=== PATIENT | male | born 1960 | race Hispanic/Latino ===

== ENCOUNTER 2017-01-16 10:37 | Outpatient (CLI) | payer MEDICAID ==
[~2017-01-16 10:37] MED LIST: NACL 0.9% 1000 ML 1,000 ML ONE
[2017-01-16 12:07] LABS: Blood Urea Nitrogen 10 mg/dL (9-20)
[2017-01-16] MEDS ORDERED: NACL ONE (13:33)
--- NOTE | 2017-01-16 16:14 | Cat Scan Report ---
CT chest abdomen and pelvis with contrast: Anus malignancy. Transverse images are obtained from the thoracic inlet to the ischium with coronal and sagittal 2-D reformatted images. The pulmonary arterial structures as well as cardiac chambers are only mildly opacified. There is no obvious intraluminal filling abnormalities. No axillary, hilar, nor mediastinal adenopathy noted. The lungs are clear of any nodules or infiltrates. The liver surface is mildly lobulated and the overall volume may be slightly decreased. No focal lesion. The spleen is markedly enlarged and the portal vein appears to be increased in diameter. There are epigastric varices. The gallbladder is mildly patulous. There is no obvious periaortic, mesenteric, nor pelvic adenopathy. The partially opacified small bowel and colon shows no obvious dilatation or lesion. There are several small sclerotic foci in the left iliac bone and one seen on the right however these do not appear to represent blastic lesions. Bone islands are considered more likely. Impressions: No metastases identified. Findings consistent with hepatic cirrhosis.
== END 2017-01-16 10:38 | disposition home or self-care (01) ==
LOC: CT 10:37
PROVIDERS: ATTEND Internal Medicine Hematology & Oncology
DX: C21.0 Malignant neoplasm of anus, unspecified (principal); R16.1 Splenomegaly, not elsewhere classified
CPT/HCPCS: 36415; 71260; 74177; 82565; 84520; Q9967; J7030

== ENCOUNTER 2017-05-13 11:20 | Day surgery (SDC) | payer MEDICAID ==
[2017-05-13] MEDS ORDERED: NACL 0.9% 1000 ML 1,000 ML IV SCH (12:00)
--- NOTE | 2017-05-13 12:09 | Anesthesia Consultation ---
<MIGDALIA BASS - Last Filed: 05/13/17 12:04> Anesthesia Consult and Med Hx Date of service: 05/13/17 - Airway Anesthetic Teeth Evaluation: Poor (mult. missing and broken) ROM Head & Neck: Adequate Mental/Hyoid Distance: Adequate Mallampati Class: Class II Intubation Access Assessment: Probably Good - Pulmonary Exam CTA: Yes - Cardiac Exam Cardiac Exam: RRR - Pre-Operative Health Status ASA Pre-Surgery Classification: ASA3 Proposed Anesthetic Plan: MAC - Pulmonary Hx Smoking: Yes (CIGARETTES 1 PPD X 40 YRS) Hx Sleep Apnea: No - Cardiovascular System Hx Hypertension: Yes Hx Pacemaker: No Hx Internal Defibrillator: No - Central Nervous System Hx Psychiatric Problems: No - Endocrine Hx Cirrhosis: Yes Hx Liver Disease: Yes (Hep C) - Other Systems Hx Cancer: No - Additional Comments Anesthesia Medical History Comments: cough with phlegm <ESTELITA JAVIER N - Last Filed: 05/13/17 12:36> Anesthesia Consult and Med Hx - Other Systems Hx Substance Use: Yes (h/o substance abuse)
--- NOTE | 2017-05-13 12:11 | Anesthesia Day of Surgery ---
Anesthesia Day of Surgery - Day of Surgery Patient Examined: Yes Patient H&P Reviewed: Yes Patient is NPO: Yes
[2017-05-13] MEDS ORDERED: DIPRIVAN 10 MG/ML IV ONE (12:12)
--- NOTE | 2017-05-13 12:36 | Short Stay Summary ---
Short Stay Documentation Date of service: 05/13/17 - History H&P: obtained from office - Allergies and Medications Current Medications: Allergies codeine Allergy (Verified 07/17/16 11:55) Rash Home Medications Medication Instructions Recorded Confirmed Last Taken Type clonazePAM 1 mg PO DAILY 08/22/16 05/13/17 05/12/17 History Oxycodone HCl/Acetaminophen 1 each PO Q6HR PRN #12 tablet 08/31/16 05/13/17 Rx [Percocet 10/325 mg] Acetaminophen [Acetaminophen ER 650 mg PO Q8HR PRN #20 tablet.er 09/16/1605/06/17 Rx TAB] Active Medications Sodium Chloride (Nacl 0.9% 1000 Ml) 1,000 mls @ 50 mls/hr IV DIRECT XENIA Last Admin: 05/13/17 12:16 Dose: 50 mls/hr - Brief post op/procedure progress note Date of procedure: 05/13/17 Findings: see dictation Estimated blood loss: none Pathology: none Condition: stable - Disposition Condition at discharge: Good Disposition: DC-01 TO HOME OR SELFCARE - Discharge Diagnoses (1) Cirrhosis of liver Status: Acute Qualifiers: Hepatic cirrhosis type: H Ascites presence: A (2) Portal hypertension Status: Acute Short Stay Discharge Plan Activity: other (no driving for 24 hours) Weight Bearing Status: Non-Weight Bearing Diet: regular Follow up with: PRIMARY CARE, [Primary Care Provider] - 7 Days
--- NOTE | 2017-05-13 12:37 | Post Anesthesia Evaluation ---
- Post Anesthesia Evaluation Patient Participated: Yes Airway Patent: Yes Stable Respiratory Function: Yes Nausea/Vomiting: No Temp > 96.8F: Yes Pain Manageable: Yes Adequeate Hydration: Yes Anesthesia Complications: No
--- NOTE | 2017-05-13 12:38 | Operative Report ---
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 Suspected portal hypertension and varices on CT scan of the abdomen. Post procedure diagnosis: Probable portal hypertension gastropathy, normal duodenum and esophagus. No discrete varices. Endoscopist: Dr. Walton Anesthesia: Monitored anesthesia care per anesthesia department Medications: Propofol per anesthesia Estimated blood loss: 0 After careful discussion of the nature and purpose of the procedure as well as details the technique risks benefits and alternatives consent was obtained. The patient was placed in the left lateral decubitus position and medicated per anesthesia. The tip of the [employer] EQ 570 video scope was passed per orum under direct vision into the esophagus and advanced into the stomach and descending duodenum. The descending duodenum the duodenal bulb and pylorus were symmetrical and normal. The scope was withdrawn into the stomach and the stomach then gently insufflated with air. The antrum was normal. The stomach was further insufflated and the scope was then retroflexed and partially withdrawn. The cardia, fundus, and body of the stomach reveals some vascular congestion in the proximal stomach but no discrete varices at the cardia or in the fundus. The scope was then withdrawn in the forward position. The esophagogastric junction was at 40 cm. The esophageal body was normal throughout. The procedure was was well tolerated and the patient was observed in recovery. Impressions: Probable mild portal hypertension gastropathy. No discrete varices in the stomach or esophagus. Normal duodenum. Plan: Continue office follow-up for cirrhosis and hepatitis C. Electronically signed: Demario Walton MD
[2017-05-13 12:55] VITALS: BP 123/71
== END 2017-05-13 11:21 | disposition home or self-care (01) ==
LOC: GIO 11:20
PROVIDERS: ATTEND Internal Medicine Gastroenterology
DX: K70.30 Alcoholic cirrhosis of liver without ascites (principal); B19.20 Unspecified viral hepatitis C without hepatic coma; K31.89 Other diseases of stomach and duodenum; I10 Essential (primary) hypertension; F17.210 Nicotine dependence, cigarettes, uncomplicated; Z88.5 Allergy status to narcotic agent; Z87.898 Personal history of other specified conditions; Z98.890 Other specified postprocedural states
CPT/HCPCS: 43235; J2704; J7030

== ENCOUNTER 2017-06-27 12:07 | Inpatient (IN) | payer MEDICAID ==
[2017-06-27] MEDS ORDERED: XYLOCAINE 2% INFILTRATI ONE (12:33)
[2017-06-27] MEDS ORDERED: XYLOCAINE TOPICAL 4% TP ONE (12:33)
[2017-06-27] MEDS ORDERED: NACL 0.9% IR ONE (12:34)
--- NOTE | 2017-06-27 12:36 | Emergency Department Report ---
ED General Adult HPI - General Chief complaint: Altered Mental Status Stated complaint: FALL,LEFT ARM LACERATION Time Seen by Provider: 06/27/17 12:30 Source: patient, RN notes reviewed, old records reviewed Mode of arrival: Ambulatory Limitations: Altered Mental Status - History of Present Illness Initial comments: This is a 57-year-old male, has a past medical history of hepatitis C. Patient initially presented to the ER complaining of left elbow pain and left middle finger pain after fall yesterday. He can't recall how he fell. The patient is very somnolent. He cannot describe exactly how he fell, but he thinks that he tripped. He did not hit his head or his neck that he is aware of, he denies chest pain, shortness of breath, abdominal pain, Tinley, numbness, weakness, irritative/obstructive urinary symptoms. The patient endorses that he has had a tetanus shot within the past 5 years. Patient is found to have A laceration on the volar aspect of the middle finger. -: unknown Location: left, upper extremity Consistency: constant Improves with: none Worsens with: none Associated Symptoms: confusion, weakness - Related Data Home Medications Medication Instructions Recorded Confirmed Last Taken clonazePAM 1 mg PO DAILY 08/22/16 05/13/17 05/12/17 Previous Rx's Medication Instructions Recorded Last Taken Type Oxycodone HCl/Acetaminophen 1 each PO Q6HR PRN #12 tablet 08/31/16 05/12/17 Rx [Percocet 10/325 mg] Acetaminophen [Acetaminophen ER 650 mg PO Q8HR PRN #20 tablet.er 09/16/16 Rx TAB] Allergies Allergy/AdvReac Type Severity Reaction Status Date / Time codeine Allergy Rash Verified 06/27/17 12:17 ED Review of Systems ROS: Stated complaint: FALL,LEFT ARM LACERATION Other details as noted in HPI Comment: Unobtainable due to pts medical conditions Constitutional: malaise, weakness Cardiovascular: denies: chest pain Gastrointestinal: denies: vomiting Genitourinary: denies: dysuria Musculoskeletal: back pain, arthralgia, myalgia Skin: denies: lesions Neurological: weakness, confusion Psychiatric: denies: homicidal thoughts, suicidal thoughts ED Past Medical Hx - Past Medical History Hx Hypertension: Yes Hx Liver Disease: Yes (Hep C) Additional medical history: Hepatitis C, anal CA with current Chemo treatments - Surgical History Hx Pacemaker: No Hx Internal Defibrillator: No Additional Surgical History: Hemorrhoidectomy, Anal biopsy - Social History Smoking Status: Never Smoker Substance Use Type: None - Medications Home Medications: Home Medications Medication Instructions Recorded Confirmed Last Taken Type clonazePAM 1 mg PO DAILY 08/22/16 05/13/17 05/12/17 History Oxycodone HCl/Acetaminophen 1 each PO Q6HR PRN #12 tablet 08/31/16 05/13/17 Rx [Percocet 10/325 mg] Acetaminophen [Acetaminophen ER 650 mg PO Q8HR PRN #20 tablet.er 09/16/1605/06/17 Rx TAB] ED Physical Exam - General Limitations: Altered Mental Status General appearance: alert, lethargic - Head Head exam: Present: atraumatic, normocephalic - Eye Eye exam: Present: normal appearance, EOMI. Absent: nystagmus - ENT ENT exam: Present: normal exam, normal orophraynx, mucous membranes moist, TM's normal bilaterally, normal external ear exam - Neck Neck exam: Present: normal inspection, full ROM. Absent: tenderness, meningismus - Respiratory Respiratory exam: Present: normal lung sounds bilaterally. Absent: respiratory distress, wheezes, rales, rhonchi, stridor, chest wall tenderness, accessory muscle use, decreased breath sounds, prolonged expiratory - Cardiovascular Cardiovascular Exam: Present: regular rate, normal rhythm, normal heart sounds. Absent: bradycardia, tachycardia, irregular rhythm, systolic murmur, diastolic murmur, rubs, gallop - GI/Abdominal GI/Abdominal exam: Present: soft, normal bowel sounds. Absent: distended, tenderness, guarding, rebound, rigid, pulsatile mass - Rectal Rectal exam: Present: deferred - Extremities Exam Extremities exam: Present: full ROM, tenderness, normal capillary refill, pedal edema, other (there is bilateral lower extremity erythema, edema, punctate lesions. There is no streaking, there is no crepitus, tenderness is noted). Absent: normal inspection (the compartments are soft, 2+ pulses are noted in the bilateral upper and lower extremities, there is a left lateral elbow skin abrasion/avulsion. The pelvis is stable. There is a laceration at the MCP joint on the middle finger on the left upper extremity. Secondary to patient's mental status, and encephalopathy, patient is unable to participate and perform a detailed flexor tendon examination.), calf tenderness - Back Exam Back exam: Present: normal inspection - Neurological Exam Neurological exam: Present: alert, oriented X3 - Psychiatric Psychiatric exam: Present: flat affect. Absent: homicidal ideation, suicidal ideation - Skin Skin exam: Present: warm, rash ED Course Vital Signs 06/27/17 06/27/17 12:13 13:49 Temperature 98.4 F 97.8 F Pulse Rate 89 71 Respiratory 16 19 Rate Blood Pressure 133/88 Blood Pressure 122/70 [Right] O2 Sat by Pulse 95 95 Oximetry - Laceration /Wound Repair Left Upper Finger Wound Location: upper extremity Wound Length (cm): 5 Wound's Depth, Shape: into muscle, linear Wound Explored: contaminated Irrigated w/ Saline (ccs): 500 Betadine Prep?: Yes Volume Anesthetic (ccs): 5 (2% lidocaine) Wound Debrided: minimal Suture Size/Type: 4:0 Number of Sutures: 6 Layer Closure?: No Sterile Dressing Applied?: Yes Progress: The wound is anesthetized with 2% lidocaine, cleansed with sterile saline and Betadine at adequate pressure, and then explored on a bloodless field. 6 interrupted sutures were loosely placed, with good approximation, and the patient tolerated the procedure well. ED Medical Decision Making - Lab Data Result diagrams: 06/27/17 12:47 06/27/17 12:47 Vital Signs 06/27/17 12:13 Temperature 98.4 F Pulse Rate 89 Respiratory 16 Rate Blood Pressure 133/88 O2 Sat by Pulse 95 Oximetry Lab Results 06/27/17 06/27/17 06/27/17 Range/Units 12:17 12:47 12:47 WBC 1.7 L* (4.5-11.0) K/mm3 RBC 3.60 L (3.65-5.03) M/mm3 Hgb 11.2 L (11.8-15.2) gm/dl Hct 32.8 L (35.5-45.6) % MCV 91 (84-94) fl MCH 31 (28-32) pg MCHC 34 (32-34) % RDW 15.3 H (13.2-15.2) % Plt Count 37 L (140-440) K/mm3 PT 17.6 H (12.2-14.9) Sec. INR 1.37 H (0.87-1.13) APTT 37.4 H (24.2-36.6) Sec. Sodium (137-145) mmol/L Potassium (3.6-5.0) mmol/L Chloride (98-107) mmol/L Carbon Dioxide (22-30) mmol/L Anion Gap mmol/L BUN (9-20) mg/dL Creatinine (0.8-1.5) mg/dL Estimated GFR ml/min BUN/Creatinine Ratio % Glucose (75-100) mg/dL POC Glucose 127 H (70-105) Lactic Acid (0.7-2.0) mmol/L Calcium (8.4-10.2) mg/dL Total Bilirubin (0.1-1.2) mg/dL AST (5-40) units/L ALT (7-56) units/L Alkaline Phosphatase (35-129) units/L Ammonia (25-60) umol/L Total Creatine Kinase (55-170) units/L Troponin T (0.00-0.029) ng/mL NT-Pro-B Natriuret Pep (0-900) pg/mL Total Protein (6.3-8.2) g/dL Albumin (3.9-5) g/dL Albumin/Globulin Ratio % TSH (0.270-4.200) mlU/mL Salicylates (2.8-20.0) mg/dL Acetaminophen (10.0-30.0) ug/mL Plasma/Serum Alcohol (0-0.07) gm% 06/27/17 06/27/17 06/27/17 Range/Units 12:47 12:47 12:47 WBC (4.5-11.0) K/mm3 RBC (3.65-5.03) M/mm3 Hgb (11.8-15.2) gm/dl Hct (35.5-45.6) % MCV (84-94) fl MCH (28-32) pg MCHC (32-34) % RDW (13.2-15.2) % Plt Count (140-440) K/mm3 PT (12.2-14.9) Sec. INR (0.87-1.13) APTT (24.2-36.6) Sec. Sodium 142 (137-145) mmol/L Potassium 3.6 (3.6-5.0) mmol/L Chloride 106.3 (98-107) mmol/L Carbon Dioxide 25 (22-30) mmol/L Anion Gap 14 mmol/L BUN 11 (9-20) mg/dL Creatinine 0.6 L (0.8-1.5) mg/dL Estimated GFR > 60 ml/min BUN/Creatinine Ratio 18 % Glucose 134 H (75-100) mg/dL POC Glucose (70-105) Lactic Acid 1.30 (0.7-2.0) mmol/L Calcium 7.5 L (8.4-10.2) mg/dL Total Bilirubin 2.30 H (0.1-1.2) mg/dL AST 26 (5-40) units/L ALT 15 (7-56) units/L Alkaline Phosphatase 74 (35-129) units/L Ammonia 111.0 H (25-60) umol/L Total Creatine Kinase 72 (55-170) units/L Troponin T < 0.010 (0.00-0.029) ng/mL NT-Pro-B Natriuret Pep (0-900) pg/mL Total Protein 6.3 (6.3-8.2) g/dL Albumin 2.9 L (3.9-5) g/dL Albumin/Globulin Ratio 0.9 % TSH (0.270-4.200) mlU/mL Salicylates (2.8-20.0) mg/dL Acetaminophen (10.0-30.0) ug/mL Plasma/Serum Alcohol (0-0.07) gm% 06/27/17 06/27/17 06/27/17 Range/Units 12:47 12:47 12:47 WBC (4.5-11.0) K/mm3 RBC (3.65-5.03) M/mm3 Hgb (11.8-15.2) gm/dl Hct (35.5-45.6) % MCV (84-94) fl MCH (28-32) pg MCHC (32-34) % RDW (13.2-15.2) % Plt Count (140-440) K/mm3 PT (12.2-14.9) Sec. INR (0.87-1.13) APTT (24.2-36.6) Sec. Sodium (137-145) mmol/L Potassium (3.6-5.0) mmol/L Chloride (98-107) mmol/L Carbon Dioxide (22-30) mmol/L Anion Gap mmol/L BUN (9-20) mg/dL Creatinine (0.8-1.5) mg/dL Estimated GFR ml/min BUN/Creatinine Ratio % Glucose (75-100) mg/dL POC Glucose (70-105) Lactic Acid (0.7-2.0) mmol/L Calcium (8.4-10.2) mg/dL Total Bilirubin (0.1-1.2) mg/dL AST (5-40) units/L ALT (7-56) units/L Alkaline Phosphatase (35-129) units/L Ammonia (25-60) umol/L Total Creatine Kinase (55-170) units/L Troponin T (0.00-0.029) ng/mL NT-Pro-B Natriuret Pep (0-900) pg/mL Total Protein (6.3-8.2) g/dL Albumin (3.9-5) g/dL Albumin/Globulin Ratio % TSH 1.430 (0.270-4.200) mlU/mL Salicylates < 0.3 L (2.8-20.0) mg/dL Acetaminophen < 15.0 (10.0-30.0) ug/mL Plasma/Serum Alcohol (0-0.07) gm% 06/27/17 06/27/17 Range/Units 12:47 12:47 WBC (4.5-11.0) K/mm3 RBC (3.65-5.03) M/mm3 Hgb (11.8-15.2) gm/dl Hct (35.5-45.6) % MCV (84-94) fl MCH (28-32) pg MCHC (32-34) % RDW (13.2-15.2) % Plt Count (140-440) K/mm3 PT (12.2-14.9) Sec. INR (0.87-1.13) APTT (24.2-36.6) Sec. Sodium (137-145) mmol/L Potassium (3.6-5.0) mmol/L Chloride (98-107) mmol/L Carbon Dioxide (22-30) mmol/L Anion Gap mmol/L BUN (9-20) mg/dL Creatinine (0.8-1.5) mg/dL Estimated GFR ml/min BUN/Creatinine Ratio % Glucose (75-100) mg/dL POC Glucose (70-105) Lactic Acid (0.7-2.0) mmol/L Calcium (8.4-10.2) mg/dL Total Bilirubin (0.1-1.2) mg/dL AST (5-40) units/L ALT (7-56) units/L Alkaline Phosphatase (35-129) units/L Ammonia (25-60) umol/L Total Creatine Kinase (55-170) units/L Troponin T (0.00-0.029) ng/mL NT-Pro-B Natriuret Pep 17.10 (0-900) pg/mL Total Protein (6.3-8.2) g/dL Albumin (3.9-5) g/dL Albumin/Globulin Ratio % TSH (0.270-4.200) mlU/mL Salicylates (2.8-20.0) mg/dL Acetaminophen (10.0-30.0) ug/mL Plasma/Serum Alcohol < 0.01 (0-0.07) gm% - Radiology Data Radiology results: report reviewed, image reviewed Noncontrast CT scan of the brain is negative. Noncontrast CT scan of the cervical spine is negative. X-ray of the chest is negative. X-ray of the pelvis is negative. X-ray of the left hand is negative - Medical Decision Making Differential diagnosis: Intracranial injury, cervical spine injury, hepatic encephalopathy, pneumonia, urinary tract infection Assessment and plan: 57-year-old male who is somnolent but arousable, awake and protecting his airway, with probable hepatic encephalopathy, with hyperammonemia with a level of 111. Also found to be pancytopenic, afebrile rectally, pancytopenia most likely secondary to alcohol use, however malignancy is not excluded. CT scan of the brain and cervical spine negative, the left upper extremity laceration will be irrigated thoroughly, and closed loosely, and placed in a finger tip finger splint. Case is presented to the Hospital physician, Dr. Orozco, who accepts the patient to his service. Lower extremity redness is appreciated, most likely stasis dermatitis, but we'll cover empirically with antibiotics. Critical care attestation.: If time is entered above; I have spent that time in minutes in the direct care of this critically ill patient, excluding procedure time. ED Disposition Clinical Impression: Hepatic encephalopathy, Thrombocytopenia, Leukopenia, Altered mental status Disposition: DC-09 OP ADMIT IP TO THIS HOSP Is pt being admited?: Yes Condition: Fair
[2017-06-27 13:18] LABS: Hematocrit 32.8 % (35.5-45.6); Hemoglobin 11.2 gm/dl (11.8-15.2); Mean Corpuscular HGB Conc 34 % (32-34); Mean Corpuscular Hemoglobin 31 pg (28-32); Mean Corpuscular Volume 91 fl (84-94); Red Cell Distribution Width 15.3 % (13.2-15.2)
[2017-06-27 13:24] LABS: Platelet Count 37 K/mm3 (140-440)
[2017-06-27 13:26] LABS: White Blood Count 1.7 K/mm3 (4.5-11.0)
[2017-06-27 13:28] LABS: INR 1.37 (0.87-1.13)
[2017-06-27 13:29] LABS: Partial Thromboplastin Time 37.4 Sec. (24.2-36.6)
--- NOTE | 2017-06-27 13:31 | Cat Scan Report ---
CT HEAD WITHOUT CONTRAST: HISTORY: Altered mental status. Serial contiguous axial images were obtained through the cranium. Intravenous contrast material was not administered. The ventricles are normal in size and appearance. There is no mass effect or midline shift. No areas of abnormally increased or decreased attenuation are seen. No mass lesion is seen. The mastoid air cells and visualized portions of the sinuses are normal. IMPRESSION: Cranial CT scan within normal limits.
--- NOTE | 2017-06-27 13:31 | Cat Scan Report ---
CT SCAN OF THE CERVICAL SPINE: HISTORY: Altered mental status, injury. TECHNIQUE: Contiguous 1.25 mm axial images of the cervical spine were obtained. Sagittal and coronal reformatted images. FINDINGS: There is normal alignment of the cervical spine. The body, pedicles and posterior ligaments intact. Mild degenerative changes are noted.. No evidence of fracture or subluxation is seen. The spinal canal appears normal. The prevertebral soft tissues appear normal. IMPRESSION: Mild cervical spondylosis. No acute process is noted.
--- NOTE | 2017-06-27 13:32 | XRay Report ---
LEFT HAND, 3 views: History: Laceration The bony architecture is intact. Bony alignment is normal. No soft tissue abnormalities are seen. The joint spaces appear preserved. IMPRESSION: No acute process identified
--- NOTE | 2017-06-27 13:32 | XRay Report ---
AP CHEST: HISTORY: Altered mental status AP view of the chest demonstrates a normal mediastinal and cardiac contour with clear lungs and normal bony and soft tissue structures. IMPRESSION: Unremarkable AP chest.
--- NOTE | 2017-06-27 13:32 | XRay Report ---
LEFT ELBOW, 3 views: History: Abrasion The bony architecture is intact without evidence of fracture or dislocation. No significant soft tissue abnormality is seen. IMPRESSION: Normal left elbow.
[2017-06-27 13:33] LABS: Alanine Aminotransferase 15 units/L (7-56); Albumin 2.9 g/dL (3.9-5); Albumin/Globulin Ratio 0.9 %; Alkaline Phosphatase 74 units/L (35-129); Anion Gap 14 mmol/L; BUN/Creatinine Ratio 18; Blood Urea Nitrogen 11 mg/dL (9-20); Calcium 7.5 mg/dL (8.4-10.2); Carbon Dioxide 25 mmol/L (22-30); Chloride 106.3 mmol/L (98-107); Creatine Kinase 72 units/L (55-170); Glucose 134 mg/dL (75-100); Potassium 3.6 mmol/L (3.6-5.0); Sodium 142 mmol/L (137-145); Total Protein 6.3 g/dL (6.3-8.2)
[2017-06-27] MEDS ORDERED: CEPHULAC PO ONE (13:52)
[2017-06-27 14:12] LABS: Basophils % (Manual) 0 % (0.0-1.8); Blastocytes % (Manual) 0 %; Eosinophils % (Manual) 0 % (0.0-4.3)
[2017-06-27 14:14] LABS: Anisocytosis 1+; Diff Status Complete
[2017-06-27] MEDS ORDERED: CLEOCIN 300 MG/50 mL 300 MG/50 ML BAG IV ONE (14:45)
[2017-06-27] MEDS: ANTIBIOTIC OINT TP SCH ×2 (16:11→21:36)
[2017-06-27 23:25] VITALS: BP 134/64
[2017-06-28] MEDS ORDERED: ZOFRAN IV PRN (00:50)
[2017-06-28] MEDS ORDERED: TYLENOL PO PRN (00:50)
[2017-06-28] MEDS ORDERED: MILK OF MAGNESIA PO PRN (00:50)
[2017-06-28] MEDS ORDERED: DULCOLAX PR PRN (00:50)
[2017-06-28] MEDS ORDERED: DILAUDID IV PRN (00:50)
--- NOTE | 2017-06-28 00:50 | Event Note ---
Date: 06/27/17 See H/p in reports Hepatic Encephalopathy Pancytopenia L nm iddle finger Laceration
[2017-06-28] MEDS ORDERED: D5NS 1,000 ML IV SCH (01:00)
[2017-06-28] MEDS ORDERED: CEPHULAC PR SCH (02:00)
[2017-06-28] MEDS ORDERED: CEPHULAC PO SCH (08:00)
--- NOTE | 2017-06-28 09:55 | History and Physical Report ---
CHIEF COMPLAINT: 1. Altered sensorium. 2. Fall with laceration on the left finger. HISTORY OF PRESENT ILLNESS: A 57-year-old male with history of hepatic failure, comes in for laceration of the metacarpophalangeal joint of the middle finger of the left upper extremity. The patient also was confused secondary to his encephalopathy. The patient's laceration was repaired in the Emergency Room by . The patient had six interrupted sutures with good approximation of the left middle finger. PAST MEDICAL HISTORY: Significant for hepatitis C, chronic hepatic encephalopathy, and unknown cancer. SURGICAL HISTORY: Hemorrhoidectomy and anal biopsy. SOCIAL HISTORY: He does not smoke. Alcohol in the past. FAMILY HISTORY: Hypertension. CURRENT MEDICATIONS: Percocet 10/325 and clonazepam 1 mg at bedtime. REVIEW OF SYSTEMS: Significant for being confused and altered sensorium. Able to walk, otherwise review of systems negative. A 14-point review of system was done. PHYSICAL EXAMINATION: GENERAL: Elderly male, cooperative during the examination. VITAL SIGNS: Blood pressure is 103/58, temperature is 120, temperature is 99, pulse is 120, respiratory rate is 14, sats are 100%. HEENT: Unremarkable. Pupils equal and reactive. NECK: Supple, no lymphadenopathy, no thyromegaly. LUNGS: Clear to auscultation and percussion. Good air entry. CARDIOVASCULAR: S1, S2 heard. No gallop, no murmur, no rub. Apical impulse in the left fifth intercostal space and midclavicular line. ABDOMEN: Soft and benign. No hepatosplenomegaly. No guarding, no rigidity. Hernial orifices are normal. EXTREMITIES: Good pedal pulses. No pedal edema. Laceration on the left middle finger, which is sutured. CENTRAL NERVOUS SYSTEM: Alert, but confused. Not oriented to time and place. LABORATORY DATA: Significant for white count of 1700, platelet count of 37,000. LFTs: AST is 26, ALT is 15. Ammonia level is high at 111 as per the ER physician. Pro-time is 17.6 and INR is 1.37. The patient is not on any anticoagulants. ASSESSMENT AND PLAN: 1. Hepatic encephalopathy with lactulose initiated. It looks like the patient has chronic encephalopathy and is very functional with levels of 100 of ammonia. If back to baseline, we will discharge him with high ammonia level. 2. Pancytopenia secondary to bone marrow suppression secondary to hep C and possible alcohol intake. Hematology consult is requested. 3. Laceration on middle finger repaired. 4. Deep venous thrombosis prophylaxis, sequential compression devices only. Patient's INR is high secondary to hepatic failure. PROGNOSIS: Fair. JOB# [id number] VSM/NTS
[2017-06-28] MEDS ORDERED: PEPCID IV SCH (10:00)
--- NOTE | 2017-06-29 09:00 | Progress Note ---
Assessment and Plan - Patient Problems (1) Hepatic encephalopathy Status: Acute Plan to address problem: Acute on chronic-Cont Lactulose (2) Laceration Status: Acute Plan to address problem: Laceration middle finger --Sutured in Er (3) Hep C w/o coma, chronic Status: Chronic Plan to address problem: To f/u with GI for Harvoni treatment if he did not get it. (4) Leukopenia Status: Acute Qualifiers: Leukopenia type: unspecified Neutropenia type: N Qualified Code(s): D72.819 - Decreased white blood cell count, unspecified Plan to address problem: Had Chemo ETOH induced Hematology consulted (5) DVT prophylaxis Status: Acute Plan to address problem: SCD's Subjective Date of service: 06/28/17 (Late entry) Principal diagnosis: Hepatic encephalopathy Laceration L Hand Interval history: More alert and oriented Objective - Constitutional General appearance: Present: no acute distress, well-nourished - EENT Eyes: PERRL, EOM intact ENT: hearing intact, clear oral mucosa Ears: bilateral: normal - Neck Neck: supple, normal ROM - Respiratory Respiratory effort: normal Respiratory: bilateral: CTA - Breasts Breasts: normal - Cardiovascular Rhythm: regular Heart Sounds: Present: S1 & S2. Absent: gallop, rub Extremities: pulses intact, No edema, normal color, Full ROM - Gastrointestinal General gastrointestinal: Present: soft, non-tender, non-distended, normal bowel sounds - Genitourinary Male genitourinary: normal - Integumentary Integumentary: clear, warm, dry - Musculoskeletal Musculoskeletal: 1, strength equal bilaterally - Neurologic Neurologic: moves all extremities - Psychiatric Psychiatric: memory intact, appropriate mood/affect, intact judgment & insight - Labs CBC & Chem 7: 06/27/17 12:47 06/27/17 12:47
== END 2017-06-28 06:39 | disposition left against medical advice (07) | DRG 442 ==
LOC: ED 12:07 → 3A 14:06
PROVIDERS: ADMIT Internal Medicine; ATTEND Internal Medicine
PROC: 0HQGXZZ Repair Left Hand Skin, External Approach (ICD-10-PCS; principal; 2017-06-27)
DX: K72.90 Hepatic failure, unspecified without coma (principal); D61.818 Other pancytopenia; S61.213A Laceration without foreign body of left middle finger without damage to nail, initial encounter; X58.XXXA Exposure to other specified factors, initial encounter; I10 Essential (primary) hypertension; B18.2 Chronic viral hepatitis C; Z79.899 Other long term (current) drug therapy; Z88.6 Allergy status to analgesic agent; Z85.048 Personal history of other malignant neoplasm of rectum, rectosigmoid junction, and anus; Z82.49 Family history of ischemic heart disease and other diseases of the circulatory system; Y93.89 Activity, other specified; Y92.89 Other specified places as the place of occurrence of the external cause; Y99.8 Other external cause status
CPT/HCPCS: 36415; 70450; 71010; 72125; 80053; 80320; 82140; 82550; 82962; 83880; 84443; 84484; 85007; 85025; 85610; 85730; 93005; 93010; 99406; G0480

== ENCOUNTER 2017-07-04 10:59 | Emergency (ER) | payer MEDICAID ==
[2017-07-04] MEDS ORDERED: NACL 0.9% 500 ML 500 ML IV ONE (11:49)
[2017-07-04] MEDS ORDERED: VANCOMYCIN PHARMACY TO DOSE IV SCH (12:00)
[2017-07-04] MEDS ORDERED: VANCOMYCIN 2,000 MG in NACL 0.9% 500 ML 500 ML IV ONE (12:15)
--- NOTE | 2017-07-04 12:38 | XRay Report ---
AP CHEST :07/04/17 12:01 CLINICAL: Sepsis. COMPARISON:None. FINDINGS: Normal heart and pulmonary vasculature. The lungs are normally expanded and clear. The bones and soft tissues are normal. IMPRESSION: Normal chest.
--- NOTE | 2017-07-04 12:40 | XRay Report ---
X-RAY LEFT HAND 2 VIEWS: 07/04/17 11:53:00 CLINICAL: Trauma, swelling and infection FINDINGS: No fracture or dislocation. Soft tissue swelling of the digits. No soft tissue air or foreign body. Mild osteoarthritis in multiple joints including the basal joint of the thumb. IMPRESSION: Soft tissue swelling and arthritis. No signs of osteomyelitis.
[2017-07-04 13:05] LABS: Hematocrit 33.4 % (35.5-45.6); Hemoglobin 11.3 gm/dl (11.8-15.2); Mean Corpuscular HGB Conc 34 % (32-34); Mean Corpuscular Hemoglobin 31 pg (28-32); Mean Corpuscular Volume 92 fl (84-94); Red Blood Count 3.62 M/mm3 (3.65-5.03); Red Cell Distribution Width 15.5 % (13.2-15.2)
[2017-07-04 13:15] LABS: INR 1.42 (0.87-1.13)
[2017-07-04 13:18] LABS: Creatine Kinase MB 2.1 ng/mL (0.0-4.0)
[2017-07-04 13:19] LABS: Alanine Aminotransferase 17 units/L (7-56); Albumin 2.9 g/dL (3.9-5); Albumin/Globulin Ratio 0.9 %; Alkaline Phosphatase 77 units/L (35-129); Bilirubin,Direct 0.5 mg/dL (0-0.2); Bilirubin,Indirect 0.8 mg/dL; Creatine Kinase 67 units/L (55-170); Total Protein 6.3 g/dL (6.3-8.2)
[2017-07-04 13:43] LABS: Platelet Count 36 K/mm3 (140-440); White Blood Count 1.3 K/mm3 (4.5-11.0)
[2017-07-04] MEDS: ZOSYN/NS 4.5GM/100ML 4.5 GM/100 ML VIAL IV ONE ×2 (13:46→17:32)
[2017-07-04 14:54] LABS: Basophils % (Manual) 0 % (0.0-1.8); Blastocytes % (Manual) 0 %
[2017-07-04 14:55] LABS: Anisocytosis 1+; Diff Status Complete; Platelet Estimate Consistent w Auto
--- NOTE | 2017-07-04 15:25 | Emergency Department Report ---
ED General Adult HPI - General Chief complaint: Wound/Laceration Stated complaint: LEFT HAND SWELLING/NURSE CALLED FOR RETURN Time Seen by Provider: 07/04/17 11:39 Source: patient Mode of arrival: Ambulatory Limitations: No Limitations - History of Present Illness Initial comments: The patient returns to the hospital in a generally poor condition. It is somewhat unclear as to his rationale for returning. He states that he was called back by her nurse. However he is somewhat confused and has a history of hepatic encephalopathy. The charge nurse conference with me that this patient was not called back. He next tells me that he left the hospital AGAINST MEDICAL ADVICE Thursday morning which was yesterday. To the contrary. It looks like patient was admitted last week. I am not sure which days he left against medical advise. He has a history of pancytopenia and apparently end-stage cirrhosis. Following history was found in the emergency physician's report: This is a 57-year-old male, has a past medical history of hepatitis C. Patient initially presented to the ER complaining of left elbow pain and left middle finger pain after fall yesterday. He can't recall how he fell. The patient is very somnolent. He cannot describe exactly how he fell, but he thinks that he tripped. He did not hit his head or his neck that he is aware of, he denies chest pain, shortness of breath, abdominal pain, Tinley, numbness, weakness, irritative/obstructive urinary symptoms. The patient endorses that he has had a tetanus shot within the past 5 years. Patient is found to have A laceration on the volar aspect of the middle finger. While in the emergency room that day he had a suture repair of the base of the fourth finger is left hand. The patient presents with this wound apparently dehisced with residual suture material. The hand has become quite swollen. Patient states that his right leg more swollen than his left leg. He does not have a known history of DVT. Patient has a long history of portal hypertension and endstage liver disease. He was scoped by Dr. Walton in April and found to have gastritis related to portal hypertension. Severity scale (0 -10): 4 Quality: other Improves with: none (left hand aching) Worsens with: none Associated Symptoms: denies other symptoms (Limited secondary to mental status) - Related Data Home Medications Medication Instructions Recorded Confirmed Last Taken clonazePAM 1 mg PO DAILY 08/22/16 05/13/17 05/12/17 Previous Rx's Medication Instructions Recorded Last Taken Type Oxycodone HCl/Acetaminophen 1 each PO Q6HR PRN #12 tablet 08/31/16 05/12/17 Rx [Percocet 10/325 mg] Acetaminophen [Acetaminophen ER 650 mg PO Q8HR PRN #20 tablet.er 09/16/16 Rx TAB] Allergies Allergy/AdvReac Type Severity Reaction Status Date / Time codeine Allergy Rash Verified 06/27/17 12:17 ED Review of Systems ROS: Stated complaint: LEFT HAND SWELLING/NURSE CALLED FOR RETURN Other details as noted in HPI Comment: Unobtainable due to pts medical conditions ED Past Medical Hx - Past Medical History Previous Medical History?: Yes Hx Hypertension: Yes Hx Liver Disease: Yes (Hep C) Hx of Cancer: Yes Additional medical history: Hepatitis C, anal CA with current Chemo treatments - Surgical History Hx Pacemaker: No Hx Internal Defibrillator: No Additional Surgical History: Hemorrhoidectomy, Anal biopsy - Social History Smoking Status: Current Every Day Smoker Substance Use Type: Alcohol - Medications Home Medications: Home Medications Medication Instructions Recorded Confirmed Last Taken Type clonazePAM 1 mg PO DAILY 08/22/16 05/13/17 05/12/17 History Oxycodone HCl/Acetaminophen 1 each PO Q6HR PRN #12 tablet 08/31/16 05/13/17 Rx [Percocet 10/325 mg] Acetaminophen [Acetaminophen ER 650 mg PO Q8HR PRN #20 tablet.er 09/16/1605/06/17 Rx TAB] ED Physical Exam - General Limitations: No Limitations General appearance: other (very deconditioned) - Head Head exam: Present: atraumatic, normocephalic - Eye Eye exam: Present: normal appearance, PERRL, EOMI. Absent: scleral icterus - ENT ENT exam: Present: mucous membranes moist - Neck Neck exam: Present: normal inspection - Respiratory Respiratory exam: Present: normal lung sounds bilaterally. Absent: respiratory distress - Cardiovascular Cardiovascular Exam: Present: regular rate, normal rhythm. Absent: systolic murmur, diastolic murmur, rubs, gallop - GI/Abdominal GI/Abdominal exam: Present: soft, distended, normal bowel sounds, organomegaly ( hepatomegaly and probable ascites). Absent: tenderness, guarding, rebound, rigid - Rectal Rectal exam: Present: deferred - Extremities Exam Extremities exam: Present: pedal edema, other (patient does have 1-2+ hand edema. There is some warmth of the dorsum of his hand. There is erythema at the base of the finger with the dehisced laceration. The wound is open and there are sutures in the wound. The patient does not spontaneously with pain on finger extension.). Absent: calf tenderness (there is differential leg girth with the right leg being several centimeters larger than the left and edematous.) - Back Exam Back exam: Present: normal inspection - Neurological Exam Neurological exam: Present: altered - Psychiatric Psychiatric exam: Present: normal affect, normal mood - Skin Skin exam: Present: warm, dry, intact, normal color. Absent: rash ED Course Vital Signs 07/04/17 07/04/17 07/04/17 11:15 11:53 14:50 Temperature 98 F 97.9 F Pulse Rate 66 63 57 L Respiratory 18 11 L 12 Rate Blood Pressure 140/86 115/73 Blood Pressure 138/80 [Right] O2 Sat by Pulse 98 100 98 Oximetry 07/04/17 15:22 Temperature Pulse Rate 57 L Respiratory 18 Rate Blood Pressure Blood Pressure 148/87 [Right] O2 Sat by Pulse 97 Oximetry - Reevaluation(s) Reevaluation #1: Patient does appear to have a wound infection with dehiscence of his left hand with cellulitis. I don't think he has an abscess or tenosynovitis. Orthopedics will be consulted. 07/04/17 15:50 07/04/17 15:[address] a [address] of the head. However on 06/27/17 CT of the head was ordered and cleared. I do not think it needs to be repeated at this time. The patient was given Zosyn and vancomycin for his hand infection. ED Medical Decision Making - Lab Data Result diagrams: 07/04/17 12:45 Laboratory Results - last 24 hr 07/04/17 07/04/17 07/04/17 11:14 12:45 12:45 WBC 1.3 L* RBC 3.62 L Hgb 11.3 L Hct 33.4 L MCV 92 MCH 31 MCHC 34 RDW 15.5 H Plt Count 36 L Add Manual Diff Complete Total Counted 100 Seg Neuts % (Manual) 75.0 H Band Neutrophils % 0 Lymphocytes % (Manual) 12.0 L Reactive Lymphs % (Man) 0 Monocytes % (Manual) 6.0 Eosinophils % (Manual) 7.0 H Basophils % (Manual) 0 Metamyelocytes % 0 Myelocytes % 0 Promyelocytes % 0 Blast Cells % 0 Nucleated RBC % Not Reportable Seg Neutrophils # Man 1.0 L Band Neutrophils # 0.0 Lymphocytes # (Manual) 0.2 L Abs React Lymphs (Man) 0.0 Monocytes # (Manual) 0.1 Eosinophils # (Manual) 0.1 Basophils # (Manual) 0.0 Metamyelocytes # 0.0 Myelocytes # 0.0 Promyelocytes # 0.0 Blast Cells # 0.0 WBC Morphology Not Reportable Hypersegmented Neuts Not Reportable Hyposegmented Neuts Not Reportable Hypogranular Neuts Not Reportable Smudge Cells Not Reportable Toxic Granulation Not Reportable Toxic Vacuolation Not Reportable Dohle Bodies Not Reportable Pelger-Huet Anomaly Not Reportable Chris Rods Not Reportable Platelet Estimate Consistent w auto Clumped Platelets Not Reportable Plt Clumps, EDTA Not Reportable Large Platelets Not Reportable Giant Platelets Not Reportable Platelet Satelliting Not Reportable Plt Morphology Comment Not Reportable RBC Morphology Not Reportable Dimorphic RBCs Not Reportable Polychromasia Not Reportable Hypochromasia Not Reportable Poikilocytosis Not Reportable Anisocytosis 1+ Microcytosis Not Reportable Macrocytosis Not Reportable Spherocytes Not Reportable Pappenheimer Bodies Not Reportable Sickle Cells Not Reportable Target Cells Not Reportable Tear Drop Cells Not Reportable Ovalocytes Not Reportable Helmet Cells Not Reportable [place] Bodies Not Reportable Hayes Rings Not Reportable Caitlin Cells Not Reportable Bite Cells Not Reportable Crenated Cell Not Reportable Elliptocytes Not Reportable Acanthocytes (Spur) Not Reportable Rouleaux Not Reportable Hemoglobin C Crystals Not Reportable Schistocytes Not Reportable Malaria parasites Not Reportable Servando Bodies Not Reportable Hem Pathologist Commnt No PT 18.1 H INR 1.42 H APTT 34.0 VBG pH POC Glucose 168 H Lactic Acid Magnesium Total Bilirubin Direct Bilirubin Indirect Bilirubin AST ALT Alkaline Phosphatase Ammonia Total Creatine Kinase CK-MB (CK-2) CK-MB (CK-2) Rel Index Troponin T NT-Pro-B Natriuret Pep Total Protein Albumin Albumin/Globulin Ratio 07/04/17 07/04/17 07/04/17 12:45 12:45 12:45 WBC RBC Hgb Hct MCV MCH MCHC RDW Plt Count Add Manual Diff Total Counted Seg Neuts % (Manual) Band Neutrophils % Lymphocytes % (Manual) Reactive Lymphs % (Man) Monocytes % (Manual) Eosinophils % (Manual) Basophils % (Manual) Metamyelocytes % Myelocytes % Promyelocytes % Blast Cells % Nucleated RBC % Seg Neutrophils # Man Band Neutrophils # Lymphocytes # (Manual) Abs React Lymphs (Man) Monocytes # (Manual) Eosinophils # (Manual) Basophils # (Manual) Metamyelocytes # Myelocytes # Promyelocytes # Blast Cells # WBC Morphology Hypersegmented Neuts Hyposegmented Neuts Hypogranular Neuts Smudge Cells Toxic Granulation Toxic Vacuolation Dohle Bodies Pelger-Huet Anomaly Chris Rods Platelet Estimate Clumped Platelets Plt Clumps, EDTA Large Platelets Giant Platelets Platelet Satelliting Plt Morphology Comment RBC Morphology Dimorphic RBCs Polychromasia Hypochromasia Poikilocytosis Anisocytosis Microcytosis Macrocytosis Spherocytes Pappenheimer Bodies Sickle Cells Target Cells Tear Drop Cells Ovalocytes Helmet Cells [place] Bodies Hayes Rings Onset Cells Bite Cells Crenated Cell Elliptocytes Acanthocytes (Spur) Rouleaux Hemoglobin C Crystals Schistocytes Malaria parasites Servando Bodies Hem Pathologist Commnt PT INR APTT VBG pH 7.310 L POC Glucose Lactic Acid 1.60 Magnesium 2.00 Total Bilirubin 1.30 H Direct Bilirubin 0.5 H Indirect Bilirubin 0.8 AST 33 ALT 17 Alkaline Phosphatase 77 Ammonia Total Creatine Kinase 67 CK-MB (CK-2) 2.1 CK-MB (CK-2) Rel Index 3.1 Troponin T < 0.010 NT-Pro-B Natriuret Pep 77.24 Total Protein 6.3 Albumin 2.9 L Albumin/Globulin Ratio 0.9 07/04/17 12:45 WBC RBC Hgb Hct MCV MCH MCHC RDW Plt Count Add Manual Diff Total Counted Seg Neuts % (Manual) Band Neutrophils % Lymphocytes % (Manual) Reactive Lymphs % (Man) Monocytes % (Manual) Eosinophils % (Manual) Basophils % (Manual) Metamyelocytes % Myelocytes % Promyelocytes % Blast Cells % Nucleated RBC % Seg Neutrophils # Man Band Neutrophils # Lymphocytes # (Manual) Abs React Lymphs (Man) Monocytes # (Manual) Eosinophils # (Manual) Basophils # (Manual) Metamyelocytes # Myelocytes # Promyelocytes # Blast Cells # WBC Morphology Hypersegmented Neuts Hyposegmented Neuts Hypogranular Neuts Smudge Cells Toxic Granulation Toxic Vacuolation Dohle Bodies Pelger-Huet Anomaly Chris Rods Platelet Estimate Clumped Platelets Plt Clumps, EDTA Large Platelets Giant Platelets Platelet Satelliting Plt Morphology Comment RBC Morphology Dimorphic RBCs Polychromasia Hypochromasia Poikilocytosis Anisocytosis Microcytosis Macrocytosis Spherocytes Pappenheimer Bodies Sickle Cells Target Cells Tear Drop Cells Ovalocytes Helmet Cells [place] Bodies Hayes Rings Onset Cells Bite Cells Crenated Cell Elliptocytes Acanthocytes (Spur) Rouleaux Hemoglobin C Crystals Schistocytes Malaria parasites Servando Bodies Hem Pathologist Commnt PT INR APTT VBG pH POC Glucose Lactic Acid Magnesium Total Bilirubin Direct Bilirubin Indirect Bilirubin AST ALT Alkaline Phosphatase Ammonia 88.0 H Total Creatine Kinase CK-MB (CK-2) CK-MB (CK-2) Rel Index Troponin T NT-Pro-B Natriuret Pep Total Protein Albumin Albumin/Globulin Ratio Laboratory Results - last 24 hr 07/04/17 07/04/17 07/04/17 11:14 12:45 12:45 WBC 1.3 L* RBC 3.62 L Hgb 11.3 L Hct 33.4 L MCV 92 MCH 31 MCHC 34 RDW 15.5 H Plt Count 36 L Add Manual Diff Complete Total Counted 100 Seg Neuts % (Manual) 75.0 H Band Neutrophils % 0 Lymphocytes % (Manual) 12.0 L Reactive Lymphs % (Man) 0 Monocytes % (Manual) 6.0 Eosinophils % (Manual) 7.0 H Basophils % (Manual) 0 Metamyelocytes % 0 Myelocytes % 0 Promyelocytes % 0 Blast Cells % 0 Nucleated RBC % Not Reportable Seg Neutrophils # Man 1.0 L Band Neutrophils # 0.0 Lymphocytes # (Manual) 0.2 L Abs React Lymphs (Man) 0.0 Monocytes # (Manual) 0.1 Eosinophils # (Manual) 0.1 Basophils # (Manual) 0.0 Metamyelocytes # 0.0 Myelocytes # 0.0 Promyelocytes # 0.0 Blast Cells # 0.0 WBC Morphology Not Reportable Hypersegmented Neuts Not Reportable Hyposegmented Neuts Not Reportable Hypogranular Neuts Not Reportable Smudge Cells Not Reportable Toxic Granulation Not Reportable Toxic Vacuolation Not Reportable Dohle Bodies Not Reportable Pelger-Huet Anomaly Not Reportable Chris Rods Not Reportable Platelet Estimate Consistent w auto Clumped Platelets Not Reportable Plt Clumps, EDTA Not Reportable Large Platelets Not Reportable Giant Platelets Not Reportable Platelet Satelliting Not Reportable Plt Morphology Comment Not Reportable RBC Morphology Not Reportable Dimorphic RBCs Not Reportable Polychromasia Not Reportable Hypochromasia Not Reportable Poikilocytosis Not Reportable Anisocytosis 1+ Microcytosis Not Reportable Macrocytosis Not Reportable Spherocytes Not Reportable Pappenheimer Bodies Not Reportable Sickle Cells Not Reportable Target Cells Not Reportable Tear Drop Cells Not Reportable Ovalocytes Not Reportable Helmet Cells Not Reportable [place] Bodies Not Reportable Hayes Rings Not Reportable Onset Cells Not Reportable Bite Cells Not Reportable Crenated Cell Not Reportable Elliptocytes Not Reportable Acanthocytes (Spur) Not Reportable Rouleaux Not Reportable Hemoglobin C Crystals Not Reportable Schistocytes Not Reportable Malaria parasites Not Reportable Servando Bodies Not Reportable Hem Pathologist Commnt No PT 18.1 H INR 1.42 H APTT 34.0 VBG pH POC Glucose 168 H Lactic Acid Magnesium Total Bilirubin Direct Bilirubin Indirect Bilirubin AST ALT Alkaline Phosphatase Ammonia Total Creatine Kinase CK-MB (CK-2) CK-MB (CK-2) Rel Index Troponin T NT-Pro-B Natriuret Pep Total Protein Albumin Albumin/Globulin Ratio 07/04/17 07/04/17 07/04/17 12:45 12:45 12:45 WBC RBC Hgb Hct MCV MCH MCHC RDW Plt Count Add Manual Diff Total Counted Seg Neuts % (Manual) Band Neutrophils % Lymphocytes % (Manual) Reactive Lymphs % (Man) Monocytes % (Manual) Eosinophils % (Manual) Basophils % (Manual) Metamyelocytes % Myelocytes % Promyelocytes % Blast Cells % Nucleated RBC % Seg Neutrophils # Man Band Neutrophils # Lymphocytes # (Manual) Abs React Lymphs (Man) Monocytes # (Manual) Eosinophils # (Manual) Basophils # (Manual) Metamyelocytes # Myelocytes # Promyelocytes # Blast Cells # WBC Morphology Hypersegmented Neuts Hyposegmented Neuts Hypogranular Neuts Smudge Cells Toxic Granulation Toxic Vacuolation Dohle Bodies Pelger-Huet Anomaly Chris Rods Platelet Estimate Clumped Platelets Plt Clumps, EDTA Large Platelets Giant Platelets Platelet Satelliting Plt Morphology Comment RBC Morphology Dimorphic RBCs Polychromasia Hypochromasia Poikilocytosis Anisocytosis Microcytosis Macrocytosis Spherocytes Pappenheimer Bodies Sickle Cells Target Cells Tear Drop Cells Ovalocytes Helmet Cells [place] Bodies Hayes Rings Caitlin Cells Bite Cells Crenated Cell Elliptocytes Acanthocytes (Spur) Rouleaux Hemoglobin C Crystals Schistocytes Malaria parasites Servando Bodies Hem Pathologist Commnt PT INR APTT VBG pH 7.310 L POC Glucose Lactic Acid 1.60 Magnesium 2.00 Total Bilirubin 1.30 H Direct Bilirubin 0.5 H Indirect Bilirubin 0.8 AST 33 ALT 17 Alkaline Phosphatase 77 Ammonia Total Creatine Kinase 67 CK-MB (CK-2) 2.1 CK-MB (CK-2) Rel Index 3.1 Troponin T < 0.010 NT-Pro-B Natriuret Pep 77.24 Total Protein 6.3 Albumin 2.9 L Albumin/Globulin Ratio 0.9 07/04/17 12:45 WBC RBC Hgb Hct MCV MCH MCHC RDW Plt Count Add Manual Diff Total Counted Seg Neuts % (Manual) Band Neutrophils % Lymphocytes % (Manual) Reactive Lymphs % (Man) Monocytes % (Manual) Eosinophils % (Manual) Basophils % (Manual) Metamyelocytes % Myelocytes % Promyelocytes % Blast Cells % Nucleated RBC % Seg Neutrophils # Man Band Neutrophils # Lymphocytes # (Manual) Abs React Lymphs (Man) Monocytes # (Manual) Eosinophils # (Manual) Basophils # (Manual) Metamyelocytes # Myelocytes # Promyelocytes # Blast Cells # WBC Morphology Hypersegmented Neuts Hyposegmented Neuts Hypogranular Neuts Smudge Cells Toxic Granulation Toxic Vacuolation Dohle Bodies Pelger-Huet Anomaly Chris Rods Platelet Estimate Clumped Platelets Plt Clumps, EDTA Large Platelets Giant Platelets Platelet Satelliting Plt Morphology Comment RBC Morphology Dimorphic RBCs Polychromasia Hypochromasia Poikilocytosis Anisocytosis Microcytosis Macrocytosis Spherocytes Pappenheimer Bodies Sickle Cells Target Cells Tear Drop Cells Ovalocytes Helmet Cells [place] Bodies Hayes Rings Caitlin Cells Bite Cells Crenated Cell Elliptocytes Acanthocytes (Spur) Rouleaux Hemoglobin C Crystals Schistocytes Malaria parasites Servando Bodies Hem Pathologist Commnt PT INR APTT VBG pH POC Glucose Lactic Acid Magnesium Total Bilirubin Direct Bilirubin Indirect Bilirubin AST ALT Alkaline Phosphatase Ammonia 88.0 H Total Creatine Kinase CK-MB (CK-2) CK-MB (CK-2) Rel Index Troponin T NT-Pro-B Natriuret Pep Total Protein Albumin Albumin/Globulin Ratio Critical care attestation.: If time is entered above; I have spent that time in minutes in the direct care of this critically ill patient, excluding procedure time. ED Disposition Clinical Impression: Cellulitis of hand, Pancytopenia, End stage liver disease, Hyperammonemia Open wound of finger, infected Qualifiers: Encounter type: initial encounter Qualified Code(s): S61.209A - Unspecified open wound of unspecified finger without damage to nail, initial encounter Disposition: DC09 OP ADMIT IP TO THIS HOSP Is pt being admited?: Yes Does the pt Need Aspirin: No Condition: Stable Referrals: PRIMARY CARE, [Primary Care Provider] - 3-5 Days Time of Disposition: 16:01
[2017-07-04] MEDS ORDERED: NORCO 5/325 PO ONE (15:59)
[2017-07-04 16:08] LABS: BUN/Creatinine Ratio 12; Blood Urea Nitrogen 7 mg/dL (9-20); Calcium 7.9 mg/dL (8.4-10.2); Carbon Dioxide 27 mmol/L (22-30); Glucose 125 mg/dL (75-100)
[2017-07-04 16:09] LABS: Anion Gap 13 mmol/L; Potassium 4.1 mmol/L (3.6-5.0); Sodium 141 mmol/L (137-145)
[2017-07-04 16:23] LABS: Bilirubin,Urine NEG (Negative); Blood,Urine NEG (Negative); Ketones,Urine NEG (Negative); Leukocyte Esterase,Urine NEG (Negative); Mucus,Urine FEW /HPF; Nitrite,Urine NEG (Negative); Protein,Urine <15 mg/dL mg/dL (Negative)
[2017-07-04 16:24] LABS: WBC,Urine < 1.0 /HPF (0.0-6.0)
--- NOTE | 2017-07-04 16:33 | History and Physical Report ---
History of Present Illness Chief complaint: I just feel sick, and tired History of present illness: 57 YO Male with ESLD, Cirrhosis with Ascites, Anal Cancer, HCV, Nicotine Dependence, HTN presents to ED for evaluation. Pt states that he has experienced rectal pain for the past several weeks. Pt states that he left the hospital AMA recently and was merely coming back to get checked out again. Pt seen and evaluated in ED. Pt informed of his poor prognosis. Discussed care plan options with patient. Pt acknowledges understanding his prognosis and options. Pt elects to be discharged home with home hospice care. Pt given information. Pt discharged to hospice care. Past History Past Medical History: hepatitis, other (ESLD, Cirrhosis, Ascites, ) Past Surgical History: Other (anal biopsy,) Social history: single, smoking. denies: alcohol abuse, prescription drug abuse Family history: no significant family history Medications and Allergies Allergies Allergy/AdvReac Type Severity Reaction Status Date / Time codeine Allergy Rash Verified 06/27/17 12:17 Home Medications Medication Instructions Recorded Confirmed Last Taken Type clonazePAM 1 mg PO DAILY 08/22/16 05/13/17 05/12/17 History Oxycodone HCl/Acetaminophen 1 each PO Q6HR PRN #12 tablet 08/31/16 05/13/17 Rx [Percocet 10/325 mg] Acetaminophen [Acetaminophen ER 650 mg PO Q8HR PRN #20 tablet.er 09/16/1605/06/17 Rx TAB] HYDROmorphone [Dilaudid] 2 mg PO Q4HR #26 tablet 07/04/17 Unknown Rx Sennosides/Docusate Sodium 1 each PO DAILY #15 tablet 07/04/17 Unknown Rx [Sennosides-Docusate Sodium Tab] Active Meds: Active Medications Vancomycin HCl (Vancomycin Pharmacy To Dose) 1 each IV PKCONSULT XENIA PRN Reason: Protocol Review of Systems Constitutional: weight loss, chronic pain, no weight gain, no fever, no chills Ears, nose, mouth and throat: no ear pain, no ear discharge, no tinnitis, no decreased hearing, no nose pain, no nasal congestion, no nasal discharge Respiratory: no cough, no cough with sputum, no excessive sputum, no hemoptysis , no shortness of breath Gastrointestinal: no nausea, no vomiting, no diarrhea, no constipation, no change in bowel habits, no hematemesis Genitourinary Male: no hematuria, no flank pain, no discharge, no urinary frequency, no urinary hesitancy, no nocturia, no incontinence Rectal: no pain, no incontinence, no bleeding Musculoskeletal: no neck stiffness, no neck pain, no shooting arm pain, no arm numbness/tingling, no low back pain, no shooting leg pain, no leg numbness/ tingling Integumentary: no rash, no pruritis, no redness, no sores, no wounds, no jaundice, no boils Neurological: no head injury, no transient paralysis, no paralysis, no weakness , no parathesias Psychiatric: no memory loss, no change in sleep habits, no sleep disturbances, no insomnia, no hypersomnia, no change in appetite, no change in libido Endocrine: no cold intolerance, no heat intolerance, no polyphagia, no excessive thirst, no polydipsia, no polyuria, no nocturia Hematologic/Lymphatic: no easy bruising, no easy bleeding Allergic/Immunologic: no urticaria, no allergic rhinitis, no wheezing Exam - Constitutional Vitals: Temp Pulse Resp BP Pulse Ox 97.9 F 57 L 18 148/87 97 07/04/17 11:53 07/04/17 15:22 07/04/17 15:22 07/04/17 15:22 07/04/17 15:22 General appearance: Present: mild distress - EENT Eyes: Present: scleral icterus ENT: hearing intact - Neck Neck: Present: supple, normal ROM - Respiratory Respiratory effort: normal - Extremities Extremities: pulses symmetrical, No edema Peripheral Pulses: within normal limits - Abdominal General gastrointestinal: Present: soft, distended, normal bowel sounds Male genitourinary: Present: normal - Rectal Rectal Exam: tenderness - Integumentary Integumentary: Present: clear, dry - Musculoskeletal Musculoskeletal: gait normal, strength equal bilaterally - Psychiatric Psychiatric: appropriate mood/affect, intact judgment & insight - Neurologic Neurologic: CNII-XII intact, moves all extremities Results - Labs CBC & Chem 7: 07/04/17 12:45 07/04/17 12:45 Labs: Abnormal lab results 07/04/17 07/04/17 07/04/17 Range/Units 11:14 12:45 12:45 WBC 1.3 L* (4.5-11.0) K/mm3 RBC 3.62 L (3.65-5.03) M/mm3 Hgb 11.3 L (11.8-15.2) gm/dl Hct 33.4 L (35.5-45.6) % RDW 15.5 H (13.2-15.2) % Plt Count 36 L (140-440) K/mm3 Seg Neuts % (Manual) 75.0 H (40.0-70.0) % Lymphocytes % (Manual) 12.0 L (13.4-35.0) % Eosinophils % (Manual) 7.0 H (0.0-4.3) % Seg Neutrophils # Man 1.0 L (1.8-7.7) K/mm3 Lymphocytes # (Manual) 0.2 L (1.2-5.4) K/mm3 PT 18.1 H (12.2-14.9) Sec. INR 1.42 H (0.87-1.13) VBG pH (7.320-7.420) BUN (9-20) mg/dL Creatinine (0.8-1.5) mg/dL Glucose (75-100) mg/dL POC Glucose 168 H (70-105) Calcium (8.4-10.2) mg/dL Total Bilirubin (0.1-1.2) mg/dL Direct Bilirubin (0-0.2) mg/dL Ammonia (25-60) umol/L Albumin (3.9-5) g/dL 07/04/17 07/04/17 07/04/17 Range/Units 12:45 12:45 12:45 WBC (4.5-11.0) K/mm3 RBC (3.65-5.03) M/mm3 Hgb (11.8-15.2) gm/dl Hct (35.5-45.6) % RDW (13.2-15.2) % Plt Count (140-440) K/mm3 Seg Neuts % (Manual) (40.0-70.0) % Lymphocytes % (Manual) (13.4-35.0) % Eosinophils % (Manual) (0.0-4.3) % Seg Neutrophils # Man (1.8-7.7) K/mm3 Lymphocytes # (Manual) (1.2-5.4) K/mm3 PT (12.2-14.9) Sec. INR (0.87-1.13) VBG pH 7.310 L (7.320-7.420) BUN (9-20) mg/dL Creatinine (0.8-1.5) mg/dL Glucose (75-100) mg/dL POC Glucose (70-105) Calcium (8.4-10.2) mg/dL Total Bilirubin 1.30 H (0.1-1.2) mg/dL Direct Bilirubin 0.5 H (0-0.2) mg/dL Ammonia 88.0 H (25-60) umol/L Albumin 2.9 L (3.9-5) g/dL 07/04/17 Range/Units 12:45 WBC (4.5-11.0) K/mm3 RBC (3.65-5.03) M/mm3 Hgb (11.8-15.2) gm/dl Hct (35.5-45.6) % RDW (13.2-15.2) % Plt Count (140-440) K/mm3 Seg Neuts % (Manual) (40.0-70.0) % Lymphocytes % (Manual) (13.4-35.0) % Eosinophils % (Manual) (0.0-4.3) % Seg Neutrophils # Man (1.8-7.7) K/mm3 Lymphocytes # (Manual) (1.2-5.4) K/mm3 PT (12.2-14.9) Sec. INR (0.87-1.13) VBG pH (7.320-7.420) BUN 7 L (9-20) mg/dL Creatinine 0.6 L (0.8-1.5) mg/dL Glucose 125 H (75-100) mg/dL POC Glucose (70-105) Calcium 7.9 L (8.4-10.2) mg/dL Total Bilirubin (0.1-1.2) mg/dL Direct Bilirubin (0-0.2) mg/dL Ammonia (25-60) umol/L Albumin (3.9-5) g/dL Assessment and Plan - Patient Problems (1) Anal cancer Status: Acute Plan to address problem: Pt informed of care options. Pt elects to go home with hospice care, and pain control. PT to f/u with hospice at discharge. (2) End stage liver disease Status: Acute Plan to address problem: Pain control, supportive care, Discharged home with home hospice. (3) Cirrhosis of liver Status: Acute Qualifiers: Hepatic cirrhosis type: H Ascites presence: A Plan to address problem: Supportive care, discharged home with home hospice. care.
--- NOTE | 2017-07-04 17:28 | Cat Scan Report ---
FINAL REPORT EXAM: CT HEAD/BRAIN WO CON HISTORY: AMS thrombocytopenia TECHNIQUE: Contiguous axial images of the head were obtained without the use of intravenous contrast. PRIORS: 03/21/2017 FINDINGS: The cerebral hemispheres are without focal lesions. There is no evidence of acute infarct or intracranial hemorrhage. There is no mass lesion or mass effect. There are no abnormal extra-axial fluid collections. The ventricles and sulci are prominent consistent with generalized loss of brain substance, appropriate for age. The visualized skull and orbits are unremarkable. The visualized paranasal sinuses are clear. IMPRESSION: No evidence of acute infarct or intracranial hemorrhage.
[2017-07-04 17:44] VITALS: BP 144/77
--- NOTE | 2017-07-06 07:30 | Vascular Lab Report ---
Right Lower Extremity Venous Duplex Study: Reason for Exam: Swelling of the right lower extremity. Comments on the Right: All veins visualized are freely compressible without evidence of internal echogenicity. Flow is spontaneous and phasic throughout. No evidence of acute or chronic thrombus is seen in any of the vessels visualized. Soft tissue changes consistent with edema. Comments on the Left: A limited duplex study was done of the proximal veins of the left lower extremity. All veins visualized are freely compressible without evidence of internal echogenicity. Flow is spontaneous and phasic throughout. No evidence of acute or chronic thrombus is seen in any of the vessels visualized. Impression: No evidence of acute or chronic deep venous thrombosis in the right lower extremity.
== END 2017-07-04 17:43 | disposition admitted as inpatient to this hospital (09) ==
LOC: ED 10:59
DX: S61.205A Unspecified open wound of left ring finger without damage to nail, initial encounter (principal); L03.114 Cellulitis of left upper limb; D61.818 Other pancytopenia; K72.90 Hepatic failure, unspecified without coma; E72.20 Disorder of urea cycle metabolism, unspecified; I10 Essential (primary) hypertension; F17.200 Nicotine dependence, unspecified, uncomplicated; Z98.890 Other specified postprocedural states; Z88.6 Allergy status to analgesic agent; X58.XXXA Exposure to other specified factors, initial encounter; Y93.9 Activity, unspecified; Y92.89 Other specified places as the place of occurrence of the external cause; Y99.9 Unspecified external cause status
CPT/HCPCS: 36415; 70450; 71010; 73120; 80048; 80074; 81001; 82140; 82550; 82553; 82805; 82962; 83735; 83880; 84484; 85007; 85025; 85610; 85730; 86850; 86900; 86901; 87040; 87086; 93005; 93010; 93971; 96365; 96366; 99285; J3370; J7040

== ENCOUNTER 2017-12-26 11:09 | Emergency (ER) | payer MEDICAID ==
[2017-12-26] MEDS ORDERED: ASPIRIN PO ONE (11:40)
[2017-12-26 12:15] VITALS: BP 115/61
[2017-12-26 12:19] LABS: Basophils % (Auto) 0.2 % (0.0-1.8); Eosinophils # (Auto) 0.1 K/mm3 (0.0-0.4); Eosinophils % (Auto) 1.7 % (0.0-4.3); Hematocrit 37.7 % (35.5-45.6); Hemoglobin 12.5 gm/dl (11.8-15.2); Lymphocytes # (Auto) 0.4 K/mm3 (1.2-5.4); Lymphocytes % (Auto) 9.4 % (13.4-35.0); Mean Corpuscular HGB Conc 33 % (32-34); Mean Corpuscular Hemoglobin 32 pg (28-32); Mean Corpuscular Volume 96 fl (84-94); Monocytes # (Auto) 0.4 K/mm3 (0.0-0.8); Red Blood Count 3.94 M/mm3 (3.65-5.03); Red Cell Distribution Width 16.4 % (13.2-15.2)
[2017-12-26 12:20] LABS: Platelet Count 41 K/mm3 (140-440)
[2017-12-26 12:25] LABS: BUN/Creatinine Ratio 13; Blood Urea Nitrogen 9 mg/dL (9-20); Calcium 7.8 mg/dL (8.4-10.2); Hemolysis Index 3
--- NOTE | 2017-12-26 12:27 | Emergency Department Report ---
ED Chest Pain HPI - General Chief Complaint: Chest Pain Stated Complaint: SHORTNESS OF BREATH Time Seen by Provider: 12/26/17 11:38 Source: patient Mode of arrival: Ambulatory Limitations: No Limitations - History of Present Illness Initial Comments: Chest pain with cough x 8 days. -: Gradual Pain Location: left chest, right chest Pain Radiation: none Severity: moderate Severity scale (0 -10): 3 Quality: aching Consistency: intermittent Improves With: nothing Worsens With: nothing Other Symptoms: cough Treatments Prior to Arrival: none - Related Data Home Medications Medication Instructions Recorded Confirmed Last Taken clonazePAM 1 mg PO DAILY 08/22/16 05/13/17 05/12/17 Previous Rx's Medication Instructions Recorded Last Taken Type Oxycodone HCl/Acetaminophen 1 each PO Q6HR PRN #12 tablet 08/31/16 05/12/17 Rx [Percocet 10/325 mg] Acetaminophen [Acetaminophen ER 650 mg PO Q8HR PRN #20 tablet.er 09/16/16 Rx TAB] HYDROmorphone [Dilaudid] 2 mg PO Q4HR #26 tablet 07/04/17 Unknown Rx Sennosides/Docusate Sodium 1 each PO DAILY #15 tablet 07/04/17 Unknown Rx [Sennosides-Docusate Sodium Tab] ALBUTEROL Inhaler [ProAir HFA 2 puff IH QID PRN 7 Days #1 12/26/17 Unknown Rx Inhaler] inhalation Benzonatate [Tessalon Perles] 100 mg PO Q8HR #14 capsule 12/26/17 Unknown Rx Sulfamethoxazole/Trimethoprim 1 each PO BID #20 tablet 12/26/17 Unknown Rx [Bactrim DS TAB] Allergies Allergy/AdvReac Type Severity Reaction Status Date / Time codeine Allergy Rash Verified 06/27/17 12:17 Heart Score - HEART Score History: Slightly suspicious EKG: Normal Age: > 65 Risk factors: 1-2 risk factors ED Review of Systems ROS: Stated complaint: SHORTNESS OF BREATH Other details as noted in HPI Comment: All other systems reviewed and negative Constitutional: denies: chills, fever Eyes: denies: eye pain, eye discharge, vision change ENT: denies: ear pain, throat pain Respiratory: denies: cough, shortness of breath, wheezing Cardiovascular: denies: chest pain, palpitations Endocrine: no symptoms reported Gastrointestinal: denies: abdominal pain, nausea, diarrhea Genitourinary: denies: urgency, dysuria Musculoskeletal: denies: back pain, joint swelling, arthralgia Skin: denies: rash, lesions Neurological: denies: headache, weakness, paresthesias Psychiatric: denies: anxiety, depression Hematological/Lymphatic: denies: easy bleeding, easy bruising ED Past Medical Hx - Past Medical History Hx Hypertension: Yes Hx Liver Disease: Yes (Hep C) Hx of Cancer: Yes Additional medical history: Hepatitis C, anal CA with current Chemo treatments - Surgical History Hx Pacemaker: No Hx Internal Defibrillator: No Additional Surgical History: Hemorrhoidectomy, Anal biopsy - Social History Smoking Status: Current Every Day Smoker Substance Use Type: None - Medications Home Medications: Home Medications Medication Instructions Recorded Confirmed Last Taken Type clonazePAM 1 mg PO DAILY 08/22/16 05/13/17 05/12/17 History Oxycodone HCl/Acetaminophen 1 each PO Q6HR PRN #12 tablet 08/31/16 05/13/17 Rx [Percocet 10/325 mg] Acetaminophen [Acetaminophen ER 650 mg PO Q8HR PRN #20 tablet.er 09/16/1605/06/17 Rx TAB] HYDROmorphone [Dilaudid] 2 mg PO Q4HR #26 tablet 07/04/17 Unknown Rx Sennosides/Docusate Sodium 1 each PO DAILY #15 tablet 07/04/17 Unknown Rx [Sennosides-Docusate Sodium Tab] ALBUTEROL Inhaler [ProAir HFA 2 puff IH QID PRN 7 Days #1 12/26/17 Unknown Rx Inhaler] inhalation Benzonatate [Tessalon Perles] 100 mg PO Q8HR #14 capsule 12/26/17 Unknown Rx Sulfamethoxazole/Trimethoprim 1 each PO BID #20 tablet 12/26/17 Unknown Rx [Bactrim DS TAB] ED Physical Exam - General Limitations: No Limitations General appearance: alert, in no apparent distress - Head Head exam: Present: atraumatic, normocephalic - Eye Eye exam: Present: normal appearance - ENT ENT exam: Present: mucous membranes moist - Neck Neck exam: Present: normal inspection - Respiratory Respiratory exam: Present: normal lung sounds bilaterally. Absent: respiratory distress, wheezes, rales, rhonchi, chest wall tenderness - Cardiovascular Cardiovascular Exam: Present: regular rate, normal rhythm. Absent: systolic murmur, diastolic murmur, rubs, gallop - GI/Abdominal GI/Abdominal exam: Present: soft, normal bowel sounds - Rectal Rectal exam: Present: deferred - Extremities Exam Extremities exam: Present: normal inspection - Back Exam Back exam: Present: normal inspection - Neurological Exam Neurological exam: Present: alert, oriented X3 - Psychiatric Psychiatric exam: Present: normal affect, normal mood - Skin Skin exam: Present: warm, dry, intact, normal color. Absent: rash ED Course Vital Signs 12/26/17 12/26/17 11:14 12:06 Temperature 98.8 F Pulse Rate 81 74 Respiratory 17 18 Rate Blood Pressure 142/82 Blood Pressure 115/61 [Left] O2 Sat by Pulse 87 94 Oximetry - Reevaluation(s) Reevaluation #1: 12/26/17 12:38 Patient resting comfortably in bed. Has a productive cough. ED Medical Decision Making - Lab Data Result diagrams: 12/26/17 11:54 12/26/17 11:54 - EKG Data -: EKG Interpreted by Wi EKG shows normal: sinus rhythm Rate: normal - EKG Data When compared to previous EKG there are: previous EKG unavailable Interpretation: normal EKG - Radiology Data Radiology results: report reviewed - Medical Decision Making Discussed labs and xray with patient. Critical care attestation.: If time is entered above; I have spent that time in minutes in the direct care of this critically ill patient, excluding procedure time. ED Disposition Clinical Impression: Bronchitis, Thrombocytopenia Disposition: - TO HOME OR SELFCARE Is pt being admited?: No Does the pt Need Aspirin: No Condition: Stable Instructions: Chronic Bronchitis (ED) Prescriptions: ALBUTEROL Inhaler [ProAir HFA Inhaler] 2 puff IH QID PRN 7 Days #1 inhalation PRN Reason: Shortness Of Breath Benzonatate [Tessalon Perles] 100 mg PO Q8HR #14 capsule Sulfamethoxazole/Trimethoprim [Bactrim DS TAB] 1 each PO BID #20 tablet Time of Disposition: 12:46
--- NOTE | 2017-12-26 12:28 | XRay Report ---
ROUTINE CHEST, TWO VIEWS: HISTORY: Shortness of breath. The trachea, heart, mediastinal contour, lung celestin and bony thorax are unremarkable. IMPRESSION: Unremarkable chest x-ray. No significant change since 07/04/17.
== END 2017-12-26 13:28 | disposition home or self-care (01) ==
LOC: ED 11:09
DX: J40 Bronchitis, not specified as acute or chronic (principal); D69.6 Thrombocytopenia, unspecified; I10 Essential (primary) hypertension; F17.200 Nicotine dependence, unspecified, uncomplicated; Z88.6 Allergy status to analgesic agent
CPT/HCPCS: 36415; 71046; 80048; 84484; 85025; 93005; 93010; 99284

== ENCOUNTER 2018-04-04 10:09 | Emergency (ER) | payer MEDICAID ==
[2018-04-04] MEDS ORDERED: TYLENOL PO ONE (12:08)
[2018-04-04] MEDS ORDERED: BENADRYL PO ONE (12:08)
--- NOTE | 2018-04-04 12:09 | Emergency Department Report ---
ED Extremity Problem HPI - General Chief complaint: Extremity Injury, Lower Stated complaint: ANKLE PAIN Time Seen by Provider: 04/04/18 12:02 Source: patient Mode of arrival: Ambulatory Limitations: No Limitations - History of Present Illness Initial comments: 58-year-old male past medical history colorectal cancer, asthma, CHF, hepatitis , hypertension, smoker presents with complaint of one week of bilateral lower extremity swelling itchiness and pain. States that both of his ankles slightly worse on right than left are swollen red and uncomfortable. Patient is awake alert and oriented 3. Denies chest pain or shortness of breath. Fully lucid. States he has had this before. States he has been on diuretics in the past. MD Complaint: extremity pain, extremity swelling Onset/Timin -: week(s) Location: left, right, bilateral lower extremity Severity scale (0 -10): 5 Quality: aching - Related Data Home Medications Medication Instructions Recorded Confirmed Last Taken clonazePAM 1 mg PO DAILY 08/22/16 05/13/17 05/12/17 Previous Rx's Medication Instructions Recorded Last Taken Type Oxycodone HCl/Acetaminophen 1 each PO Q6HR PRN #12 tablet 08/31/16 05/12/17 Rx [Percocet 10/325 mg] Acetaminophen [Acetaminophen ER 650 mg PO Q8HR PRN #20 tablet.er 09/16/16 Rx TAB] HYDROmorphone [Dilaudid] 2 mg PO Q4HR #26 tablet 07/04/17 Unknown Rx Sennosides/Docusate Sodium 1 each PO DAILY #15 tablet 07/04/17 Unknown Rx [Sennosides-Docusate Sodium Tab] Benzonatate [Tessalon Perles] 100 mg PO Q8HR #14 capsule 12/26/17 Unknown Rx ALBUTEROL Inhaler [ProAir HFA 2 puff IH QID PRN #2 can 01/04/18 Unknown Rx Inhaler] Albuterol Sulfate [Albuterol 0.63% 0.63 mg IH TID PRN #120 ml 01/04/18 Unknown Rx NEBS] Clindamycin [Clindamycin CAP] 300 mg PO Q8H #21 cap 01/04/18 Unknown Rx Nebulizer and Compressor [[place] 1 each MC TID #1 each 01/04/18 Unknown Rx Choice Nebulizer] Albuterol Sulfate [Ventolin Hfa] 1 puff IH Q4H PRN #1 hfa.aer.ad 04/04/18 Unknown Rx Azithromycin [Zithromax Z-JERI] 250 mg PO QDAY #1 pack 04/04/18 Unknown Rx Furosemide [Lasix TAB] 20 mg PO QDAY #7 tablet 04/04/18 Unknown Rx HYDROcodone/APAP 5-325 [[place] 1 each PO Q6HR PRN #6 tablet 04/04/18 Unknown Rx 5/325] Allergies Allergy/AdvReac Type Severity Reaction Status Date / Time codeine Allergy Rash Verified 01/02/18 10:46 ED Review of Systems ROS: Stated complaint: ANKLE PAIN Other details as noted in HPI Constitutional: denies: chills, fever Eyes: denies: eye pain, eye discharge, vision change ENT: denies: ear pain, throat pain Respiratory: denies: cough, shortness of breath, wheezing Cardiovascular: denies: chest pain, palpitations Endocrine: no symptoms reported Gastrointestinal: denies: abdominal pain, nausea, diarrhea Genitourinary: denies: urgency, dysuria Musculoskeletal: as per HPI. denies: back pain, joint swelling, arthralgia Skin: as per HPI. denies: rash, lesions Neurological: denies: headache, weakness, paresthesias Psychiatric: denies: anxiety, depression Hematological/Lymphatic: denies: easy bleeding, easy bruising ED Past Medical Hx - Past Medical History Hx Hypertension: Yes Hx Liver Disease: Yes (Hep C) Additional medical history: Hepatitis C, anal CA with current Chemo treatments - Surgical History Hx Pacemaker: No Hx Internal Defibrillator: No Additional Surgical History: Hemorrhoidectomy, Anal biopsy - Social History Smoking Status: Current Every Day Smoker - Medications Home Medications: Home Medications Medication Instructions Recorded Confirmed Last Taken Type clonazePAM 1 mg PO DAILY 08/22/16 05/13/17 05/12/17 History Oxycodone HCl/Acetaminophen 1 each PO Q6HR PRN #12 tablet 08/31/16 05/13/17 Rx [Percocet 10/325 mg] Acetaminophen [Acetaminophen ER 650 mg PO Q8HR PRN #20 tablet.er 09/16/1605/06/17 Rx TAB] HYDROmorphone [Dilaudid] 2 mg PO Q4HR #26 tablet 07/04/17 Unknown Rx Sennosides/Docusate Sodium 1 each PO DAILY #15 tablet 07/04/17 Unknown Rx [Sennosides-Docusate Sodium Tab] Benzonatate [Tessalon Perles] 100 mg PO Q8HR #14 capsule 12/26/17 Unknown Rx ALBUTEROL Inhaler [ProAir HFA 2 puff IH QID PRN #2 can 01/04/18 Unknown Rx Inhaler] Albuterol Sulfate [Albuterol 0.63% 0.63 mg IH TID PRN #120 ml 01/04/18 Unknown Rx NEBS] Clindamycin [Clindamycin CAP] 300 mg PO Q8H #21 cap 01/04/18 Unknown Rx Nebulizer and Compressor [[place] 1 each MC TID #1 each 01/04/18 Unknown Rx Choice Nebulizer] Albuterol Sulfate [Ventolin Hfa] 1 puff IH Q4H PRN #1 hfa.aer.ad 04/04/18 Unknown Rx Azithromycin [Zithromax Z-JERI] 250 mg PO QDAY #1 pack 04/04/18 Unknown Rx Furosemide [Lasix TAB] 20 mg PO QDAY #7 tablet 04/04/18 Unknown Rx HYDROcodone/APAP 5-325 [[place] 1 each PO Q6HR PRN #6 tablet 04/04/18 Unknown Rx 5/325] ED Physical Exam - General Limitations: No Limitations General appearance: alert, in no apparent distress - Head Head exam: Present: atraumatic, normocephalic - Eye Eye exam: Present: normal appearance - ENT ENT exam: Present: mucous membranes moist - Neck Neck exam: Present: normal inspection - Respiratory Respiratory exam: Present: normal lung sounds bilaterally. Absent: respiratory distress - Cardiovascular Cardiovascular Exam: Present: regular rate, normal rhythm. Absent: systolic murmur, diastolic murmur, rubs, gallop - GI/Abdominal GI/Abdominal exam: Present: soft, normal bowel sounds - Rectal Rectal exam: Present: deferred - Extremities Exam Extremities exam: Present: normal inspection, tenderness (bilateral lower extremity swelling redness and tenderness from ankles to pretibial regions bilaterally), pedal edema - Back Exam Back exam: Present: normal inspection - Neurological Exam Neurological exam: Present: alert, oriented X3, CN II-XII intact, normal gait - Psychiatric Psychiatric exam: Present: normal affect, normal mood - Skin Skin exam: Present: warm, dry, intact, normal color. Absent: rash ED Course Vital Signs 04/04/18 10:28 Temperature 97.9 F Pulse Rate 87 Respiratory 17 Rate Blood Pressure 121/75 O2 Sat by Pulse 93 Oximetry ED Medical Decision Making - Lab Data Result diagrams: 04/04/18 13:41 04/04/18 13:41 - Medical Decision Making A/P: Venous stasis dermatitis, left sided pneumonia, COPD, chronic lower extremity swelling 1-chest x-ray consistent with possible left-sided pneumonia. Patient does state he has slight nonproductive cough will treat empirically with azithromycin. Albuterol when necessary 2-lower extremity duplex negative for DVT bilaterally. Given patient's history of recurrent lower extremity swelling given short course of Lasix and advised him to follow up with outpatient vascular surgery. Patient is afebrile without leukocytosis. Based on clinical history it is unlikely that this cellulitis. 3-compression stockings 4- Critical care attestation.: If time is entered above; I have spent that time in minutes in the direct care of this critically ill patient, excluding procedure time. ED Disposition Clinical Impression: Lower extremity edema Community acquired pneumonia Qualifiers: Laterality: left Lung location: lower lobe of lung Qualified Code(s): J18.1 - Lobar pneumonia, unspecified organism Disposition: - TO HOME OR SELFCARE Is pt being admited?: No Does the pt Need Aspirin: No Condition: Stable Instructions: Bacterial Pneumonia (ED), Community-acquired Pneumonia (ED), Leg Edema (ED), Stasis Dermatitis (ED) Prescriptions: Albuterol Sulfate [Ventolin Hfa] 1 puff IH Q4H PRN #1 hfa.aer.ad PRN Reason: Wheezing Azithromycin [Zithromax Z-JERI] 250 mg PO QDAY #1 pack Furosemide [Lasix TAB] 20 mg PO QDAY #7 tablet HYDROcodone/APAP 5-325 [[place] 5/325] 1 each PO Q6HR PRN #6 tablet PRN Reason: Pain Referrals: [facility] [Provider Group] - 3-5 Days CORBY DOMINGO MD [Staff Physician] - 3-5 Days HERNANDEZ DOMINGO MD [Referring] - 3-5 Days DAY,MURRAY Monson MD [Staff Physician] - 3-5 Days Time of Disposition: 16:16
--- NOTE | 2018-04-04 12:27 | Emergency Department Report ---
Blank Doc - Documentation Documentation: Data [id number] with this patient. Patient is complaining of leg swelling with erythema. Patient has a history of CHF but is not taking Lasix at this time. Patient is not complaining of any chest pain or shortness of breath. Patient will undergo ultrasound to rule out DVT. Hopefully the patient does have some lower extremity edema causing the erythema. Brief physical exam patient does have some erythema to bilateral lower extremities just below the knee and down with 2+ edema.
--- NOTE | 2018-04-04 13:36 | XRay Report ---
FINAL REPORT EXAM: XR CHEST ROUTINE 2V HISTORY: fluid overload TECHNIQUE: Frontal and lateral chest radiographs. PRIORS: None. FINDINGS: No pulmonary edema. The cardiomediastinal silhouette is normal. A focal consolidation is seen in the superior segment of the left lower lobe. No pleural effusion. No pneumothorax. No acute osseous abnormality. IMPRESSION: Left lower lobe consolidation concerning for pneumonia. Recommend following radiographically to resolution. No evidence of pulmonary edema.
[2018-04-04 14:18] LABS: Basophils % (Auto) 0.3 % (0.0-1.8); Eosinophils # (Auto) 0.2 K/mm3 (0.0-0.4); Eosinophils % (Auto) 6.9 % (0.0-4.3); Hematocrit 37.2 % (35.5-45.6); Hemoglobin 12.8 gm/dl (11.8-15.2); Lymphocytes # (Auto) 0.5 K/mm3 (1.2-5.4); Lymphocytes % (Auto) 18.9 % (13.4-35.0); Mean Corpuscular HGB Conc 34 % (32-34); Mean Corpuscular Hemoglobin 33 pg (28-32); Mean Corpuscular Volume 95 fl (84-94); Monocytes # (Auto) 0.3 K/mm3 (0.0-0.8); Monocytes % (Auto) 10.9 % (0.0-7.3); Red Blood Count 3.91 M/mm3 (3.65-5.03); Red Cell Distribution Width 15.3 % (13.2-15.2)
[2018-04-04 14:19] LABS: Platelet Count 51 K/mm3 (140-440)
[2018-04-04 14:37] LABS: BUN/Creatinine Ratio 13; Blood Urea Nitrogen 8 mg/dL (9-20); Calcium 8.3 mg/dL (8.4-10.2); Hemolysis Index 63
[2018-04-04 14:40] LABS: Bilirubin,Direct 0.6 mg/dL (0-0.2)
[2018-04-04] MEDS ORDERED: NORCO 5/325 PO ONE (14:50)
[2018-04-04] MEDS ORDERED: ZITHROMAX PO ONE (14:50)
[2018-04-04] MEDS ORDERED: LASIX PO ONE (16:21)
[2018-04-04] MEDS ORDERED: DUONEB *Not for PRN Use IH ONE (16:21)
[2018-04-04 16:30] VITALS: BP 144/98
== END 2018-04-04 16:32 | disposition home or self-care (01) ==
LOC: ED 10:09
DX: J18.1 Lobar pneumonia, unspecified organism (principal); R60.0 Localized edema; I10 Essential (primary) hypertension; J45.909 Unspecified asthma, uncomplicated; F17.200 Nicotine dependence, unspecified, uncomplicated; Z86.19 Personal history of other infectious and parasitic diseases; Z88.5 Allergy status to narcotic agent
CPT/HCPCS: 36415; 71046; 80048; 80074; 83880; 85025; 93970; 99284

== ENCOUNTER 2019-01-24 13:52 | Inpatient (IN) | payer MEDICAID ==
--- NOTE | 2019-01-24 14:04 | Emergency Department Report ---
Blank Doc - Documentation Documentation: This is a 59-year-old male that presents with right leg pain and swelling x6 m onths. Denies any injuries. This initial assessment/diagnostic orders/clinical plan/treatment(s) is/are subject to change based on patient's health status, clinical progression and re- assessment by fellow clinical providers in the ED. Further treatment and workup at subsequent clinical providers discretion. Patient/guardians urged not to elope from the ED as their condition may be serious if not clinically assessed and managed. Initial orders include: 1- Patient sent to [facility] for further evaluation and treatment 2- labs 3- doppler US
[2019-01-24 15:22] LABS: Hematocrit 32.4 % (35.5-45.6); Hemoglobin 11.1 gm/dl (11.8-15.2); Mean Corpuscular HGB Conc 34 % (32-34); Mean Corpuscular Volume 92 fl (84-94); Red Blood Count 3.52 M/mm3 (3.65-5.03); Red Cell Distribution Width 15.7 % (13.2-15.2)
[2019-01-24 15:30] LABS: BUN/Creatinine Ratio 8; Blood Urea Nitrogen 7 mg/dL (9-20); Calcium 8.2 mg/dL (8.4-10.2); Hemolysis Index 6
[2019-01-24 15:38] LABS: Platelet Count 49 K/mm3 (140-440)
--- NOTE | 2019-01-24 15:43 | Vascular Lab Report ---
PROCEDURE: VL VENOUS DUPLEX LE RT TECHNIQUE: Duplex Doppler sonography of the right leg. Moss scale imaging with and without compressi on, spectral waveform analysis with and without augmentation, and color flow Doppler were employed. HISTORY: right leg pain and swelling COMPARISONS: Ultrasound bilateral legs 04/04/2018 FINDINGS: Deep Venous Thrombus: None. Patency of the calf veins was confirmed with color Doppler. Superficial Venous Thrombus: None Venous valvular incompetence: None Soft tissue abnormality: Subcutaneous edema of the right calf to the ankle is noted. IMPRESSION: No evidence of deep venous thrombosis. Subcutaneous edema in the right calf to the ankle is seen. This document is electronically signed by Carley Christine MD., Jan 24 2019 03:41:22 PM ET
[2019-01-24 16:08] LABS: Basophils % (Manual) 0 % (0.0-1.8); RBC Morphology Normal; Total Cells Counted 100
--- NOTE | 2019-01-24 16:53 | Emergency Department Report ---
ED Extremity Problem HPI - General Chief complaint: Extremity Problem,Nontraumatic Stated complaint: RT LEG SWELLING/PAIN Time Seen by Provider: 01/24/19 14:01 Source: patient, EMS, old records reviewed Mode of arrival: Ambulatory Limitations: No Limitations - History of Present Illness Initial comments: 59-year-old male with a past medical history of anal cancer (currently in remission after chemotherapy radiation treatments), hypertension, hepatitis C (currently in remission after treatment), and COPD presents to the hospital with complaints of leg swelling. Patient has had swelling and itching to bilateral legs for 6 months. Complains of worsening swelling to his right leg for either a week or several weeks. Overall patient is a poor historian. He is slightly lethargic. He also complains of intermittent shortness of breath with exertion requiring him to use his inhaler. No reports of fever. His PMD is His cancer doctor is associated with [facility]. Patient states that he is scheduled for a CT to evaluate state of his cancer December 29. - Related Data Home Medications Medication Instructions Recorded Confirmed Last Taken clonazePAM 1 mg PO DAILY 08/22/16 05/13/17 05/12/17 Previous Rx's Medication Instructions Recorded Last Taken Type Oxycodone HCl/Acetaminophen 1 each PO Q6HR PRN #12 tablet 08/31/16 05/12/17 Rx [Percocet 10/325 mg] Acetaminophen [Acetaminophen ER 650 mg PO Q8HR PRN #20 tablet.er 09/16/16 05/06/17 Rx TAB] HYDROmorphone [Dilaudid] 2 mg PO Q4HR #26 tablet 07/04/17 Unknown Rx Sennosides/Docusate Sodium 1 each PO DAILY #15 tablet 07/04/17 Unknown Rx [Sennosides-Docusate Sodium Tab] Benzonatate [Tessalon Perles] 100 mg PO Q8HR #14 capsule 12/26/17 Unknown Rx ALBUTEROL Inhaler (OR & NICU) 2 puff IH QID PRN #2 can 01/04/18 Unknown Rx [ProAir HFA Inhaler] Albuterol Sulfate [Albuterol 0.63% 0.63 mg IH TID PRN #120 ml 01/04/18 Unknown Rx NEBS] Clindamycin [Clindamycin CAP] 300 mg PO Q8H #21 cap 01/04/18 Unknown Rx Nebulizer and Compressor [[place] 1 each MC TID #1 each 01/04/18 Unknown Rx Choice Nebulizer] Albuterol Sulfate [Ventolin Hfa] 1 puff IH Q4H PRN #1 hfa.aer.ad 04/04/18 Unknown Rx Azithromycin [Zithromax Z-JERI] 250 mg PO QDAY #1 pack 04/04/18 Unknown Rx Furosemide [Lasix TAB] 20 mg PO QDAY #7 tablet 04/04/18 Unknown Rx HYDROcodone/APAP 5-325 [[place] 1 each PO Q6HR PRN #6 tablet 04/04/18 Unknown Rx 5/325] Allergies Allergy/AdvReac Type Severity Reaction Status Date / Time codeine Allergy Rash Verified 01/02/18 10:46 ED Review of Systems ROS: Stated complaint: RT LEG SWELLING/PAIN Other details as noted in HPI Comment: All other systems reviewed and negative ED Past Medical Hx - Past Medical History Hx Hypertension: Yes Hx Liver Disease: Yes (Hep C) Hx of Cancer: Yes (anal) Hx COPD: Yes Additional medical history: Hepatitis C, anal CA with current Chemo treatments - Surgical History Hx Pacemaker: No Hx Internal Defibrillator: No Additional Surgical History: Hemorrhoidectomy, Anal biopsy - Social History Smoking Status: Unknown if ever smoked Substance Use Type: None - Medications Home Medications: Home Medications Medication Instructions Recorded Confirmed Last Taken Type clonazePAM 1 mg PO DAILY 08/22/16 05/13/17 05/12/17 History Oxycodone HCl/Acetaminophen 1 each PO Q6HR PRN #12 tablet 08/31/16 05/13/17 05/12/17 Rx [Percocet 10/325 mg] Acetaminophen [Acetaminophen ER 650 mg PO Q8HR PRN #20 tablet.er 09/16/16 05/13/17 05/06/17 Rx TAB] HYDROmorphone [Dilaudid] 2 mg PO Q4HR #26 tablet 07/04/17 Unknown Rx Sennosides/Docusate Sodium 1 each PO DAILY #15 tablet 07/04/17 Unknown Rx [Sennosides-Docusate Sodium Tab] Benzonatate [Tessalon Perles] 100 mg PO Q8HR #14 capsule 12/26/17 Unknown Rx ALBUTEROL Inhaler (OR & NICU) 2 puff IH QID PRN #2 can 01/04/18 Unknown Rx [ProAir HFA Inhaler] Albuterol Sulfate [Albuterol 0.63% 0.63 mg IH TID PRN #120 ml 01/04/18 Unknown Rx NEBS] Clindamycin [Clindamycin CAP] 300 mg PO Q8H #21 cap 01/04/18 Unknown Rx Nebulizer and Compressor [[place] 1 each MC TID #1 each 01/04/18 Unknown Rx Choice Nebulizer] Albuterol Sulfate [Ventolin Hfa] 1 puff IH Q4H PRN #1 hfa.aer.ad 04/04/18 Unknown Rx Azithromycin [Zithromax Z-JERI] 250 mg PO QDAY #1 pack 04/04/18 Unknown Rx Furosemide [Lasix TAB] 20 mg PO QDAY #7 tablet 04/04/18 Unknown Rx HYDROcodone/APAP 5-325 [[place] 1 each PO Q6HR PRN #6 tablet 04/04/18 Unknown Rx 5/325] ED Physical Exam - General Limitations: No Limitations - Other Other exam information: General: No limitations, patient is alert in no acute distress Head exam: Atraumatic, normocephalic Eyes exam: Normal appearance ENT: Moist mucous membrane, normal oropharynx Neck exam: Normal inspection, full range of motion, no meningismus nontender Respiratory exam: Clear to auscultation bilateral, no wheezes, rales, crackles Cardiovascular: Normal rate and rhythm, normal heart sounds Abdomen: Soft, nondistended, and nontender, with normal bowel sounds, no rebound, or guarding Extremity: Full range of motion, right leg slightly greater than the left. Lower leg erythema, warmth, superficial ulcerations. No purulent drainage. Swelling extends to the foot. 2+ DP pulses bilaterally. Back: Normal Inspection, full range of motion, no tenderness Neurologic: Mildly slurred speech and slow to respond to questions, oriented x3, cranial nerves intact, no motor or sensory deficit Psychiatric: normal affect, normal mood Skin: Warm, dry, intact ED Course Vital Signs 01/24/19 01/24/19 14:03 19:44 Temperature 98.2 F 97.4 F L Pulse Rate 90 66 Respiratory 18 13 Rate Blood Pressure 145/80 Blood Pressure 131/58 [Left] O2 Sat by Pulse 98 96 Oximetry ED Medical Decision Making - Lab Data Result diagrams: 01/24/19 14:51 01/24/19 14:51 Lab Results 01/24/19 01/24/19 01/24/19 Range/Units 14:51 14:51 16:59 WBC 1.7 L* (4.5-11.0) K/mm3 RBC 3.52 L (3.65-5.03) M/mm3 Hgb 11.1 L (11.8-15.2) gm/dl Hct 32.4 L (35.5-45.6) % MCV 92 (84-94) fl MCH 32 (28-32) pg MCHC 34 (32-34) % RDW 15.7 H (13.2-15.2) % Plt Count 49 L (140-440) K/mm3 Add Manual Diff Complete Total Counted 100 Seg Neuts % (Manual) 72.0 H (40.0-70.0) % Band Neutrophils % 0 % Lymphocytes % (Manual) 14.0 (13.4-35.0) % Reactive Lymphs % (Man) 0 % Monocytes % (Manual) 11.0 H (0.0-7.3) % Eosinophils % (Manual) 3.0 (0.0-4.3) % Basophils % (Manual) 0 (0.0-1.8) % Metamyelocytes % 0 % Myelocytes % 0 % Promyelocytes % 0 % Blast Cells % 0 % Nucleated RBC % Not Reportable Seg Neutrophils # Man 1.2 L (1.8-7.7) K/mm3 Band Neutrophils # 0.0 K/mm3 Lymphocytes # (Manual) 0.2 L (1.2-5.4) K/mm3 Abs React Lymphs (Man) 0.0 K/mm3 Monocytes # (Manual) 0.2 (0.0-0.8) K/mm3 Eosinophils # (Manual) 0.1 (0.0-0.4) K/mm3 Basophils # (Manual) 0.0 (0.0-0.1) K/mm3 Metamyelocytes # 0.0 K/mm3 Myelocytes # 0.0 K/mm3 Promyelocytes # 0.0 K/mm3 Blast Cells # 0.0 K/mm3 WBC Morphology Not Reportable Hypersegmented Neuts Not Reportable Hyposegmented Neuts Not Reportable Hypogranular Neuts Not Reportable Smudge Cells Not Reportable Toxic Granulation Not Reportable Toxic Vacuolation Not Reportable Dohle Bodies Not Reportable Pelger-Huet Anomaly Not Reportable Chris Rods Not Reportable Platelet Estimate Not Reportable Clumped Platelets Not Reportable Plt Clumps, EDTA Not Reportable Large Platelets Not Reportable Giant Platelets Not Reportable Platelet Satelliting Not Reportable Plt Morphology Comment Not Reportable RBC Morphology Normal Dimorphic RBCs Not Reportable Polychromasia Not Reportable Hypochromasia Not Reportable Poikilocytosis Not Reportable Anisocytosis Not Reportable Microcytosis Not Reportable Macrocytosis Not Reportable Spherocytes Not Reportable Pappenheimer Bodies Not Reportable Sickle Cells Not Reportable Target Cells Not Reportable Tear Drop Cells Not Reportable Ovalocytes Not Reportable Helmet Cells Not Reportable [place] Bodies Not Reportable Deane Rings Not Reportable [place] Cells Not Reportable Bite Cells Not Reportable Crenated Cell Not Reportable Elliptocytes Not Reportable Acanthocytes (Spur) Not Reportable Rouleaux Not Reportable Hemoglobin C Crystals Not Reportable Schistocytes Not Reportable Malaria parasites Not Reportable Servando Bodies Not Reportable Hem Pathologist Commnt No VBG pH (7.320-7.420) Sodium 139 (137-145) mmol/L Potassium 3.8 (3.6-5.0) mmol/L Chloride 104.9 (98-107) mmol/L Carbon Dioxide 24 (22-30) mmol/L Anion Gap 14 mmol/L BUN 7 L (9-20) mg/dL Creatinine 0.9 (0.8-1.5) mg/dL Estimated GFR > 60 ml/min BUN/Creatinine Ratio 8 % Glucose 160 H (75-100) mg/dL Lactic Acid (0.7-2.0) mmol/L Calcium 8.2 L (8.4-10.2) mg/dL Magnesium (1.7-2.3) mg/dL Total Bilirubin 1.30 H (0.1-1.2) mg/dL Direct Bilirubin 0.5 H (0-0.2) mg/dL Indirect Bilirubin 0.8 mg/dL AST 46 H (5-40) units/L ALT 26 (7-56) units/L Alkaline Phosphatase 60 (35-129) units/L Ammonia (25-60) umol/L NT-Pro-B Natriuret Pep 163.6 (0-900) pg/mL Total Protein 6.4 (6.3-8.2) g/dL Albumin 3.4 L (3.9-5) g/dL Albumin/Globulin Ratio 1.1 % 01/24/19 01/24/19 01/24/19 Range/Units 16:59 16:59 16:59 WBC (4.5-11.0) K/mm3 RBC (3.65-5.03) M/mm3 Hgb (11.8-15.2) gm/dl Hct (35.5-45.6) % MCV (84-94) fl MCH (28-32) pg MCHC (32-34) % RDW (13.2-15.2) % Plt Count (140-440) K/mm3 Add Manual Diff Total Counted Seg Neuts % (Manual) (40.0-70.0) % Band Neutrophils % % Lymphocytes % (Manual) (13.4-35.0) % Reactive Lymphs % (Man) % Monocytes % (Manual) (0.0-7.3) % Eosinophils % (Manual) (0.0-4.3) % Basophils % (Manual) (0.0-1.8) % Metamyelocytes % % Myelocytes % % Promyelocytes % % Blast Cells % % Nucleated RBC % Seg Neutrophils # Man (1.8-7.7) K/mm3 Band Neutrophils # K/mm3 Lymphocytes # (Manual) (1.2-5.4) K/mm3 Abs React Lymphs (Man) K/mm3 Monocytes # (Manual) (0.0-0.8) K/mm3 Eosinophils # (Manual) (0.0-0.4) K/mm3 Basophils # (Manual) (0.0-0.1) K/mm3 Metamyelocytes # K/mm3 Myelocytes # K/mm3 Promyelocytes # K/mm3 Blast Cells # K/mm3 WBC Morphology Hypersegmented Neuts Hyposegmented Neuts Hypogranular Neuts Smudge Cells Toxic Granulation Toxic Vacuolation Dohle Bodies Pelger-Huet Anomaly Chris Rods Platelet Estimate Clumped Platelets Plt Clumps, EDTA Large Platelets Giant Platelets Platelet Satelliting Plt Morphology Comment RBC Morphology Dimorphic RBCs Polychromasia Hypochromasia Poikilocytosis Anisocytosis Microcytosis Macrocytosis Spherocytes Pappenheimer Bodies Sickle Cells Target Cells Tear Drop Cells Ovalocytes Helmet Cells [place] Bodies Deane Rings Caitlin Cells Bite Cells Crenated Cell Elliptocytes Acanthocytes (Spur) Rouleaux Hemoglobin C Crystals Schistocytes Malaria parasites Servando Bodies Hem Pathologist Commnt VBG pH (7.320-7.420) Sodium (137-145) mmol/L Potassium (3.6-5.0) mmol/L Chloride (98-107) mmol/L Carbon Dioxide (22-30) mmol/L Anion Gap mmol/L BUN (9-20) mg/dL Creatinine (0.8-1.5) mg/dL Estimated GFR ml/min BUN/Creatinine Ratio % Glucose (75-100) mg/dL Lactic Acid 2.70 H* (0.7-2.0) mmol/L Calcium (8.4-10.2) mg/dL Magnesium 2.10 (1.7-2.3) mg/dL Total Bilirubin (0.1-1.2) mg/dL Direct Bilirubin (0-0.2) mg/dL Indirect Bilirubin mg/dL AST (5-40) units/L ALT (7-56) units/L Alkaline Phosphatase (35-129) units/L Ammonia 63.0 H (25-60) umol/L NT-Pro-B Natriuret Pep (0-900) pg/mL Total Protein (6.3-8.2) g/dL Albumin (3.9-5) g/dL Albumin/Globulin Ratio % 01/24/19 Range/Units 16:59 WBC (4.5-11.0) K/mm3 RBC (3.65-5.03) M/mm3 Hgb (11.8-15.2) gm/dl Hct (35.5-45.6) % MCV (84-94) fl MCH (28-32) pg MCHC (32-34) % RDW (13.2-15.2) % Plt Count (140-440) K/mm3 Add Manual Diff Total Counted Seg Neuts % (Manual) (40.0-70.0) % Band Neutrophils % % Lymphocytes % (Manual) (13.4-35.0) % Reactive Lymphs % (Man) % Monocytes % (Manual) (0.0-7.3) % Eosinophils % (Manual) (0.0-4.3) % Basophils % (Manual) (0.0-1.8) % Metamyelocytes % % Myelocytes % % Promyelocytes % % Blast Cells % % Nucleated RBC % Seg Neutrophils # Man (1.8-7.7) K/mm3 Band Neutrophils # K/mm3 Lymphocytes # (Manual) (1.2-5.4) K/mm3 Abs React Lymphs (Man) K/mm3 Monocytes # (Manual) (0.0-0.8) K/mm3 Eosinophils # (Manual) (0.0-0.4) K/mm3 Basophils # (Manual) (0.0-0.1) K/mm3 Metamyelocytes # K/mm3 Myelocytes # K/mm3 Promyelocytes # K/mm3 Blast Cells # K/mm3 WBC Morphology Hypersegmented Neuts Hyposegmented Neuts Hypogranular Neuts Smudge Cells Toxic Granulation Toxic Vacuolation Dohle Bodies Pelger-Huet Anomaly Chris Rods Platelet Estimate Clumped Platelets Plt Clumps, EDTA Large Platelets Giant Platelets Platelet Satelliting Plt Morphology Comment RBC Morphology Dimorphic RBCs Polychromasia Hypochromasia Poikilocytosis Anisocytosis Microcytosis Macrocytosis Spherocytes Pappenheimer Bodies Sickle Cells Target Cells Tear Drop Cells Ovalocytes Helmet Cells [place] Bodies Deane Rings [place] Cells Bite Cells Crenated Cell Elliptocytes Acanthocytes (Spur) Rouleaux Hemoglobin C Crystals Schistocytes Malaria parasites Servando Bodies Hem Pathologist Commnt VBG pH 7.447 H (7.320-7.420) Sodium (137-145) mmol/L Potassium (3.6-5.0) mmol/L Chloride (98-107) mmol/L Carbon Dioxide (22-30) mmol/L Anion Gap mmol/L BUN (9-20) mg/dL Creatinine (0.8-1.5) mg/dL Estimated GFR ml/min BUN/Creatinine Ratio % Glucose (75-100) mg/dL Lactic Acid (0.7-2.0) mmol/L Calcium (8.4-10.2) mg/dL Magnesium (1.7-2.3) mg/dL Total Bilirubin (0.1-1.2) mg/dL Direct Bilirubin (0-0.2) mg/dL Indirect Bilirubin mg/dL AST (5-40) units/L ALT (7-56) units/L Alkaline Phosphatase (35-129) units/L Ammonia (25-60) umol/L NT-Pro-B Natriuret Pep (0-900) pg/mL Total Protein (6.3-8.2) g/dL Albumin (3.9-5) g/dL Albumin/Globulin Ratio % - Radiology Data Radiology results: report reviewed (right leg Doppler without signs of DVT. Subcutaneous edema noted) PROCEDURE: XR CHEST 1V AP TECHNIQUE: Chest radiograph single view. HISTORY: sob COMPARISONS: 04/04/2018 . FINDINGS: Heart: Normal. Mediastinum/Vessels: Normal. Lungs/Pleural space: No infiltrate, effusion, or pneumothorax. Bony thorax: No acute osseous abnormality. Life support devices: None. IMPRESSION: No radiographic evidence of acute cardiopulmonary abnormality. - Medical Decision Making It is unclear how long patient has had leg symptoms. It appears to be a chronic component but he does appear to have acute cellulitis of the right leg. Doppler was negative for DVT. Patient has leukopenia which is chronic as well a s chronic thrombocytopenia. He claims to be a remission from cancer and hepatitis and is not currently receiving any chemotherapy or radiation treatment. Mylanta gas at elevation. Mild lactic acid elevation. Patient treated with IV fluids, vancomycin, and culture is pending. Hospitalist informe d for admission Lactulose ordered for mild hepatic encephalopathy. Urine collection pending at dispo uds + for benzo and methadone neg for infection - Differential Diagnosis encephalopathy, sepsis, cellulitis, DVT, chronic pain Critical Care Time: No Critical care attestation.: If time is entered above; I have spent that time in minutes in the direct care of this critically ill patient, excluding procedure time. ED Disposition Clinical Impression: Leukopenia, End stage liver disease, Chronic pain, Hepatic encephalopathy, Low back pain, Cirrhosis of liver, Thrombocytopenia, Cellulitis of right leg, History of anal cancer, Hepatitis C, Acute exacerbation of chronic obstructive pulmonary disease (COPD) Disposition: OP ADMIT IP TO THIS HOSP Is pt being admited?: Yes Condition: Stable Time of Disposition: 18:07 (Dr aPtricia/hosp)
[2019-01-24 17:40] LABS: Albumin 3.4 g/dL (3.9-5); Bilirubin,Direct 0.5 mg/dL (0-0.2)
[2019-01-24] MEDS ORDERED: NACL 0.9% 1000 ML 1,000 ML IV ONE (17:41)
[2019-01-24] MEDS ORDERED: VANCOMYCIN 1,750 MG in NACL 0.9% 500 ML 500 ML IV ONE (17:50)
[2019-01-24] MEDS ORDERED: CEPHULAC PO ONE (18:05)
--- NOTE | 2019-01-24 18:37 | History and Physical Report ---
History of Present Illness Chief complaint: My leg is hurting History of present illness: 59 YO Male with Anal Cancer (currently in remission S/P chemotherapy radiation treatments), HTN, HCV, COPD presents to ED for evaluation. Patient states that he has experienced swelling and itching to bilateral legs for 6 months. Pt also complains of worsening swelling and redness to his right leg for the past 1 week as well as worsening pain and redness over the past 3 days. Pt . EMS notified, and upon arrival the patient was found to be in distress and transported to [facility]. Pt seen and evaluated in ED and found to have RLE Cellulitis. PT admitted to medical floor and initiated on IV antibiotic therapy. Prior admission on 01/02/18 reviewed. All listed medication reconciled at time of admission. Pt denies fever, chills, CP, palpitations, NVD, Trauma, BRBPR, Productive cough, unintentional weight loss, BRBPR, night sweats, or recent ill contacts. Pt is able to bear weight on his RLE. Pt denies rest pain. Pulses and sensation intact. PCP: Past History Past Medical History: cancer, COPD, hepatitis, hypertension Past Surgical History: Other (Anal biopsy, hemorrhoidectomy) Social history: single. denies: smoking, alcohol abuse, prescription drug abuse Family history: hypertension Medications and Allergies Allergies Allergy/AdvReac Type Severity Reaction Status Date / Time codeine Allergy Rash Verified 01/02/18 10:46 Home Medications Medication Instructions Recorded Confirmed Last Taken Type clonazePAM 1 mg PO DAILY 08/22/16 05/13/17 05/12/17 History Oxycodone HCl/Acetaminophen 1 each PO Q6HR PRN #12 tablet 08/31/16 05/13/17 05/12/17 Rx [Percocet 10/325 mg] Acetaminophen [Acetaminophen ER 650 mg PO Q8HR PRN #20 tablet.er 09/16/16 05/13/17 05/06/17 Rx TAB] HYDROmorphone [Dilaudid] 2 mg PO Q4HR #26 tablet 07/04/17 Unknown Rx Sennosides/Docusate Sodium 1 each PO DAILY #15 tablet 07/04/17 Unknown Rx [Sennosides-Docusate Sodium Tab] Benzonatate [Tessalon Perles] 100 mg PO Q8HR #14 capsule 12/26/17 Unknown Rx ALBUTEROL Inhaler (OR & NICU) 2 puff IH QID PRN #2 can 01/04/18 Unknown Rx [ProAir HFA Inhaler] Albuterol Sulfate [Albuterol 0.63% 0.63 mg IH TID PRN #120 ml 01/04/18 Unknown Rx NEBS] Clindamycin [Clindamycin CAP] 300 mg PO Q8H #21 cap 01/04/18 Unknown Rx Nebulizer and Compressor [[place] 1 each MC TID #1 each 01/04/18 Unknown Rx Choice Nebulizer] Albuterol Sulfate [Ventolin Hfa] 1 puff IH Q4H PRN #1 hfa.aer.ad 04/04/18 Unknown Rx Azithromycin [Zithromax Z-JERI] 250 mg PO QDAY #1 pack 04/04/18 Unknown Rx Furosemide [Lasix TAB] 20 mg PO QDAY #7 tablet 04/04/18 Unknown Rx HYDROcodone/APAP 5-325 [[place] 1 each PO Q6HR PRN #6 tablet 04/04/18 Unknown Rx 5/325] Active Meds: Active Medications Vancomycin HCl 1,750 mg/ (Sodium Chloride) 535 mls @ 333 mls/hr IV ONCE ONE; Protocol Stop: 01/24/19 19:26 Last Admin: 01/24/19 17:54 Dose: 333 mls/hr Documented by: Sodium Chloride (Nacl 0.9% 1000 Ml) 1,000 mls @ 999 mls/hr IV BOLUS ONE Stop: 01/24/19 18:41 Last Admin: 01/24/19 17:54 Dose: 999 mls/hr Documented by: Review of Systems Constitutional: no weight loss, no weight gain, no fever, no chills Ears, nose, mouth and throat: no ear pain, no ear discharge, no tinnitis, no decreased hearing Cardiovascular: no chest pain, no orthopnea Respiratory: no cough, no cough with sputum, no hemoptysis Gastrointestinal: no nausea, no vomiting, no diarrhea, no constipation, no change in bowel habits Genitourinary Male: no hematuria, no flank pain, no discharge, no urinary frequency, no nocturia Rectal: no pain, no incontinence Musculoskeletal: no neck stiffness, no neck pain, no shooting arm pain, no arm numbness/tingling, no low back pain Integumentary: redness, no rash, no pruritis, no sores, no wounds Neurological: no paralysis, no weakness, no parathesias, no numbness, no tingling, no seizures Psychiatric: no anxiety, no memory loss, no change in sleep habits, no sleep disturbances, no insomnia, no hypersomnia Endocrine: no cold intolerance, no heat intolerance, no polyphagia, no excessive thirst, no polydipsia Hematologic/Lymphatic: no easy bruising, no easy bleeding, no lymphadenopathy Allergic/Immunologic: no urticaria, no allergic rhinitis, no wheezing, no persistent infections, no anaphylaxis Exam - Constitutional Vitals: Temp Pulse Resp BP Pulse Ox 98.2 F 90 18 145/80 98 01/24/19 14:03 01/24/19 14:03 01/24/19 14:03 01/24/19 14:03 01/24/19 14:03 General appearance: Present: no acute distress, well-nourished, obese - EENT Eyes: Present: PERRL ENT: hearing intact, clear oral mucosa - Neck Neck: Present: supple, normal ROM - Respiratory Respiratory effort: normal Respiratory: bilateral: CTA - Cardiovascular Heart Sounds: Present: S1 & S2. Absent: rub, click - Extremities Extremities: pulses symmetrical Extremity abnormal: edema, erythema, tenderness Peripheral Pulses: within normal limits - Abdominal General gastrointestinal: Present: soft, non-tender, non-distended, normal bowel sounds Male genitourinary: Present: normal - Integumentary Integumentary: Present: clear, warm, dry - Musculoskeletal Musculoskeletal: gait normal, strength equal bilaterally - Psychiatric Psychiatric: appropriate mood/affect, intact judgment & insight - Neurologic Neurologic: CNII-XII intact, moves all extremities Results - Labs CBC & Chem 7: 01/25/19 05:55 01/24/19 14:51 Labs: Abnormal lab results 01/24/19 01/24/19 01/24/19 Range/Units 14:51 14:51 16:59 WBC 1.7 L* (4.5-11.0) K/mm3 RBC 3.52 L (3.65-5.03) M/mm3 Hgb 11.1 L (11.8-15.2) gm/dl Hct 32.4 L (35.5-45.6) % RDW 15.7 H (13.2-15.2) % Plt Count 49 L (140-440) K/mm3 Seg Neuts % (Manual) 72.0 H (40.0-70.0) % Monocytes % (Manual) 11.0 H (0.0-7.3) % Seg Neutrophils # Man 1.2 L (1.8-7.7) K/mm3 Lymphocytes # (Manual) 0.2 L (1.2-5.4) K/mm3 VBG pH (7.320-7.420) BUN 7 L (9-20) mg/dL Glucose 160 H (75-100) mg/dL Lactic Acid (0.7-2.0) mmol/L Calcium 8.2 L (8.4-10.2) mg/dL Total Bilirubin 1.30 H (0.1-1.2) mg/dL Direct Bilirubin 0.5 H (0-0.2) mg/dL AST 46 H (5-40) units/L Ammonia (25-60) umol/L Albumin 3.4 L (3.9-5) g/dL 01/24/19 01/24/19 01/24/19 Range/Units 16:59 16:59 16:59 WBC (4.5-11.0) K/mm3 RBC (3.65-5.03) M/mm3 Hgb (11.8-15.2) gm/dl Hct (35.5-45.6) % RDW (13.2-15.2) % Plt Count (140-440) K/mm3 Seg Neuts % (Manual) (40.0-70.0) % Monocytes % (Manual) (0.0-7.3) % Seg Neutrophils # Man (1.8-7.7) K/mm3 Lymphocytes # (Manual) (1.2-5.4) K/mm3 VBG pH 7.447 H (7.320-7.420) BUN (9-20) mg/dL Glucose (75-100) mg/dL Lactic Acid 2.70 H* (0.7-2.0) mmol/L Calcium (8.4-10.2) mg/dL Total Bilirubin (0.1-1.2) mg/dL Direct Bilirubin (0-0.2) mg/dL AST (5-40) units/L Ammonia 63.0 H (25-60) umol/L Albumin (3.9-5) g/dL Assessment and Plan - Patient Problems (1) Cellulitis of right leg Current Visit: Yes Status: Acute Plan to address problem: IV antibiotic therapy, CBC, CMP, serial physical exam (2) Acidosis Current Visit: Yes Status: Acute Plan to address problem: IVF resuscitation therapy, supportive care, repeat bmp in am (3) Hepatitis C Current Visit: Yes Status: Acute Qualifiers: Viral hepatitis chronicity: chronic Plan to address problem: Outpatient GI consult, supportive care. (4) History of anal cancer Current Visit: Yes Status: Acute Plan to address problem: Pain control, outpatient oncology F/U care. (5) DVT prophylaxis Current Visit: No Status: Acute Plan to address problem: SCD to BLE while in bed,
[2019-01-24] MEDS ORDERED: ZOFRAN IV PRN (18:41)
[2019-01-24] MEDS ORDERED: TYLENOL PO PRN (18:41)
[2019-01-24] MEDS ORDERED: PROVENTIL IH PRN (18:41)
[2019-01-24] MEDS ORDERED: PERCOCET 5/325 PO PRN (18:41)
[2019-01-24] MEDS ORDERED: SODIUM CHLORIDE FLUSH SYRINGE 10 ML IV PRN (18:41)
[2019-01-24] MEDS ORDERED: NON-FORMULARY (Oxycodone Hcl/Acetaminophen [Percocet 10/325 Mg] 1 EACH) PO PRN (18:43)
[2019-01-24] MEDS ORDERED: NORCO 5/325 PO PRN (18:43)
[2019-01-24] MEDS ORDERED: NON-FORMULARY (Albuterol Sulfate [Albuterol 0.63% Nebs] 0.63 MG) IH PRN (18:43)
[2019-01-24 19:25] LABS: Bilirubin,Urine NEG (Negative); Blood,Urine NEG (Negative); Color,Urine Yellow (Yellow); Mucus,Urine FEW /HPF; Protein,Urine <15 mg/dL mg/dL (Negative)
[2019-01-24 19:37] LABS: Amphetamine Screen,Urine PRESUMPTIVE NEGATIVE; Cannabinoid Screen,Urine PRESUMPTIVE NEGATIVE; Cocaine Screen,Urine PRESUMPTIVE NEGATIVE; Opiate Screen,Urine PRESUMPTIVE NEGATIVE
[2019-01-24 19:58] LABS: Benzodiazepines Screen,Urine PRESUMPTIVE POSITIVE; Methadone Screen,Urine PRESUMPTIVE POSITIVE
--- NOTE | 2019-01-24 19:59 | XRay Report ---
PROCEDURE: XR CHEST 1V AP TECHNIQUE: Chest radiograph single view. HISTORY: sob COMPARISONS: 04/04/2018 . FINDINGS: Heart: Normal. Mediastinum/Vessels: Normal. Lungs/Pleural space: No infiltrate, effusion, or pneumothorax. Bony thorax: No acute osseous abnormality. Life support devices: None. IMPRESSION: No radiographic evidence of acute cardiopulmonary abnormality. This document is electronically signed by Jolly Calero MD., Jan 24 2019 07:57:35 PM ET
[2019-01-24] MEDS: DILAUDID PO SCH (21:40)
[2019-01-24] MEDS: TESSALON PERLES PO SCH (21:40)
[2019-01-24] MEDS ORDERED: SODIUM CHLORIDE FLUSH SYRINGE 10 ML IV SCH (22:00)
[2019-01-24] MEDS ORDERED: PEPCID PO SCH (22:00)
[2019-01-24] MEDS ORDERED: VANCOMYCIN PHARMACY TO DOSE IV SCH (22:00)
[2019-01-24 22:13] VITALS: BP 132/73
--- NOTE | 2019-01-24 22:23 | Cat Scan Report ---
PROCEDURE: CT LOWER EXTREMITY RT W CON TECHNIQUE: Computerized axial tomography of the right lower extremity was performed after the intra venous administration of iodinated noninonic contrast material. CT DOSE LENGTH PRODUCT: 219.2 mGycm HISTORY: cellulitis,swelling COMPARISONS: None . FINDINGS: There is circumferential subcutaneous edema, which is nonspecific. No soft tissue abscess is seen. Runoff vessels are patent. No edema of the deep fascia is noted. No acute fracture is seen. No focal osseous lesion is seen. IMPRESSION: There is nonspecific diffuse circumferential subcutaneous edema, which could be related to infectious or noninfectious etiology. No soft tissue abscess is seen. This document is electronically signed by Jolly Calero MD., Jan 24 2019 10:21:43 PM ET
[2019-01-24] MEDS ORDERED: VANCOMYCIN/NS 500 MG/100 ML 500 MG/100 ML BAG IV ONE (23:00)
[2019-01-25] MEDS: DILAUDID PO SCH ×2 (02:29→06:00)
[2019-01-25] MEDS ORDERED: BENADRYL PO PRN (03:15)
[2019-01-25] MEDS: TESSALON PERLES PO SCH (06:00)
[2019-01-25 07:25] LABS: BUN/Creatinine Ratio 6; Blood Urea Nitrogen 5 mg/dL (9-20); Calcium 7.8 mg/dL (8.4-10.2); Hemoglobin 10.7 gm/dl (11.8-15.2); Hemolysis Index 0; Mean Corpuscular HGB Conc 35 % (32-34); Mean Corpuscular Volume 91 fl (84-94); Red Blood Count 3.39 M/mm3 (3.65-5.03); Red Cell Distribution Width 15.5 % (13.2-15.2)
[2019-01-25 08:02] LABS: Platelet Count 40 K/mm3 (140-440)
--- NOTE | 2019-01-25 08:27 | Event Note ---
Date: 01/25/19 Patient left AMA without informing anyone and without seen by anyone.
--- NOTE | 2019-01-25 09:49 | Event Note ---
Date: 01/25/19
[2019-01-25] MEDS ORDERED: LASIX PO SCH (10:00)
[2019-01-25] MEDS ORDERED: NON-FORMULARY (Clonazepam [Clonazepam] 1 MG) PO SCH (10:00)
[2019-01-25] MEDS ORDERED: SENOKOT S PO SCH (10:00)
[2019-01-25] MEDS ORDERED: VANCOMYCIN 1,750 MG in NACL 0.9% 500 ML 500 ML IV SCH (12:00)
[2019-01-25 13:36] LABS: Basophils % (Manual) 0 % (0.0-1.8); Platelet Estimate Consistent w Auto; RBC Morphology Normal; Total Cells Counted 100
--- NOTE | 2019-01-25 15:12 | Discharge Summary ---
Providers - Providers Date of Admission: 01/24/19 18:41 Date of discharge: 01/25/19 Attending physician: KALANI ALFONSO Primary care physician: GINO ALCANTAR MD Hospitalization Condition: Stable Pertinent studies: LE CT duplex LE Hospital course: 59 YO Male with Anal Cancer (currently in remission S/P chemotherapy radiation treatments), HTN, HCV, COPD presented to ED for evaluation of swelling and itching to bilateral legs for 6 months. He was admitted to hospital for further management. He was placed on iv abx, but next day he decided to leave AMA. Discharge diagnosis: Cellulites of right leg Pancytopenia Hepatitis C History of anal cancer Disposition: DC-07 LEFT AGAINST MED ADVICE Core Measure Documentation - Palliative Care Palliative Care/ Comfort Measures: Not Applicable - Core Measures Any of the following diagnoses?: none Exam - Constitutional Vitals: Temp Pulse Resp BP Pulse Ox 97.4 F L 70 18 132/73 98 01/24/19 19:44 01/24/19 20:47 01/25/19 06:00 01/24/19 20:47 01/24/19 20:47 Plan Follow up with: GINO ALCANTAR MD [Primary Care Provider] - 3-5 Days
== END 2019-01-25 07:30 | disposition left against medical advice (07) | DRG 602 ==
LOC: ED 13:52 → 3A 18:41
PROVIDERS: ADMIT Internal Medicine; ATTEND Internal Medicine
DX: L03.115 Cellulitis of right lower limb (principal); K72.91 Hepatic failure, unspecified with coma; E87.2 Acidosis; J44.1 Chronic obstructive pulmonary disease with (acute) exacerbation; D61.818 Other pancytopenia; G89.29 Other chronic pain; C21.0 Malignant neoplasm of anus, unspecified; B19.20 Unspecified viral hepatitis C without hepatic coma; K74.60 Unspecified cirrhosis of liver; I10 Essential (primary) hypertension; Z79.51 Long term (current) use of inhaled steroids; Z79.899 Other long term (current) drug therapy; Z88.5 Allergy status to narcotic agent; Z92.21 Personal history of antineoplastic chemotherapy; Z92.3 Personal history of irradiation; Z82.49 Family history of ischemic heart disease and other diseases of the circulatory system; Z53.21 Procedure and treatment not carried out due to patient leaving prior to being seen by health care provider
CPT/HCPCS: 36415; 71045; 80048; 80076; 80307; 81001; 82140; 82805; 83735; 83880; 85007; 85025; 87040; 87086; 87116; 96365; G0378; J3370; J7030; J7040; Q9967

== ENCOUNTER 2019-01-31 10:49 | Emergency (ER) | payer MEDICAID ==
[2019-01-31 11:03] VITALS: BP 149/84
[2019-01-31] MEDS ORDERED: BENADRYL PO ONE (12:45)
[2019-01-31] MEDS ORDERED: BACTRIM DS PO ONE (12:45)
--- NOTE | 2019-01-31 13:01 | Emergency Department Report ---
ED General Adult HPI - General Chief complaint: Extremity Problem,Nontraumatic Stated complaint: CHEST PAIN/LEG PAIN Time Seen by Provider: 01/31/19 12:36 Source: patient Mode of arrival: Ambulatory Limitations: No Limitations - History of Present Illness Initial comments: Patient is a 59-year-old male who is complaining of swelling to the bilateral lower extremities for the last 6 months. Patient states that he also has some itching and discomfort. Patient states that he has no history of congestive heart failure. He has also no primary care physician although when asked about primary care he states "Dr. Rayo isn't doing nothing". Patient states that his legs are been swollen continuously and then reddened. He states that his itching is so bad that sometimes he scratches to the point where he believes. Patient states he needs something done about his legs. Patient denies any chest pain shortness of breath fevers or chills at this time. Patient stated he had one episode of some chest discomfort but he states this was secondary to being anxious and has resolved. Associated Symptoms: rash. denies: confusion, chest pain, cough, diaphoresis, fever/chills, headaches, loss of appetite, malaise, nausea/vomiting - Related Data Home Medications Medication Instructions Recorded Confirmed Last Taken clonazePAM 1 mg PO DAILY 08/22/16 05/13/17 05/12/17 Previous Rx's Medication Instructions Recorded Last Taken Type Oxycodone HCl/Acetaminophen 1 each PO Q6HR PRN #12 tablet 08/31/16 05/12/17 Rx [Percocet 10/325 mg] Acetaminophen [Acetaminophen ER 650 mg PO Q8HR PRN #20 tablet.er 09/16/16 05/06/17 Rx TAB] HYDROmorphone [Dilaudid] 2 mg PO Q4HR #26 tablet 07/04/17 Unknown Rx Sennosides/Docusate Sodium 1 each PO DAILY #15 tablet 07/04/17 Unknown Rx [Sennosides-Docusate Sodium Tab] Benzonatate [Tessalon Perles] 100 mg PO Q8HR #14 capsule 12/26/17 Unknown Rx ALBUTEROL Inhaler (OR & NICU) 2 puff IH QID PRN #2 can 01/04/18 Unknown Rx [ProAir HFA Inhaler] Albuterol Sulfate [Albuterol 0.63% 0.63 mg IH TID PRN #120 ml 01/04/18 Unknown Rx NEBS] Clindamycin [Clindamycin CAP] 300 mg PO Q8H #21 cap 01/04/18 Unknown Rx Nebulizer and Compressor [[place] 1 each MC TID #1 each 01/04/18 Unknown Rx Choice Nebulizer] Albuterol Sulfate [Ventolin Hfa] 1 puff IH Q4H PRN #1 hfa.aer.ad 04/04/18 Unknown Rx Azithromycin [Zithromax Z-JERI] 250 mg PO QDAY #1 pack 04/04/18 Unknown Rx Furosemide [Lasix TAB] 20 mg PO QDAY #7 tablet 04/04/18 Unknown Rx HYDROcodone/APAP 5-325 [[place] 1 each PO Q6HR PRN #6 tablet 04/04/18 Unknown Rx 5/325] Clindamycin [Clindamycin CAP] 300 mg PO Q8H #21 cap 01/31/19 Unknown Rx Furosemide [Lasix] 20 mg PO QDAY #7 tablet 01/31/19 Unknown Rx diphenhydrAMINE [Benadryl CAP] 25 mg PO Q6HR PRN #20 capsule 01/31/19 Unknown Rx Allergies Allergy/AdvReac Type Severity Reaction Status Date / Time codeine Allergy Rash Verified 01/02/18 10:46 ED Review of Systems ROS: Stated complaint: CHEST PAIN/LEG PAIN Other details as noted in HPI Comment: All other systems reviewed and negative ED Past Medical Hx - Past Medical History Hx Hypertension: Yes Hx Congestive Heart Failure: No Hx Diabetes: No Hx Liver Disease: Yes (Hep C) Hx Asthma: No Hx COPD: Yes Hx HIV: No Additional medical history: Hepatitis C, anal CA with current Chemo treatments - Surgical History Hx Pacemaker: No Hx Internal Defibrillator: No Additional Surgical History: Hemorrhoidectomy, Anal biopsy - Social History Smoking Status: Current Some Day Smoker Substance Use Type: None - Medications Home Medications: Home Medications Medication Instructions Recorded Confirmed Last Taken Type clonazePAM 1 mg PO DAILY 08/22/16 05/13/17 05/12/17 History Oxycodone HCl/Acetaminophen 1 each PO Q6HR PRN #12 tablet 08/31/16 05/13/17 05/12/17 Rx [Percocet 10/325 mg] Acetaminophen [Acetaminophen ER 650 mg PO Q8HR PRN #20 tablet.er 09/16/16 05/13/17 05/06/17 Rx TAB] HYDROmorphone [Dilaudid] 2 mg PO Q4HR #26 tablet 07/04/17 Unknown Rx Sennosides/Docusate Sodium 1 each PO DAILY #15 tablet 07/04/17 Unknown Rx [Sennosides-Docusate Sodium Tab] Benzonatate [Tessalon Perles] 100 mg PO Q8HR #14 capsule 12/26/17 Unknown Rx ALBUTEROL Inhaler (OR & NICU) 2 puff IH QID PRN #2 can 01/04/18 Unknown Rx [ProAir HFA Inhaler] Albuterol Sulfate [Albuterol 0.63% 0.63 mg IH TID PRN #120 ml 01/04/18 Unknown Rx NEBS] Clindamycin [Clindamycin CAP] 300 mg PO Q8H #21 cap 01/04/18 Unknown Rx Nebulizer and Compressor [[place] 1 each MC TID #1 each 01/04/18 Unknown Rx Choice Nebulizer] Albuterol Sulfate [Ventolin Hfa] 1 puff IH Q4H PRN #1 hfa.aer.ad 04/04/18 Unknown Rx Azithromycin [Zithromax Z-JERI] 250 mg PO QDAY #1 pack 04/04/18 Unknown Rx Furosemide [Lasix TAB] 20 mg PO QDAY #7 tablet 04/04/18 Unknown Rx HYDROcodone/APAP 5-325 [[place] 1 each PO Q6HR PRN #6 tablet 04/04/18 Unknown Rx 5/325] Clindamycin [Clindamycin CAP] 300 mg PO Q8H #21 cap 01/31/19 Unknown Rx Furosemide [Lasix] 20 mg PO QDAY #7 tablet 01/31/19 Unknown Rx diphenhydrAMINE [Benadryl CAP] 25 mg PO Q6HR PRN #20 capsule 01/31/19 Unknown Rx ED Physical Exam - General Limitations: No Limitations General appearance: alert, in no apparent distress - Head Head exam: Present: atraumatic, normocephalic - Eye Eye exam: Present: normal appearance - ENT ENT exam: Present: mucous membranes moist - Neck Neck exam: Present: normal inspection - Respiratory Respiratory exam: Present: normal lung sounds bilaterally. Absent: respiratory distress, wheezes, rales, rhonchi, chest wall tenderness - Cardiovascular Cardiovascular Exam: Present: regular rate, normal rhythm. Absent: systolic murmur, diastolic murmur, rubs, gallop - GI/Abdominal GI/Abdominal exam: Present: soft, normal bowel sounds. Absent: distended, tenderness, guarding, rebound - Rectal Rectal exam: Present: deferred - Extremities Exam Extremities exam: Present: other (patient has 2+ lower extremity edema up to the level of the knee. There is erythema to the skin with multiple areas of e xcoriation from scratching. The bilateral legs are minimally warm.). Absent: normal inspection - Back Exam Back exam: Present: normal inspection - Neurological Exam Neurological exam: Present: alert, oriented X3 - Psychiatric Psychiatric exam: Present: normal affect, normal mood - Skin Skin exam: Present: warm, dry, intact, normal color. Absent: rash ED Course Vital Signs 01/31/19 10:59 Temperature 98.2 F Pulse Rate 74 Respiratory 16 Rate Blood Pressure 149/84 O2 Sat by Pulse 95 Oximetry ED Medical Decision Making - Medical Decision Making Patient with chronic edema to his lower extremities. His itching it could be secondary to simple edema however dermatitis cannot be rule out. Also on the patient's differential is a vasculitis. Patient is not exhibiting any heart failure symptoms of shortness of breath Rales at this time. Patient will be referred to dermatology. Patient given something for the itching patient will be placed back on Lasix which he's taken in the past for dependent edema. Because of the mild warmth and erythema patient also also cover for cellulitis. Critical care attestation.: If time is entered above; I have spent that time in minutes in the direct care of this critically ill patient, excluding procedure time. ED Disposition Clinical Impression: Leg edema, Cellulitis, Dermatitis Disposition: - TO HOME OR SELFCARE Is pt being admited?: No Does the pt Need Aspirin: No Condition: Stable Instructions: Leg Edema (ED), Cellulitis (ED), Acute Rash (ED) Referrals: JULIO VARGAS MD [Primary Care Provider] - 3-5 Days GUY MICHELLE MD [Staff Physician] - 3-5 Days Time of Disposition: 13:01
== END 2019-01-31 13:17 | disposition home or self-care (01) ==
LOC: ED 10:49
DX: R60.0 Localized edema (principal); L30.9 Dermatitis, unspecified; F17.200 Nicotine dependence, unspecified, uncomplicated; I10 Essential (primary) hypertension; J44.9 Chronic obstructive pulmonary disease, unspecified; Z86.19 Personal history of other infectious and parasitic diseases; Z98.890 Other specified postprocedural states; Z88.5 Allergy status to narcotic agent
CPT/HCPCS: 93005; 93010; 99282

== ENCOUNTER 2019-04-23 15:31 | Emergency (ER) | payer MEDICAID ==
--- NOTE | 2019-04-23 15:42 | Event Note ---
ED Screening Note Date of service: 04/23/19 Time: 15:36 ED Screening Note: This is a 59 y.o. M. that presents to the ER with abscess under left axilla for 1 week. Current smoker PMH hepatitis C, lung cancer This initial assessment/diagnostic orders/clinical plan/treatment(s) is/are subject to change based on patients health status, clinical progression and re- assessment by fellow clinical providers in the ED. Further treatment and workup at subsequent clinical providers discretion. Patient/guardian urged not to elope from the ED as their condition may be serious if not clinically assessed and managed. Initial orders include:
[2019-04-23] MEDS ORDERED: TORADOL IM ONE (16:54)
[2019-04-23] MEDS ORDERED: BACTRIM DS PO ONE (16:54)
[2019-04-23] MEDS ORDERED: TORADOL ONE (17:07)
--- NOTE | 2019-04-23 17:46 | Emergency Department Report ---
ED General Adult HPI - General Chief complaint: Skin/Abscess/Foreign Body Stated complaint: 3NODULE LT AXILLA Time Seen by Provider: 04/23/19 15:35 Source: patient Mode of arrival: Ambulatory Limitations: No Limitations - History of Present Illness Initial comments: Is a 59-year-old male who presents to ED complaining of multiple falls underneath his left armpit. Patient states that this has been there for the past couple of days. Patient states that it is not draining and it is red and painful to touch. Cannot recall if she was bitten by an insect. She denies fevers/chills/nausea or vomiting Severity scale (0 -10): 6 - Related Data Home Medications Medication Instructions Recorded Confirmed Last Taken clonazePAM 1 mg PO DAILY 08/22/16 05/13/17 05/12/17 Previous Rx's Medication Instructions Recorded Last Taken Type Oxycodone HCl/Acetaminophen 1 each PO Q6HR PRN #12 tablet 08/31/16 05/12/17 Rx [Percocet 10/325 mg] Acetaminophen [Acetaminophen ER 650 mg PO Q8HR PRN #20 tablet.er 09/16/16 05/06/17 Rx TAB] HYDROmorphone [Dilaudid] 2 mg PO Q4HR #26 tablet 07/04/17 Unknown Rx Sennosides/Docusate Sodium 1 each PO DAILY #15 tablet 07/04/17 Unknown Rx [Sennosides-Docusate Sodium Tab] Benzonatate [Tessalon Perles] 100 mg PO Q8HR #14 capsule 12/26/17 Unknown Rx ALBUTEROL Inhaler (OR & NICU) 2 puff IH QID PRN #2 can 01/04/18 Unknown Rx [ProAir HFA Inhaler] Albuterol Sulfate [Albuterol 0.63% 0.63 mg IH TID PRN #120 ml 01/04/18 Unknown Rx NEBS] Clindamycin [Clindamycin CAP] 300 mg PO Q8H #21 cap 01/04/18 Unknown Rx Nebulizer and Compressor [[place] 1 each MC TID #1 each 01/04/18 Unknown Rx Choice Nebulizer] Albuterol Sulfate [Ventolin Hfa] 1 puff IH Q4H PRN #1 hfa.aer.ad 04/04/18 Unknown Rx Azithromycin [Zithromax Z-JERI] 250 mg PO QDAY #1 pack 04/04/18 Unknown Rx Furosemide [Lasix TAB] 20 mg PO QDAY #7 tablet 04/04/18 Unknown Rx HYDROcodone/APAP 5-325 [[place] 1 each PO Q6HR PRN #6 tablet 04/04/18 Unknown Rx 5/325] Clindamycin [Clindamycin CAP] 300 mg PO Q8H #21 cap 01/31/19 Unknown Rx Furosemide [Lasix] 20 mg PO QDAY #7 tablet 01/31/19 Unknown Rx diphenhydrAMINE [Benadryl CAP] 25 mg PO Q6HR PRN #20 capsule 01/31/19 Unknown Rx Ibuprofen [Motrin] 800 mg PO Q8HR #30 tablet 04/23/19 Unknown Rx Sulfamethoxazole/Trimethoprim 1 each PO BID #14 tablet 04/23/19 Unknown Rx [Bactrim DS TAB] Allergies Allergy/AdvReac Type Severity Reaction Status Date / Time codeine Allergy Rash Verified 04/23/19 15:38 ED Review of Systems ROS: Stated complaint: 3NODULE LT AXILLA Other details as noted in HPI Comment: All other systems reviewed and negative ED Past Medical Hx - Past Medical History Previous Medical History?: Yes Hx Hypertension: Yes Hx Congestive Heart Failure: No Hx Diabetes: No Hx Liver Disease: Yes (Hep C) Hx Asthma: No Hx COPD: Yes Hx HIV: No Additional medical history: Hepatitis C, anal CA with current Chemo treatments - Surgical History Past Surgical History?: Yes Hx Pacemaker: No Hx Internal Defibrillator: No Additional Surgical History: Hemorrhoidectomy, Anal biopsy - Social History Smoking Status: Current Every Day Smoker Substance Use Type: None - Medications Home Medications: Home Medications Medication Instructions Recorded Confirmed Last Taken Type clonazePAM 1 mg PO DAILY 08/22/16 05/13/17 05/12/17 History Oxycodone HCl/Acetaminophen 1 each PO Q6HR PRN #12 tablet 08/31/16 05/13/17 05/12/17 Rx [Percocet 10/325 mg] Acetaminophen [Acetaminophen ER 650 mg PO Q8HR PRN #20 tablet.er 09/16/16 05/13/17 05/06/17 Rx TAB] HYDROmorphone [Dilaudid] 2 mg PO Q4HR #26 tablet 07/04/17 Unknown Rx Sennosides/Docusate Sodium 1 each PO DAILY #15 tablet 07/04/17 Unknown Rx [Sennosides-Docusate Sodium Tab] Benzonatate [Tessalon Perles] 100 mg PO Q8HR #14 capsule 12/26/17 Unknown Rx ALBUTEROL Inhaler (OR & NICU) 2 puff IH QID PRN #2 can 01/04/18 Unknown Rx [ProAir HFA Inhaler] Albuterol Sulfate [Albuterol 0.63% 0.63 mg IH TID PRN #120 ml 01/04/18 Unknown Rx NEBS] Clindamycin [Clindamycin CAP] 300 mg PO Q8H #21 cap 01/04/18 Unknown Rx Nebulizer and Compressor [[place] 1 each MC TID #1 each 01/04/18 Unknown Rx Choice Nebulizer] Albuterol Sulfate [Ventolin Hfa] 1 puff IH Q4H PRN #1 hfa.aer.ad 04/04/18 Unknown Rx Azithromycin [Zithromax Z-JERI] 250 mg PO QDAY #1 pack 04/04/18 Unknown Rx Furosemide [Lasix TAB] 20 mg PO QDAY #7 tablet 04/04/18 Unknown Rx HYDROcodone/APAP 5-325 [[place] 1 each PO Q6HR PRN #6 tablet 04/04/18 Unknown Rx 5/325] Clindamycin [Clindamycin CAP] 300 mg PO Q8H #21 cap 01/31/19 Unknown Rx Furosemide [Lasix] 20 mg PO QDAY #7 tablet 01/31/19 Unknown Rx diphenhydrAMINE [Benadryl CAP] 25 mg PO Q6HR PRN #20 capsule 01/31/19 Unknown Rx Ibuprofen [Motrin] 800 mg PO Q8HR #30 tablet 04/23/19 Unknown Rx Sulfamethoxazole/Trimethoprim 1 each PO BID #14 tablet 04/23/19 Unknown Rx [Bactrim DS TAB] ED Physical Exam - General Limitations: No Limitations General appearance: alert, in no apparent distress - Head Head exam: Present: atraumatic, normocephalic - Eye Eye exam: Present: normal appearance - ENT ENT exam: Present: mucous membranes moist - Neck Neck exam: Present: normal inspection - Respiratory Respiratory exam: Present: normal lung sounds bilaterally. Absent: respiratory distress - Cardiovascular Cardiovascular Exam: Present: regular rate, normal rhythm. Absent: systolic murmur, diastolic murmur, rubs, gallop - GI/Abdominal GI/Abdominal exam: Present: soft, normal bowel sounds - Rectal Rectal exam: Present: deferred - Extremities Exam Extremities exam: Present: normal inspection, full ROM - Expanded Upper Extremity Exam Left General: Present: normal inspection Shoulder Exam: Present: normal inspection Upper Arm exam: Present: normal inspection, other (armpit Mild 3 1 cm erythematous lesions, mildly tender to palpation.) Elbow exam: Present: normal inspection Forearm Wrist exam: Present: normal inspection - Back Exam Back exam: Present: normal inspection - Neurological Exam Neurological exam: Present: alert, oriented X3 - Psychiatric Psychiatric exam: Present: normal affect, normal mood - Skin Skin exam: Present: warm, dry, normal color, rash (old lesions to bilateral arms), erythema ED Course Vital Signs 04/23/19 15:36 Temperature 97.9 F Pulse Rate 86 Respiratory 16 Rate Blood Pressure 146/79 [Right] O2 Sat by Pulse 96 Oximetry ED Medical Decision Making - Medical Decision Making 59-year-old male presents with cellulitis lesions of the left armpit. Patient given antibiotics and refused Toradol in the ED. Patient sent antibiotics and Motrin for pain. Vital signs are normal patient is in no acute distress. Patient was sleeping comfortably in the ED. In no distress at all. Discussed follow-up with primary care physician. Critical care attestation.: If time is entered above; I have spent that time in minutes in the direct care of this critically ill patient, excluding procedure time. ED Disposition Clinical Impression: Cellulitis of axilla, left Disposition: DC-01 TO HOME OR SELFCARE Is pt being admited?: No Does the pt Need Aspirin: No Condition: Stable Instructions: Cellulitis (ED) Additional Instructions: Make sure to follow up with the primary care physician as discussed. Take all your medications as you've been prescribed. If you have any worsening symptoms or develop new symptoms please return to ED immediately. Prescriptions: Sulfamethoxazole/Trimethoprim [Bactrim DS TAB] 1 each PO BID #14 tablet Ibuprofen [Motrin] 800 mg PO Q8HR #30 tablet Referrals: PARAM LEONARD MD [Primary Care Provider] - 3-5 Days [facility] [Outside] - 3-5 Days Forms: Accompanied Note, Work/School Release Form(ED) Time of Disposition: 17:48
[2019-04-23 18:00] VITALS: BP 135/63
== END 2019-04-23 17:59 | disposition home or self-care (01) ==
LOC: ED 15:31
DX: L03.112 Cellulitis of left axilla (principal); I10 Essential (primary) hypertension; J44.9 Chronic obstructive pulmonary disease, unspecified; F17.200 Nicotine dependence, unspecified, uncomplicated; Z98.890 Other specified postprocedural states; Z79.899 Other long term (current) drug therapy; Z88.6 Allergy status to analgesic agent
CPT/HCPCS: 99282; J1885

== ENCOUNTER 2019-09-02 14:59 | Inpatient (IN) | payer MEDICAID ==
[2019-09-02] MEDS ORDERED: IPRATROPIUM 0.02% NEBU 2.5 ML IH ONE ×2 (15:05→15:06)
[2019-09-02] MEDS ORDERED: ALBUTEROL 2.5 MG/3 ML NEBU IH ONE ×2 (15:06)
[2019-09-02] MEDS ORDERED: MAGNESIUM SULFATE 2 GM/50 ML BAG IV ONE (15:08)
[2019-09-02] MEDS ORDERED: methylPREDNISolone Sod Succinate 125 MG/2 ML INJ IV ONE (15:08)
[2019-09-02] MEDS ORDERED: PIPERACIL/TAZOBACTA 4.5/NS 100 4.5 GM/100 ML VIAL IV ONE (15:43)
[2019-09-02] MEDS ORDERED: PROPOFOL 1,000 MG/100 ML BOTTLE IV ONE (15:44)
[2019-09-02] MEDS ORDERED: LIP THERAPY VASELINE TP PRN (15:53)
[2019-09-02] MEDS ORDERED: MINERAL OIL/PETROLATUM, WHITE OPHTH OINT 3.5 GM OU PRN (15:53)
[2019-09-02 16:13] LABS: Bilirubin,Urine NEG (Negative); Blood,Urine SM (Negative); Color,Urine Yellow (Yellow); Mucus,Urine FEW /HPF; Protein,Urine <15 mg/dL mg/dL (Negative)
[2019-09-02 16:15] LABS: Basophils % (Auto) 0.4 % (0.0-1.8); Eosinophils % (Auto) 0.2 % (0.0-4.3); Hemoglobin 13.3 gm/dl (11.8-15.2); Lymphocytes # (Auto) 0.3 K/mm3 (1.2-5.4); Lymphocytes % (Auto) 5.4 % (13.4-35.0); Mean Corpuscular HGB Conc 34 % (32-34); Mean Corpuscular Volume 93 fl (84-94); Monocytes # (Auto) 0.4 K/mm3 (0.0-0.8); Monocytes % (Auto) 7.5 % (0.0-7.3); Platelet Count 41 K/mm3 (140-440); Red Blood Count 4.22 M/mm3 (3.65-5.03); Red Cell Distribution Width 15.3 % (13.2-15.2)
[2019-09-02 16:21] LABS: Amphetamine Screen,Urine PRESUMPTIVE NEGATIVE; Cannabinoid Screen,Urine PRESUMPTIVE NEGATIVE; Cocaine Screen,Urine PRESUMPTIVE NEGATIVE; Opiate Screen,Urine PRESUMPTIVE NEGATIVE
[2019-09-02 16:22] LABS: INR 1.48 (0.87-1.13)
[2019-09-02 16:23] LABS: Partial Thromboplastin Time 34.3 Sec. (24.2-36.6)
[2019-09-02 16:35] LABS: Alanine Aminotransferase 20 units/L (7-56); Albumin 3.2 g/dL (3.9-5); BUN/Creatinine Ratio 16; Blood Urea Nitrogen 11 mg/dL (9-20); Hemolysis Index 22
[2019-09-02 16:44] LABS: Benzodiazepines Screen,Urine PRESUMPTIVE POSITIVE; Methadone Screen,Urine PRESUMPTIVE POSITIVE
[2019-09-02 16:49] LABS: Creatine Kinase MB 6.6 ng/mL (0.0-4.0)
--- NOTE | 2019-09-02 16:56 | XRay Report ---
CHEST 1 VIEW INDICATION: sob, cough. COMPARISON: NG tube and endotracheal tube in satisfactory position. FINDINGS: Support devices: 01/24/2019. Heart: Within normal limits. Lungs/Pleura: No acute air space or interstitial disease. Additional findings: None. IMPRESSION: Lines and tubes in satisfactory position. Signer Name: Mahad Acuna MD Signed: 09/02/2019 4:52 PM Workstation Name: [id number]
[2019-09-02] MEDS ORDERED: ETOMIDATE 20 MG/10 ML INJ IV ONE (17:00)
[2019-09-02] MEDS ORDERED: SUCCINYLCHOLINE CHLORIDE 200 MG/10 ML INJ MDV ONE (17:00)
[2019-09-02] MEDS ORDERED: LORazepam 2 MG/ML VIAL IV ONE (17:21)
[2019-09-02] MEDS ORDERED: LORazepam 2 MG/ML VIAL ONE (17:23)
--- NOTE | 2019-09-02 17:48 | Cat Scan Report ---
CT head/brain wo con INDICATION / CLINICAL INFORMATION: 59 years Male; ams, unequal pupils. TECHNIQUE: Routine CT head without contrast. All CT scans at this location are performed using CT dos e reduction for ALARA by means of automated exposure control. COMPARISON: The study is compared to the previous CT of 07/04/2017. FINDINGS: BRAIN / INTRACRANIAL CONTENTS: The motion degrades the image quality in this intubated patient. Howev er, the brain appears to demonstrate appropriate attenuation for age without significant interval lily nge from the previous CT. This mild cerebral atrophy. However, the ventricular system remains appropr iate in size and configuration. There is no clear CT evidence of acute intracranial hemorrhage or sig nificant mass effect. ORBITS: No significant abnormality of visualized orbits. SINUSES / MASTOIDS: No significant abnormality the visualized paranasal sinuses or mastoid air cells. CRANIOCERVICAL JUNCTION: No significant abnormality. ADDITIONAL FINDINGS: None. IMPRESSION: 1. There is no clear CT evidence of acute intracranial process. Signer Name: Gregory Huber MD Signed: 09/02/2019 5:43 PM Workstation Name: [id number]
[2019-09-02] MEDS: PROPOFOL 1,000 MG/100 ML BOTTLE IV SCH (17:52)
[2019-09-02] MEDS ORDERED: SODIUM CHLORIDE 0.9% 1000 ML 1,000 ML IV ONE (18:19)
--- NOTE | 2019-09-02 18:26 | Emergency Department Report ---
ED Altered Mental Status HPI - General Chief Complaint: Altered Mental Status Stated Complaint: AMS Time Seen by Provider: 09/02/19 15:05 Source: EMS Mode of arrival: Stretcher Limitations: Altered Mental Status - History of Present Illness Initial Comments: 59-year-old male with a past medical history of Anal Cancer (currently in remission S/P chemotherapy radiation treatments), HTN, HCV, COPD, chronic pain treated at a methadone clinic presents to the hospital with alteration in mental status. Patient was found altered approximately 30 minutes after leaving the methadone clinic. Accu-Chek 66. Patient was found with pinpoint pupils and breathing at a rate of 10 breaths per minute. Patient received 2 mg of Narcan and became more alert and agitated with wheezing and tachypnea. He was noticed to have unequal pupils with right pupil size greater than left. Is moving all extremities upon arrival and oriented to self. EMS attempted to administer breathing treatments the patient continually taking off respiratory mask. - Related Data Home Medications Medication Instructions Recorded Confirmed Last Taken clonazePAM 1 mg PO DAILY 08/22/16 05/13/17 05/12/17 Previous Rx's Medication Instructions Recorded Last Taken Type Oxycodone HCl/Acetaminophen 1 each PO Q6HR PRN #12 tablet 08/31/16 05/12/17 Rx [Percocet 10/325 mg] Acetaminophen [Acetaminophen ER 650 mg PO Q8HR PRN #20 tablet.er 09/16/16 05/06/17 Rx TAB] HYDROmorphone [Dilaudid] 2 mg PO Q4HR #26 tablet 07/04/17 Unknown Rx Sennosides/Docusate Sodium 1 each PO DAILY #15 tablet 07/04/17 Unknown Rx [Sennosides-Docusate Sodium Tab] Benzonatate [Tessalon Perles] 100 mg PO Q8HR #14 capsule 12/26/17 Unknown Rx ALBUTEROL Inhaler (OR & NICU) 2 puff IH QID PRN #2 can 01/04/18 Unknown Rx [ProAir HFA Inhaler] Albuterol Sulfate [Albuterol 0.63% 0.63 mg IH TID PRN #120 ml 01/04/18 Unknown Rx NEBS] Clindamycin [Clindamycin CAP] 300 mg PO Q8H #21 cap 01/04/18 Unknown Rx Nebulizer and Compressor [[place] 1 each MC TID #1 each 01/04/18 Unknown Rx Choice Nebulizer] Albuterol Sulfate [Ventolin Hfa] 1 puff IH Q4H PRN #1 hfa.aer.ad 04/04/18 Unknown Rx Azithromycin [Zithromax Z-JERI] 250 mg PO QDAY #1 pack 04/04/18 Unknown Rx Furosemide [Lasix TAB] 20 mg PO QDAY #7 tablet 04/04/18 Unknown Rx HYDROcodone/APAP 5-325 [[place] 1 each PO Q6HR PRN #6 tablet 04/04/18 Unknown Rx 5/325] Clindamycin [Clindamycin CAP] 300 mg PO Q8H #21 cap 01/31/19 Unknown Rx Furosemide [Lasix] 20 mg PO QDAY #7 tablet 01/31/19 Unknown Rx diphenhydrAMINE [Benadryl CAP] 25 mg PO Q6HR PRN #20 capsule 01/31/19 Unknown Rx Ibuprofen [Motrin] 800 mg PO Q8HR #30 tablet 04/23/19 Unknown Rx Sulfamethoxazole/Trimethoprim 1 each PO BID #14 tablet 04/23/19 Unknown Rx [Bactrim DS TAB] Allergies Allergy/AdvReac Type Severity Reaction Status Date / Time codeine Allergy Rash Verified 04/23/19 15:38 ED Review of Systems ROS: Stated complaint: AMS Other details as noted in HPI Comment: All other systems reviewed and negative ED Past Medical Hx - Past Medical History Previous Medical History?: Yes Hx Hypertension: Yes Hx Congestive Heart Failure: No Hx Diabetes: No Hx Liver Disease: Yes (Hep C) Hx Asthma: No Hx COPD: Yes Hx HIV: No Additional medical history: Hepatitis C, anal CA with current Chemo treatments - Surgical History Past Surgical History?: Yes Hx Pacemaker: No Hx Internal Defibrillator: No Additional Surgical History: Hemorrhoidectomy, Anal biopsy - Social History Smoking Status: Unknown if ever smoked Substance Use Type: None - Medications Home Medications: Home Medications Medication Instructions Recorded Confirmed Last Taken Type clonazePAM 1 mg PO DAILY 08/22/16 05/13/17 05/12/17 History Oxycodone HCl/Acetaminophen 1 each PO Q6HR PRN #12 tablet 08/31/16 05/13/17 05/12/17 Rx [Percocet 10/325 mg] Acetaminophen [Acetaminophen ER 650 mg PO Q8HR PRN #20 tablet.er 09/16/16 05/13/17 05/06/17 Rx TAB] HYDROmorphone [Dilaudid] 2 mg PO Q4HR #26 tablet 07/04/17 Unknown Rx Sennosides/Docusate Sodium 1 each PO DAILY #15 tablet 07/04/17 Unknown Rx [Sennosides-Docusate Sodium Tab] Benzonatate [Tessalon Perles] 100 mg PO Q8HR #14 capsule 12/26/17 Unknown Rx ALBUTEROL Inhaler (OR & NICU) 2 puff IH QID PRN #2 can 01/04/18 Unknown Rx [ProAir HFA Inhaler] Albuterol Sulfate [Albuterol 0.63% 0.63 mg IH TID PRN #120 ml 01/04/18 Unknown Rx NEBS] Clindamycin [Clindamycin CAP] 300 mg PO Q8H #21 cap 01/04/18 Unknown Rx Nebulizer and Compressor [[place] 1 each MC TID #1 each 01/04/18 Unknown Rx Choice Nebulizer] Albuterol Sulfate [Ventolin Hfa] 1 puff IH Q4H PRN #1 hfa.aer.ad 04/04/18 Unknown Rx Azithromycin [Zithromax Z-JERI] 250 mg PO QDAY #1 pack 04/04/18 Unknown Rx Furosemide [Lasix TAB] 20 mg PO QDAY #7 tablet 04/04/18 Unknown Rx HYDROcodone/APAP 5-325 [[place] 1 each PO Q6HR PRN #6 tablet 04/04/18 Unknown Rx 5/325] Clindamycin [Clindamycin CAP] 300 mg PO Q8H #21 cap 01/31/19 Unknown Rx Furosemide [Lasix] 20 mg PO QDAY #7 tablet 01/31/19 Unknown Rx diphenhydrAMINE [Benadryl CAP] 25 mg PO Q6HR PRN #20 capsule 01/31/19 Unknown Rx Ibuprofen [Motrin] 800 mg PO Q8HR #30 tablet 04/23/19 Unknown Rx Sulfamethoxazole/Trimethoprim 1 each PO BID #14 tablet 04/23/19 Unknown Rx [Bactrim DS TAB] ED Physical Exam - General Limitations: Altered Mental Status - Other Other exam information: General: Agitated Head: Atraumatic Eyes: Pupils reactive right pupil size greater than left. 5mm Right, 3 mm left ENT: Moist mucous membranes Neck: Normal appearance, no midline tenderness Chest: Tachypnea, bilateral wheezing. Patient coughing with fetid foul smelling sputum CV: Regular rate and rhythm Abdomen: Soft, normal bowel sounds, nontender, nondistended, no rebound or guarding Back: Normal inspection Extremity: Normal inspection infection, full range of motion Neuro: Alert O x 1, no facial asymmetry, no gross motor sensory deficit Psych: Appropriate behavior Skin: No rash ED Course Vital Signs 09/02/19 09/02/19 09/02/19 15:06 16:00 17:33 Temperature 99.6 F Pulse Rate 89 82 Pulse Rate [ 70 Anterior Bilateral Throughout] Respiratory 16 Rate Respiratory 40 H Rate [Anterior Bilateral Throughout] Blood Pressure 173/78 137/86 Blood Pressure [Left] O2 Sat by Pulse 100 100 Oximetry 09/02/19 09/02/19 09/02/19 17:41 18:31 18:35 Temperature 99.6 F Pulse Rate 89 74 Pulse Rate [ Anterior Bilateral Throughout] Respiratory 40 H 16 Rate Respiratory Rate [Anterior Bilateral Throughout] Blood Pressure Blood Pressure 117/65 [Left] O2 Sat by Pulse 100 Oximetry - Reevaluation(s) Reevaluation #1: 09/02/19 17:49 Upon reexamination pupil size is equal. patient intubated and sedated - Intubation Time Out Performed: Yes Sedative: Etomidate Mg Given: 20 Paralytic: Succinylcholine Mg Given: 120 Laryngoscope: Jeremiah Size: 4 ET Tube Size: 8 Tube Secured Depth (cm): 24 Tube Secured Location: lips Tube Placement Confirmation: visualized tube passing t, equal breath sounds bilat, no breath sounds over epi, confirmation by capnometr Patient Tolerated Procedure: well Intubation Complications: none - Lab Data Result diagrams: 09/02/19 15:47 09/02/19 15:47 Lab Results 09/02/19 09/02/19 09/02/19 Range/Units 15:17 15:47 15:47 WBC 5.7 (4.5-11.0) K/mm3 RBC 4.22 (3.65-5.03) M/mm3 Hgb 13.3 (11.8-15.2) gm/dl Hct 39.0 (35.5-45.6) % MCV 93 (84-94) fl MCH 32 (28-32) pg MCHC 34 (32-34) % RDW 15.3 H (13.2-15.2) % Plt Count 41 L (140-440) K/mm3 Lymph % (Auto) 5.4 L (13.4-35.0) % [place] % (Auto) 7.5 H (0.0-7.3) % Eos % (Auto) 0.2 (0.0-4.3) % Baso % (Auto) 0.4 (0.0-1.8) % Lymph # 0.3 L (1.2-5.4) K/mm3 [place] # 0.4 (0.0-0.8) K/mm3 Eos # 0.0 (0.0-0.4) K/mm3 Baso # 0.0 (0.0-0.1) K/mm3 Seg Neutrophils % 86.5 H (40.0-70.0) % Seg Neutrophils # 4.9 (1.8-7.7) K/mm3 PT 18.2 H (12.2-14.9) Sec. INR 1.48 H (0.87-1.13) APTT 34.3 (24.2-36.6) Sec. Sodium (137-145) mmol/L Potassium (3.6-5.0) mmol/L Chloride (98-107) mmol/L Carbon Dioxide (22-30) mmol/L Anion Gap mmol/L BUN (9-20) mg/dL Creatinine (0.8-1.5) mg/dL Estimated GFR ml/min BUN/Creatinine Ratio % Glucose (75-100) mg/dL POC Glucose 86 (70-105) Lactic Acid (0.7-2.0) mmol/L Calcium (8.4-10.2) mg/dL Total Bilirubin (0.1-1.2) mg/dL AST (5-40) units/L ALT (7-56) units/L Alkaline Phosphatase (35-129) units/L Ammonia (25-60) umol/L Total Creatine Kinase (55-170) units/L CK-MB (CK-2) (0.0-4.0) ng/mL CK-MB (CK-2) Rel Index (0-4) Troponin T (0.00-0.029) ng/mL Total Protein (6.3-8.2) g/dL Albumin (3.9-5) g/dL Albumin/Globulin Ratio % Urine Color (Yellow) Urine Turbidity (Clear) Urine pH (5.0-7.0) Ur Specific [place] (1.003-1.030) Urine Protein (Negative) mg/dL Urine Glucose (UA) (Negative) mg/dL Urine Ketones (Negative) mg/dL Urine Blood (Negative) Urine Nitrite (Negative) Urine Bilirubin (Negative) Urine Urobilinogen (<2.0) mg/dL Ur Leukocyte Esterase (Negative) Urine WBC (Auto) (0.0-6.0) /HPF Urine RBC (Auto) (0.0-6.0) /HPF U Epithel Cells (Auto) (0-13.0) /HPF Urine Mucus /HPF Salicylates (2.8-20.0) mg/dL Urine Opiates Screen Urine Methadone Screen Acetaminophen (10.0-30.0) ug/mL Ur Barbiturates Screen Ur Phencyclidine Scrn Ur Amphetamines Screen U Benzodiazepines Scrn Urine Cocaine Screen U Marijuana (THC) Screen Drugs of Abuse Note Plasma/Serum Alcohol (0-0.07) % 09/02/19 09/02/19 09/02/19 Range/Units 15:47 15:47 15:47 WBC (4.5-11.0) K/mm3 RBC (3.65-5.03) M/mm3 Hgb (11.8-15.2) gm/dl Hct (35.5-45.6) % MCV (84-94) fl MCH (28-32) pg MCHC (32-34) % RDW (13.2-15.2) % Plt Count (140-440) K/mm3 Lymph % (Auto) (13.4-35.0) % [place] % (Auto) (0.0-7.3) % Eos % (Auto) (0.0-4.3) % Baso % (Auto) (0.0-1.8) % Lymph # (1.2-5.4) K/mm3 [place] # (0.0-0.8) K/mm3 Eos # (0.0-0.4) K/mm3 Baso # (0.0-0.1) K/mm3 Seg Neutrophils % (40.0-70.0) % Seg Neutrophils # (1.8-7.7) K/mm3 PT (12.2-14.9) Sec. INR (0.87-1.13) APTT (24.2-36.6) Sec. Sodium 138 (137-145) mmol/L Potassium 3.9 (3.6-5.0) mmol/L Chloride 104.8 (98-107) mmol/L Carbon Dioxide 22 (22-30) mmol/L Anion Gap 15 mmol/L BUN 11 (9-20) mg/dL Creatinine 0.7 L (0.8-1.5) mg/dL Estimated GFR > 60 ml/min BUN/Creatinine Ratio 16 % Glucose 101 H (75-100) mg/dL POC Glucose (70-105) Lactic Acid (0.7-2.0) mmol/L Calcium 8.0 L (8.4-10.2) mg/dL Total Bilirubin 1.90 H (0.1-1.2) mg/dL AST 38 (5-40) units/L ALT 20 (7-56) units/L Alkaline Phosphatase 71 (35-129) units/L Ammonia 86.0 H (25-60) umol/L Total Creatine Kinase (55-170) units/L CK-MB (CK-2) (0.0-4.0) ng/mL CK-MB (CK-2) Rel Index (0-4) Troponin T (0.00-0.029) ng/mL Total Protein 7.4 (6.3-8.2) g/dL Albumin 3.2 L (3.9-5) g/dL Albumin/Globulin Ratio 0.8 % Urine Color (Yellow) Urine Turbidity (Clear) Urine pH (5.0-7.0) Ur Specific [place] (1.003-1.030) Urine Protein (Negative) mg/dL Urine Glucose (UA) (Negative) mg/dL Urine Ketones (Negative) mg/dL Urine Blood (Negative) Urine Nitrite (Negative) Urine Bilirubin (Negative) Urine Urobilinogen (<2.0) mg/dL Ur Leukocyte Esterase (Negative) Urine WBC (Auto) (0.0-6.0) /HPF Urine RBC (Auto) (0.0-6.0) /HPF U Epithel Cells (Auto) (0-13.0) /HPF Urine Mucus /HPF Salicylates < 0.3 L (2.8-20.0) mg/dL Urine Opiates Screen Urine Methadone Screen Acetaminophen (10.0-30.0) ug/mL Ur Barbiturates Screen Ur Phencyclidine Scrn Ur Amphetamines Screen U Benzodiazepines Scrn Urine Cocaine Screen U Marijuana (THC) Screen Drugs of Abuse Note Plasma/Serum Alcohol (0-0.07) % 09/02/19 09/02/19 09/02/19 Range/Units 15:47 15:47 16:00 WBC (4.5-11.0) K/mm3 RBC (3.65-5.03) M/mm3 Hgb (11.8-15.2) gm/dl Hct (35.5-45.6) % MCV (84-94) fl MCH (28-32) pg MCHC (32-34) % RDW (13.2-15.2) % Plt Count (140-440) K/mm3 Lymph % (Auto) (13.4-35.0) % [place] % (Auto) (0.0-7.3) % Eos % (Auto) (0.0-4.3) % Baso % (Auto) (0.0-1.8) % Lymph # (1.2-5.4) K/mm3 [place] # (0.0-0.8) K/mm3 Eos # (0.0-0.4) K/mm3 Baso # (0.0-0.1) K/mm3 Seg Neutrophils % (40.0-70.0) % Seg Neutrophils # (1.8-7.7) K/mm3 PT (12.2-14.9) Sec. INR (0.87-1.13) APTT (24.2-36.6) Sec. Sodium (137-145) mmol/L Potassium (3.6-5.0) mmol/L Chloride (98-107) mmol/L Carbon Dioxide (22-30) mmol/L Anion Gap mmol/L BUN (9-20) mg/dL Creatinine (0.8-1.5) mg/dL Estimated GFR ml/min BUN/Creatinine Ratio % Glucose (75-100) mg/dL POC Glucose (70-105) Lactic Acid (0.7-2.0) mmol/L Calcium (8.4-10.2) mg/dL Total Bilirubin (0.1-1.2) mg/dL AST (5-40) units/L ALT (7-56) units/L Alkaline Phosphatase (35-129) units/L Ammonia (25-60) umol/L Total Creatine Kinase (55-170) units/L CK-MB (CK-2) (0.0-4.0) ng/mL CK-MB (CK-2) Rel Index (0-4) Troponin T (0.00-0.029) ng/mL Total Protein (6.3-8.2) g/dL Albumin (3.9-5) g/dL Albumin/Globulin Ratio % Urine Color Yellow (Yellow) Urine Turbidity Clear (Clear) Urine pH 7.0 (5.0-7.0) Ur Specific [place] 1.020 (1.003-1.030) Urine Protein <15 mg/dl (Negative) mg/dL Urine Glucose (UA) Neg (Negative) mg/dL Urine Ketones Neg (Negative) mg/dL Urine Blood Sm (Negative) Urine Nitrite Neg (Negative) Urine Bilirubin Neg (Negative) Urine Urobilinogen 4.0 (<2.0) mg/dL Ur Leukocyte Esterase Neg (Negative) Urine WBC (Auto) 1.0 (0.0-6.0) /HPF Urine RBC (Auto) 7.0 (0.0-6.0) /HPF U Epithel Cells (Auto) < 1.0 (0-13.0) /HPF Urine Mucus Few /HPF Salicylates (2.8-20.0) mg/dL Urine Opiates Screen Urine Methadone Screen Acetaminophen < 5.0 L (10.0-30.0) ug/mL Ur Barbiturates Screen Ur Phencyclidine Scrn Ur Amphetamines Screen U Benzodiazepines Scrn Urine Cocaine Screen U Marijuana (THC) Screen Drugs of Abuse Note Plasma/Serum Alcohol < 0.01 (0-0.07) % 09/02/19 09/02/19 09/02/19 Range/Units 16:00 16:10 16:10 WBC (4.5-11.0) K/mm3 RBC (3.65-5.03) M/mm3 Hgb (11.8-15.2) gm/dl Hct (35.5-45.6) % MCV (84-94) fl MCH (28-32) pg MCHC (32-34) % RDW (13.2-15.2) % Plt Count (140-440) K/mm3 Lymph % (Auto) (13.4-35.0) % [place] % (Auto) (0.0-7.3) % Eos % (Auto) (0.0-4.3) % Baso % (Auto) (0.0-1.8) % Lymph # (1.2-5.4) K/mm3 [place] # (0.0-0.8) K/mm3 Eos # (0.0-0.4) K/mm3 Baso # (0.0-0.1) K/mm3 Seg Neutrophils % (40.0-70.0) % Seg Neutrophils # (1.8-7.7) K/mm3 PT (12.2-14.9) Sec. INR (0.87-1.13) APTT (24.2-36.6) Sec. Sodium (137-145) mmol/L Potassium (3.6-5.0) mmol/L Chloride (98-107) mmol/L Carbon Dioxide (22-30) mmol/L Anion Gap mmol/L BUN (9-20) mg/dL Creatinine (0.8-1.5) mg/dL Estimated GFR ml/min BUN/Creatinine Ratio % Glucose (75-100) mg/dL POC Glucose (70-105) Lactic Acid 2.10 H* (0.7-2.0) mmol/L Calcium (8.4-10.2) mg/dL Total Bilirubin (0.1-1.2) mg/dL AST (5-40) units/L ALT (7-56) units/L Alkaline Phosphatase (35-129) units/L Ammonia (25-60) umol/L Total Creatine Kinase 552 H (55-170) units/L CK-MB (CK-2) 6.6 H (0.0-4.0) ng/mL CK-MB (CK-2) Rel Index 1.1 (0-4) Troponin T 0.017 (0.00-0.029) ng/mL Total Protein (6.3-8.2) g/dL Albumin (3.9-5) g/dL Albumin/Globulin Ratio % Urine Color (Yellow) Urine Turbidity (Clear) Urine pH (5.0-7.0) Ur Specific [place] (1.003-1.030) Urine Protein (Negative) mg/dL Urine Glucose (UA) (Negative) mg/dL Urine Ketones (Negative) mg/dL Urine Blood (Negative) Urine Nitrite (Negative) Urine Bilirubin (Negative) Urine Urobilinogen (<2.0) mg/dL Ur Leukocyte Esterase (Negative) Urine WBC (Auto) (0.0-6.0) /HPF Urine RBC (Auto) (0.0-6.0) /HPF U Epithel Cells (Auto) (0-13.0) /HPF Urine Mucus /HPF Salicylates (2.8-20.0) mg/dL Urine Opiates Screen Presumptive negative Urine Methadone Screen Presumptive positive Acetaminophen (10.0-30.0) ug/mL Ur Barbiturates Screen Presumptive negative Ur Phencyclidine Scrn Presumptive negative Ur Amphetamines Screen Presumptive negative U Benzodiazepines Scrn Presumptive positive Urine Cocaine Screen Presumptive negative U Marijuana (THC) Screen Presumptive negative Drugs of Abuse Note Disclamer Plasma/Serum Alcohol (0-0.07) % 09/02/19 Range/Units 17:24 WBC (4.5-11.0) K/mm3 RBC (3.65-5.03) M/mm3 Hgb (11.8-15.2) gm/dl Hct (35.5-45.6) % MCV (84-94) fl MCH (28-32) pg MCHC (32-34) % RDW (13.2-15.2) % Plt Count (140-440) K/mm3 Lymph % (Auto) (13.4-35.0) % [place] % (Auto) (0.0-7.3) % Eos % (Auto) (0.0-4.3) % Baso % (Auto) (0.0-1.8) % Lymph # (1.2-5.4) K/mm3 [place] # (0.0-0.8) K/mm3 Eos # (0.0-0.4) K/mm3 Baso # (0.0-0.1) K/mm3 Seg Neutrophils % (40.0-70.0) % Seg Neutrophils # (1.8-7.7) K/mm3 PT (12.2-14.9) Sec. INR (0.87-1.13) APTT (24.2-36.6) Sec. Sodium (137-145) mmol/L Potassium (3.6-5.0) mmol/L Chloride (98-107) mmol/L Carbon Dioxide (22-30) mmol/L Anion Gap mmol/L BUN (9-20) mg/dL Creatinine (0.8-1.5) mg/dL Estimated GFR ml/min BUN/Creatinine Ratio % Glucose (75-100) mg/dL POC Glucose (70-105) Lactic Acid 2.10 H* (0.7-2.0) mmol/L Calcium (8.4-10.2) mg/dL Total Bilirubin (0.1-1.2) mg/dL AST (5-40) units/L ALT (7-56) units/L Alkaline Phosphatase (35-129) units/L Ammonia (25-60) umol/L Total Creatine Kinase (55-170) units/L CK-MB (CK-2) (0.0-4.0) ng/mL CK-MB (CK-2) Rel Index (0-4) Troponin T (0.00-0.029) ng/mL Total Protein (6.3-8.2) g/dL Albumin (3.9-5) g/dL Albumin/Globulin Ratio % Urine Color (Yellow) Urine Turbidity (Clear) Urine pH (5.0-7.0) Ur Specific [place] (1.003-1.030) Urine Protein (Negative) mg/dL Urine Glucose (UA) (Negative) mg/dL Urine Ketones (Negative) mg/dL Urine Blood (Negative) Urine Nitrite (Negative) Urine Bilirubin (Negative) Urine Urobilinogen (<2.0) mg/dL Ur Leukocyte Esterase (Negative) Urine WBC (Auto) (0.0-6.0) /HPF Urine RBC (Auto) (0.0-6.0) /HPF U Epithel Cells (Auto) (0-13.0) /HPF Urine Mucus /HPF Salicylates (2.8-20.0) mg/dL Urine Opiates Screen Urine Methadone Screen Acetaminophen (10.0-30.0) ug/mL Ur Barbiturates Screen Ur Phencyclidine Scrn Ur Amphetamines Screen U Benzodiazepines Scrn Urine Cocaine Screen U Marijuana (THC) Screen Drugs of Abuse Note Plasma/Serum Alcohol (0-0.07) % - EKG Data -: EKG Interpreted by Me EKG shows normal: sinus rhythm, ST-T waves (no stemi) Rate: normal (71) - Radiology Data Radiology results: report reviewed CHEST 1 VIEW INDICATION: sob, cough. COMPARISON: NG tube and endotracheal tube in satisfactory position. FINDINGS: Support devices: 01/24/2019. Heart: Within normal limits. Lungs/Pleura: No acute air space or interstitial disease. Additional findings: None. IMPRESSION: Lines and tubes in satisfactory position. CT head/brain wo con INDICATION / CLINICAL INFORMATION: 59 years Male; ams, unequal pupils. TECHNIQUE: Routine CT head without contrast. All CT scans at this location are performed using CT dose reduction for ALARA by means of automated exposure control. COMPARISON: The study is compared to the previous CT of 07/04/2017. FINDINGS: BRAIN / INTRACRANIAL CONTENTS: The motion degrades the image quality in this intubated patient. However, the brain appears to demonstrate appropriate attenuation for age without significant interval change from the previous CT. This mild cerebral atrophy. However, the ventricular syst em remains appropriate in size and configuration. There is no clear CT evidence of acute intracranial hemorrhage or significant mass effect. ORBITS: No significant abnormality of visualized orbits. SINUSES / MASTOIDS: No significant abnormality the visualized paranasal sinuses or mastoid air cells. CRANIOCERVICAL JUNCTION: No significant abnormality. ADDITIONAL FINDINGS: None. IMPRESSION: 1. There is no clear CT evidence of acute intracranial process - Medical Decision Making Patient presents to Hospital with active wheezing, respiratory depression respon sive to Narcan and alteration in mental status. Patient required intubation for stabilization. Hospitalist informed for admission. Time of disposition still waiting ABG. - Differential Diagnosis ICH, CVA, drug overdose, CO2 encephalopathy, hepatic encephalopathy Critical Care Time: Yes Critical care time in (mins) excluding proc time.: 35 Critical care attestation.: If time is entered above; I have spent that time in minutes in the direct care of this critically ill patient, excluding procedure time. ED Disposition Clinical Impression: Altered mental status, Hepatic encephalopathy, Chronic pain, Acute exacerbation of chronic obstructive pulmonary disease (COPD), Endotracheally intubated, Methadone dependence, Thrombocytopenia Disposition: OP ADMIT IP TO THIS HOSP Is pt being admited?: Yes Condition: Stable Referrals: PRIMARY CARE, [Primary Care Provider] - 3-5 Days Time of Disposition: 18:27 (Dr bermudez/hosp)
--- NOTE | 2019-09-02 18:28 | History and Physical Report ---
History of Present Illness Chief complaint: Confused History of present illness: 59 YO Male with Anal Cancer (currently in remission S/P chemotherapy radiation treatments), HTN, HCV, COPD, Chronic Pain currently on Methadone Maintenance Program presents to ED for evaluation. Pt is confused and unable to provide history upon arrival. At time of my evaluation, the patient is intubated and on ventilatory support. Pt history taken from medical record and ED staff. As per staff, the patient was found to be confused approximately 30 minutes after leaving Meth[facility]one Clinic. EMS notified, and upon arrival the patient was found to be in distress with respiratory rate of 10 breaths/minute. Pt treated with Narcan and transported to [facility]. Pt seen and evaluated in ED and was found to be unable to protect his airway. Pt intubated in ED. No further history obtainable. Pt admitted to ICU. Prior admission on 01/24/19 reviewed. All medication listed at time of admission was reconciled. Pt admitted for treatment of Acute Resp iratory Failure and Encephalopathy. Past History Past Medical History: other (see HPI) Past Surgical History: Other (Hemorrhoid surgery, anal biopsy) Social history: single. denies: smoking, alcohol abuse, prescription drug abuse Family history: hypertension Medications and Allergies Allergies Allergy/AdvReac Type Severity Reaction Status Date / Time codeine Allergy Rash Verified 04/23/19 15:38 Home Medications Medication Instructions Recorded Confirmed Last Taken Type clonazePAM 1 mg PO DAILY 08/22/16 05/13/17 05/12/17 History Oxycodone HCl/Acetaminophen 1 each PO Q6HR PRN #12 tablet 08/31/16 05/13/17 05/12/17 Rx [Percocet 10/325 mg] Acetaminophen [Acetaminophen ER 650 mg PO Q8HR PRN #20 tablet.er 09/16/16 05/13/17 05/06/17 Rx TAB] HYDROmorphone [Dilaudid] 2 mg PO Q4HR #26 tablet 07/04/17 Unknown Rx Sennosides/Docusate Sodium 1 each PO DAILY #15 tablet 07/04/17 Unknown Rx [Sennosides-Docusate Sodium Tab] Benzonatate [Tessalon Perles] 100 mg PO Q8HR #14 capsule 12/26/17 Unknown Rx ALBUTEROL Inhaler (OR & NICU) 2 puff IH QID PRN #2 can 01/04/18 Unknown Rx [ProAir HFA Inhaler] Albuterol Sulfate [Albuterol 0.63% 0.63 mg IH TID PRN #120 ml 01/04/18 Unknown Rx NEBS] Clindamycin [Clindamycin CAP] 300 mg PO Q8H #21 cap 01/04/18 Unknown Rx Nebulizer and Compressor [[place] 1 each MC TID #1 each 01/04/18 Unknown Rx Choice Nebulizer] Albuterol Sulfate [Ventolin Hfa] 1 puff IH Q4H PRN #1 hfa.aer.ad 04/04/18 Unknown Rx Azithromycin [Zithromax Z-JERI] 250 mg PO QDAY #1 pack 04/04/18 Unknown Rx Furosemide [Lasix TAB] 20 mg PO QDAY #7 tablet 04/04/18 Unknown Rx HYDROcodone/APAP 5-325 [[place] 1 each PO Q6HR PRN #6 tablet 04/04/18 Unknown Rx 5/325] Clindamycin [Clindamycin CAP] 300 mg PO Q8H #21 cap 01/31/19 Unknown Rx Furosemide [Lasix] 20 mg PO QDAY #7 tablet 01/31/19 Unknown Rx diphenhydrAMINE [Benadryl CAP] 25 mg PO Q6HR PRN #20 capsule 01/31/19 Unknown Rx Ibuprofen [Motrin] 800 mg PO Q8HR #30 tablet 04/23/19 Unknown Rx Sulfamethoxazole/Trimethoprim 1 each PO BID #14 tablet 04/23/19 Unknown Rx [Bactrim DS TAB] Active Meds: Active Medications Hydrophilic Ointment (Vaseline Lip Therapy) 1 applic TP Q2HR PRN PRN Reason: Dry Lips Propofol (Diprivan 10 Mg/Ml) 1,000 mg in 100 mls @ 3.266 mls/hr IV TITR XENIA; Protocol Last Admin: 09/02/19 17:52 Dose: 20 mcg/kg/min, 13.063 mls/hr Documented by: Sodium Chloride (Nacl 0.9% 1000 Ml) 1,000 mls @ 999 mls/hr IV BOLUS ONE Stop: 09/02/19 19:19 Multi-Ingred Cream/Lotion/Oil/Oint (Artificial Tears Ophth Oint) 1 applic OU Q4HR PRN PRN Reason: Dry Eye(s) Review of Systems ROS unobtainable: due to endotracheal tube Exam - Constitutional Vitals: Temp Pulse Resp BP Pulse Ox 99.6 F 82 16 137/86 100 09/02/19 17:41 09/02/19 17:33 09/02/19 17:33 09/02/19 17:33 09/02/19 17:33 General appearance: Present: mild distress, obese - EENT Eyes: Present: miosis - Neck Neck: Present: supple - Respiratory Respiratory effort: labored, accessory muscle use Respiratory: bilateral: diminished, rhonchi - Cardiovascular Heart Sounds: Present: S1 & S2. Absent: rub, click - Extremities Extremities: pulses symmetrical, No edema Peripheral Pulses: within normal limits - Abdominal General gastrointestinal: Present: soft, non-tender, non-distended, normal bowel sounds Male genitourinary: Present: normal - Integumentary Integumentary: Present: clear, warm, dry - Musculoskeletal Musculoskeletal: generalized weakness - Psychiatric Psychiatric: no appropriate mood/affect, no intact judgment & insight, no memory intact - Neurologic Neurologic: CNII-XII intact, moves all extremities, no gait normal Results - Labs CBC & Chem 7: 09/02/19 15:47 09/02/19 15:47 Labs: Abnormal lab results 09/02/19 09/02/19 09/02/19 Range/Units 15:47 15:47 15:47 RDW 15.3 H (13.2-15.2) % Plt Count 41 L (140-440) K/mm3 Lymph % (Auto) 5.4 L (13.4-35.0) % Fleming % (Auto) 7.5 H (0.0-7.3) % Lymph # 0.3 L (1.2-5.4) K/mm3 Seg Neutrophils % 86.5 H (40.0-70.0) % PT 18.2 H (12.2-14.9) Sec. INR 1.48 H (0.87-1.13) Creatinine 0.7 L (0.8-1.5) mg/dL Glucose 101 H (75-100) mg/dL Lactic Acid (0.7-2.0) mmol/L Calcium 8.0 L (8.4-10.2) mg/dL Total Bilirubin 1.90 H (0.1-1.2) mg/dL Ammonia (25-60) umol/L Total Creatine Kinase (55-170) units/L CK-MB (CK-2) (0.0-4.0) ng/mL Albumin 3.2 L (3.9-5) g/dL Salicylates (2.8-20.0) mg/dL Acetaminophen (10.0-30.0) ug/mL 09/02/19 09/02/19 09/02/19 Range/Units 15:47 15:47 15:47 RDW (13.2-15.2) % Plt Count (140-440) K/mm3 Lymph % (Auto) (13.4-35.0) % Fleming % (Auto) (0.0-7.3) % Lymph # (1.2-5.4) K/mm3 Seg Neutrophils % (40.0-70.0) % PT (12.2-14.9) Sec. INR (0.87-1.13) Creatinine (0.8-1.5) mg/dL Glucose (75-100) mg/dL Lactic Acid (0.7-2.0) mmol/L Calcium (8.4-10.2) mg/dL Total Bilirubin (0.1-1.2) mg/dL Ammonia 86.0 H (25-60) umol/L Total Creatine Kinase (55-170) units/L CK-MB (CK-2) (0.0-4.0) ng/mL Albumin (3.9-5) g/dL Salicylates < 0.3 L (2.8-20.0) mg/dL Acetaminophen < 5.0 L (10.0-30.0) ug/mL 09/02/19 09/02/19 Range/Units 16:10 16:10 RDW (13.2-15.2) % Plt Count (140-440) K/mm3 Lymph % (Auto) (13.4-35.0) % Fleming % (Auto) (0.0-7.3) % Lymph # (1.2-5.4) K/mm3 Seg Neutrophils % (40.0-70.0) % PT (12.2-14.9) Sec. INR (0.87-1.13) Creatinine (0.8-1.5) mg/dL Glucose (75-100) mg/dL Lactic Acid 2.10 H* (0.7-2.0) mmol/L Calcium (8.4-10.2) mg/dL Total Bilirubin (0.1-1.2) mg/dL Ammonia (25-60) umol/L Total Creatine Kinase 552 H (55-170) units/L CK-MB (CK-2) 6.6 H (0.0-4.0) ng/mL Albumin (3.9-5) g/dL Salicylates (2.8-20.0) mg/dL Acetaminophen (10.0-30.0) ug/mL Assessment and Plan - Patient Problems (1) Acute respiratory failure Current Visit: Yes Status: Acute Qualifiers: Respiratory failure complication: hypoxia Qualified Code(s): J96.01 - Acute respiratory failure with hypoxia Plan to address problem: Pt intubated, sedated, and placed on vent support. Wean vent as tolerated, ABG, SBT in am, Chest x ray, The high probability of a clinically significant, sudden or life threatening deterioration of the [pulmonary, renal] system(s) required my full and direct attention, intervention and personal management. The aggregate critical care time was [65] minutes. This time is in addition to time spent performing reported procedures but includes the following: [x] Data Review and interpretation [x] Patient assessment and monitoring of vital signs [x] Documentation [x] Medication orders and managementsedation holiday, wean vent as tolerated, Pulmonary team consulted. (2) Encephalopathy Current Visit: Yes Status: Acute Plan to address problem: CT Head, neuro check, supportive care. (3) Methadone dependence Current Visit: Yes Status: Acute Plan to address problem: supportive care, S/P narcan administration, (4) Anal cancer Current Visit: Yes Status: Acute Plan to address problem: Pain control, supportive care, Outpatient Oncology F/U care. (5) HTN (hypertension) Current Visit: Yes Status: Acute Qualifiers: Hypertension type: essential hypertension Qualified Code(s): I10 - Essential (primary) hypertension Plan to address problem: Monitor bp q shift, continue medical management. (6) DVT prophylaxis Current Visit: Yes Status: Acute Plan to address problem: SCD to BLE while in bed, prophylactic heparin
[2019-09-02] MEDS ORDERED: SODIUM CHLORIDE 0.9% 1000 ML 1,000 ML IV SCH (18:45)
[2019-09-02] MEDS ORDERED: HEPARIN 5,000 UNIT/1 ML VIAL SUB-Q SCH (22:00)
[2019-09-03] MEDS: PROPOFOL 1,000 MG/100 ML BOTTLE IV SCH ×2 (02:38→11:40)
[2019-09-03 05:07] LABS: Hematocrit 34.6 % (35.5-45.6); Hemoglobin 11.9 gm/dl (11.8-15.2); Mean Corpuscular HGB Conc 35 % (32-34); Mean Corpuscular Volume 92 fl (84-94); Red Blood Count 3.76 M/mm3 (3.65-5.03); Red Cell Distribution Width 15.2 % (13.2-15.2)
[2019-09-03 05:11] LABS: Platelet Count 29 K/mm3 (140-440)
[2019-09-03 05:23] LABS: Alanine Aminotransferase 18 units/L (7-56); Albumin 2.8 g/dL (3.9-5); BUN/Creatinine Ratio 18; Blood Urea Nitrogen 11 mg/dL (9-20); Calcium 7.7 mg/dL (8.4-10.2); Hemolysis Index 7
[2019-09-03 06:05] LABS: Basophils % (Manual) 0 % (0.0-1.8); Eosinophils % (Manual) 0 % (0.0-4.3); Total Cells Counted 100
[2019-09-03 06:06] LABS: Ovalocytes Few; Platelet Estimate Consistent w Auto
--- NOTE | 2019-09-03 09:32 | Progress Note ---
Assessment and Plan Assessment and plan: Patient currently intubated, Record from chart review, ED and admitters note and prior visit. Patient 59-year-old male with a past medical history of Anal Cancer (currently in remission S/P chemotherapy radiation treatments), HTN, HCV, COPD, chronic pain treated at a methadone clinic presents to the hospital with alteration in mental status. Patient was found altered approximately 30 minutes after leaving the methadone clinic. Accu-Chek 66. Patient was found with pinpoint pupils and breathing at a rate of 10 breaths per minute. Patient received 2 mg of Narcan and became more alert and agitated with wheezing and tachypnea. He was noticed to have unequal pupils with right pupil size greater than left. Is moving all extremities upon arrival and oriented to self. EMS attempted to administer breathing treatments the patient continually taking off respiratory mask. * Patient was noted to be Encephalopathic on arrival of EMS * Pt intubated in ED and admitted to ICU for treatment of Acute Respiratory Failure and Encephalopathy.. No further history obtainable. * In January 2019 patient was admitted with swelling and itching of bilateral legs for 6 months but left AMA from the hospital. He has since had other ER visit and some for axillary swelling which was treated with abx. * Lab review * Thrombocytopenia. WITH PLT OF 49 which appears to be chronic now down to 21 * AST/ALT AND CPK elevated * Leukopenia noted Overdose on Methadone ?Intentional vs Accidental, patient follows at a Methadone clinic. Acute Respiratory failure possibly due to overdose Chronic Pain syndrome-Chronically on Methadone Acute Metabolic Encephalopathy Severe Thrombocytopenia with Bleeding [id number] Pancytopenia Leukopenia Transaminitis Hepatitis C History of anal cancer IN Remission Plan Continue supportive care Discontinue Heparin considering Low plt VAP bundle Monitor LFT Critical care consult Re-evaluate when more awake to determine nature of overdose Aspiration precautions SCD for DVT prophy Nebs PRN Imaging studies reviewed and negative. The high probability of a clinically significant, sudden or life threatening deterioration of the [pulmonary, renal] system(s) required my full and direct attention, intervention and personal management. The aggregate critical care time was [35] minutes. This time is in addition to time spent performing reported procedures but includes the following: [x] Data Review and interpretation [x] Patient assessment and monitoring of vital signs [x] Documentation [x] Medication orders and management sedation, holiday, wean vent as tolerated, Pulmonary team consulted. History Interval history: Patient seen and examined, remains intubated and on sedation with diprvan. No adverse event reported overnight, he response to vocal stimuli how bit slow. Hospitalist Physical - Constitutional Vitals: Temp Pulse Resp BP Pulse Ox 98.0 F 83 22 125/77 100 09/03/19 08:00 09/03/19 09:00 09/03/19 09:00 09/03/19 09:00 09/03/19 09:00 General appearance: Present: mild distress (on mechanical ventilation, no dyschrony noted), obese - EENT Eyes: Present: PERRL ENT: hearing intact - Neck Neck: Present: supple, normal ROM - Respiratory Respiratory effort: other (on the vent) Respiratory: bilateral: CTA - Cardiovascular Rhythm: regular Heart Sounds: Present: S1 & S2. Absent: systolic murmur - Extremities Extremities: no ischemia, pulses intact, pulses symmetrical, No edema, Full ROM, abnormal (skin tears with some bleeding ) Peripheral Pulses: within normal limits - Abdominal General gastrointestinal: soft, non-tender, non-distended, normal bowel sounds - Integumentary Integumentary: Present: warm, normal turgor - Psychiatric Psychiatric: other (sedated) - Neurologic Neurologic: other (sedated) Results - Labs CBC & Chem 7: 09/03/19 04:20 09/03/19 04:20 Labs: Laboratory Last Values WBC 1.9 K/mm3 (4.5-11.0) L* 09/03/19 04:20 RBC 3.76 M/mm3 (3.65-5.03) 09/03/19 04:20 Hgb 11.9 gm/dl (11.8-15.2) 09/03/19 04:20 Hct 34.6 % (35.5-45.6) L 09/03/19 04:20 MCV 92 fl (84-94) 09/03/19 04:20 MCH 32 pg (28-32) 09/03/19 04:20 MCHC 35 % (32-34) H 09/03/19 04:20 RDW 15.2 % (13.2-15.2) 09/03/19 04:20 Plt Count 29 K/mm3 (140-440) L 09/03/19 04:20 Lymph % (Auto) 5.4 % (13.4-35.0) L 09/02/19 15:47 [place] % (Auto) 7.5 % (0.0-7.3) H 09/02/19 15:47 Eos % (Auto) 0.2 % (0.0-4.3) 09/02/19 15:47 Baso % (Auto) 0.4 % (0.0-1.8) 09/02/19 15:47 Lymph # 0.3 K/mm3 (1.2-5.4) L 09/02/19 15:47 [place] # 0.4 K/mm3 (0.0-0.8) 09/02/19 15:47 Eos # 0.0 K/mm3 (0.0-0.4) 09/02/19 15:47 Baso # 0.0 K/mm3 (0.0-0.1) 09/02/19 15:47 Add Manual Diff Complete 09/03/19 04:20 Total Counted 100 09/03/19 04:20 Seg Neutrophils % 86.5 % (40.0-70.0) H 09/02/19 15:47 Seg Neuts % (Manual) 92.0 % (40.0-70.0) H 09/03/19 04:20 Band Neutrophils % 0 % 09/03/19 04:20 Lymphocytes % (Manual) 6.0 % (13.4-35.0) L 09/03/19 04:20 Reactive Lymphs % (Man) 0 % 09/03/19 04:20 Monocytes % (Manual) 2.0 % (0.0-7.3) 09/03/19 04:20 Eosinophils % (Manual) 0 % (0.0-4.3) 09/03/19 04:20 Basophils % (Manual) 0 % (0.0-1.8) 09/03/19 04:20 Metamyelocytes % 0 % 09/03/19 04:20 Myelocytes % 0 % 09/03/19 04:20 Promyelocytes % 0 % 09/03/19 04:20 Blast Cells % 0 % 09/03/19 04:20 Nucleated RBC % Not Reportable 09/03/19 04:20 Seg Neutrophils # 4.9 K/mm3 (1.8-7.7) 09/02/19 15:47 Seg Neutrophils # Man 1.7 K/mm3 (1.8-7.7) L 09/03/19 04:20 Band Neutrophils # 0.0 K/mm3 09/03/19 04:20 Lymphocytes # (Manual) 0.1 K/mm3 (1.2-5.4) L 09/03/19 04:20 Abs React Lymphs (Man) 0.0 K/mm3 09/03/19 04:20 Monocytes # (Manual) 0.0 K/mm3 (0.0-0.8) 09/03/19 04:20 Eosinophils # (Manual) 0.0 K/mm3 (0.0-0.4) 09/03/19 04:20 Basophils # (Manual) 0.0 K/mm3 (0.0-0.1) 09/03/19 04:20 Metamyelocytes # 0.0 K/mm3 09/03/19 04:20 Myelocytes # 0.0 K/mm3 09/03/19 04:20 Promyelocytes # 0.0 K/mm3 09/03/19 04:20 Blast Cells # 0.0 K/mm3 09/03/19 04:20 WBC Morphology Not Reportable 09/03/19 04:20 Hypersegmented Neuts Not Reportable 09/03/19 04:20 Hyposegmented Neuts Not Reportable 09/03/19 04:20 Hypogranular Neuts Not Reportable 09/03/19 04:20 Smudge Cells Not Reportable 09/03/19 04:20 Toxic Granulation Not Reportable 09/03/19 04:20 Toxic Vacuolation Not Reportable 09/03/19 04:20 Dohle Bodies Not Reportable 09/03/19 04:20 Pelger-Huet Anomaly Not Reportable 09/03/19 04:20 Chris Rods Not Reportable 09/03/19 04:20 Platelet Estimate Consistent w auto 09/03/19 04:20 Clumped Platelets Not Reportable 09/03/19 04:20 Plt Clumps, EDTA Not Reportable 09/03/19 04:20 Large Platelets Not Reportable 09/03/19 04:20 Giant Platelets Not Reportable 09/03/19 04:20 Platelet Satelliting Not Reportable 09/03/19 04:20 Plt Morphology Comment Not Reportable 09/03/19 04:20 RBC Morphology Not Reportable 09/03/19 04:20 Dimorphic RBCs Not Reportable 09/03/19 04:20 Polychromasia Not Reportable 09/03/19 04:20 Hypochromasia Not Reportable 09/03/19 04:20 Poikilocytosis Not Reportable 09/03/19 04:20 Anisocytosis Not Reportable 09/03/19 04:20 Microcytosis Not Reportable 09/03/19 04:20 Macrocytosis Not Reportable 09/03/19 04:20 Spherocytes Not Reportable 09/03/19 04:20 Pappenheimer Bodies Not Reportable 09/03/19 04:20 Sickle Cells Not Reportable 09/03/19 04:20 Target Cells Not Reportable 09/03/19 04:20 Tear Drop Cells Not Reportable 09/03/19 04:20 Ovalocytes Few 09/03/19 04:20 Helmet Cells Not Reportable 09/03/19 04:20 Powell-Sacred Heart Bodies Not Reportable 09/03/19 04:20 Scott Rings Not Reportable 09/03/19 04:20 Winder Cells Not Reportable 09/03/19 04:20 Bite Cells Not Reportable 09/03/19 04:20 Crenated Cell Not Reportable 09/03/19 04:20 Elliptocytes Not Reportable 09/03/19 04:20 Acanthocytes (Spur) Not Reportable 09/03/19 04:20 Rouleaux Not Reportable 09/03/19 04:20 Hemoglobin C Crystals Not Reportable 09/03/19 04:20 Schistocytes Not Reportable 09/03/19 04:20 Malaria parasites Not Reportable 09/03/19 04:20 Servando Bodies Not Reportable 09/03/19 04:20 Hem Pathologist Commnt No 09/03/19 04:20 PT 18.2 Sec. (12.2-14.9) H 09/02/19 15:47 INR 1.48 (0.87-1.13) H 09/02/19 15:47 APTT 34.3 Sec. (24.2-36.6) 09/02/19 15:47 POC ABG pH 7.377 (7.35-7.45) 09/03/19 05:12 POC ABG pCO2 48.7 (35-45) H 09/03/19 05:12 POC ABG pO2 191 (80-105) H 09/03/19 05:12 POC ABG HCO3 28.6 (22-26 mml/L) 09/03/19 05:12 POC ABG Total CO2 30 (23-27mmol/L) 09/03/19 05:12 POC ABG O2 Sat 100 09/03/19 05:12 POC ABG Base Excess 3 ((-2) - (+3)mmol/L) 09/03/19 05:12 FiO2 45 % 09/03/19 05:12 Sodium 139 mmol/L (137-145) 09/03/19 04:20 Potassium 4.3 mmol/L (3.6-5.0) 09/03/19 04:20 Chloride 106.5 mmol/L (98-107) 09/03/19 04:20 Carbon Dioxide 25 mmol/L (22-30) 09/03/19 04:20 Anion Gap 12 mmol/L 09/03/19 04:20 BUN 11 mg/dL (9-20) 09/03/19 04:20 Creatinine 0.6 mg/dL (0.8-1.5) L 09/03/19 04:20 Estimated GFR > 60 ml/min 09/03/19 04:20 BUN/Creatinine Ratio 18 % 09/03/19 04:20 Glucose 135 mg/dL (75-100) H 09/03/19 04:20 POC Glucose 86 (70-105) 09/02/19 15:17 Lactic Acid 1.50 mmol/L (0.7-2.0) 09/02/19 18:46 Calcium 7.7 mg/dL (8.4-10.2) L 09/03/19 04:20 Total Bilirubin 1.30 mg/dL (0.1-1.2) H 09/03/19 04:20 AST 42 units/L (5-40) H 09/03/19 04:20 ALT 18 units/L (7-56) 09/03/19 04:20 Alkaline Phosphatase 58 units/L (35-129) 09/03/19 04:20 Ammonia 86.0 umol/L (25-60) H 09/02/19 15:47 Total Creatine Kinase 552 units/L (55-170) H 09/02/19 16:10 CK-MB (CK-2) 6.6 ng/mL (0.0-4.0) H 09/02/19 16:10 CK-MB (CK-2) Rel Index 1.1 (0-4) 09/02/19 16:10 Troponin T 0.017 ng/mL (0.00-0.029) 09/02/19 16:10 Total Protein 6.2 g/dL (6.3-8.2) L 09/03/19 04:20 Albumin 2.8 g/dL (3.9-5) L 09/03/19 04:20 Albumin/Globulin Ratio 0.8 % 09/03/19 04:20 Urine Color Yellow (Yellow) 09/02/19 16:00 Urine Turbidity Clear (Clear) 09/02/19 16:00 Urine pH 7.0 (5.0-7.0) 09/02/19 16:00 Ur Specific Hale 1.020 (1.003-1.030) 09/02/19 16:00 Urine Protein <15 mg/dl mg/dL (Negative) 09/02/19 16:00 Urine Glucose (UA) Neg mg/dL (Negative) 09/02/19 16:00 Urine Ketones Neg mg/dL (Negative) 09/02/19 16:00 Urine Blood Sm (Negative) 09/02/19 16:00 Urine Nitrite Neg (Negative) 09/02/19 16:00 Urine Bilirubin Neg (Negative) 09/02/19 16:00 Urine Urobilinogen 4.0 mg/dL (<2.0) 09/02/19 16:00 Ur Leukocyte Esterase Neg (Negative) 09/02/19 16:00 Urine WBC (Auto) 1.0 /HPF (0.0-6.0) 09/02/19 16:00 Urine RBC (Auto) 7.0 /HPF (0.0-6.0) 09/02/19 16:00 U Epithel Cells (Auto) < 1.0 /HPF (0-13.0) 09/02/19 16:00 Urine Mucus Few /HPF 09/02/19 16:00 Salicylates < 0.3 mg/dL (2.8-20.0) L 09/02/19 15:47 Urine Opiates Screen Presumptive negative 09/02/19 16:00 Urine Methadone Screen Presumptive positive 09/02/19 16:00 Acetaminophen < 5.0 ug/mL (10.0-30.0) L 09/02/19 15:47 Ur Barbiturates Screen Presumptive negative 09/02/19 16:00 Ur Phencyclidine Scrn Presumptive negative 09/02/19 16:00 Ur Amphetamines Screen Presumptive negative 09/02/19 16:00 U Benzodiazepines Scrn Presumptive positive 09/02/19 16:00 Urine Cocaine Screen Presumptive negative 09/02/19 16:00 U Marijuana (THC) Screen Presumptive negative 09/02/19 16:00 Drugs of Abuse Note Disclamer 09/02/19 16:00 Plasma/Serum Alcohol < 0.01 % (0-0.07) 09/02/19 15:47 Active Medications - Current Medications Current Medications: Generic Name Dose Route Start Last Admin Trade Name Freq PRN Reason Stop Dose Admin Albuterol 2.5 mg 09/02/19 18:39 Proventil IH Q3HRT PRN Shortness Of Breath Hydrophilic Ointment 1 applic 09/02/19 15:53 Vaseline Lip Therapy TP Q2HR PRN Dry Lips Propofol 1,000 mg in 100 mls @ 3.266 mls/hr 09/02/19 16:00 09/03/19 08:00 Diprivan 10 Mg/Ml IV 20 mcg/kg/min TITR XENIA 13.063 mls/hr Titration Protocol 5 MCG/KG/MIN Sodium Chloride 1,000 mls @ 100 mls/hr 09/02/19 18:45 09/03/19 02:50 Nacl 0.9% 1000 Ml IV 100 mls/hr DIRECT XENIA Administration Multi-Ingred Cream/Lotion/Oil/Oint 1 applic 09/02/19 15:53 Artificial Tears Ophth Oint OU Q4HR PRN Dry Eye(s) Sodium Chloride 10 ml 09/02/19 22:00 09/02/19 23:33 Sodium Chloride Flush Syringe 10 Ml IV Not Given BID XENIA Sodium Chloride 10 ml 09/02/19 18:39 Sodium Chloride Flush Syringe 10 Ml IV PRN PRN LINE FLUSH
[2019-09-03 09:36] LABS: Basophils % (Auto) 0.1 % (0.0-1.8); Hematocrit 34.3 % (35.5-45.6); Hemoglobin 11.8 gm/dl (11.8-15.2); Lymphocytes # (Auto) 0.2 K/mm3 (1.2-5.4); Lymphocytes % (Auto) 7.2 % (13.4-35.0); Mean Corpuscular HGB Conc 34 % (32-34); Mean Corpuscular Volume 93 fl (84-94); Monocytes # (Auto) 0.2 K/mm3 (0.0-0.8); Monocytes % (Auto) 8.3 % (0.0-7.3); Red Cell Distribution Width 15.3 % (13.2-15.2)
--- NOTE | 2019-09-03 09:40 | XRay Report ---
ABDOMEN, 2 VIEWS INDICATION / CLINICAL INFORMATION: OG TUBE. COMPARISON: None available. FINDINGS: The tip of the OG tube is in the right upper quadrant and appears to be within the proximal descendin g duodenum. Bowel gas pattern is abnormal with mildly dilated air-filled small bowel loops visualized throughout the upper abdomen. IMPRESSION: Tip of the OG tube is in the proximal descending duodenum. Signer Name: Ana Cristina Leblanc MD Signed: 09/03/2019 9:36 AM Workstation Name: [id number]
[2019-09-03 09:41] LABS: Platelet Count 31 K/mm3 (140-440)
--- NOTE | 2019-09-03 10:43 | XRay Report ---
CHEST 1 VIEW INDICATION / CLINICAL INFORMATION: follow up respiratory failure. COMPARISON: 09/02/2019 FINDINGS: SUPPORT DEVICES: Tubes and lines are stable in position. HEART / MEDIASTINUM: No significant abnormality. LUNGS / PLEURA: No significant pulmonary or pleural abnormality. No pneumothorax. ADDITIONAL FINDINGS: No significant additional findings. IMPRESSION: 1. Stable appearance of the chest radiograph. Signer Name: Ana Cristina Leblanc MD Signed: 09/03/2019 10:39 AM Workstation Name: [id number]
--- NOTE | 2019-09-03 11:02 | Consultation ---
History of Present Illness Consult date: 09/03/19 Requesting physician: NAVI FOSTER Reason for consult: other History of present illness: HISTORY PER MEDICAL RECORDS Patient 59-year-old male with a past medical history of Anal Cancer (currently in remission S/P chemotherapy radiation treatments), HTN, HCV, COPD, chronic pain treated at a methadone clinic presents to the hospital with alteration in mental status. Patient was found altered approximately 30 minutes after leaving the methadone clinic. Accu-Chek 66. Patient was found with pinpoint pupils and breathing at a rate of 10 breaths per minute. Patient received 2 mg of Narcan and became more alert and agitated with wheezing and tachypnea. He was noticed to have unequal pupils with right pupil size greater than left. Is moving all extremities upon arrival and oriented to self. EMS attempted to administer breathing treatments the patient continually taking off respiratory mask. Patient was noted to be Encephalopathic on arrival of EMS . Pt intubated in ED and admitted to ICU for treatment of Acute Respiratory Failure and Encephalopathy.. No further history obtainable. In January 2019 patient was admitted with swelling and itching of bilateral legs for 6 months but left AMA from the hospital. He has since had other ER visit and some for axillary swelling which was treated with abx. * Lab review * Thrombocytopenia. WITH PLT OF 49 which appears to be chronic now down to 21 * AST/ALT AND CPK elevated * Leukopenia noted I have been consulted fro critical care management. Patient was seen and examined. Vitals, labs, medications, chart and imaging reviewed. Remains critically ill on mechanical ventilatory support, on dobutamine, vasopressin and norepinephrine Currently on a bicarbonate infusion at 150ml/hour with persistent lactic acidosis Past History Past Medical History: other (see HPI) Past Surgical History: Other (Hemorrhoid surgery, anal biopsy) Social history: single. denies: smoking, alcohol abuse, prescription drug abuse Family history: hypertension Medications and Allergies Allergies Allergy/AdvReac Type Severity Reaction Status Date / Time codeine Allergy Rash Verified 04/23/19 15:38 Home Medications Medication Instructions Recorded Confirmed Last Taken Type clonazePAM 1 mg PO DAILY 08/22/16 05/13/17 05/12/17 History Oxycodone HCl/Acetaminophen 1 each PO Q6HR PRN #12 tablet 08/31/16 05/13/17 05/12/17 Rx [Percocet 10/325 mg] Acetaminophen [Acetaminophen ER 650 mg PO Q8HR PRN #20 tablet.er 09/16/16 05/13/17 05/06/17 Rx TAB] HYDROmorphone [Dilaudid] 2 mg PO Q4HR #26 tablet 07/04/17 Unknown Rx Sennosides/Docusate Sodium 1 each PO DAILY #15 tablet 07/04/17 Unknown Rx [Sennosides-Docusate Sodium Tab] Benzonatate [Tessalon Perles] 100 mg PO Q8HR #14 capsule 12/26/17 Unknown Rx ALBUTEROL Inhaler (OR & NICU) 2 puff IH QID PRN #2 can 01/04/18 Unknown Rx [ProAir HFA Inhaler] Albuterol Sulfate [Albuterol 0.63% 0.63 mg IH TID PRN #120 ml 01/04/18 Unknown Rx NEBS] Clindamycin [Clindamycin CAP] 300 mg PO Q8H #21 cap 01/04/18 Unknown Rx Nebulizer and Compressor [[place] 1 each MC TID #1 each 01/04/18 Unknown Rx Choice Nebulizer] Albuterol Sulfate [Ventolin Hfa] 1 puff IH Q4H PRN #1 hfa.aer.ad 04/04/18 Unknown Rx Azithromycin [Zithromax Z-JERI] 250 mg PO QDAY #1 pack 04/04/18 Unknown Rx Furosemide [Lasix TAB] 20 mg PO QDAY #7 tablet 04/04/18 Unknown Rx HYDROcodone/APAP 5-325 [[place] 1 each PO Q6HR PRN #6 tablet 04/04/18 Unknown Rx 5/325] Clindamycin [Clindamycin CAP] 300 mg PO Q8H #21 cap 01/31/19 Unknown Rx Furosemide [Lasix] 20 mg PO QDAY #7 tablet 01/31/19 Unknown Rx diphenhydrAMINE [Benadryl CAP] 25 mg PO Q6HR PRN #20 capsule 01/31/19 Unknown Rx Ibuprofen [Motrin] 800 mg PO Q8HR #30 tablet 04/23/19 Unknown Rx Sulfamethoxazole/Trimethoprim 1 each PO BID #14 tablet 04/23/19 Unknown Rx [Bactrim DS TAB] Active Meds: Active Medications Albuterol (Proventil) 2.5 mg IH Q3HRT PRN PRN Reason: Shortness Of Breath Hydrophilic Ointment (Vaseline Lip Therapy) 1 applic TP Q2HR PRN PRN Reason: Dry Lips Propofol (Diprivan 10 Mg/Ml) 1,000 mg in 100 mls @ 3.266 mls/hr IV TITR XENIA; Protocol Last Titration: 09/03/19 10:32 Dose: 25 mcg/kg/min, 16.329 mls/hr Documented by: Sodium Chloride (Nacl 0.9% 1000 Ml) 1,000 mls @ 100 mls/hr IV DIRECT XENIA Last Admin: 09/03/19 02:50 Dose: 100 mls/hr Documented by: Multi-Ingred Cream/Lotion/Oil/Oint (Artificial Tears Ophth Oint) 1 applic OU Q4HR PRN PRN Reason: Dry Eye(s) Sodium Chloride (Sodium Chloride Flush Syringe 10 Ml) 10 ml IV BID XENIA Last Admin: 09/03/19 10:27 Dose: 10 ml Documented by: Sodium Chloride (Sodium Chloride Flush Syringe 10 Ml) 10 ml IV PRN PRN PRN Reason: LINE FLUSH Physical Examination Vital signs: Vital Signs Pulse Resp 70 40 H 09/02/19 15:06 09/02/19 15:06 Results - Laboratory Findings CBC and BMP: 09/03/19 09:01 09/03/19 04:20 ABG POC ABG pH 7.377 (7.35-7.45) 09/03/19 05:12 POC ABG pCO2 48.7 (35-45) H 09/03/19 05:12 POC ABG pO2 191 (80-105) H 09/03/19 05:12 POC ABG HCO3 28.6 (22-26 mml/L) 09/03/19 05:12 POC ABG Total CO2 30 (23-27mmol/L) 09/03/19 05:12 POC ABG O2 Sat 100 09/03/19 05:12 PT/INR, D-dimer PT 18.2 Sec. (12.2-14.9) H 09/02/19 15:47 INR 1.48 (0.87-1.13) H 09/02/19 15:47 Abnormal lab findings: Abnormal Labs 09/02/19 09/02/19 09/02/19 15:47 15:47 15:47 WBC Hct MCHC RDW 15.3 H Plt Count 41 L Lymph % (Auto) 5.4 L [place] % (Auto) 7.5 H Lymph # 0.3 L Seg Neutrophils % 86.5 H Seg Neuts % (Manual) Lymphocytes % (Manual) Seg Neutrophils # Man Lymphocytes # (Manual) PT 18.2 H INR 1.48 H POC ABG pCO2 POC ABG pO2 Creatinine 0.7 L Glucose 101 H Lactic Acid Calcium 8.0 L Total Bilirubin 1.90 H AST Ammonia Total Creatine Kinase CK-MB (CK-2) Total Protein Albumin 3.2 L Salicylates Acetaminophen 09/02/19 09/02/19 09/02/19 15:47 15:47 15:47 WBC Hct MCHC RDW Plt Count Lymph % (Auto) [place] % (Auto) Lymph # Seg Neutrophils % Seg Neuts % (Manual) Lymphocytes % (Manual) Seg Neutrophils # Man Lymphocytes # (Manual) PT INR POC ABG pCO2 POC ABG pO2 Creatinine Glucose Lactic Acid Calcium Total Bilirubin AST Ammonia 86.0 H Total Creatine Kinase CK-MB (CK-2) Total Protein Albumin Salicylates < 0.3 L Acetaminophen < 5.0 L 09/02/19 09/02/19 09/02/19 16:10 16:10 17:24 WBC Hct MCHC RDW Plt Count Lymph % (Auto) [place] % (Auto) Lymph # Seg Neutrophils % Seg Neuts % (Manual) Lymphocytes % (Manual) Seg Neutrophils # Man Lymphocytes # (Manual) PT INR POC ABG pCO2 POC ABG pO2 Creatinine Glucose Lactic Acid 2.10 H* 2.10 H* Calcium Total Bilirubin AST Ammonia Total Creatine Kinase 552 H CK-MB (CK-2) 6.6 H Total Protein Albumin Salicylates Acetaminophen 09/02/19 09/03/19 09/03/19 19:33 04:20 04:20 WBC 1.9 L* Hct 34.6 L MCHC 35 H RDW Plt Count 29 L Lymph % (Auto) [place] % (Auto) Lymph # Seg Neutrophils % Seg Neuts % (Manual) 92.0 H Lymphocytes % (Manual) 6.0 L Seg Neutrophils # Man 1.7 L Lymphocytes # (Manual) 0.1 L PT INR POC ABG pCO2 52.7 H POC ABG pO2 Creatinine 0.6 L Glucose 135 H Lactic Acid Calcium 7.7 L Total Bilirubin 1.30 H AST 42 H Ammonia Total Creatine Kinase CK-MB (CK-2) Total Protein 6.2 L Albumin 2.8 L Salicylates Acetaminophen 09/03/19 09/03/19 09/03/19 05:12 09:01 09:50 WBC 2.4 L Hct 34.3 L MCHC RDW 15.3 H Plt Count 31 L Lymph % (Auto) 7.2 L [place] % (Auto) 8.3 H Lymph # 0.2 L Seg Neutrophils % 84.4 H Seg Neuts % (Manual) Lymphocytes % (Manual) Seg Neutrophils # Man Lymphocytes # (Manual) PT INR POC ABG pCO2 48.7 H POC ABG pO2 191 H Creatinine Glucose Lactic Acid Calcium Total Bilirubin AST Ammonia Total Creatine Kinase 460 H CK-MB (CK-2) Total Protein Albumin Salicylates Acetaminophen Assessment and Plan PLAN - Wean vasopressor support for MAP>65, currently on vasopressin Add dopamine if needed, place central venous access -Volume resuscitation per sepsis protocol -VAP bundle addressed -Aspiration precautions, HOB>40 degrees - Lung protective strategies -Adjust minute ventilation for better acid-base balance -Increases FIO2 100% and PEEP to 8, follow up ABG in 2 hours -CXR, ABG in am -CBC, BMP and lactic acid at 8pm -Daily SAT, SBT as tolerated -Hold tube feedings for 24 hours, will reassess in the morning and address nutrition then -Keep off sedation to allow for evaluation of mental status -Empiric antibiotics for aspiration PNA, antibiotics for VRE, de-escalate based on cultures and clinical status -Place on contact isolation -VTE prophylaxis ( SCDs), tend platelet counts and monitor for bleeding -Stress ulcer prophylaxis - Accuchecks with glycemic control for SSI (While critically ill target blood glucose of 140-180 mg/dL; avoid hypoglycemia) - mobility protocol for pressure ulcer prevention - Monitor hemodynamics closely -Monitor electrolyte profile closely and replete as indicated -Chronic home medications, resume as clinically indicated -Chung catheter in this critically ill patient, with poor urine output, requiring accurate intake and output monitoring. -12 lead EKG, she is in a n accelerated junctional rhythm on telemetry CONDITION: CRITICAL PROGNOSIS: GUARDED-POOR CODE STATUS: FULL CODE The high probability of a clinically significant, sudden or life-threatening deterioration of the [respiratory, cardiovascular, neurology] system(s) required my full and direct attention, intervention and personal management. The aggregate critical care time was [75] minutes without overlap. Time includes spent on; [x] Data Review and interpretation [x] Patient assessment and monitoring of vital signs [x] Documentation [x] Medication orders and management
[2019-09-03] MEDS: ALBUTEROL 2.5 MG/3 ML NEBU IH PRN (12:50)
[2019-09-03] MEDS ORDERED: METHADONE 10 MG TAB PO ONE (20:00)
[2019-09-03] MEDS: PANTOPRAZOLE 40 MG TAB PO SCH (21:54)
[2019-09-04] MEDS: ALBUTEROL 2.5 MG/3 ML NEBU IH PRN (04:14)
[2019-09-04 05:45] LABS: Hematocrit 36.6 % (35.5-45.6); Hemoglobin 12.5 gm/dl (11.8-15.2); Mean Corpuscular HGB Conc 34 % (32-34); Mean Corpuscular Volume 93 fl (84-94); Red Blood Count 3.94 M/mm3 (3.65-5.03); Red Cell Distribution Width 15.5 % (13.2-15.2)
[2019-09-04 05:47] LABS: Platelet Count 34 K/mm3 (140-440)
[2019-09-04 05:59] LABS: Alanine Aminotransferase 20 units/L (7-56); Albumin 2.8 g/dL (3.9-5); BUN/Creatinine Ratio 23; Blood Urea Nitrogen 16 mg/dL (9-20); Calcium 7.4 mg/dL (8.4-10.2); Hemolysis Index 13
[2019-09-04] MEDS ORDERED: METHADONE 10 MG TAB PO ONE ×2 (06:00→08:33)
--- NOTE | 2019-09-04 08:40 | Discharge Summary ---
Providers - Providers Date of Admission: 09/02/19 18:39 Attending physician: NAVI FOSTER MD 09/02/19 18:40 Consult to Physician [CONS] Routine Comment: Consulting Provider: ALISON BORREGO Physician Instructions: Reason For Exam: Respiratory Failure/Intubated Primary care physician: BEAUTY THERAPIST Hospitalization Reason for admission: Overdose Condition: Stable Hospital course: Patient currently intubated, Record from chart review, ED and admitters note and prior visit. Patient 59-year-old male with a past medical history of Anal Cancer (currently in remission S/P chemotherapy radiation treatments), HTN, HCV, COPD, chronic pain treated at a methadone clinic presents to the hospital with alteration in mental status. Patient was found altered approximately 30 minutes after leaving the methadone clinic. Accu-Chek 66. Patient was found with pinpoint pupils and breathing at a rate of 10 breaths per minute. Patient received 2 mg of Narcan and became more alert and agitated with wheezing and tachypnea. He was noticed to have unequal pupils with right pupil size greater than left. Is moving all extremities upon arrival and oriented to self. EMS attempted to administer breathing treatments the patient continually taking off respiratory mask. * Patient was noted to be Encephalopathic on arrival of EMS * Pt intubated in ED and admitted to ICU for treatment of Acute Respiratory Failure and Encephalopathy.. No further history obtainable. * In January 2019 patient was admitted with swelling and itching of bilateral legs for 6 months but left AMA from the hospital. He has since had other ER visit and some for axillary swelling which was treated with abx. * Lab review * Thrombocytopenia. WITH PLT OF 49 which appears to be chronic now down to 21 * AST/ALT AND CPK elevated * Leukopenia noted * Patient was subsequently extubated 09/03/2019 tolerated diet is doing well I did have extensive discussion with the patient it appears that he had taken his methadone in addition with Klonopin. I did review his [employer] aware for Isa I did not see the methadone but this is being dosed as a methadone clinic and may not be reportable nevertheless he does have Klonopin that is prescribed to him. Patient verbalized that he is full of life and is does not have any intention to harm himself. I did discuss with him the importance of self reporting about his recent hospitalization to his facility. Since he does not have any further Klonopin and has been in the hospital for at least 48 hours I would at this point I will restart him on Klonopin. Condition at this time is stable Overdose on Methadone and Klonopin Acute Respiratory failure possibly due to overdose Chronic Pain syndrome-Chronically on Methadone Acute Metabolic Encephalopathy Severe Thrombocytopenia with Bleeding [id number] Pancytopenia Leukopenia Transaminitis Hepatitis C History of anal cancer IN Remission Disposition: TO HOME OR SELFCARE Time spent for discharge: 35 mins Core Measure Documentation - Palliative Care Palliative Care/ Comfort Measures: Not Applicable - Core Measures Any of the following diagnoses?: none Exam - Physical Exam Narrative exam: VITAL SIGNS: Reviewed. GENERAL: The patient appears normally developed, Vital signs as documented. HEAD: No signs of head trauma. EYES: Pupils are equal. Extraocular motions intact. EARS: Hearing grossly intact. MOUTH: Oropharynx is normal. NECK: No adenopathy, no JVD. CHEST: Chest with clear breath sounds bilaterally. No wheezes, rales, or rhonchi. CARDIAC: Regular rate and rhythm. S1 and S2, without murmurs, gallops, or rubs. VASCULAR: No Edema. Peripheral pulses normal and equal in all extremities. ABDOMEN: Soft, non tender and non distended. No rebound or guarding, and no masses palpated. Bowel Sounds normal. MUSCULOSKELETAL: Good range of motion of all major joints. Extremities without clubbing, cyanosis or edema. NEUROLOGIC EXAM: Alert and oriented x 3 No focal sensory or strength deficits. Speech normal. Follows commands. PSYCHIATRIC: Mood normal. SKIN: detial exam as documented in skin assessment - Constitutional Vitals: Temp Pulse Resp BP Pulse Ox 98.4 F 73 14 125/74 96 09/04/19 07:50 09/04/19 06:00 09/04/19 06:00 09/04/19 06:00 09/04/19 06:00 Plan Activity: advance as tolerated, fall precautions Diet: low fat Special Instructions: record daily BP diary, smoking cessation Additional Instructions: He must self report to the methadone clinic about overdose and hospitalization. Advised on better ways to discard medication Follow up with: PRIMARY CAREMD [Primary Care Provider] - 3-5 Days
[2019-09-04] MEDS: IPRATROPIUM/ALBUTEROL SULFATE 3 ML AMPUL.NEB IH SCH ×2 (08:44→14:14)
[2019-09-04] MEDS: PANTOPRAZOLE 40 MG TAB PO SCH (10:06)
--- NOTE | 2019-09-04 13:08 | Progress Note ---
Subjective Date of service: 09/04/19 Interval history: Patient is seen today for: Seen and examined at bedside; 24hour events reviewed; nursing and respiratory care staff consulted; no adverse overnight events reported to me; Objective Vital Signs - 12hr 09/04/19 09/04/19 09/04/19 02:00 03:00 04:00 Temperature 98.1 F Pulse Rate 69 68 72 Pulse Rate [ Anterior Bilateral Throughout] Respiratory Rate Respiratory Rate [Anterior Bilateral Throughout] Blood Pressure 123/61 120/55 127/63 O2 Sat by Pulse 96 97 100 Oximetry 09/04/19 09/04/19 09/04/19 04:15 04:38 05:00 Temperature Pulse Rate 73 78 Pulse Rate [ 70 Anterior Bilateral Throughout] Respiratory 21 14 Rate Respiratory 18 Rate [Anterior Bilateral Throughout] Blood Pressure 126/69 O2 Sat by Pulse 99 93 Oximetry 09/04/19 09/04/19 09/04/19 05:33 06:00 07:00 Temperature Pulse Rate 73 72 Pulse Rate [ Anterior Bilateral Throughout] Respiratory 20 14 17 Rate Respiratory Rate [Anterior Bilateral Throughout] Blood Pressure 125/74 124/71 O2 Sat by Pulse 96 98 Oximetry 09/04/19 09/04/19 09/04/19 07:50 08:00 08:37 Temperature 98.4 F Pulse Rate 69 Pulse Rate [ Anterior Bilateral Throughout] Respiratory 14 Rate Respiratory Rate [Anterior Bilateral Throughout] Blood Pressure 112/67 O2 Sat by Pulse 95 96 Oximetry 09/04/19 09/04/19 09/04/19 09:00 10:00 11:00 Temperature Pulse Rate 78 70 Pulse Rate [ Anterior Bilateral Throughout] Respiratory Rate Respiratory Rate [Anterior Bilateral Throughout] Blood Pressure 112/67 141/72 134/69 O2 Sat by Pulse 93 92 94 Oximetry 09/04/19 12:00 Temperature Pulse Rate 76 Pulse Rate [ Anterior Bilateral Throughout] Respiratory Rate Respiratory Rate [Anterior Bilateral Throughout] Blood Pressure O2 Sat by Pulse 100 Oximetry CBC and BMP: 09/04/19 05:00 09/04/19 05:00 ABG, PT/INR, D-dimer: ABG POC ABG pH 7.377 (7.35-7.45) 09/03/19 05:12 POC ABG pCO2 48.7 (35-45) H 09/03/19 05:12 POC ABG pO2 191 (80-105) H 09/03/19 05:12 POC ABG HCO3 28.6 (22-26 mml/L) 09/03/19 05:12 POC ABG Total CO2 30 (23-27mmol/L) 09/03/19 05:12 POC ABG O2 Sat 100 09/03/19 05:12 PT/INR, D-dimer PT 18.2 Sec. (12.2-14.9) H 09/02/19 15:47 INR 1.48 (0.87-1.13) H 09/02/19 15:47 Abnormal lab findings: Abnormal Labs 09/02/19 09/02/19 09/02/19 15:47 15:47 15:47 WBC Hct MCHC RDW 15.3 H Plt Count 41 L Lymph % (Auto) 5.4 L [place] % (Auto) 7.5 H Lymph # 0.3 L Seg Neutrophils % 86.5 H Seg Neuts % (Manual) Lymphocytes % (Manual) Seg Neutrophils # Man Lymphocytes # (Manual) PT 18.2 H INR 1.48 H POC ABG pCO2 POC ABG pO2 Creatinine 0.7 L Glucose 101 H Lactic Acid Calcium 8.0 L Total Bilirubin 1.90 H AST Ammonia Total Creatine Kinase CK-MB (CK-2) Total Protein Albumin 3.2 L Salicylates Acetaminophen 09/02/19 09/02/19 09/02/19 15:47 15:47 15:47 WBC Hct MCHC RDW Plt Count Lymph % (Auto) [place] % (Auto) Lymph # Seg Neutrophils % Seg Neuts % (Manual) Lymphocytes % (Manual) Seg Neutrophils # Man Lymphocytes # (Manual) PT INR POC ABG pCO2 POC ABG pO2 Creatinine Glucose Lactic Acid Calcium Total Bilirubin AST Ammonia 86.0 H Total Creatine Kinase CK-MB (CK-2) Total Protein Albumin Salicylates < 0.3 L Acetaminophen < 5.0 L 09/02/19 09/02/19 09/02/19 16:10 16:10 17:24 WBC Hct MCHC RDW Plt Count Lymph % (Auto) [place] % (Auto) Lymph # Seg Neutrophils % Seg Neuts % (Manual) Lymphocytes % (Manual) Seg Neutrophils # Man Lymphocytes # (Manual) PT INR POC ABG pCO2 POC ABG pO2 Creatinine Glucose Lactic Acid 2.10 H* 2.10 H* Calcium Total Bilirubin AST Ammonia Total Creatine Kinase 552 H CK-MB (CK-2) 6.6 H Total Protein Albumin Salicylates Acetaminophen 09/02/19 09/03/19 09/03/19 19:33 04:20 04:20 WBC 1.9 L* Hct 34.6 L MCHC 35 H RDW Plt Count 29 L Lymph % (Auto) [place] % (Auto) Lymph # Seg Neutrophils % Seg Neuts % (Manual) 92.0 H Lymphocytes % (Manual) 6.0 L Seg Neutrophils # Man 1.7 L Lymphocytes # (Manual) 0.1 L PT INR POC ABG pCO2 52.7 H POC ABG pO2 Creatinine 0.6 L Glucose 135 H Lactic Acid Calcium 7.7 L Total Bilirubin 1.30 H AST 42 H Ammonia Total Creatine Kinase CK-MB (CK-2) Total Protein 6.2 L Albumin 2.8 L Salicylates Acetaminophen 09/03/19 09/03/19 09/03/19 05:12 09:01 09:50 WBC 2.4 L Hct 34.3 L MCHC RDW 15.3 H Plt Count 31 L Lymph % (Auto) 7.2 L [place] % (Auto) 8.3 H Lymph # 0.2 L Seg Neutrophils % 84.4 H Seg Neuts % (Manual) Lymphocytes % (Manual) Seg Neutrophils # Man Lymphocytes # (Manual) PT INR POC ABG pCO2 48.7 H POC ABG pO2 191 H Creatinine Glucose Lactic Acid Calcium Total Bilirubin AST Ammonia Total Creatine Kinase 460 H CK-MB (CK-2) Total Protein Albumin Salicylates Acetaminophen 09/04/19 09/04/19 05:00 05:00 WBC 2.4 L Hct MCHC RDW 15.5 H Plt Count 34 L Lymph % (Auto) [place] % (Auto) Lymph # Seg Neutrophils % Seg Neuts % (Manual) Lymphocytes % (Manual) Seg Neutrophils # Man Lymphocytes # (Manual) PT INR POC ABG pCO2 POC ABG pO2 Creatinine 0.7 L Glucose Lactic Acid Calcium 7.4 L Total Bilirubin AST 48 H Ammonia Total Creatine Kinase CK-MB (CK-2) Total Protein 6.2 L Albumin 2.8 L Salicylates Acetaminophen
[2019-09-04 15:03] VITALS: BP 157/80
== END 2019-09-03 15:50 | disposition home or self-care (01) | DRG 917 ==
LOC: ED 14:59 → CC1 18:39
PROVIDERS: ADMIT Internal Medicine; ATTEND Internal Medicine
PROC: 5A1935Z Respiratory Ventilation, Less than 24 Consecutive Hours (ICD-10-PCS; principal; 2019-09-02)
PROC: 0BH17EZ Insertion of Endotracheal Airway into Trachea, Via Natural or Artificial Opening (ICD-10-PCS; 2019-09-02)
PROC: 4A033R1 Measurement of Arterial Saturation, Peripheral, Percutaneous Approach (ICD-10-PCS; 2019-09-02)
DX: T40.3X1A Poisoning by methadone, accidental (unintentional), initial encounter (principal); J96.01 Acute respiratory failure with hypoxia; G93.41 Metabolic encephalopathy; I10 Essential (primary) hypertension; J44.9 Chronic obstructive pulmonary disease, unspecified; F11.20 Opioid dependence, uncomplicated; J44.1 Chronic obstructive pulmonary disease with (acute) exacerbation; D69.6 Thrombocytopenia, unspecified; G89.4 Chronic pain syndrome; T42.4X1A Poisoning by benzodiazepines, accidental (unintentional), initial encounter; D61.818 Other pancytopenia; B19.20 Unspecified viral hepatitis C without hepatic coma; K72.90 Hepatic failure, unspecified without coma; Z85.048 Personal history of other malignant neoplasm of rectum, rectosigmoid junction, and anus; Z92.21 Personal history of antineoplastic chemotherapy; Z92.3 Personal history of irradiation; Z79.51 Long term (current) use of inhaled steroids; Z79.899 Other long term (current) drug therapy; Z88.5 Allergy status to narcotic agent; Z71.51 Drug abuse counseling and surveillance of drug abuser; Z82.49 Family history of ischemic heart disease and other diseases of the circulatory system; Y92.098 Other place in other non-institutional residence as the place of occurrence of the external cause
CPT/HCPCS: 31500; 36415; 36600; 70450; 71045; 74018; 80053; 80307; 80320; 81001; 82140; 82550; 82553; 82803; 82962; 84484; 85007; 85025; 85027; 85610; 85730; 87040; 87070; 87205; 93005; 93010; 94002; 94003; 94640; 94644; 94760; 96361; 96365; 96366; 96375; G0378; G0480; J0330; J1644; J2060; J2543; J2704; J2930; J3475; J7030

== ENCOUNTER 2019-09-08 10:41 | Inpatient (IN) | payer MEDICAID ==
--- NOTE | 2019-09-08 11:08 | Emergency Department Report ---
ED Shortness of Breath HPI - General Chief Complaint: Dyspnea/Respdistress Stated Complaint: COPD Time Seen by Provider: 09/08/19 11:07 Source: patient Mode of arrival: Ambulatory Limitations: No Limitations - History of Present Illness Initial Comments: She is a 59-year-old male who comes to the ER today with difficulty in breathing for 4 days. Patient was recently admitted on 08 29. During that admission pt was intubated and it was thought to be related to methadone overdose. However, patient states today he has he does take methadone 70 mg every day but on that particular day he took 2 Klonopin and that's what he feels like increased his work of breathing and resulted in his tachypnea, respiratory distress and intubation. Today patient reports increasing shortness of breath in the context of his nebulizer being broken. I suspect the patient is not taking his home medications as prescribed on discharge. Pt can not tell me what meds he is on. On arrival pt tachycardic, tachypnic, with inc WOB. Mild oral cyanosis. Pt pale. Initially asked nurse to let him . Pt had difficulty speaking in full sentences. Pt denies fever or chills. Pos cough and he does not look at the color of sputum. These symptoms improved with NC 3L oxygen. Lives with son and x PCP "ALLAN" Recent admit to [facility] on . Complaint: shortness of breath -: Gradual, days(s) Consistency: intermittent Improves With: rest Worsens With: exertion, eating, movement Known History Of: COPD Context: other (RECENT ADMIT WITH INTUBATION) Associated Symptoms: cough Treatments Prior to Arrival: none - Related Data Home Oxygen Therapy: No Home Medications Medication Instructions Recorded Confirmed Last Taken clonazePAM 1 mg PO DAILY 08/22/16 09/08/19 09/02/19 Previous Rx's Medication Instructions Recorded Last Taken Type Acetaminophen [Acetaminophen ER 650 mg PO Q8HR PRN #20 tablet.er 09/16/16 05/06/17 Rx TAB] Sennosides/Docusate Sodium 1 each PO DAILY #15 tablet 07/04/17 Unknown Rx [Sennosides-Docusate Sodium Tab] Benzonatate [Tessalon Perles] 100 mg PO Q8HR #14 capsule 12/26/17 Unknown Rx ALBUTEROL Inhaler (OR & NICU) 2 puff IH QID PRN #2 can 01/04/18 Unknown Rx [ProAir HFA Inhaler] Albuterol Sulfate [Albuterol 0.63% 0.63 mg IH TID PRN #120 ml 01/04/18 Unknown Rx NEBS] Nebulizer and Compressor [Gerlaw 1 each MC TID #1 each 01/04/18 Unknown Rx Choice Nebulizer] Albuterol Sulfate [Ventolin Hfa] 1 puff IH Q4H PRN #1 hfa.aer.ad 04/04/18 Unknown Rx Furosemide [Lasix TAB] 20 mg PO QDAY #7 tablet 04/04/18 Unknown Rx diphenhydrAMINE [Benadryl CAP] 25 mg PO Q6HR PRN #20 capsule 01/31/19 Unknown Rx Allergies Allergy/AdvReac Type Severity Reaction Status Date / Time codeine Allergy Rash Verified 04/23/19 15:38 ED Review of Systems ROS: Stated complaint: COPD Other details as noted in HPI Comment: All other systems reviewed and negative ED Past Medical Hx - Past Medical History Hx Hypertension: Yes Hx CVA: No Hx Heart Attack/AMI: No Hx Congestive Heart Failure: No Hx Diabetes: No Hx Deep Vein Thrombosis: No Hx Pulmonary Embolism: No Hx GERD: No Hx Liver Disease: Yes (Hep C) Hx Renal Disease: No Hx of Cancer: No Hx Sickle Cell Disease: No Hx Arthritis: No Hx Headaches / Migraines: No Hx Seizures: No Hx Kidney Stones: No Hx Psychiatric Treatment: No Hx Asthma: No Hx COPD: Yes Hx Tuberculosis: No Hx Dementia: No Hx HIV: No Additional medical history: Hepatitis C, anal CA with current Chemo treatments in 2017 - Surgical History Past Surgical History?: Yes Hx Pacemaker: No Hx Internal Defibrillator: No Additional Surgical History: Hemorrhoidectomy, Anal biopsy - Family History Family history: no significant - Social History Smoking Status: Current Every Day Smoker Substance Use Type: None - Medications Home Medications: Home Medications Medication Instructions Recorded Confirmed Last Taken Type clonazePAM 1 mg PO DAILY 08/22/16 09/08/19 09/02/19 History Acetaminophen [Acetaminophen ER 650 mg PO Q8HR PRN #20 tablet.er 09/16/16 09/08/19 05/06/17 Rx TAB] Sennosides/Docusate Sodium 1 each PO DAILY #15 tablet 07/04/17 09/08/19 Unknown Rx [Sennosides-Docusate Sodium Tab] Benzonatate [Tessalon Perles] 100 mg PO Q8HR #14 capsule 12/26/17 09/08/19 Unknown Rx ALBUTEROL Inhaler (OR & NICU) 2 puff IH QID PRN #2 can 01/04/18 09/08/19 Unknown Rx [ProAir HFA Inhaler] Albuterol Sulfate [Albuterol 0.63% 0.63 mg IH TID PRN #120 ml 01/04/18 09/08/19 Unknown Rx NEBS] Nebulizer and Compressor [Gerlaw 1 each MC TID #1 each 01/04/18 09/08/19 Unknown Rx Choice Nebulizer] Albuterol Sulfate [Ventolin Hfa] 1 puff IH Q4H PRN #1 hfa.aer.ad 04/04/1809/08 Unknown Rx Furosemide [Lasix TAB] 20 mg PO QDAY #7 tablet 04/04/18 09/08/19 Unknown Rx diphenhydrAMINE [Benadryl CAP] 25 mg PO Q6HR PRN #20 capsule 01/31/19 09/08/19 Unknown Rx ED Physical Exam - General Limitations: No Limitations General appearance: alert - Head Head exam: Present: atraumatic, normocephalic - Eye Eye exam: Present: normal appearance - ENT ENT exam: Present: mucous membranes moist - Neck Neck exam: Present: normal inspection - Respiratory Respiratory exam: Present: wheezes, decreased breath sounds. Absent: respiratory distress - Cardiovascular Cardiovascular Exam: Present: regular rate, normal rhythm, tachycardia. Absent: systolic murmur, diastolic murmur, rubs, gallop - GI/Abdominal GI/Abdominal exam: Present: soft, normal bowel sounds - Rectal Rectal exam: Present: deferred - Extremities Exam Extremities exam: Present: normal inspection - Back Exam Back exam: Present: normal inspection - Neurological Exam Neurological exam: Present: alert, oriented X3 - Psychiatric Psychiatric exam: Present: normal affect, normal mood - Skin Skin exam: Present: warm, dry, intact, normal color. Absent: rash ED Course Vital Signs 09/08/19 09/08/19 09/08/19 10:50 13:35 15:48 Temperature 97.5 F L Pulse Rate 102 H 84 74 Respiratory 24 16 16 Rate Blood Pressure 135/76 Blood Pressure 132/72 136/74 [Left] O2 Sat by Pulse 90 94 98 Oximetry ED Medical Decision Making - Lab Data Result diagrams: 09/08/19 11:28 09/08/19 11:28 - EKG Data Rate: tachycardia - EKG Data When compared to previous EKG there are: no significant change Interpretation: no acute changes - Radiology Data Radiology results: report reviewed, image reviewed - Medical Decision Making Labs 09/08/19 09/08/19 09/08/19 11:28 11:28 11:28 WBC 5.1 RBC 4.37 Hgb 13.7 Hct 39.8 MCV 91 MCH 31 MCHC 34 RDW 15.4 H Plt Count 62 L Lymph % (Auto) 4.5 L [place] % (Auto) 10.8 H Eos % (Auto) 0.5 Baso % (Auto) 0.4 Lymph # 0.2 L [place] # 0.6 Eos # 0.0 Baso # 0.0 Seg Neutrophils % 83.8 H Seg Neutrophils # 4.3 POC ABG pH POC ABG pCO2 POC ABG pO2 POC ABG HCO3 POC ABG Total CO2 POC ABG O2 Sat POC ABG Base Excess FiO2 Sodium 138 Potassium 3.8 Chloride 102.7 Carbon Dioxide 23 Anion Gap 16 BUN 14 Creatinine 0.5 L Estimated GFR > 60 BUN/Creatinine Ratio 28 Glucose 105 H Lactic Acid 1.90 Calcium 8.9 D Total Bilirubin 2.70 H AST 28 ALT 21 Alkaline Phosphatase 57 Troponin T < 0.010 NT-Pro-B Natriuret Pep Total Protein 7.7 D Albumin 3.1 L Albumin/Globulin Ratio 0.7 Urine Color Urine Turbidity Urine pH Ur Specific [place] Urine Protein Urine Glucose (UA) Urine Ketones Urine Blood Urine Nitrite Urine Bilirubin Urine Ictotest Urine Urobilinogen Ur Leukocyte Esterase Urine WBC (Auto) Urine RBC (Auto) U Epithel Cells (Auto) Urine Mucus Urine Opiates Screen Urine Methadone Screen Ur Barbiturates Screen Ur Phencyclidine Scrn Ur Amphetamines Screen U Benzodiazepines Scrn Urine Cocaine Screen U Marijuana (THC) Screen Drugs of Abuse Note Influenza A (Rapid) Influenza B (Rapid) 09/08/19 09/08/19 09/08/19 11:28 12:25 12:25 WBC RBC Hgb Hct MCV MCH MCHC RDW Plt Count Lymph % (Auto) [place] % (Auto) Eos % (Auto) Baso % (Auto) Lymph # [place] # Eos # Baso # Seg Neutrophils % Seg Neutrophils # POC ABG pH POC ABG pCO2 POC ABG pO2 POC ABG HCO3 POC ABG Total CO2 POC ABG O2 Sat POC ABG Base Excess FiO2 Sodium Potassium Chloride Carbon Dioxide Anion Gap BUN Creatinine Estimated GFR BUN/Creatinine Ratio Glucose Lactic Acid Calcium Total Bilirubin AST ALT Alkaline Phosphatase Troponin T NT-Pro-B Natriuret Pep 191.5 Total Protein Albumin Albumin/Globulin Ratio Urine Color Jessica Urine Turbidity Clear Urine pH 6.0 Ur Specific [place] 1.032 H Urine Protein 30 mg/dl Urine Glucose (UA) Neg Urine Ketones Tr Urine Blood Mod Urine Nitrite Neg Urine Bilirubin Sm Urine Ictotest Positive Urine Urobilinogen 4.0 Ur Leukocyte Esterase Neg Urine WBC (Auto) 6.0 Urine RBC (Auto) 56.0 U Epithel Cells (Auto) 1.0 Urine Mucus 3+ Urine Opiates Screen Presumptive negative Urine Methadone Screen Presumptive positive Ur Barbiturates Screen Presumptive negative Ur Phencyclidine Scrn Presumptive negative Ur Amphetamines Screen Presumptive negative U Benzodiazepines Scrn Presumptive negative Urine Cocaine Screen Presumptive negative U Marijuana (THC) Screen Presumptive negative Drugs of Abuse Note Disclamer Influenza A (Rapid) Influenza B (Rapid) 09/08/19 09/08/19 13:11 Unknown WBC RBC Hgb Hct MCV MCH MCHC RDW Plt Count Lymph % (Auto) [place] % (Auto) Eos % (Auto) Baso % (Auto) Lymph # [place] # Eos # Baso # Seg Neutrophils % Seg Neutrophils # POC ABG pH 7.419 POC ABG pCO2 36.7 POC ABG pO2 62 L POC ABG HCO3 23.7 POC ABG Total CO2 25 POC ABG O2 Sat 92 POC ABG Base Excess -1 FiO2 21 Sodium Potassium Chloride Carbon Dioxide Anion Gap BUN Creatinine Estimated GFR BUN/Creatinine Ratio Glucose Lactic Acid Calcium Total Bilirubin AST ALT Alkaline Phosphatase Troponin T NT-Pro-B Natriuret Pep Total Protein Albumin Albumin/Globulin Ratio Urine Color Urine Turbidity Urine pH Ur Specific [place] Urine Protein Urine Glucose (UA) Urine Ketones Urine Blood Urine Nitrite Urine Bilirubin Urine Ictotest Urine Urobilinogen Ur Leukocyte Esterase Urine WBC (Auto) Urine RBC (Auto) U Epithel Cells (Auto) Urine Mucus Urine Opiates Screen Urine Methadone Screen Ur Barbiturates Screen Ur Phencyclidine Scrn Ur Amphetamines Screen U Benzodiazepines Scrn Urine Cocaine Screen U Marijuana (THC) Screen Drugs of Abuse Note Influenza A (Rapid) Negative Influenza B (Rapid) Negative Vital Signs 09/08/19 10:50 Temperature 97.5 F L Pulse Rate 102 H Respiratory 24 Rate Blood Pressure 135/76 O2 Sat by Pulse 90 Oximetry MEDICATED WITH SOLUMEDROL/DUONEB/FLUIDS Pt's symptoms improved with oxygen 3L NC LABS NOTED- XRAY NOTED 12 LEAD NOTED ABG NOTED [address] GREAWL. GIVEN ABG AND ROOM AIR SAT 92- ADMIT FOR FURTHER EVAL 1600 Dr Orozco here for pt admit. - Differential Diagnosis ro cap/hap/uti/copd ae Critical care attestation.: If time is entered above; I have spent that time in minutes in the direct care of this critically ill patient, excluding procedure time. ED Disposition Clinical Impression: Thrombocytopenia, Acute exacerbation of chronic obstructive pulmonary disease (COPD), Methadone dependence Disposition: OP ADMIT IP TO THIS HOSP Is pt being admited?: Yes Does the pt Need Aspirin: No Condition: Stable Instructions: Chronic Obstructive Pulmonary Disease (ED) Referrals: PRIMARY CARE, [Referring] - 3-5 Days Time of Disposition: 13:34
[2019-09-08] MEDS ORDERED: IPRATROPIUM 0.02% NEBU 2.5 ML IH ONE (11:10)
[2019-09-08] MEDS ORDERED: ALBUTEROL 2.5 MG/3 ML NEBU IH ONE (11:10)
[2019-09-08] MEDS ORDERED: methylPREDNISolone Sod Succinate 125 MG/2 ML INJ IV ONE (11:11)
[2019-09-08] MEDS ORDERED: MAGNESIUM SULFATE 2 GM/50 ML BAG IV ONE (11:11)
[2019-09-08] MEDS ORDERED: VANCOMYCIN/NS 1 GM/250 ML 1 GM/250 ML BAG IV ONE (11:14)
[2019-09-08] MEDS ORDERED: VANCOMYCIN 2,000 MG in SODIUM CHLORIDE 0.9% 500 ML 500 ML IV ONE (11:30)
[2019-09-08 11:47] LABS: Basophils % (Auto) 0.4 % (0.0-1.8); Eosinophils % (Auto) 0.5 % (0.0-4.3); Hematocrit 39.8 % (35.5-45.6); Hemoglobin 13.7 gm/dl (11.8-15.2); Lymphocytes # (Auto) 0.2 K/mm3 (1.2-5.4); Lymphocytes % (Auto) 4.5 % (13.4-35.0); Mean Corpuscular HGB Conc 34 % (32-34); Mean Corpuscular Volume 91 fl (84-94); Monocytes # (Auto) 0.6 K/mm3 (0.0-0.8); Monocytes % (Auto) 10.8 % (0.0-7.3); Red Blood Count 4.37 M/mm3 (3.65-5.03); Red Cell Distribution Width 15.4 % (13.2-15.2)
[2019-09-08 11:51] LABS: Platelet Count 62 K/mm3 (140-440)
[2019-09-08] MEDS: CEFEPIME/NS 2 GM/100 ML 2 GM/100 ML BAG IV SCH ×3 (12:00→23:20)
[2019-09-08 12:06] LABS: Alanine Aminotransferase 21 units/L (7-56); Albumin 3.1 g/dL (3.9-5); BUN/Creatinine Ratio 28; Blood Urea Nitrogen 14 mg/dL (9-20); Calcium 8.9 mg/dL (8.4-10.2); Hemolysis Index 29
--- NOTE | 2019-09-08 12:31 | XRay Report ---
CHEST 1 VIEW INDICATION: Dyspnea. COMPARISON: Chest x-ray from 09/03/2019 FINDINGS: Support devices: None. Heart: Within normal limits. Lungs/Pleura: Mild diffuse interstitial prominence is likely at least in part chronic. No consolidati on or effusion. Additional findings: None. IMPRESSION: 1. No acute findings. Signer Name: Davis Roman MD Signed: 09/08/2019 12:26 PM Workstation Name: [id number]
[2019-09-08 12:41] LABS: Bilirubin,Urine SM (Negative); Blood,Urine MOD (Negative); Color,Urine Amber (Yellow); Mucus,Urine 3+ /HPF
[2019-09-08 12:44] LABS: Ictotest,Urine Positive (Negative)
[2019-09-08 13:02] LABS: Amphetamine Screen,Urine PRESUMPTIVE NEGATIVE; Benzodiazepines Screen,Urine PRESUMPTIVE NEGATIVE; Cannabinoid Screen,Urine PRESUMPTIVE NEGATIVE; Cocaine Screen,Urine PRESUMPTIVE NEGATIVE; Opiate Screen,Urine PRESUMPTIVE NEGATIVE
[2019-09-08 13:24] LABS: Methadone Screen,Urine PRESUMPTIVE POSITIVE
[2019-09-08] MEDS ORDERED: ALBUTEROL 2.5 MG/3 ML NEBU IH PRN (22:13)
--- NOTE | 2019-09-08 23:30 | History and Physical Report ---
History of Present Illness Date of examination: 09/08/19 Date of admission: 09/08/19 16:18 Chief complaint: Severe shortness of breath for 4 days History of present illness: 59-year-old male with history of end-stage COPD and CHF comes in for increasing shortness of breath for 4 days. Patient was recently discharged 1 week ago after being treated for acute respiratory failure. Patient was intubated during the last admission and methadone 70 mg which he takes regularly may have contributed. Cough productive of mucoid sputum. No fever or chills. Shortness of breath on minimal exertion. Patient has difficulty talking in full sentences. Mild perioral bluish tinge present. No no recent travel. Past Medical History Hypertension: Yes Liver Disease: Yes (Hep C) COPD: Yes Hepatitis C, anal CA with current Chemo treatments in 2017 Surgical History Past Surgical History?: Yes Additional Surgical History: Hemorrhoidectomy, Anal biopsy Family History Family history: no significant Social History Smoking Status: Current Every Day Smoker Pack a day Substance Use Type: None - Medications Home Medications: Home Medications Medication Instructions Recorded Confirmed Last Taken Type clonazePAM 1 mg PO DAILY 08/22/16 09/08/19 09/02/19 History Acetaminophen [Acetaminophen ER 650 mg PO Q8HR PRN #20 tablet.er 09/16/16 09/08/19 05/06/17 Rx TAB] Sennosides/Docusate Sodium 1 each PO DAILY #15 tablet 07/04/17 09/08/19 Unknown Rx [Sennosides-Docusate Sodium Tab] Benzonatate [Tessalon Perles] 100 mg PO Q8HR #14 capsule 12/26/17 09/08/19 Unknown Rx ALBUTEROL Inhaler (OR & NICU) 2 puff IH QID PRN #2 can 01/04/18 09/08/19 Unknown Rx [ProAir HFA Inhaler] Albuterol Sulfate [Albuterol 0.63% 0.63 mg IH TID PRN #120 ml 01/04/18 09/08/19 Unknown Rx NEBS] Nebulizer and Compressor [[place] 1 each MC TID #1 each 01/04/18 09/08/19 Unknown Rx Choice Nebulizer] Albuterol Sulfate [Ventolin Hfa] 1 puff IH Q4H PRN #1 hfa.aer.ad 04/04/18 09/08/19 Unknown Rx Furosemide [Lasix TAB] 20 mg PO QDAY #7 tablet 04/04/18 09/08/19 Unknown Rx diphenhydrAMINE [Benadryl CAP] 25 mg PO Q6HR PRN #20 capsule 01/31/19 09/08/19 Unknown Rx Review of Systems ROS: Stated complaint: COPD Other details as noted in HPI Comment: All other systems reviewed and negative Medications and Allergies Allergies Allergy/AdvReac Type Severity Reaction Status Date / Time codeine Allergy Rash Verified 04/23/19 15:38 Home Medications Medication Instructions Recorded Confirmed Last Taken Type clonazePAM 1 mg PO DAILY 08/22/16 09/08/19 09/02/19 History Acetaminophen [Acetaminophen ER 650 mg PO Q8HR PRN #20 tablet.er 09/16/16 09/08/19 05/06/17 Rx TAB] Sennosides/Docusate Sodium 1 each PO DAILY #15 tablet 07/04/17 09/08/19 Unknown Rx [Sennosides-Docusate Sodium Tab] Benzonatate [Tessalon Perles] 100 mg PO Q8HR #14 capsule 12/26/17 09/08/19 Unknown Rx ALBUTEROL Inhaler (OR & NICU) 2 puff IH QID PRN #2 can 01/04/18 09/08/19 Unknown Rx [ProAir HFA Inhaler] Albuterol Sulfate [Albuterol 0.63% 0.63 mg IH TID PRN #120 ml 01/04/18 09/08/19 Unknown Rx NEBS] Nebulizer and Compressor [Russell 1 each MC TID #1 each 01/04/18 09/08/19 Unknown Rx Choice Nebulizer] Albuterol Sulfate [Ventolin Hfa] 1 puff IH Q4H PRN #1 hfa.aer.ad 04/04/18 Unknown Rx Furosemide [Lasix TAB] 20 mg PO QDAY #7 tablet 04/04/18 09/08/19 Unknown Rx diphenhydrAMINE [Benadryl CAP] 25 mg PO Q6HR PRN #20 capsule 01/31/19 09/08/19 Unknown Rx Active Meds: Active Medications Albuterol (Proventil) 2.5 mg IH Q4HRT PRN PRN Reason: Shortness Of Breath Cefepime HCl (Cefepime/Ns 2 Gm/100 Ml) 2 gm in 100 mls @ 200 mls/hr IV Q8HR [facility]; Protocol Last Admin: 09/08/19 23:20 Dose: 200 mls/hr Documented by: Nicotine (Habitrol) 14 mg TD QDAY XENIA Exam - Constitutional Vitals: Temp Pulse Resp BP Pulse Ox 97.5 F L 74 16 136/74 98 09/08/19 10:50 09/08/19 15:48 09/08/19 15:48 09/08/19 15:48 09/08/19 15:48 General appearance: Present: severe distress, well-nourished - EENT Eyes: Present: PERRL ENT: hearing intact, clear oral mucosa - Neck Neck: Present: supple, normal ROM - Respiratory Respiratory effort: normal Respiratory: bilateral: diminished, rhonchi, wheezing - Cardiovascular Heart rate: 80 Rhythm: regular Heart Sounds: Present: S1 & S2. Absent: rub, click - Extremities Extremities: no ischemia, pulses intact, pulses symmetrical, No edema Peripheral Pulses: within normal limits - Abdominal General gastrointestinal: Present: soft, non-tender, non-distended, normal bowel sounds Male genitourinary: Present: normal - Rectal Rectal Exam: deferred - Integumentary Integumentary: Present: clear, warm, dry - Musculoskeletal Musculoskeletal: gait normal, strength equal bilaterally - Psychiatric Psychiatric: appropriate mood/affect, intact judgment & insight - Neurologic Neurologic: CNII-XII intact, moves all extremities - Allied Health Allied health notes reviewed: nursing, case management Results - Labs CBC & Chem 7: 09/08/19 11:28 09/08/19 11:28 Labs: Laboratory Last Values WBC 5.1 K/mm3 (4.5-11.0) 09/08/19 11:28 RBC 4.37 M/mm3 (3.65-5.03) 09/08/19 11:28 Hgb 13.7 gm/dl (11.8-15.2) 09/08/19 11:28 Hct 39.8 % (35.5-45.6) 09/08/19 11:28 MCV 91 fl (84-94) 09/08/19 11:28 MCH 31 pg (28-32) 09/08/19 11:28 MCHC 34 % (32-34) 09/08/19 11:28 RDW 15.4 % (13.2-15.2) H 09/08/19 11:28 Plt Count 62 K/mm3 (140-440) L 09/08/19 11:28 Lymph % (Auto) 4.5 % (13.4-35.0) L 09/08/19 11:28 [place] % (Auto) 10.8 % (0.0-7.3) H 09/08/19 11:28 Eos % (Auto) 0.5 % (0.0-4.3) 09/08/19 11:28 Baso % (Auto) 0.4 % (0.0-1.8) 09/08/19 11:28 Lymph # 0.2 K/mm3 (1.2-5.4) L 09/08/19 11:28 [place] # 0.6 K/mm3 (0.0-0.8) 09/08/19 11:28 Eos # 0.0 K/mm3 (0.0-0.4) 09/08/19 11:28 Baso # 0.0 K/mm3 (0.0-0.1) 09/08/19 11:28 Seg Neutrophils % 83.8 % (40.0-70.0) H 09/08/19 11:28 Seg Neutrophils # 4.3 K/mm3 (1.8-7.7) 09/08/19 11:28 POC ABG pH 7.419 (7.35-7.45) 09/08/19 13:11 POC ABG pCO2 36.7 (35-45) 09/08/19 13:11 POC ABG pO2 62 (80-105) L 09/08/19 13:11 POC ABG HCO3 23.7 (22-26 mml/L) 09/08/19 13:11 POC ABG Total CO2 25 (23-27mmol/L) 09/08/19 13:11 POC ABG O2 Sat 92 09/08/19 13:11 POC ABG Base Excess -1 ((-2) - (+3)mmol/L) 09/08/19 13:11 FiO2 21 % 09/08/19 13:11 Sodium 138 mmol/L (137-145) 09/08/19 11:28 Potassium 3.8 mmol/L (3.6-5.0) 09/08/19 11:28 Chloride 102.7 mmol/L (98-107) 09/08/19 11:28 Carbon Dioxide 23 mmol/L (22-30) 09/08/19 11:28 Anion Gap 16 mmol/L 09/08/19 11:28 BUN 14 mg/dL (9-20) 09/08/19 11:28 Creatinine 0.5 mg/dL (0.8-1.5) L 09/08/19 11:28 Estimated GFR > 60 ml/min 09/08/19 11:28 BUN/Creatinine Ratio 28 % 09/08/19 11:28 Glucose 105 mg/dL (75-100) H 09/08/19 11:28 Lactic Acid 1.90 mmol/L (0.7-2.0) 09/08/19 11:28 Calcium 8.9 mg/dL (8.4-10.2) D 09/08/19 11:28 Total Bilirubin 2.70 mg/dL (0.1-1.2) H 09/08/19 11:28 AST 28 units/L (5-40) 09/08/19 11:28 ALT 21 units/L (7-56) 09/08/19 11:28 Alkaline Phosphatase 57 units/L (35-129) 09/08/19 11:28 Troponin T < 0.010 ng/mL (0.00-0.029) 09/08/19 11:28 NT-Pro-B Natriuret Pep 191.5 pg/mL (0-900) 09/08/19 11:28 Total Protein 7.7 g/dL (6.3-8.2) D 09/08/19 11:28 Albumin 3.1 g/dL (3.9-5) L 09/08/19 11:28 Albumin/Globulin Ratio 0.7 % 09/08/19 11:28 Urine Color Jessica (Yellow) 09/08/19 12:25 Urine Turbidity Clear (Clear) 09/08/19 12:25 Urine pH 6.0 (5.0-7.0) 09/08/19 12:25 Ur Specific [place] 1.032 (1.003-1.030) H 09/08/19 12:25 Urine Protein 30 mg/dl mg/dL (Negative) 09/08/19 12:25 Urine Glucose (UA) Neg mg/dL (Negative) 09/08/19 12:25 Urine Ketones Tr mg/dL (Negative) 09/08/19 12:25 Urine Blood Mod (Negative) 09/08/19 12:25 Urine Nitrite Neg (Negative) 09/08/19 12:25 Urine Bilirubin Sm (Negative) 09/08/19 12:25 Urine Ictotest Positive (Negative) 09/08/19 12:25 Urine Urobilinogen 4.0 mg/dL (<2.0) 09/08/19 12:25 Ur Leukocyte Esterase Neg (Negative) 09/08/19 12:25 Urine WBC (Auto) 6.0 /HPF (0.0-6.0) 09/08/19 12:25 Urine RBC (Auto) 56.0 /HPF (0.0-6.0) 09/08/19 12:25 U Epithel Cells (Auto) 1.0 /HPF (0-13.0) 09/08/19 12:25 Urine Mucus 3+ /HPF 09/08/19 12:25 Urine Opiates Screen Presumptive negative 09/08/19 12:25 Urine Methadone Screen Presumptive positive 09/08/19 12:25 Ur Barbiturates Screen Presumptive negative 09/08/19 12:25 Ur Phencyclidine Scrn Presumptive negative 09/08/19 12:25 Ur Amphetamines Screen Presumptive negative 09/08/19 12:25 U Benzodiazepines Scrn Presumptive negative 09/08/19 12:25 Urine Cocaine Screen Presumptive negative 09/08/19 12:25 U Marijuana (THC) Screen Presumptive negative 09/08/19 12:25 Drugs of Abuse Note Disclamer 09/08/19 12:25 Influenza A (Rapid) Negative (Negative) 09/08/19 Unknown Influenza B (Rapid) Negative (Negative) 09/08/19 Unknown Short CBC 09/08/19 Range/Units 11:28 WBC 5.1 (4.5-11.0) K/mm3 Hgb 13.7 (11.8-15.2) gm/dl Hct 39.8 (35.5-45.6) % Plt Count 62 L (140-440) K/mm3 BMP 09/08/19 11:28 Sodium 138 Potassium 3.8 Chloride 102.7 Carbon Dioxide 23 BUN 14 Creatinine 0.5 L Glucose 105 H Calcium 8.9 D Cardiac Enzymes 09/08/19 Range/Units 11:28 Troponin T < 0.010 (0.00-0.029) ng/mL Liver Function 09/08/19 Range/Units 11:28 Total Bilirubin 2.70 H (0.1-1.2) mg/dL AST 28 (5-40) units/L ALT 21 (7-56) units/L Alkaline Phosphatase 57 (35-129) units/L Albumin 3.1 L (3.9-5) g/dL Urine 09/08/19 Range/Units 12:25 Urine Color Jessica (Yellow) Urine pH 6.0 (5.0-7.0) Ur Specific [place] 1.032 H (1.003-1.030) Urine Protein 30 mg/dl (Negative) mg/dL Urine Glucose (UA) Neg (Negative) mg/dL - Imaging and Cardiology EKG: report reviewed (Sinus rhythm, heart rate of 80/min) Chest x-ray: report reviewed (No acute findings) Assessment and Plan Advance Directives: Yes (Full code) VTE prophylaxis?: Chemical Plan of care discussed with patient/family: Yes - Patient Problems (1) COPD exacerbation Current Visit: Yes Status: Acute Plan to address problem: Patient initiated on IV Solu-Medrol, IV Levaquin and duo nebs [id number] (2) Acute respiratory failure with hypoxia Current Visit: Yes Status: Acute Plan to address problem: Patient initiated on IV Solu-Medrol, IV Levaquin and duo nebs [id number] and as needed BiPAP if necessary Intubation if necessary (3) Methadone dependence Current Visit: Yes Status: Chronic Plan to address problem: Continue his methadone at 70 mg/day (4) HTN (hypertension) Current Visit: No Status: Acute Qualifiers: Hypertension type: essential hypertension Qualified Code(s): I10 - Essential (primary) hypertension Plan to address problem: Continue antihypertensives (5) Hep C w/o coma, chronic Current Visit: No Status: Chronic Plan to address problem: Follow-up with GI as outpatient (6) Anal cancer Current Visit: No Status: Chronic Plan to address problem: In remission (7) DVT prophylaxis Current Visit: No Status: Acute Plan to address problem: On heparin and GI prophylaxis
[2019-09-08] MEDS ORDERED: ONDANSETRON 4 MG/2 ML INJ IV PRN (23:43)
[2019-09-08] MEDS ORDERED: ACETAMINOPHEN 325 MG TAB PO PRN (23:43)
[2019-09-08] MEDS ORDERED: IBUPROFEN 600 MG TAB PO PRN (23:43)
[2019-09-08] MEDS ORDERED: IPRATROPIUM/ALBUTEROL SULFATE 3 ML AMPUL.NEB IH PRN (23:44)
[2019-09-08] MEDS ORDERED: diphenhydrAMINE 25 MG CAP PO PRN (23:46)
[2019-09-09] MEDS ORDERED: ALBUTEROL 2.5 MG/3 ML NEBU IH PRN (00:01)
[2019-09-09] MEDS: BUDESONIDE 0.5 MG/2 ML NEBU IH SCH ×3 (03:22→21:10)
[2019-09-09] MEDS: methylPREDNISolone Sod Succinate 125 MG/2 ML INJ IV SCH ×4 (03:33→19:05)
[2019-09-09] MEDS: HEPARIN 5,000 UNIT/1 ML VIAL SUB-Q SCH ×2 (03:33→11:22)
[2019-09-09] MEDS: BENZONATATE 100 MG CAP PO SCH ×4 (03:34→21:43)
[2019-09-09] MEDS: CEFEPIME/NS 2 GM/100 ML 2 GM/100 ML BAG IV SCH (06:37)
[2019-09-09 08:47] LABS: Basophils % (Auto) 0.1 % (0.0-1.8); Eosinophils % (Auto) 0.1 % (0.0-4.3); Hematocrit 33.2 % (35.5-45.6); Hemoglobin 11.8 gm/dl (11.8-15.2); Lymphocytes # (Auto) 0.2 K/mm3 (1.2-5.4); Lymphocytes % (Auto) 7.2 % (13.4-35.0); Mean Corpuscular HGB Conc 36 % (32-34); Mean Corpuscular Volume 90 fl (84-94); Monocytes # (Auto) 0.1 K/mm3 (0.0-0.8); Monocytes % (Auto) 5.2 % (0.0-7.3); Red Blood Count 3.69 M/mm3 (3.65-5.03); Red Cell Distribution Width 14.8 % (13.2-15.2)
[2019-09-09 08:51] LABS: Platelet Count 54 K/mm3 (140-440)
[2019-09-09 09:07] LABS: Alanine Aminotransferase 17 units/L (7-56); Albumin 2.6 g/dL (3.9-5); BUN/Creatinine Ratio 34; Blood Urea Nitrogen 17 mg/dL (9-20); Calcium 8.5 mg/dL (8.4-10.2); Hemolysis Index 4
[2019-09-09] MEDS ORDERED: CLONAZEPAM 1 MG PO SCH (10:00)
[2019-09-09] MEDS: NICOTINE 14 MG/24 HR PATCH TD SCH ×2 (11:15→11:20)
[2019-09-09] MEDS: FAMOTIDINE 20 MG TAB PO SCH ×2 (11:15→21:43)
[2019-09-09] MEDS: FUROSEMIDE 20 MG TAB PO SCH (11:16)
[2019-09-09] MEDS: SENNOSIDES/DOCUSATE SODIUM 8.6/50 MG TAB PO SCH ×2 (11:16→11:20)
[2019-09-09] MEDS: METHADONE 10 MG TAB PO SCH (11:17)
--- NOTE | 2019-09-09 12:08 | Consultation ---
History of Present Illness Consult date: 09/09/19 Requesting physician: NAVI FOSTER Reason for consult: other (AE-COPD; Dyspnea) History of present illness: 59-year-old male with history of end-stage COPD and CHF comes in for increasing shortness of breath for 4 days. Patient was recently discharged 1 week ago after being treated for acute respiratory failure. Patient was intubated during the last admission and methadone 70 mg which he takes regularly may have contributed. Cough productive of mucoid sputum. No fever or chills. Shortness of breath on minimal exertion. Patient has difficulty talking in full sentences. Mild perioral bluish tinge present. No no recent travel. * In the ER the patient was noted to have perioral cyanosis which has since improved. * Considering that the patient has not been on heparin prophylaxis during previous hospitalization due to severe thrombocytopenia will obtain a CTA chest to rule out pulmonary embolism * I have discussed with the patient that his methadone dose may indeed be too much for him and he needs to have this discussion with his clinic I also conveyed information to the clinic. * A pulmonary consult was placed to assist with management . Patient was seen and examined. Vitals, labs, medications, chart and imaging reviewed. He does smoke, states he has a history of COPD and is on Symbicort and prn albuterol. Past Medical History Hypertension: Yes Liver Disease: Yes (Hep C) COPD: Yes Hepatitis C, anal CA with current Chemo treatments in 2017 Surgical History Past Surgical History?: Yes Additional Surgical History: Hemorrhoidectomy, Anal biopsy Family History Family history: no significant Social History Smoking Status: Current Every Day Smoker Pack a day Substance Use Type: None Medications and Allergies Allergies Allergy/AdvReac Type Severity Reaction Status Date / Time codeine Allergy Rash Verified 04/23/19 15:38 Home Medications Medication Instructions Recorded Confirmed Last Taken Type clonazePAM 1 mg PO DAILY 08/22/16 09/08/19 09/02/19 History Acetaminophen [Acetaminophen ER 650 mg PO Q8HR PRN #20 tablet.er 09/16/1609/0805/06/17 Rx TAB] Sennosides/Docusate Sodium 1 each PO DAILY #15 tablet 07/04/17 09/08/19 Unknown Rx [Sennosides-Docusate Sodium Tab] Benzonatate [Tessalon Perles] 100 mg PO Q8HR #14 capsule 12/26/17 09/08/19 Unknown Rx ALBUTEROL Inhaler (OR & NICU) 2 puff IH QID PRN #2 can 01/04/18 09/08/19 Unknown Rx [ProAir HFA Inhaler] Albuterol Sulfate [Albuterol 0.63% 0.63 mg IH TID PRN #120 ml 01/04/18 09/08/19 Unknown Rx NEBS] Nebulizer and Compressor [[place] 1 each MC TID #1 each 01/04/18 09/08/19 Unknown Rx Choice Nebulizer] Albuterol Sulfate [Ventolin Hfa] 1 puff IH Q4H PRN #1 hfa.aer.ad 04/04/18 09/08/19 Unknown Rx Furosemide [Lasix TAB] 20 mg PO QDAY #7 tablet 04/04/18 09/08/19 Unknown Rx diphenhydrAMINE [Benadryl CAP] 25 mg PO Q6HR PRN #20 capsule 01/31/19 09/08/19 Unknown Rx Methadone [Dolophine] 70 mg PO QDAY 09/09/19 09/09/19 Unknown History Active Meds: Active Medications Acetaminophen (Tylenol) 650 mg PO Q4H PRN PRN Reason: Pain MILD(1-3)/Fever >100.5/SYLVESTER Albuterol (Proventil) 2.5 mg IH Q3HRT PRN PRN Reason: Wheezing/ SOB Albuterol/Ipratropium (Duoneb *Not For Prn Use*) 1 ampul IH QIDRT [facility] Benzonatate (Tessalon Perles) 100 mg PO Q8HR [facility] Last Admin: 09/09/19 06:25 Dose: 100 mg Documented by: Budesonide (Pulmicort) 0.5 mg IH Q12HRT [facility] Last Admin: 09/09/19 03:22 Dose: Not Given Documented by: Clonazepam (Klonopin) 1 mg PO DAILY [facility] Diphenhydramine HCl (Benadryl) 25 mg PO Q6HR PRN PRN Reason: Itching Famotidine (Pepcid) 20 mg PO BID [facility] Last Admin: 09/09/19 11:15 Dose: 20 mg Documented by: Furosemide (Lasix) 20 mg PO QDAY [facility] Last Admin: 09/09/19 11:16 Dose: 20 mg Documented by: Heparin Sodium (Porcine) (Heparin) 5,000 unit SUB-Q Q12HR [facility] Last Admin: 09/09/19 11:22 Dose: 5,000 unit Documented by: Levofloxacin/Dextrose (Levaquin 750mg/150ml) 750 mg in 150 mls @ 100 mls/hr IV Q24HR [facility]; Protocol Last Admin: 09/09/19 11:14 Dose: 100 mls/hr Documented by: Ibuprofen (Ibuprofen) 600 mg PO Q6H PRN PRN Reason: Pain, Mild (1-3) Methadone HCl (Dolophine) 70 mg PO QDAY [facility] Last Admin: 09/09/19 11:17 Dose: 70 mg Documented by: Methylprednisolone Sodium Succinate (Solu-Medrol) 60 mg IV Q6HR [facility] Last Admin: 09/09/19 11:15 Dose: 60 mg Documented by: Nicotine (Habitrol) 14 mg TD QDAY [facility] Last Admin: 09/09/19 11:20 Dose: Not Given Documented by: Ondansetron HCl (Zofran) 4 mg IV Q8H PRN PRN Reason: Nausea And Vomiting Senna/Docusate Sodium (Senokot S) 1 tab PO DAILY [facility] Last Admin: 09/09/19 11:20 Dose: Not Given Documented by: Sodium Chloride (Sodium Chloride Flush Syringe 10 Ml) 10 ml IV BID [facility] Last Admin: 09/09/19 11:23 Dose: 10 ml Documented by: Sodium Chloride (Sodium Chloride Flush Syringe 10 Ml) 10 ml IV PRN PRN PRN Reason: LINE FLUSH Physical Examination Vital signs: Vital Signs Temp Pulse Resp BP Pulse Ox 97.5 F L 102 H 24 135/76 90 09/08/19 10:50 09/08/19 10:50 09/08/19 10:50 09/08/19 10:50 09/08/19 10:50 VITAL SIGNS: Reviewed. GENERAL: The patient appears normally developed, chronically ill-appearing vital signs as documented. Sitting up in bed, with conversational dyspnea HEAD: No signs of head trauma. EYES: Pupils are equal. Extraocular motions intact. EARS: Hearing grossly intact. MOUTH: Oropharynx is normal. NECK: No adenopathy, no JVD. CHEST: Chest with expiratory wheeze breath sounds bilaterally. No rales, or rhonchi. CARDIAC: Regular rate and rhythm. S1 and S2, without murmurs, gallops, or rubs. VASCULAR: No Edema. Peripheral pulses normal and equal in all extremities. ABDOMEN: Soft, non tender but chronically distended. No rebound or guarding, and no masses palpated. Bowel Sounds normal. MUSCULOSKELETAL: Good range of motion of all major joints. Extremities without clubbing, cyanosis or edema. NEUROLOGIC EXAM: Alert and oriented x 3 No focal sensory or strength deficits. Speech normal. Follows commands. PSYCHIATRIC: Mood normal. SKIN: detial exam as documented in skin assessment Results - Laboratory Findings CBC and BMP: 09/09/19 07:00 09/09/19 07:00 ABG POC ABG pH 7.419 (7.35-7.45) 09/08/19 13:11 POC ABG pCO2 36.7 (35-45) 09/08/19 13:11 POC ABG pO2 62 (80-105) L 09/08/19 13:11 POC ABG HCO3 23.7 (22-26 mml/L) 09/08/19 13:11 POC ABG Total CO2 25 (23-27mmol/L) 09/08/19 13:11 POC ABG O2 Sat 92 09/08/19 13:11 Abnormal lab findings: Abnormal Labs 09/08/19 09/08/19 09/08/19 11:28 11:28 12:25 WBC Hct MCHC RDW 15.4 H Plt Count 62 L Lymph % (Auto) 4.5 L [place] % (Auto) 10.8 H Lymph # 0.2 L Seg Neutrophils % 83.8 H POC ABG pO2 Sodium Creatinine 0.5 L Glucose 105 H Total Bilirubin 2.70 H Albumin 3.1 L Ur Specific [place] 1.032 H 09/08/19 09/09/19 09/09/19 13:11 07:00 07:00 WBC 2.4 L Hct 33.2 L D MCHC 36 H RDW Plt Count 54 L Lymph % (Auto) 7.2 L [place] % (Auto) Lymph # 0.2 L Seg Neutrophils % 87.4 H POC ABG pO2 62 L Sodium 135 L Creatinine 0.5 L Glucose 126 H Total Bilirubin 1.50 H Albumin 2.6 L Ur Specific [place] - Diagnostic Findings Chest x-ray: image reviewed (No acute infiltrates) CT scan - chest: image reviewed (Bronchopneumonia, no pulmonary embolism) Assessment and Plan Acute hypoxic respiratory failure AE-COPD Bronchopneumonia Liver cirrhosis with portal hypertension Tobacco use disorder/Nicotine dependence- on going Thrombocytopenia-Leukopenia Methadone dependence Anal cancer s/p chemotherapy HTN -ABG, monitor respiratory status closely, NIPPV and if needed oral intubation and mechanical ventilatory support -Supplemental oxygen to keep O2 sast 88-90% -Antibiotics- levofloxacin -Steroids -Accuchecks with glycemic control -Stress ulcer prophylaxis while on high dose steroids -VTE prophylaxis- ambulation and SCDs while in bed Patient has thrombocytopenia and portal HTN at risk of significant bleeding -Nicotine withdrawal precautions -Smoking cessation counselling done for >7 minutes at the bedside -Monitor closely for bleeding -Transthoracic echocardiography to evaluate for pulmonary HTN from liver/lung disease -On discharge will need LAMA/LABA -Pulmonary out patient follow up for characterization of lung disease, PFTS and optimization of pulmonary care CONDITION: FAIR PROGNOSIS: GUARDED CODE STATUS FULL The high probability of a clinically significant, sudden or life threatening deterioration of the [pulmonary] system(s) required my full and direct attention, intervention and personal management. The aggregate critical care time was [30] minutes. This time is in addition to time spent performing reported procedures but includes the following: [X] Data Review and interpretation [X] Patient assessment and monitoring of vital signs [X] Documentation [X] Medication orders and management
[2019-09-09] MEDS: clonazePAM 0.5 MG TAB PO SCH (12:35)
[2019-09-09] MEDS: IPRATROPIUM/ALBUTEROL SULFATE 3 ML AMPUL.NEB IH SCH ×4 (12:58→21:10)
--- NOTE | 2019-09-09 13:41 | Progress Note ---
Assessment and Plan Assessment and plan: 59-year-old male with history of end-stage COPD and CHF comes in for increasing shortness of breath for 4 days. Patient was recently discharged 1 week ago after being treated for acute respiratory failure. Patient was intubated during the last admission and methadone 70 mg which he takes regularly may have contributed. Cough productive of mucoid sputum. No fever or chills. Shortness of breath on minimal exertion. Patient has difficulty talking in full sentences. Mild perioral bluish tinge present. No no recent travel. * In the ER the patient was noted to have perioral cyanosis which has since improved. * Considering that the patient has not been on heparin prophylaxis during prev ious hospitalization due to severe thrombocytopenia will obtain a CTA chest to rule out pulmonary embolism * I have discussed with the patient that his methadone dose may indeed be too much for him and he needs to have this discussion with his clinic I also conveyed information to the clinic. * Will consult pulmonary to assist with management continue to taper steroids and anticipate discharge in 24 to 48 hours (1) COPD exacerbation Current Visit: Yes Status: Acute Plan to address problem: Patient initiated on IV Solu-Medrol, IV Levaquin and duo nebs [id number]/PRN (2) Acute respiratory failure with hypoxia Current Visit: Yes Status: Acute Plan to address problem: Patient initiated on IV Solu-Medrol, IV Levaquin and duo nebs [id number] and as needed BiPAP if necessary Intubation if necessary (3) Methadone dependence Current Visit: Yes Status: Chronic Plan to address problem: Continue his methadone at 70 mg/day (4) HTN (hypertension) Current Visit: No Status: Acute Qualifiers: Hypertension type: essential hypertension Qualified Code(s): I10 - Essential (primary) hypertension Plan to address problem: Continue antihypertensives (5) Hep C w/o coma, chronic Current Visit: No Status: Chronic Plan to address problem: Follow-up with GI as outpatient (6) Anal cancer Current Visit: No Status: Chronic Plan to address problem: In remission (7) DVT prophylaxis Current Visit: No Status: Acute Plan to address problem: On heparin and GI prophylaxis History Interval history: Patient seen and examined, still with some shortness of breath or ports improvement. The patient reports that even during the last admission that he did not feel that he was suicidal except that his ex- told him that he was suicidal and had overdosed. He reports that since discharge he has been unable to ambulate more than 10 to 15 feet without difficulty and shortness of breath. He still continues to smoke unfortunately. Although states that he has turned a lot. Hospitalist Physical - Physical exam Narrative exam: VITAL SIGNS: Reviewed. GENERAL: The patient appears normally developed, chronically ill-appearing vital signs as documented. HEAD: No signs of head trauma. EYES: Pupils are equal. Extraocular motions intact. EARS: Hearing grossly intact. MOUTH: Oropharynx is normal. NECK: No adenopathy, no JVD. CHEST: Chest with expiratory wheeze breath sounds bilaterally. No rales, or rhonchi. CARDIAC: Regular rate and rhythm. S1 and S2, without murmurs, gallops, or rubs. VASCULAR: No Edema. Peripheral pulses normal and equal in all extremities. ABDOMEN: Soft, non tender but chronically distended. No rebound or guarding, and no masses palpated. Bowel Sounds normal. MUSCULOSKELETAL: Good range of motion of all major joints. Extremities without clubbing, cyanosis or edema. NEUROLOGIC EXAM: Alert and oriented x 3 No focal sensory or strength deficits. Speech normal. Follows commands. PSYCHIATRIC: Mood normal. SKIN: detial exam as documented in skin assessment - Constitutional Vitals: Temp Pulse Resp BP Pulse Ox 97.8 F 72 20 136/71 96 09/09/19 11:09 09/09/19 11:09 09/09/19 11:09 09/09/19 11:09 09/09/19 11:09 General appearance: Present: severe distress, well-nourished Results - Labs CBC & Chem 7: 09/09/19 07:00 09/09/19 07:00 Labs: Laboratory Last Values WBC 2.4 K/mm3 (4.5-11.0) L 09/09/19 07:00 RBC 3.69 M/mm3 (3.65-5.03) 09/09/19 07:00 Hgb 11.8 gm/dl (11.8-15.2) 09/09/19 07:00 Hct 33.2 % (35.5-45.6) L D 09/09/19 07:00 MCV 90 fl (84-94) 09/09/19 07:00 MCH 32 pg (28-32) 09/09/19 07:00 MCHC 36 % (32-34) H 09/09/19 07:00 RDW 14.8 % (13.2-15.2) 09/09/19 07:00 Plt Count 54 K/mm3 (140-440) L 09/09/19 07:00 Lymph % (Auto) 7.2 % (13.4-35.0) L 09/09/19 07:00 [place] % (Auto) 5.2 % (0.0-7.3) 09/09/19 07:00 Eos % (Auto) 0.1 % (0.0-4.3) 09/09/19 07:00 Baso % (Auto) 0.1 % (0.0-1.8) 09/09/19 07:00 Lymph # 0.2 K/mm3 (1.2-5.4) L 09/09/19 07:00 [place] # 0.1 K/mm3 (0.0-0.8) 09/09/19 07:00 Eos # 0.0 K/mm3 (0.0-0.4) 09/09/19 07:00 Baso # 0.0 K/mm3 (0.0-0.1) 09/09/19 07:00 Seg Neutrophils % 87.4 % (40.0-70.0) H 09/09/19 07:00 Seg Neutrophils # 2.1 K/mm3 (1.8-7.7) 09/09/19 07:00 POC ABG pH 7.419 (7.35-7.45) 09/08/19 13:11 POC ABG pCO2 36.7 (35-45) 09/08/19 13:11 POC ABG pO2 62 (80-105) L 09/08/19 13:11 POC ABG HCO3 23.7 (22-26 mml/L) 09/08/19 13:11 POC ABG Total CO2 25 (23-27mmol/L) 09/08/19 13:11 POC ABG O2 Sat 92 09/08/19 13:11 POC ABG Base Excess -1 ((-2) - (+3)mmol/L) 09/08/19 13:11 FiO2 21 % 09/08/19 13:11 Sodium 135 mmol/L (137-145) L 09/09/19 07:00 Potassium 4.1 mmol/L (3.6-5.0) 09/09/19 07:00 Chloride 101.2 mmol/L (98-107) 09/09/19 07:00 Carbon Dioxide 23 mmol/L (22-30) 09/09/19 07:00 Anion Gap 15 mmol/L 09/09/19 07:00 BUN 17 mg/dL (9-20) 09/09/19 07:00 Creatinine 0.5 mg/dL (0.8-1.5) L 09/09/19 07:00 Estimated GFR > 60 ml/min 09/09/19 07:00 BUN/Creatinine Ratio 34 % 09/09/19 07:00 Glucose 126 mg/dL (75-100) H 09/09/19 07:00 Hemoglobin A1c 4.5 % (4-6) 09/08/19 11:28 Lactic Acid 1.90 mmol/L (0.7-2.0) 09/08/19 11:28 Calcium 8.5 mg/dL (8.4-10.2) 09/09/19 07:00 Total Bilirubin 1.50 mg/dL (0.1-1.2) H 09/09/19 07:00 AST 20 units/L (5-40) 09/09/19 07:00 ALT 17 units/L (7-56) 09/09/19 07:00 Alkaline Phosphatase 50 units/L (35-129) 09/09/19 07:00 Troponin T < 0.010 ng/mL (0.00-0.029) 09/08/19 11:28 NT-Pro-B Natriuret Pep 191.5 pg/mL (0-900) 09/08/19 11:28 Total Protein 6.5 g/dL (6.3-8.2) 09/09/19 07:00 Albumin 2.6 g/dL (3.9-5) L 09/09/19 07:00 Albumin/Globulin Ratio 0.7 % 09/09/19 07:00 Urine Color Jessica (Yellow) 09/08/19 12:25 Urine Turbidity Clear (Clear) 09/08/19 12:25 Urine pH 6.0 (5.0-7.0) 09/08/19 12:25 Ur Specific [place] 1.032 (1.003-1.030) H 09/08/19 12:25 Urine Protein 30 mg/dl mg/dL (Negative) 09/08/19 12:25 Urine Glucose (UA) Neg mg/dL (Negative) 09/08/19 12:25 Urine Ketones Tr mg/dL (Negative) 09/08/19 12:25 Urine Blood Mod (Negative) 09/08/19 12:25 Urine Nitrite Neg (Negative) 09/08/19 12:25 Urine Bilirubin Sm (Negative) 09/08/19 12:25 Urine Ictotest Positive (Negative) 09/08/19 12:25 Urine Urobilinogen 4.0 mg/dL (<2.0) 09/08/19 12:25 Ur Leukocyte Esterase Neg (Negative) 09/08/19 12:25 Urine WBC (Auto) 6.0 /HPF (0.0-6.0) 09/08/19 12:25 Urine RBC (Auto) 56.0 /HPF (0.0-6.0) 09/08/19 12:25 U Epithel Cells (Auto) 1.0 /HPF (0-13.0) 09/08/19 12:25 Urine Mucus 3+ /HPF 09/08/19 12:25 Urine Opiates Screen Presumptive negative 09/08/19 12:25 Urine Methadone Screen Presumptive positive 09/08/19 12:25 Ur Barbiturates Screen Presumptive negative 09/08/19 12:25 Ur Phencyclidine Scrn Presumptive negative 09/08/19 12:25 Ur Amphetamines Screen Presumptive negative 09/08/19 12:25 U Benzodiazepines Scrn Presumptive negative 09/08/19 12:25 Urine Cocaine Screen Presumptive negative 09/08/19 12:25 U Marijuana (THC) Screen Presumptive negative 09/08/19 12:25 Drugs of Abuse Note Disclamer 09/08/19 12:25 Influenza A (Rapid) Negative (Negative) 09/08/19 Unknown Influenza B (Rapid) Negative (Negative) 09/08/19 Unknown Active Medications - Current Medications Current Medications: Generic Name Dose Route Start Last Admin Trade Name Freq PRN Reason Stop Dose Admin Acetaminophen 650 mg 09/08/19 23:43 Tylenol PO Q4H PRN Pain MILD(1-3)/Fever >100.5/SYLVESTER Albuterol 2.5 mg 09/09/19 00:01 Proventil IH Q3HRT PRN Wheezing/ SOB Albuterol/Ipratropium 1 ampul 09/09/19 08:00 09/09/19 12:59 Duoneb *Not For Prn Use* IH 1 ampul QIDRT [facility] Administration Benzonatate 100 mg 09/08/19 23:45 09/09/19 06:25 Tessalon Perles PO 100 mg Q8HR [facility] Administration Budesonide 0.5 mg 09/08/19 23:45 09/09/19 12:59 Pulmicort IH 0.5 mg Q12HRT [facility] Administration Clonazepam 1 mg 09/09/19 10:00 09/09/19 12:35 Klonopin PO 1 mg DAILY [facility] Administration Diphenhydramine HCl 25 mg 09/08/19 23:46 Benadryl PO Q6HR PRN Itching Famotidine 20 mg 09/09/19 10:00 09/09/19 11:15 Pepcid PO 20 mg BID [facility] Administration Furosemide 20 mg 09/09/19 10:00 09/09/19 11:16 Lasix PO 20 mg QDAY [facility] Administration Heparin Sodium (Porcine) 5,000 unit 09/08/19 23:45 09/09/19 11:22 Heparin SUB-Q 5,000 unit Q12HR [facility] Administration Levofloxacin/Dextrose 750 mg in 150 mls @ 100 mls/hr 09/09/19 10:00 09/09/19 11:14 Levaquin 750mg/150ml IV 100 mls/hr Q24HR [facility] Administration Protocol Ibuprofen 600 mg 09/08/19 23:43 Ibuprofen PO Q6H PRN Pain, Mild (1-3) Methadone HCl 70 mg 09/09/19 10:00 09/09/19 11:17 Dolophine PO 70 mg QDAY [facility] Administration Methylprednisolone Sodium Succinate 60 mg 09/08/19 23:45 09/09/19 11:15 Solu-Medrol IV 60 mg Q6HR [facility] Administration Nicotine 14 mg 09/09/19 10:00 09/09/19 11:20 Habitrol TD Not Given QDAY [facility] Ondansetron HCl 4 mg 09/08/19 23:43 Zofran IV Q8H PRN Nausea And Vomiting Senna/Docusate Sodium 1 tab 09/09/19 10:00 09/09/19 11:20 Senokot S PO Not Given DAILY [facility] Sodium Chloride 10 ml 09/09/19 10:00 09/09/19 11:23 Sodium Chloride Flush Syringe 10 Ml IV 10 ml BID [facility] Administration Sodium Chloride 10 ml 09/08/19 23:43 Sodium Chloride Flush Syringe 10 Ml IV PRN PRN LINE FLUSH
[2019-09-09] MEDS ORDERED: ONDANSETRON 4 MG/2 ML INJ IV ONE (14:15)
--- NOTE | 2019-09-09 18:59 | Cat Scan Report ---
CTA CHEST WITH IV CONTRAST INDICATION: HYPOXIC RESPIRATORY FAILURE. TECHNIQUE: Axial CT images were obtained through the chest after injection of 100 mL IV contrast. 3 plane MIP re constructions were produced. All CT scans at this location are performed using CT dose reduction for ALARA by means of automated exposure control. COMPARISON: None available. FINDINGS: PULMONARY ARTERIES: No pulmonary emboli. AORTA AND ARTERIES: No acute abnormality. MEDIASTINUM: No mass, lymphadenopathy or other significant abnormality. The heart is normal in size w ithout a pericardial effusion. The trachea and main bronchi are patent and normal in caliber. LUNGS: Mild scattered bronchopneumonia. ADDITIONAL FINDINGS: None. UPPER ABDOMEN: Cirrhotic liver with evidence of portal hypertension including multiple paraesophageal varices and splenomegaly.. BONES: No significant osseous abnormality. IMPRESSION: 1. No CT evidence for pulmonary embolism. 2. Extensive bronchial pneumonia. 2. Cirrhotic liver with portal hypertension findings, as above. Signer Name: Seymour Joe MD Signed: 09/09/2019 6:54 PM Workstation Name: [id number]
[2019-09-10] MEDS: methylPREDNISolone Sod Succinate 125 MG/2 ML INJ IV SCH ×5 (00:45→23:41)
[2019-09-10] MEDS: BENZONATATE 100 MG CAP PO SCH ×3 (06:02→21:34)
[2019-09-10] MEDS: METHADONE 10 MG TAB PO SCH (09:07)
[2019-09-10] MEDS: BUDESONIDE 0.5 MG/2 ML NEBU IH SCH ×2 (09:13→21:55)
[2019-09-10] MEDS: IPRATROPIUM/ALBUTEROL SULFATE 3 ML AMPUL.NEB IH SCH ×4 (09:13→21:55)
[2019-09-10] MEDS: clonazePAM 0.5 MG TAB PO SCH (09:13)
[2019-09-10] MEDS: NICOTINE 14 MG/24 HR PATCH TD SCH (09:14)
[2019-09-10] MEDS: FAMOTIDINE 20 MG TAB PO SCH ×2 (09:14→21:34)
[2019-09-10] MEDS: SENNOSIDES/DOCUSATE SODIUM 8.6/50 MG TAB PO SCH (09:14)
[2019-09-10] MEDS: FUROSEMIDE 20 MG TAB PO SCH (09:22)
--- NOTE | 2019-09-10 12:34 | Progress Note ---
Assessment and Plan Acute hypoxemic respiratory failure AE-COPD Bronchopneumonia (Bilateral) Liver cirrhosis with portal hypertension Tobacco use disorder/Nicotine dependence- on going Thrombocytopenia Leukopenia Methadone dependence Anal cancer s/p chemotherapy HTN - continue supplemental oxygen as needed to keep O2 sat's > 90% - continue bronchodilators (CHAYO & LABA) with pulmonary hygiene per RT - continue systemic steroids with slow taper - continue inhaled corticosteroids - continue empiric CAP directed antibiotics with Levaquin - continue accuchecks with SSI for target BG < 180 mg/dl - follow Transthoracic echocardiography to evaluate for pulmonary HTN from liver/lung disease - watch for bleeding (Patient has thrombocytopenia and portal HTN at risk of significant bleeding) - Nicotine withdrawal protocols - PT/OT as tolerated - mobility protocols for pressure ulcer prophylaxis - GI & VTE prophylaxis; ambulation and SCDs while in bed - tobacco abstinence strongly counseled at bedside - Flu & Pneumovax addressed per protocol - Pulmonary out patient follow up for characterization of lung disease, PFTS and optimization of pulmonary care - Smoking cessation counselling done at admission for > 7 minutes at the bedside CONDITION: FAIR PROGNOSIS: GUARDED CODE STATUS FULL Subjective Date of service: 09/10/19 Principal diagnosis: Ac. hypoxemic resp failure; AE-COPD; Bronchopneumonia; Liver cirrhosis Interval history: Patient is seen today for: Acute hypoxemic respiratory failure; AE-COPD; Bronchopneumonia; Liver cirrhosis with portal hypertension; Tobacco use disorder/Nicotine dependence; Thrombocytopenia; Methadone dependence; Anal cancer s/p chemotherapy; HTN Seen and examined at bedside; 24hour events reviewed; nursing and respiratory care staff consulted; no adverse overnight events reported to me; resting peacefully in bed; denies acute chest pains or palpitations; remains on supplemental oxygen; No N/V/F/C Objective Vital Signs - 12hr 09/10/19 09/10/19 09/10/19 06:23 09:13 09:21 Temperature 97.5 F L Pulse Rate 63 Pulse Rate [ Anterior Bilateral Throughout] Respiratory 18 Rate Respiratory Rate [Anterior Bilateral Throughout] Blood Pressure 128/65 140/72 O2 Sat by Pulse 95 95 Oximetry 09/10/19 09:44 Temperature Pulse Rate Pulse Rate [ 72 Anterior Bilateral Throughout] Respiratory Rate Respiratory 20 Rate [Anterior Bilateral Throughout] Blood Pressure O2 Sat by Pulse Oximetry Constitutional: no acute distress, alert, other (elderly looking obese CM, normocephalic with mildly increased respiratory effort at rest) Eyes: non-icteric ENT: oropharynx moist, other (mallampati 3) Neck: supple, no lymphadenopathy, other (Large neck circumference) Effort: mildly labored Ascultation: Bilateral: diminished breath sounds, rhonchi (base) Percussion: Bilateral: not dull Cardiovascular: regular rate and rhythm, other (No R/M) Gastrointestinal: normoactive bowel sounds, soft, non-tender, other (protuberant) Integumentary: normal Extremities: no cyanosis, pink and warm, pulses normal, edema (trace) Neurologic: normal mental status, non-focal exam, pupils equal and round, CN II- XII normal Psychiatric: mood appropriate, affect normal CBC and BMP: 09/09/19 07:00 09/09/19 07:00 ABG, PT/INR, D-dimer: ABG POC ABG pH 7.419 (7.35-7.45) 09/08/19 13:11 POC ABG pCO2 36.7 (35-45) 09/08/19 13:11 POC ABG pO2 62 (80-105) L 09/08/19 13:11 POC ABG HCO3 23.7 (22-26 mml/L) 09/08/19 13:11 POC ABG Total CO2 25 (23-27mmol/L) 09/08/19 13:11 POC ABG O2 Sat 92 09/08/19 13:11 Abnormal lab findings: Abnormal Labs 09/08/19 09/08/19 09/08/19 11:28 11:28 12:25 WBC Hct MCHC RDW 15.4 H Plt Count 62 L Lymph % (Auto) 4.5 L [place] % (Auto) 10.8 H Lymph # 0.2 L Seg Neutrophils % 83.8 H POC ABG pO2 Sodium Creatinine 0.5 L Glucose 105 H Total Bilirubin 2.70 H Albumin 3.1 L Ur Specific [place] 1.032 H 09/08/19 09/09/19 09/09/19 13:11 07:00 07:00 WBC 2.4 L Hct 33.2 L D MCHC 36 H RDW Plt Count 54 L Lymph % (Auto) 7.2 L [place] % (Auto) Lymph # 0.2 L Seg Neutrophils % 87.4 H POC ABG pO2 62 L Sodium 135 L Creatinine 0.5 L Glucose 126 H Total Bilirubin 1.50 H Albumin 2.6 L Ur Specific [place] CT scan - chest: image reviewed (patchy bilateral pneumonia) Allied health notes reviewed: nursing
--- NOTE | 2019-09-10 13:23 | Progress Note ---
Assessment and Plan 59-year-old male with history of end-stage COPD and CHF comes in for increasing shortness of breath for 4 days. Patient was recently discharged 1 week ago after being treated for acute respiratory failure. Patient was intubated during the last admission and methadone 70 mg which he takes regularly may have contributed. Cough productive of mucoid sputum. No fever or chills. Shortness of breath on minimal exertion. Patient has difficulty talking in full sentences. Mild perioral bluish tinge present. No no recent travel. * In the ER the patient was noted to have perioral cyanosis which has since improved. * Considering that the patient has not been on heparin prophylaxis during previous hospitalization due to severe thrombocytopenia will obtain a CTA chest to rule out pulmonary embolism * I have discussed with the patient that his methadone dose may indeed be too much for him and he needs to have this discussion with his clinic I also conveyed information to the clinic. * Will consult pulmonary to assist with management continue to taper steroids and anticipate discharge in 24 to 48 hours (1) COPD exacerbation Current Visit: Yes Status: Acute Plan to address problem: Patient initiated on IV Solu-Medrol, IV Levaquin and duo nebs [id number]/PRN (2) Acute respiratory failure with hypoxia Current Visit: Yes Status: Acute Plan to address problem: Patient initiated on IV Solu-Medrol, IV Levaquin and duo nebs [id number] and as needed BiPAP if necessary Intubation if necessary (3) Methadone dependence Current Visit: Yes Status: Chronic Plan to address problem: Continue his methadone at 70 mg/day (4) HTN (hypertension) Current Visit: No Status: Acute Qualifiers: Hypertension type: essential hypertension Qualified Code(s): I10 - Essential (primary) hypertension Plan to address problem: Continue antihypertensives (5) Hep C w/o coma, chronic Current Visit: No Status: Chronic Plan to address problem: Follow-up with GI as outpatient (6) Anal cancer Current Visit: No Status: Chronic Plan to address problem: In remission (7) DVT prophylaxis Current Visit: No Status: Acute Plan to address problem: On heparin and GI prophylaxis Subjective Date of service: 09/10/19 Principal diagnosis: COPD exacerbation, acute respiratory failure with hypoxia, methadone depend Interval history: Still coughing,Denies any fever Objective - Exam Narrative Exam: Constitutional: Well-nourished well-developed. In no distress Head: Normocephalic atraumatic Eyes: Pupils are equal round and reactive to light Nose: No enlarged turbinates, no septal deviation. Mouth: Moist mucous membranes. Neck: Supple no thyromegaly. No bruit. No JVD Heart: Regular rate and rhythm, S1-S2 normal. No rubs murmurs or gallop Lungs: Decreased breath sounds bilaterally. no rales or rhonchi Abdomen: Soft, nontender. Bowel sound are present. Extremities: No edema, no cyanosis, no clubbing. Neuro: Alert oriented Oriented x3. No focal sensory or motor deficit. Skin: No rashes or hyperpigmented spots Musculoskeletal system: No joint pain or swelling Hematological: No petechia or subcutanous hemorrhages. Immunological: No multiple septic spots on the skin Lymphatic: No generalized lymphadenopathy Psychiatry: Euthymic. Calm. - Constitutional Vitals: Vital Signs - 12hr 09/10/19 09/10/19 09/10/19 06:23 09:13 09:21 Temperature 97.5 F L Pulse Rate 63 Pulse Rate [ Anterior Bilateral Throughout] Respiratory 18 Rate Respiratory Rate [Anterior Bilateral Throughout] Blood Pressure 128/65 140/72 O2 Sat by Pulse 95 95 Oximetry 09/10/19 09:44 Temperature Pulse Rate Pulse Rate [ 72 Anterior Bilateral Throughout] Respiratory Rate Respiratory 20 Rate [Anterior Bilateral Throughout] Blood Pressure O2 Sat by Pulse Oximetry - Labs CBC & Chem 7: 09/09/19 07:00 09/09/19 07:00
[2019-09-11] MEDS: methylPREDNISolone Sod Succinate 125 MG/2 ML INJ IV SCH ×3 (05:49→17:06)
[2019-09-11] MEDS: BENZONATATE 100 MG CAP PO SCH ×3 (05:49→21:14)
[2019-09-11] MEDS: IPRATROPIUM/ALBUTEROL SULFATE 3 ML AMPUL.NEB IH SCH ×5 (07:58→23:13)
[2019-09-11] MEDS: BUDESONIDE 0.5 MG/2 ML NEBU IH SCH ×2 (07:58→23:13)
[2019-09-11] MEDS: METHADONE 10 MG TAB PO SCH (10:05)
[2019-09-11] MEDS: FAMOTIDINE 20 MG TAB PO SCH ×2 (10:08→21:14)
[2019-09-11] MEDS: clonazePAM 0.5 MG TAB PO SCH (10:08)
[2019-09-11] MEDS: FUROSEMIDE 20 MG TAB PO SCH (10:09)
[2019-09-11] MEDS: NICOTINE 14 MG/24 HR PATCH TD SCH (10:09)
[2019-09-11] MEDS: SENNOSIDES/DOCUSATE SODIUM 8.6/50 MG TAB PO SCH (10:12)
--- NOTE | 2019-09-11 10:13 | Progress Note ---
Assessment and Plan 59-year-old male with history of end-stage COPD and CHF comes in for increasing shortness of breath for 4 days. Patient was recently discharged 1 week ago after being treated for acute respiratory failure. Patient was intubated during the last admission and methadone 70 mg which he takes regularly may have contributed. Cough productive of mucoid sputum. No fever or chills. Shortness of breath on minimal exertion. Patient has difficulty talking in full sentences. Mild perioral bluish tinge present. No no recent travel. (1) COPD exacerbation Current Visit: Yes Status: Acute Plan to address problem: Patient initiated on IV Solu-Medrol, IV Levaquin and duo nebs [id number]/PRN (2) Acute respiratory failure with hypoxia Current Visit: Yes Status: Acute Plan to address problem: Continue on IV Levaquin and duo-nebs [id number] and as needed Taper IV Solu-Medrol, BiPAP if necessary Intubation if necessary (3) Methadone dependence Current Visit: Yes Status: Chronic Plan to address problem: Continue his methadone at 70 mg/day (4) HTN (hypertension) Current Visit: No Status: Acute Qualifiers: Hypertension type: essential hypertension Qualified Code(s): I10 - Essential (primary) hypertension Plan to address problem: Continue antihypertensives (5) Hep C w/o coma, chronic Current Visit: No Status: Chronic Plan to address problem: Follow-up with GI as outpatient (6) Anal cancer s/p Chemo therapy Current Visit: No Status: Chronic Plan to address problem: In remission (7) DVT prophylaxis Current Visit: No Status: Acute Plan to address problem: On heparin and GI prophylaxis Disposition: Taper steriod some more and commence oral stri Subjective Date of service: 09/11/19 Principal diagnosis: COPD exacerbation, acute respiratory failure with hypoxia, methadone depend Interval history: Still coughing, Denies any fever. no shortness of breath Objective - Exam Narrative Exam: Constitutional: Well-nourished well-developed. In no distress Head: Normocephalic atraumatic Eyes: Pupils are equal round and reactive to light Nose: No enlarged turbinates, no septal deviation. Mouth: Moist mucous membranes. Neck: Supple no thyromegaly. No bruit. No JVD Heart: Regular rate and rhythm, S1-S2 normal. No rubs murmurs or gallop Lungs: Decreased breath sounds bilaterally. no rales or rhonchi Abdomen: Soft, nontender. Bowel sound are present. Extremities: No edema, no cyanosis, no clubbing. Neuro: Alert oriented Oriented x3. No focal sensory or motor deficit. Skin: No rashes or hyperpigmented spots Musculoskeletal system: No joint pain or swelling Hematological: No petechia or subcutanous hemorrhages. Immunological: No multiple septic spots on the skin Lymphatic: No generalized lymphadenopathy Psychiatry: Euthymic. Calm. - Constitutional Vitals: Vital Signs - 12hr 09/10/19 09/11/19 09/11/19 23:45 05:09 07:58 Temperature 97.3 F L 97.3 F L Pulse Rate 71 71 Pulse Rate [ 76 Anterior Bilateral Throughout] Pulse Rate [ 68 Posterior Bilateral Throughout] Respiratory 18 18 Rate Respiratory 20 Rate [Anterior Bilateral Throughout] Respiratory 20 Rate [Posterior Bilateral Throughout] Blood Pressure 125/62 136/67 O2 Sat by Pulse 94 97 Oximetry 09/11/19 08:03 Temperature Pulse Rate Pulse Rate [ Anterior Bilateral Throughout] Pulse Rate [ Posterior Bilateral Throughout] Respiratory Rate Respiratory Rate [Anterior Bilateral Throughout] Respiratory Rate [Posterior Bilateral Throughout] Blood Pressure O2 Sat by Pulse 97 Oximetry - Labs CBC & Chem 7: 09/09/19 07:00 09/09/19 07:00
[2019-09-11] MEDS: HYDROcodone/HOMATROPINE 5-1.5MG /5 ML ORAL LIQD UNIT DOSE PO PRN (10:19)
--- NOTE | 2019-09-11 14:59 | Progress Note ---
Assessment and Plan Acute hypoxemic respiratory failure AE-COPD Bronchopneumonia (Bilateral) Liver cirrhosis with portal hypertension Tobacco use disorder/Nicotine dependence- on going Thrombocytopenia Leukopenia Methadone dependence Anal cancer s/p chemotherapy HTN - continue supplemental oxygen as needed to keep O2 sat's > 90% - continue bronchodilators (CHAYO & LABA) with pulmonary hygiene per RT - continue systemic steroids with slow taper - continue inhaled corticosteroids - complete empiric CAP directed antibiotics with Levaquin (5 days therapy) - continue accuchecks with SSI for target BG < 180 mg/dl - follow Transthoracic echocardiography to evaluate for pulmonary HTN from liver/lung disease - watch for bleeding (Patient has thrombocytopenia and portal HTN at risk of significant bleeding) - Nicotine withdrawal protocols - PT/OT as tolerated - mobility protocols for pressure ulcer prophylaxis - GI & VTE prophylaxis; ambulation and SCDs while in bed - tobacco abstinence strongly counseled at bedside - Flu & Pneumovax addressed per protocol - Pulmonary out patient follow up for characterization of lung disease, PFTS and optimization of pulmonary care - Smoking cessation counselling done at admission for > 7 minutes at the bedside CONDITION: FAIR PROGNOSIS: IMPROVED CODE STATUS FULL Subjective Date of service: 09/11/19 Principal diagnosis: Ac. hypoxemic resp failure; AE-COPD; Bronchopneumonia; Liver cirrhosis Interval history: Patient is seen today for: Acute hypoxemic respiratory failure; AE-COPD; Bronchopneumonia; Liver cirrhosis with portal hypertension; Tobacco use disorder/Nicotine dependence; Thrombocytopenia; Methadone dependence; Anal cancer s/p chemotherapy; HTN Seen and examined at bedside; 24hour events reviewed; nursing and respiratory care staff consulted; no adverse overnight events reported to me; resting peacefully in bed; no gross bleeding; no acute chest pain; still with KHAN Objective Vital Signs - 12hr 09/11/19 09/11/19 09/11/19 05:09 07:58 08:03 Temperature 97.3 F L Pulse Rate 71 Pulse Rate [ 76 Anterior Bilateral Throughout] Pulse Rate [ 68 Posterior Bilateral Throughout] Respiratory 18 Rate Respiratory 20 Rate [Anterior Bilateral Throughout] Respiratory 20 Rate [Posterior Bilateral Throughout] Blood Pressure 136/67 O2 Sat by Pulse 97 97 Oximetry 09/11/19 12:13 Temperature 97.2 F L Pulse Rate 68 Pulse Rate [ Anterior Bilateral Throughout] Pulse Rate [ Posterior Bilateral Throughout] Respiratory 20 Rate Respiratory Rate [Anterior Bilateral Throughout] Respiratory Rate [Posterior Bilateral Throughout] Blood Pressure 162/69 O2 Sat by Pulse 94 Oximetry Constitutional: no acute distress, alert, other (elderly looking obese CM, normocephalic with mildly increased respiratory effort at rest) Eyes: non-icteric ENT: oropharynx moist, other (mallampati 3) Neck: supple, no lymphadenopathy, other (Large neck circumference) Effort: mildly labored Ascultation: Bilateral: diminished breath sounds, rhonchi (base) Percussion: Bilateral: not dull Cardiovascular: regular rate and rhythm, other (No R/M) Gastrointestinal: normoactive bowel sounds, soft, non-tender, other (p rotuberant) Integumentary: normal Extremities: no cyanosis, pink and warm, pulses normal, edema (trace) Neurologic: normal mental status, non-focal exam, pupils equal and round, CN II- XII normal Psychiatric: mood appropriate, affect normal CBC and BMP: 09/13/19 08:54 09/13/19 08:54 ABG, PT/INR, D-dimer: ABG POC ABG pH 7.419 (7.35-7.45) 09/08/19 13:11 POC ABG pCO2 36.7 (35-45) 09/08/19 13:11 POC ABG pO2 62 (80-105) L 09/08/19 13:11 POC ABG HCO3 23.7 (22-26 mml/L) 09/08/19 13:11 POC ABG Total CO2 25 (23-27mmol/L) 09/08/19 13:11 POC ABG O2 Sat 92 09/08/19 13:11 Abnormal lab findings: Abnormal Labs 09/08/19 09/08/19 09/08/19 11:28 11:28 12:25 WBC Hct MCHC RDW 15.4 H Plt Count 62 L Lymph % (Auto) 4.5 L [place] % (Auto) 10.8 H Lymph # 0.2 L Seg Neutrophils % 83.8 H POC ABG pO2 Sodium Creatinine 0.5 L Glucose 105 H Total Bilirubin 2.70 H Albumin 3.1 L Ur Specific [place] 1.032 H 09/08/19 09/09/19 09/09/19 13:11 07:00 07:00 WBC 2.4 L Hct 33.2 L D MCHC 36 H RDW Plt Count 54 L Lymph % (Auto) 7.2 L [place] % (Auto) Lymph # 0.2 L Seg Neutrophils % 87.4 H POC ABG pO2 62 L Sodium 135 L Creatinine 0.5 L Glucose 126 H Total Bilirubin 1.50 H Albumin 2.6 L Ur Specific [place] Allied health notes reviewed: nursing
[2019-09-12] MEDS: HYDROcodone/HOMATROPINE 5-1.5MG /5 ML ORAL LIQD UNIT DOSE PO PRN ×2 (02:01→22:57)
[2019-09-12] MEDS: methylPREDNISolone Sod Succinate 125 MG/2 ML INJ IV SCH ×4 (02:01→17:57)
[2019-09-12 06:02] LABS: Hematocrit 36.9 % (35.5-45.6); Hemoglobin 12.6 gm/dl (11.8-15.2); Mean Corpuscular HGB Conc 34 % (32-34); Mean Corpuscular Volume 91 fl (84-94); Red Blood Count 4.06 M/mm3 (3.65-5.03)
[2019-09-12 06:04] LABS: Platelet Count 57 K/mm3 (140-440)
[2019-09-12] MEDS: BENZONATATE 100 MG CAP PO SCH ×3 (06:09→22:57)
[2019-09-12 06:22] LABS: Alanine Aminotransferase 27 units/L (7-56); Albumin 2.9 g/dL (3.9-5); BUN/Creatinine Ratio 27; Blood Urea Nitrogen 19 mg/dL (9-20); Calcium 8.7 mg/dL (8.4-10.2); Hemolysis Index 10
[2019-09-12] MEDS: IPRATROPIUM/ALBUTEROL SULFATE 3 ML AMPUL.NEB IH SCH ×4 (08:27→22:00)
[2019-09-12] MEDS: BUDESONIDE 0.5 MG/2 ML NEBU IH SCH ×2 (08:27→21:59)
[2019-09-12 08:46] LABS: Anisocytosis 1+; Basophils % (Manual) 0 % (0.0-1.8); Eosinophils % (Manual) 0 % (0.0-4.3); Total Cells Counted 100
[2019-09-12 08:47] LABS: Platelet Estimate Consistent w Auto
[2019-09-12] MEDS: FAMOTIDINE 20 MG TAB PO SCH ×2 (09:19→22:58)
[2019-09-12] MEDS: SENNOSIDES/DOCUSATE SODIUM 8.6/50 MG TAB PO SCH (09:19)
[2019-09-12] MEDS: FUROSEMIDE 20 MG TAB PO SCH (09:19)
[2019-09-12] MEDS: METHADONE 10 MG TAB PO SCH (09:20)
[2019-09-12] MEDS: clonazePAM 0.5 MG TAB PO SCH (09:20)
[2019-09-12] MEDS: NICOTINE 14 MG/24 HR PATCH TD SCH (09:21)
--- NOTE | 2019-09-12 14:36 | Progress Note ---
Assessment and Plan Patient is alert, awake, not currently wearing oxygen. O2 is set for 2L nasal cannula. Saturation is 96%. Patient is afebrile.Patient is leukopenic. 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 - Patient Problems (1) Acute exacerbation of chronic obstructive pulmonary disease (COPD) Current Visit: Yes Status: Acute Plan to address problem: patient is on O2 2L via nasal cannula Albuterol and atrovent aerosol treatments q6h Continue Solu-medrol Continue levoquin Continue Famotidine SCD's (2) Acute respiratory failure with hypoxia Current Visit: Yes Status: Acute Plan to address problem: patient is on O2 2L via nasal cannula Albuterol and atrovent aerosol treatments q6h Continue Solu-medrol Continue levoquin Continue Famotidine SCD's (3) Methadone dependence Current Visit: Yes Status: Chronic Plan to address problem: Management as per primary care (4) End stage liver disease Current Visit: No Status: Acute Plan to address problem: Management as per primary care and GI (5) Hepatitis C Current Visit: No Status: Acute Qualifiers: Viral hepatitis chronicity: chronic Plan to address problem: Management as per primary and GI (6) Portal hypertension Current Visit: No Status: Acute Plan to address problem: Management as per primary and GI (7) Thrombocytopenia Current Visit: Yes Status: Chronic Plan to address problem: Hold heparin SCDs (8) Leukopenia Current Visit: No Status: Acute Plan to address problem: Recommend to consult hematology Subjective Date of service: 09/12/19 Principal diagnosis: COPD exacerbation, acute respiratory failure with hypoxia, methadone depend Interval history: Patient is alert, awake, not currently wearing oxygen. O2 is set for 2L nasal cannula. Saturation is 96%. Patient is afebrile.Patient is leukopenic. 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 Objective Vital Signs - 12hr 09/12/19 09/12/19 09/12/19 04:30 08:28 09:20 Temperature 97.6 F Pulse Rate 62 Pulse Rate [ 68 Posterior Bilateral Throughout] Respiratory 16 22 Rate Respiratory 20 Rate [Posterior Bilateral Throughout] Blood Pressure 142/72 O2 Sat by Pulse 93 93 Oximetry 09/12/19 09/12/19 11:29 13:34 Temperature 97.3 F L Pulse Rate 63 Pulse Rate [ 73 Posterior Bilateral Throughout] Respiratory 20 Rate Respiratory 20 Rate [Posterior Bilateral Throughout] Blood Pressure 154/82 O2 Sat by Pulse 94 Oximetry Constitutional: no acute distress, alert, other (elderly looking obese CM, normocephalic with mildly increased respiratory effort at rest) Eyes: non-icteric ENT: oropharynx moist, other (mallampati 3) Neck: supple, no lymphadenopathy, other (Large neck circumference) Effort: mildly labored Ascultation: Bilateral: diminished breath sounds, rhonchi (base) Percussion: Bilateral: not dull Cardiovascular: regular rate and rhythm, other (No R/M) Gastrointestinal: normoactive bowel sounds, soft, non-tender, other (protuberant) Integumentary: normal Extremities: no cyanosis, pink and warm, pulses normal, edema (trace) Neurologic: normal mental status, non-focal exam, pupils equal and round, CN II- XII normal Psychiatric: mood appropriate, affect normal CBC and BMP: 09/12/19 05:25 09/12/19 05:25 ABG, PT/INR, D-dimer: ABG POC ABG pH 7.419 (7.35-7.45) 09/08/19 13:11 POC ABG pCO2 36.7 (35-45) 09/08/19 13:11 POC ABG pO2 62 (80-105) L 09/08/19 13:11 POC ABG HCO3 23.7 (22-26 mml/L) 09/08/19 13:11 POC ABG Total CO2 25 (23-27mmol/L) 09/08/19 13:11 POC ABG O2 Sat 92 09/08/19 13:11 Abnormal lab findings: Abnormal Labs 09/08/19 09/08/19 09/08/19 11:28 11:28 12:25 WBC Hct MCHC RDW 15.4 H Plt Count 62 L Lymph % (Auto) 4.5 L [place] % (Auto) 10.8 H Lymph # 0.2 L Seg Neutrophils % 83.8 H Seg Neuts % (Manual) Lymphocytes % (Manual) Seg Neutrophils # Man Lymphocytes # (Manual) POC ABG pO2 Sodium Creatinine 0.5 L Glucose 105 H Total Bilirubin 2.70 H Albumin 3.1 L Ur Specific [place] 1.032 H 09/08/19 09/09/19 09/09/19 13:11 07:00 07:00 WBC 2.4 L Hct 33.2 L D MCHC 36 H RDW Plt Count 54 L Lymph % (Auto) 7.2 L [place] % (Auto) Lymph # 0.2 L Seg Neutrophils % 87.4 H Seg Neuts % (Manual) Lymphocytes % (Manual) Seg Neutrophils # Man Lymphocytes # (Manual) POC ABG pO2 62 L Sodium 135 L Creatinine 0.5 L Glucose 126 H Total Bilirubin 1.50 H Albumin 2.6 L Ur Specific [place] 09/12/19 09/12/19 05:25 05:25 WBC 1.5 L* Hct MCHC RDW Plt Count 57 L Lymph % (Auto) [place] % (Auto) Lymph # Seg Neutrophils % Seg Neuts % (Manual) 88.0 H Lymphocytes % (Manual) 4.0 L Seg Neutrophils # Man 1.3 L Lymphocytes # (Manual) 0.1 L POC ABG pO2 Sodium Creatinine 0.7 L Glucose 126 H Total Bilirubin Albumin 2.9 L Ur Specific [place] Chest x-ray: report reviewed, image reviewed CT scan - chest: report reviewed, image reviewed Additional Studies: CXR 09/08/19 IMPRESSION: 1. No acute findings. CTA Chest 09/09/19 IMPRESSION: 1. No CT evidence for pulmonary embolism. 2. Extensive bronchial pneumonia. 2. Cirrhotic liver with portal hypertension findings Allied health notes reviewed: nursing
--- NOTE | 2019-09-12 20:35 | Progress Note ---
Assessment and Plan 59-year-old male with history of end-stage COPD and CHF comes in for increasing shortness of breath for 4 days. Patient was recently discharged 1 week ago after being treated for acute respiratory failure. Patient was intubated during the last admission and methadone 70 mg which he takes regularly may have contributed. Cough productive of mucoid sputum. No fever or chills. Shortness of breath on minimal exertion. Patient has difficulty talking in full sentences. Mild perioral bluish tinge present. No no recent travel. - COPD exacerbation Current Visit: Yes Status: Acute Plan to address problem: on IV Solu-Medrol, IV Levaquin and duo nebs [id number] - Acute respiratory failure with hypoxia Current Visit: Yes Status: Acute Plan to address problem: Still short of breath on slight exertion Continue on IV Levaquin and duo-nebs [id number] and as needed Taper IV Solu-Medrol, BiPAP if necessary Intubation if necessary - Methadone dependence Current Visit: Yes Status: Chronic Plan to address problem: Continue his methadone at 70 mg/day - HTN (hypertension) Current Visit: No Status: Acute Qualifiers: Hypertension type: essential hypertension Qualified Code(s): I10 - Essential (primary) hypertension Plan to address problem: Continue antihypertensives - Hep C with portal hypertension per CT of 09/09/19 Current Visit: No Status: Chronic Plan to address problem: Follow-up with GI as outpatient - Thrombocytopenia and Leukopenia Could be secondary liver cirrhosis, vs Chemo and radiotherapy from treatment of anal cancer to chronic liver disease. Heparin on hold due to Thrombocytopenia Neutropenic precaution Commence Neupogen 5mcg/kg sc qd Trend platelet Hematoclogy consult highly desired but but none available now as the only hematologists has been on vacation and none covering - Anal cancer s/p Chemo therapy Current Visit: No Status: Chronic Plan to address problem: In remission - DVT prophylaxis Current Visit: No Status: Acute Plan to address problem: On heparin and GI prophylaxis Disposition: Taper steriod some more and commence oral steroid Disccusse at length the treatment options with pt given current limitation with hemo oncologist here. He want to be discharged in am and head directly go to [facility] form her where he has an prior arrangement with a hemo oncologist and Pulmunologsit and continue his treatment there. Subjective Date of service: 09/12/19 Principal diagnosis: COPD exacerbation, acute respiratory failure with hypoxia, methadone depend Interval history: Still coughing, Denies any fever. No shortness of breath Objective - Exam Narrative Exam: Constitutional: Well-nourished well-developed.In no distress Head: Normocephalic atraumatic Eyes: Pupils are equal round and reactive to light Nose: No enlarged turbinates, no septal deviation. Mouth: Moist mucous membranes. Neck: Supple no thyromegaly. No bruit. No JVD Heart: Regular rate and rhythm, S1-S2 normal. No rubs murmurs or gallop Lungs: Decreased breath sounds bilaterally. no rales or rhonchi Abdomen: Soft, nontender. Bowel sound are present. Extremities: No edema, no cyanosis, no clubbing. Neuro: Alert oriented Oriented x3. No focal sensory or motor deficit. Skin: No rashes or hyperpigmented spots Musculoskeletal system: No joint pain or swelling Hematological: No petechia or subcutanous hemorrhages. Immunological: No multiple septic spots on the skin Lymphatic: No generalized lymphadenopathy Psychiatry: Euthymic. Calm. - Constitutional Vitals: Vital Signs - 12hr 09/12/19 09/12/19 09/12/19 09:20 11:29 13:34 Temperature 97.3 F L Pulse Rate 63 Pulse Rate [ 73 Posterior Bilateral Throughout] Respiratory 22 20 Rate Respiratory 20 Rate [Posterior Bilateral Throughout] Blood Pressure 154/82 O2 Sat by Pulse 94 Oximetry 09/12/19 09/12/19 09/12/19 16:31 16:52 16:54 Temperature 98.0 F Pulse Rate 70 Pulse Rate [ 65 Posterior Bilateral Throughout] Respiratory 21 Rate Respiratory 18 Rate [Posterior Bilateral Throughout] Blood Pressure 125/61 O2 Sat by Pulse 95 96 Oximetry - Labs CBC & Chem 7: 09/12/19 05:25 09/12/19 05:25 Labs: Abnormal lab results 09/12/19 09/12/19 Range/Units 05:25 05:25 WBC 1.5 L* (4.5-11.0) K/mm3 Plt Count 57 L (140-440) K/mm3 Seg Neuts % (Manual) 88.0 H (40.0-70.0) % Lymphocytes % (Manual) 4.0 L (13.4-35.0) % Seg Neutrophils # Man 1.3 L (1.8-7.7) K/mm3 Lymphocytes # (Manual) 0.1 L (1.2-5.4) K/mm3 Creatinine 0.7 L (0.8-1.5) mg/dL Glucose 126 H (75-100) mg/dL Albumin 2.9 L (3.9-5) g/dL
[2019-09-13] MEDS: methylPREDNISolone Sod Succinate 125 MG/2 ML INJ IV SCH ×3 (00:47→13:00)
[2019-09-13] MEDS: BENZONATATE 100 MG CAP PO SCH (05:25)
[2019-09-13] MEDS: IPRATROPIUM/ALBUTEROL SULFATE 3 ML AMPUL.NEB IH SCH ×2 (07:52→14:10)
[2019-09-13] MEDS: BUDESONIDE 0.5 MG/2 ML NEBU IH SCH (07:52)
--- NOTE | 2019-09-13 08:44 | Discharge Summary ---
Providers - Providers Date of Admission: 09/08/19 16:18 Date of discharge: 09/13/19 Attending physician: MAY DICKINSON 09/09/19 07:48 Consult to Physician [CONS] Routine Comment: Consulting Provider: AHMET LOZA Physician Instructions: consult called to office ([facility])09-09@[id number] Reason For Exam: RESPIRATORY FAILURE 09/09/19 14:59 Midline [Consult to PICC Line RN] [CONS] Routine Reason For Exam: radiological test Type Line:: Midline Primary care physician: CORBY DOMINGO Hospitalization Condition: Stable Hospital course: 59-year-old male with history of end-stage COPD and CHF comes in for increasing shortness of breath for 4 days. Patient was recently discharged 1 week ago after being treated for acute respiratory failure. Patient was intubated during the last admission and methadone 70 mg which he takes regularly may have contributed. Cough productive of mucoid sputum. No fever or chills. Shortness of breath on minimal exertion. Patient has difficulty talking in full sentences. Mild perioral bluish tinge present. No no recent travel. Commenced on duoneb and steriod. CT Abdomena ndpelvis showed Liver sirrhosis with portal hypertension. Pt has a historuy fo anal cnacer s/p radiatherapy. Developped throbocytopenia adn Luekopenia. commenced on Neutrogen. t?discharged to [facility] wher is said he has an appointment today with his Oncologist and pulmonologsit Disccusse at length the treatment options with pt given current limitation with hemo oncologist here. He want to be discharged in am and head directly go to [facility] form her where he has an prior arrangement with a hemo oncologist and Pulmunologsit and continue his treatment there. Disposition: [id number] ANOTHER TYPE HLTHCARE - Discharge Diagnoses (1) Acute respiratory failure with hypoxia Status: Acute (2) COPD exacerbation Status: Acute (3) Methadone dependence Status: Chronic (4) Thrombocytopenia Status: Chronic (5) Acidosis Status: Acute (6) Leukopenia due to antineoplastic chemotherapy Status: Acute Core Measure Documentation - Palliative Care Palliative Care/ Comfort Measures: Not Applicable - Core Measures Any of the following diagnoses?: none Exam - Physical Exam Narrative exam: Constitutional: Well-nourished well-developed. In no distress Head: Normocephalic atraumatic Eyes: Pupils are equal round and reactive to light Nose: No enlarged turbinates, no septal deviation. Mouth: Moist mucous membranes. Neck: Supple no thyromegaly. No bruit. No JVD Heart: Regular rate and rhythm, S1-S2 normal. No rubs murmurs or gallop Lungs: Decreased breath sounds bilaterally. no rales or rhonchi Abdomen: Soft, nontender. Bowel sound are present. Extremities: No edema, no cyanosis, no clubbing. Neuro: Alert oriented Oriented x3. No focal sensory or motor deficit. Skin: No rashes or hyperpigmented spots Musculoskeletal system: No joint pain or swelling Hematological: No petechia or subcutanous hemorrhages. Immunological: No multiple septic spots on the skin Lymphatic: No generalized lymphadenopathy Psychiatry: Euthymic. Calm. - Constitutional Vitals: Temp Pulse Resp BP Pulse Ox 97.7 F 60 24 151/72 91 09/13/19 05:33 09/13/19 05:33 09/13/19 05:33 09/13/19 05:33 09/13/19 05:33 Plan Activity: fall precautions Weight Bearing Status: Non-Weight Bearing Diet: regular Follow up with: PRIMARY CARE, [Referring] - 3-5 Days Prescriptions: diphenhydrAMINE [Benadryl CAP] 25 mg PO Q6HR PRN #20 capsule PRN Reason: Itching Ipratropium/Albuterol Sulfate [DUONEB *Not for PRN Use*] 1 ampul IH TIDRT #100 ampul.neb clonazePAM [KlonoPIN] 1 mg PO DAILY #10 tablet Furosemide [Lasix TAB] 20 mg PO QDAY #7 tablet Famotidine [Pepcid] 20 mg PO BID #60 tablet ALBUTEROL Inhaler (OR & NICU) [ProAir HFA Inhaler] 2 puff IH QID PRN #2 can PRN Reason: Shortness Of Breath ALBUTEROL NEB's [Proventil 0.083% NEBS] 2.5 mg IH Q3HRT PRN #1 nebu PRN Reason: Wheezing/ SOB Budesonide [Pulmicort Respules] 0.5 mg IH Q12HRT #60 nebu Sennosides/Docusate [Senokot S] 1 tab PO DAILY #30 tablet Benzonatate [Tessalon Perliglesia] 100 mg PO Q8HR #14 capsule
[2019-09-13] MEDS: METHADONE 10 MG TAB PO SCH (08:59)
[2019-09-13] MEDS: clonazePAM 0.5 MG TAB PO SCH (09:02)
[2019-09-13] MEDS: NICOTINE 14 MG/24 HR PATCH TD SCH (09:06)
[2019-09-13] MEDS: FAMOTIDINE 20 MG TAB PO SCH (09:08)
[2019-09-13] MEDS: SENNOSIDES/DOCUSATE SODIUM 8.6/50 MG TAB PO SCH (09:09)
[2019-09-13] MEDS: FUROSEMIDE 20 MG TAB PO SCH (09:09)
[2019-09-13 09:22] LABS: Hematocrit 40.1 % (35.5-45.6); Hemoglobin 13.6 gm/dl (11.8-15.2); Mean Corpuscular HGB Conc 34 % (32-34); Mean Corpuscular Volume 91 fl (84-94); Red Blood Count 4.39 M/mm3 (3.65-5.03); Red Cell Distribution Width 15.1 % (13.2-15.2)
[2019-09-13 09:26] LABS: Platelet Count 67 K/mm3 (140-440)
[2019-09-13 09:51] LABS: Alanine Aminotransferase 29 units/L (7-56); Albumin 3.2 g/dL (3.9-5); BUN/Creatinine Ratio 30; Blood Urea Nitrogen 21 mg/dL (9-20); Calcium 8.9 mg/dL (8.4-10.2); Hemolysis Index 9
[2019-09-13 09:59] LABS: INR 1.6 (0.87-1.13); Partial Thromboplastin Time 25.8 Sec. (24.2-36.6)
[2019-09-13] MEDS ORDERED: TBO-FILGRASTIM 480 MCG/0.8 ML SUB-Q SCH (10:00)
[2019-09-13 11:36] LABS: Anisocytosis Few; Band Neutrophils # (Manual) 0.1 K/mm3; Basophils % (Manual) 0 % (0.0-1.8); Eosinophils % (Manual) 0 % (0.0-4.3); Macrocytosis Few; Platelet Estimate Consistent w Auto; Poikilocytosis Few; Total Cells Counted 100
[2019-09-13 12:25] VITALS: BP 155/79
--- NOTE | 2019-09-13 13:00 | Progress Note ---
Assessment and Plan Patient is alert, awake, not currently wearing oxygen. O2 is set for 2L nasal cannula. Saturation is 96%. Patient is afebrile.Patient is leukopenic. 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 - Patient Problems (1) Acute exacerbation of chronic obstructive pulmonary disease (COPD) Current Visit: Yes Status: Acute Plan to address problem: patient is on O2 2L via nasal cannula Albuterol and atrovent aerosol treatments q6h Continue Solu-medrol Continue levoquin Continue Famotidine SCD's (2) Acute respiratory failure with hypoxia Current Visit: Yes Status: Acute Plan to address problem: patient is on O2 2L via nasal cannula Albuterol and atrovent aerosol treatments q6h Continue Solu-medrol Continue levoquin Continue Famotidine SCD's (3) Methadone dependence Current Visit: Yes Status: Chronic Plan to address problem: Management as per primary care (4) End stage liver disease Current Visit: No Status: Acute Plan to address problem: Management as per primary care and GI (5) Hepatitis C Current Visit: No Status: Acute Qualifiers: Viral hepatitis chronicity: chronic Plan to address problem: Management as per primary and GI (6) Portal hypertension Current Visit: No Status: Acute Plan to address problem: Management as per primary and GI (7) Thrombocytopenia Current Visit: Yes Status: Chronic Plan to address problem: Hold heparin SCDs (8) Leukopenia Current Visit: No Status: Acute Plan to address problem: Recommend to consult hematology Subjective Date of service: 09/13/19 Principal diagnosis: COPD exacerbation, acute respiratory failure with hypoxia, methadone depend Interval history: Patient is alert, awake, not currently wearing oxygen. O2 is set for 2L nasal cannula. Saturation is 96%. Patient is afebrile.Patient is leukopenic. 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 Objective Vital Signs - 12hr 09/13/19 09/13/19 09/13/19 05:33 07:50 09:14 Temperature 97.7 F Pulse Rate 60 Pulse Rate [ 60 Posterior Bilateral Throughout] Respiratory 24 Rate Respiratory 18 Rate [Posterior Bilateral Throughout] Blood Pressure 151/72 O2 Sat by Pulse 91 96 Oximetry 09/13/19 11:31 Temperature 97.2 F L Pulse Rate 73 Pulse Rate [ Posterior Bilateral Throughout] Respiratory 22 Rate Respiratory Rate [Posterior Bilateral Throughout] Blood Pressure 155/79 O2 Sat by Pulse 94 Oximetry Constitutional: no acute distress, alert, other (elderly looking obese CM, normocephalic with mildly increased respiratory effort at rest) Eyes: non-icteric ENT: oropharynx moist, other (mallampati 3) Neck: supple, no lymphadenopathy, other (Large neck circumference) Effort: mildly labored Ascultation: Bilateral: diminished breath sounds, rhonchi (base) Percussion: Bilateral: not dull Cardiovascular: regular rate and rhythm, other (No R/M) Gastrointestinal: normoactive bowel sounds, soft, non-tender, other (protuberant) Integumentary: normal Extremities: no cyanosis, pink and warm, pulses normal, edema (trace) Neurologic: normal mental status, non-focal exam, pupils equal and round, CN II- XII normal Psychiatric: mood appropriate, affect normal CBC and BMP: 09/13/19 08:54 09/13/19 08:54 ABG, PT/INR, D-dimer: ABG POC ABG pH 7.419 (7.35-7.45) 09/08/19 13:11 POC ABG pCO2 36.7 (35-45) 09/08/19 13:11 POC ABG pO2 62 (80-105) L 09/08/19 13:11 POC ABG HCO3 23.7 (22-26 mml/L) 09/08/19 13:11 POC ABG Total CO2 25 (23-27mmol/L) 09/08/19 13:11 POC ABG O2 Sat 92 09/08/19 13:11 PT/INR, D-dimer PT 19.3 Sec. (12.2-14.9) H 09/13/19 08:54 INR 1.60 (0.87-1.13) H 09/13/19 08:54 Abnormal lab findings: Abnormal Labs 09/08/19 09/08/19 09/08/19 11:28 11:28 12:25 WBC Hct MCHC RDW 15.4 H Plt Count 62 L Lymph % (Auto) 4.5 L [place] % (Auto) 10.8 H Lymph # 0.2 L Seg Neutrophils % 83.8 H Seg Neuts % (Manual) Lymphocytes % (Manual) Seg Neutrophils # Man Lymphocytes # (Manual) PT INR POC ABG pO2 Sodium BUN Creatinine 0.5 L Glucose 105 H Total Bilirubin 2.70 H Albumin 3.1 L Ur Specific [place] 1.032 H 09/08/19 09/09/19 09/09/19 13:11 07:00 07:00 WBC 2.4 L Hct 33.2 L D MCHC 36 H RDW Plt Count 54 L Lymph % (Auto) 7.2 L [place] % (Auto) Lymph # 0.2 L Seg Neutrophils % 87.4 H Seg Neuts % (Manual) Lymphocytes % (Manual) Seg Neutrophils # Man Lymphocytes # (Manual) PT INR POC ABG pO2 62 L Sodium 135 L BUN Creatinine 0.5 L Glucose 126 H Total Bilirubin 1.50 H Albumin 2.6 L Ur Specific [place] 09/12/19 09/12/19 09/13/19 05:25 05:25 08:54 WBC 1.5 L* 3.5 L Hct MCHC RDW Plt Count 57 L 67 L Lymph % (Auto) [place] % (Auto) Lymph # Seg Neutrophils % Seg Neuts % (Manual) 88.0 H 88.0 H Lymphocytes % (Manual) 4.0 L 6.0 L Seg Neutrophils # Man 1.3 L Lymphocytes # (Manual) 0.1 L 0.2 L PT INR POC ABG pO2 Sodium BUN Creatinine 0.7 L Glucose 126 H Total Bilirubin Albumin 2.9 L Ur Specific [place] 09/13/19 09/13/19 08:54 08:54 WBC Hct MCHC RDW Plt Count Lymph % (Auto) [place] % (Auto) Lymph # Seg Neutrophils % Seg Neuts % (Manual) Lymphocytes % (Manual) Seg Neutrophils # Man Lymphocytes # (Manual) PT 19.3 H INR 1.60 H POC ABG pO2 Sodium BUN 21 H Creatinine 0.7 L Glucose 122 H Total Bilirubin 1.60 H Albumin 3.2 L Ur Specific [place] Allied health notes reviewed: nursing
== END 2019-09-13 14:30 | disposition short-term general hospital (02) | DRG 189 ==
LOC: ED 10:41 → 3A 16:18
PROVIDERS: ADMIT Internal Medicine; ATTEND Family Medicine
PROC: 4A033R1 Measurement of Arterial Saturation, Peripheral, Percutaneous Approach (ICD-10-PCS; 2019-09-08)
PROC: 05HY33Z Insertion of Infusion Device into Upper Vein, Percutaneous Approach (ICD-10-PCS; principal; 2019-09-09)
DX: J96.01 Acute respiratory failure with hypoxia (principal); J44.1 Chronic obstructive pulmonary disease with (acute) exacerbation; J18.0 Bronchopneumonia, unspecified organism; I50.9 Heart failure, unspecified; K74.69 Other cirrhosis of liver; D69.6 Thrombocytopenia, unspecified; F15.20 Other stimulant dependence, uncomplicated; D70.1 Agranulocytosis secondary to cancer chemotherapy; E87.2 Acidosis; B19.20 Unspecified viral hepatitis C without hepatic coma; K76.6 Portal hypertension; C21.0 Malignant neoplasm of anus, unspecified; F17.200 Nicotine dependence, unspecified, uncomplicated; F11.20 Opioid dependence, uncomplicated; J44.0 Chronic obstructive pulmonary disease with (acute) lower respiratory infection; I11.0 Hypertensive heart disease with heart failure; Z71.6 Tobacco abuse counseling; Z88.5 Allergy status to narcotic agent; Z79.899 Other long term (current) drug therapy
CPT/HCPCS: 36415; 36600; 71045; 71275; 80053; 80307; 81001; 82140; 82150; 82803; 83036; 83880; 84484; 85007; 85025; 85610; 85730; 87040; 87086; 87116; 87400; 93005; 93010; 94640; 94644; 94760; 96365; 96375; 99406; G0378; J0692; J1100; J1447; J1644; J1650; J1956; J2920; J2930; J3370; J3475; J7030; J7040; Q9967

== ENCOUNTER 2019-09-14 07:10 | Inpatient (IN) | payer MEDICAID ==
[2019-09-14] MEDS ORDERED: dexAMETHasone 20 MG/5 ML VIAL IV ONE (08:34)
[2019-09-14] MEDS ORDERED: IPRATROPIUM 0.02% NEBU 2.5 ML IH ONE (08:34)
[2019-09-14] MEDS ORDERED: ALBUTEROL 2.5 MG/3 ML NEBU IH ONE (08:34)
--- NOTE | 2019-09-14 09:11 | XRay Report ---
CHEST 1 VIEW INDICATION / CLINICAL INFORMATION: SOB. COMPARISON: 09/08/2019 FINDINGS: SUPPORT DEVICES: None. HEART / MEDIASTINUM: No significant abnormality. LUNGS / PLEURA: Interstitial opacities on the comparison study have improved. No evidence of airspace consolidation. No pneumothorax. ADDITIONAL FINDINGS: No significant additional findings. IMPRESSION: 1. Improvement of diffuse interstitial opacity. Signer Name: Aiden Torres MD Signed: 09/14/2019 9:06 AM Workstation Name: [id number]
[2019-09-14 09:49] LABS: Basophils % (Auto) 0.9 % (0.0-1.8); Eosinophils % (Auto) 0.7 % (0.0-4.3); Hematocrit 40.7 % (35.5-45.6); Hemoglobin 14.1 gm/dl (11.8-15.2); Lymphocytes # (Auto) 0.3 K/mm3 (1.2-5.4); Lymphocytes % (Auto) 11.3 % (13.4-35.0); Mean Corpuscular HGB Conc 35 % (32-34); Mean Corpuscular Volume 90 fl (84-94); Monocytes # (Auto) 0.3 K/mm3 (0.0-0.8); Monocytes % (Auto) 9.8 % (0.0-7.3); Red Blood Count 4.54 M/mm3 (3.65-5.03); Red Cell Distribution Width 15.6 % (13.2-15.2)
[2019-09-14 09:55] LABS: Platelet Count 54 K/mm3 (140-440)
[2019-09-14 09:59] LABS: INR 1.53 (0.87-1.13)
[2019-09-14 10:00] LABS: Partial Thromboplastin Time 26.7 Sec. (24.2-36.6)
[2019-09-14 10:14] LABS: Albumin 3.2 g/dL (3.9-5); BUN/Creatinine Ratio 30; Blood Urea Nitrogen 21 mg/dL (9-20); Calcium 8.2 mg/dL (8.4-10.2); Hemolysis Index 145
[2019-09-14 10:28] LABS: Alanine Aminotransferase 33 units/L (7-56)
[2019-09-14] MEDS ORDERED: MAGNESIUM SULFATE 2 GM/50 ML BAG IV ONE (10:36)
--- NOTE | 2019-09-14 11:23 | Emergency Department Report ---
ED Shortness of Breath HPI - General Chief Complaint: Dyspnea/Respdistress Stated Complaint: LEANDRO Time Seen by Provider: 09/14/19 08:33 Source: patient Mode of arrival: Ambulatory Limitations: No Limitations - History of Present Illness Initial Comments: This is a 59-year-old male in acute signs of distress presents to the ED with c/o of chest pain and shortness of breathe. Patient denies any radiation of pain. Patient describes pain as tightness. Patient denies any hemoptysis, fever, chills, nausea, vomiting, headache, stiff neck, numbness, tingling, abdominal pain. Patient denies any recent travels or long car rides. Patient denies any recent surgeries or any sick contacts. Patient was recently discharged yesterday but stated symptoms has worsens since he was discharged. Patient stated allergies to codeine. MD Complaint: shortness of breath, chest pain -: days(s) Severity: moderate Pain Scale: 8 Quality: other (chest tightness) Consistency: constant Improves With: nothing Worsens With: nothing Known History Of: COPD Associated Symptoms: chest pain, pain with inspiration Treatments Prior to Arrival: none - Related Data Home Oxygen Therapy: No Previous Rx's Medication Instructions Recorded Last Taken Type Nebulizer and Compressor [[place] 1 each MC TID #1 each 01/04/18 Unknown Rx Choice Nebulizer] Albuterol Sulfate [Ventolin Hfa] 1 puff IH Q4H PRN #1 hfa.aer.ad 04/04/18 Unknown Rx ALBUTEROL Inhaler (OR & NICU) 2 puff IH QID PRN #2 can 09/13/19 Unknown Rx [ProAir HFA Inhaler] ALBUTEROL NEB's [Proventil 0.083% 2.5 mg IH Q3HRT PRN #1 nebu 09/13/19 Unknown Rx NEBS] Albuterol Sulfate [Albuterol 0.63% 0.63 mg IH TID PRN #120 ml 09/13/19 Unknown Rx NEBS] Benzonatate [Tessalon Perles] 100 mg PO Q8HR #14 capsule 09/13/19 Unknown Rx Budesonide [Pulmicort Respules] 0.5 mg IH Q12HRT #60 nebu 09/13/19 Unknown Rx Famotidine [Pepcid] 20 mg PO BID #60 tablet 09/13/19 Unknown Rx Furosemide [Lasix TAB] 20 mg PO QDAY #7 tablet 09/13/19 Unknown Rx HYDROcodone/HOMATROP 5-1.5 5 ml PO TID PRN udc 09/13/19 Unknown Rx [HYDROcodone-Homatropin 5-1.5 mg per 5 ML] Ipratropium/Albuterol Sulfate 1 ampul IH TIDRT #100 ampul.neb 09/13/19 Unknown Rx [DUONEB *Not for PRN Use*] Sennosides/Docusate [Senokot S] 1 tab PO DAILY #30 tablet 09/13/19 Unknown Rx Tbo-Filgrastim [Granix] 480 mcg SUB-Q DAILY syringe 09/13/19 Unknown Rx clonazePAM [KlonoPIN] 1 mg PO DAILY #10 tablet 09/13/19 Unknown Rx diphenhydrAMINE [Benadryl CAP] 25 mg PO Q6HR PRN #20 capsule 09/13/19 Unknown Rx Allergies Allergy/AdvReac Type Severity Reaction Status Date / Time codeine Allergy Rash Verified 04/23/19 15:38 ED Review of Systems ROS: Stated complaint: LEANDRO Other details as noted in HPI Constitutional: denies: chills, fever Eyes: denies: eye pain, eye discharge, vision change ENT: denies: ear pain, throat pain Respiratory: shortness of breath. denies: cough, wheezing Cardiovascular: chest pain. denies: palpitations Endocrine: no symptoms reported Gastrointestinal: denies: abdominal pain, nausea, diarrhea Genitourinary: denies: urgency, dysuria Musculoskeletal: denies: back pain, joint swelling, arthralgia Skin: denies: rash, lesions Neurological: denies: headache, weakness, paresthesias Psychiatric: denies: anxiety, depression Hematological/Lymphatic: denies: easy bleeding, easy bruising ED Past Medical Hx - Past Medical History Hx Hypertension: Yes Hx CVA: No Hx Heart Attack/AMI: No Hx Congestive Heart Failure: No Hx Diabetes: No Hx Deep Vein Thrombosis: No Hx Pulmonary Embolism: No Hx GERD: No Hx Liver Disease: Yes (Hep C) Hx Renal Disease: No Hx Sickle Cell Disease: No Hx Arthritis: Yes (Hands and vack) Hx Headaches / Migraines: No Hx Seizures: No Hx Kidney Stones: No Hx Psychiatric Treatment: No Hx Asthma: No Hx COPD: Yes Hx Tuberculosis: No Hx Dementia: No Hx HIV: No Additional medical history: Hepatitis C, anal CA with current Chemo treatments in 2017 - Surgical History Hx Pacemaker: No Hx Internal Defibrillator: No Additional Surgical History: Hemorrhoidectomy, Anal biopsy - Social History Smoking Status: Current Some Day Smoker - Medications Home Medications: Home Medications Medication Instructions Recorded Confirmed Last Taken Type Nebulizer and Compressor [[place] 1 each MC TID #1 each 01/04/18 09/14/19 Unknown Rx Choice Nebulizer] Albuterol Sulfate [Ventolin Hfa] 1 puff IH Q4H PRN #1 hfa.aer.ad 04/04/18 09/14/19 Unknown Rx ALBUTEROL Inhaler (OR & NICU) 2 puff IH QID PRN #2 can 09/13/19 09/14/19 Unknown Rx [ProAir HFA Inhaler] ALBUTEROL NEB's [Proventil 0.083% 2.5 mg IH Q3HRT PRN #1 nebu 09/13/19 09/14/19 Unknown Rx NEBS] Albuterol Sulfate [Albuterol 0.63% 0.63 mg IH TID PRN #120 ml 09/13/19 09/14/19 Unknown Rx NEBS] Benzonatate [Tessalon Perles] 100 mg PO Q8HR #14 capsule 09/13/19 09/14/19 U nknown Rx Budesonide [Pulmicort Respules] 0.5 mg IH Q12HRT #60 nebu 09/13/19 09/14/19 Unknown Rx Famotidine [Pepcid] 20 mg PO BID #60 tablet 09/13/19 09/14/19 Unknown Rx Furosemide [Lasix TAB] 20 mg PO QDAY #7 tablet 09/13/19 09/14/19 Unknown Rx HYDROcodone/HOMATROP 5-1.5 5 ml PO TID PRN udc 09/13/19 09/14/19 Unknown Rx [HYDROcodone-Homatropin 5-1.5 mg per 5 ML] Ipratropium/Albuterol Sulfate 1 ampul IH TIDRT #100 ampul.neb 09/13/19 09/14/19 Unknown Rx [DUONEB *Not for PRN Use*] Sennosides/Docusate [Senokot S] 1 tab PO DAILY #30 tablet 09/13/19 09/14/19 Unknown Rx Tbo-Filgrastim [Granix] 480 mcg SUB-Q DAILY syringe 09/13/19 09/14/19 Unknown Rx clonazePAM [KlonoPIN] 1 mg PO DAILY #10 tablet 09/13/19 09/14/19 Unknown Rx diphenhydrAMINE [Benadryl CAP] 25 mg PO Q6HR PRN #20 capsule 09/13/19 09/14/19 Unknown Rx ED Physical Exam - General Limitations: No Limitations General appearance: alert, in no apparent distress - Head Head exam: Present: atraumatic, normocephalic - Neck Neck exam: Present: normal inspection, full ROM. Absent: tenderness, meningismus, lymphadenopathy - Respiratory Respiratory exam: Present: respiratory distress, wheezes (bilateral), chest wall tenderness, accessory muscle use. Absent: rales, rhonchi, stridor, decreased breath sounds, prolonged expiratory - Cardiovascular Cardiovascular Exam: Present: regular rate, normal rhythm, normal heart sounds. Absent: irregular rhythm, systolic murmur, diastolic murmur, rubs, gallop - Extremities Exam Extremities exam: Present: full ROM, normal capillary refill - Back Exam Back exam: Present: normal inspection, full ROM - Neurological Exam Neurological exam: Present: alert, oriented X3, normal gait - Psychiatric Psychiatric exam: Present: normal affect, normal mood - Skin Skin exam: Present: warm, dry, intact, normal color. Absent: rash ED Course Vital Signs 09/14/19 09/14/19 09/14/19 08:38 08:45 10:45 Pulse Rate 57 L 68 Respiratory 13 17 Rate Blood Pressure 129/66 143/64 O2 Sat by Pulse 93 99 93 Oximetry - Reevaluation(s) Reevaluation #1: 09/14/19 10:12 Patient is speaking in full sentences with some distress noted. Reevaluation #2: 09/14/19 11:24 Patient is resting comfortably comfortably still and slightly respiratory distress. Magnesium sulfate currently ordered and will be administered. Patient will be admitted for further elevation and treatment. - Consultations Consultation #1: 09/14/19 11:25 Patient has been consulted with Dr. Levi about patient history, physical exam, and agrees to ED plan of care and admission. Consultation #2: 12/25/19 11:[address] Orozco for Dr. Waller. ED Medical Decision Making - Lab Data Result diagrams: 09/14/19 08:49 09/14/19 08:49 - EKG Data Interpretation: other (sinus bradycardia with no significant ST/T with abnormalities) 09/14/19 11:38 Signed and reviewed by Dr. Levi - Medical Decision Making This is a 59-year-old male that presents with COPD acid patient. Chest x-ray has been obtained and dictated by the radiologist within normal limits. Patient is notified of the x-ray report with no questions noted by the patient. Patient did receive breathing treatment and steroids in the ED but patient was still in shortness of breath. Labs obtained. Blood gas does show the patient is hypoxic. Patient is admitted with Dr. Orozco. At time of admission, the patient does not seem toxic or ill in appearance. No acute signs of distress noted. Patient agrees to admission treatment plan of care. No further questions noted by the patient. Critical care attestation.: If time is entered above; I have spent that time in minutes in the direct care of this critically ill patient, excluding procedure time. ED Disposition Clinical Impression: COPD exacerbation, Respiratory distress Disposition: OP ADMIT IP TO THIS HOSP Is pt being admited?: Yes Condition: Stable
[2019-09-14] MEDS ORDERED: diphenhydrAMINE 25 MG CAP PO PRN (15:01)
--- NOTE | 2019-09-14 15:01 | History and Physical Report ---
History of Present Illness Date of examination: 09/14/19 Date of admission: 09/14/19 10:59 Chief complaint: SOB History of present illness: 59 YO Male with Anal Cancer (currently in remission S/P chemotherapy radiation treatments), HTN, HCV, COPD, Chronic Pain syndrome currently on Methadone Maintenance Program who was just discharged from the hospital yesterday presented to ED for worsening shortness of breath. The patient has history of alcohol abuse and hepatitis C leading to end-stage liver disease with cirrhosis and chronic pancytopenia. He was discharged to follow-up with his pediatric dentist at [facility]. Patient states that following discharge he went to his pediatric dentist's office and he contracted to have difficulty breathing. He will also could not refill his methadone. He came right back to the emergency for further management. Patient appears to be very tired and lethargic with shortness of breath with minimal exertion even when he was talking. He'll be admitted for further management and safe discharge planning. Past History Past Medical History: other (see HPI) Past Surgical History: Other (Hemorrhoid surgery, anal biopsy) Social history: Patient has history of smoking 1 pack a day for 45 years. Patient has history of heroin abuse. He is following in methadone clinic. Patient also history alcohol abuse in the past. 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 Allergic to codeine. Family history: hypertension Review of System: Constitutional: no fever, no chills, no weight loss, + generalized weakness Ears, eyes, nose, mouth and throat: no nasal congestion, no nasal discharge, no sinus pressure, no vision change, no red eye. Neck: No neck pain or rigidity. Cardiovascular: No chest pain, no orthopnea, + palpitations, no leg swelling Respiratory: + shortness of breath, +cough, + congestion, +wheezing Gastrointestinal: no abdominal pain, no nausea, no vomiting Genitourinary : no dysuria, no hematuria Musculoskeletal: no joint swelling or muscle ache Integumentary: no rash, no pruritis Neurological: no parathesias, no numbness, no tingling Endocrine: no cold or heat intolerance, no polyuria or polydipsia Hematologic/Lymphatic: no easy bruising, no easy bleeding, no gland swelling Allergic/Immunologic: no urticaria, no angioedema. Medications and Allergies Allergies Allergy/AdvReac Type Severity Reaction Status Date / Time codeine Allergy Rash Verified 04/23/19 15:38 Home Medications Medication Instructions Recorded Confirmed Last Taken Type Nebulizer and Compressor [[place] 1 each MC TID #1 each 01/04/18 09/14/19 Unknown Rx Choice Nebulizer] Albuterol Sulfate [Ventolin Hfa] 1 puff IH Q4H PRN #1 hfa.aer.ad 04/04/18 09/14/19 Unknown Rx ALBUTEROL Inhaler (OR & NICU) 2 puff IH QID PRN #2 can 09/13/19 09/14/19 Unknown Rx [ProAir HFA Inhaler] ALBUTEROL NEB's [Proventil 0.083% 2.5 mg IH Q3HRT PRN #1 nebu 09/13/19 09/14/19 Unknown Rx NEBS] Albuterol Sulfate [Albuterol 0.63% 0.63 mg IH TID PRN #120 ml 09/13/19 09/14/19 Unknown Rx NEBS] Benzonatate [Tessalon Perles] 100 mg PO Q8HR #14 capsule 09/13/19 09/14/19 Unknown Rx Budesonide [Pulmicort Respules] 0.5 mg IH Q12HRT #60 nebu 09/13/19 09/14/19 Unknown Rx Famotidine [Pepcid] 20 mg PO BID #60 tablet 09/13/19 09/14/19 Unknown Rx Furosemide [Lasix TAB] 20 mg PO QDAY #7 tablet 09/13/19 09/14/19 Unknown Rx HYDROcodone/HOMATROP 5-1.5 5 ml PO TID PRN udc 09/13/19 09/14/19 Unknown Rx [HYDROcodone-Homatropin 5-1.5 mg per 5 ML] Ipratropium/Albuterol Sulfate 1 ampul IH TIDRT #100 ampul.neb 09/13/19 09/14/19 Unknown Rx [DUONEB *Not for PRN Use*] Sennosides/Docusate [Senokot S] 1 tab PO DAILY #30 tablet 09/13/19 09/14/19 Unknown Rx Tbo-Filgrastim [Granix] 480 mcg SUB-Q DAILY syringe 09/13/19 09/14/19 Unknown Rx clonazePAM [KlonoPIN] 1 mg PO DAILY #10 tablet 09/13/19 09/14/19 Unknown Rx diphenhydrAMINE [Benadryl CAP] 25 mg PO Q6HR PRN #20 capsule 09/13/19 09/14/19 Unknown Rx Exam - Physical Exam Narrative exam: GENERAL: well-developed white male lying on bed appeared to be in mild discomfort. Lethargic HEENT: Normocephalic. Atraumatic. No conjunctival congestion or icterus. Patient has moist mucous membranes. NECK: Supple. Trachea midline. CHEST/LUNGS: Positive wheezes auscultated bilaterally, breathing nonlabored. No crackles or rhonchi. HEART/CARDIOVASCULAR: Regular in rate and rhythm. S1 and S2 positive. ABDOMEN: Abdomen is soft, nontender but distended. Patient has normal bowel sounds. SKIN: There is no rash. Warm and dry. NEURO: No focal motor deficit. Follows command. MUSCULOSKELETAL: No joint effusion or tenderness. EXTRIMITY: No edema, no cyanosis or clubbing. PSYCH: Cooperative. - Constitutional Vitals: Temp Pulse Resp BP Pulse Ox 97.8 F 60 14 142/69 94 09/14/19 11:48 09/14/19 11:31 09/14/19 11:31 09/14/19 11:31 09/14/19 11:31 Results - Labs CBC & Chem 7: 09/14/19 08:49 09/14/19 08:49 Labs: Abnormal lab results 09/14/19 09/14/19 09/14/19 Range/Units 08:49 08:49 08:49 WBC 3.0 L (4.5-11.0) K/mm3 MCHC 35 H (32-34) % RDW 15.6 H (13.2-15.2) % Plt Count 54 L (140-440) K/mm3 Lymph % (Auto) 11.3 L (13.4-35.0) % [place] % (Auto) 9.8 H (0.0-7.3) % Lymph # 0.3 L (1.2-5.4) K/mm3 Seg Neutrophils % 77.3 H (40.0-70.0) % PT 18.6 H (12.2-14.9) Sec. INR 1.53 H (0.87-1.13) POC ABG pH (7.35-7.45) POC ABG pO2 (80-105) BUN 21 H (9-20) mg/dL Creatinine 0.7 L (0.8-1.5) mg/dL Calcium 8.2 L (8.4-10.2) mg/dL Total Bilirubin 1.70 H (0.1-1.2) mg/dL AST 44 H (5-40) units/L Albumin 3.2 L (3.9-5) g/dL 09/14/ Range/Units 11:31 WBC (4.5-11.0) K/mm3 MCHC (32-34) % RDW (13.2-15.2) % Plt Count (140-440) K/mm3 Lymph % (Auto) (13.4-35.0) % [place] % (Auto) (0.0-7.3) % Lymph # (1.2-5.4) K/mm3 Seg Neutrophils % (40.0-70.0) % PT (12.2-14.9) Sec. INR (0.87-1.13) POC ABG pH 7.561 H (7.35-7.45) POC ABG pO2 62 L (80-105) BUN (9-20) mg/dL Creatinine (0.8-1.5) mg/dL Calcium (8.4-10.2) mg/dL Total Bilirubin (0.1-1.2) mg/dL AST (5-40) units/L Albumin (3.9-5) g/dL Assessment and Plan / COPD exacerbation Patient initiated on IV Solu-Medrol, and duo nebs lmixyq-cse-cxdxh/PRN chest xray reported improvement in diffuse interstitial opacity / Acute respiratory failure with hypoxia Patient initiated on IV Solu-Medrol and duo nebs lhhoum-kxd-obcfx and as needed BiPAP if necessary / Methadone dependence Continue his methadone at 70 mg/day / HTN (hypertension) Continue antihypertensives / Hep C w/o coma with cirrhosis, chronic Follow-up with GI as outpatient / Anal cancer In remission /Tobacco abuse, counseled for cessation /History of alcohol abuse heroine abuse - States is not taking for last 3 years /Pancytopenia, chronic Likely due to underlying hepatitic disease Continue to monitor CBC / DVT prophylaxis On heparin and GI prophylaxis
[2019-09-14] MEDS ORDERED: ACETAMINOPHEN 325 MG TAB PO PRN (15:02)
[2019-09-14] MEDS: IPRATROPIUM/ALBUTEROL SULFATE 3 ML AMPUL.NEB IH SCH (20:55)
[2019-09-14] MEDS: BUDESONIDE 0.5 MG/2 ML NEBU IH SCH (20:55)
[2019-09-14] MEDS: methylPREDNISolone Sod Succinate 40 MG/1 ML INJ IV SCH (21:17)
[2019-09-14] MEDS: BENZONATATE 100 MG CAP PO SCH (21:17)
[2019-09-14] MEDS: FAMOTIDINE 20 MG TAB PO SCH (21:17)
[2019-09-14] MEDS: ENOXAPARIN 40 MG/0.4 ML INJ SUB-Q SCH (21:18)
[2019-09-14] MEDS: SODIUM CHLORIDE 0.9% 1000 ML 1,000 ML IV SCH (22:55)
[2019-09-15] MEDS: BENZONATATE 100 MG CAP PO SCH ×3 (05:48→22:21)
[2019-09-15] MEDS: IPRATROPIUM/ALBUTEROL SULFATE 3 ML AMPUL.NEB IH SCH ×3 (07:36→21:21)
[2019-09-15] MEDS: BUDESONIDE 0.5 MG/2 ML NEBU IH SCH ×2 (07:36→21:21)
[2019-09-15] MEDS: clonazePAM 0.5 MG TAB PO SCH (09:16)
[2019-09-15] MEDS: FAMOTIDINE 20 MG TAB PO SCH ×2 (09:16→22:21)
[2019-09-15] MEDS: methylPREDNISolone Sod Succinate 40 MG/1 ML INJ IV SCH ×2 (09:16→22:24)
[2019-09-15] MEDS: SENNOSIDES/DOCUSATE SODIUM 8.6/50 MG TAB PO SCH (09:33)
[2019-09-15] MEDS: TBO-FILGRASTIM 480 MCG/0.8 ML SUB-Q SCH (11:25)
[2019-09-15] MEDS: SODIUM CHLORIDE 0.9% 1000 ML 1,000 ML IV SCH (11:25)
[2019-09-15] MEDS ORDERED: METHADONE 10 MG TAB PO ONE (14:13)
--- NOTE | 2019-09-15 15:52 | Progress Note ---
Assessment and Plan / COPD exacerbation Patient initiated on IV Solu-Medrol, and duo nebs szssmy-zgl-frymd/PRN chest xray reported improvement in diffuse interstitial opacity / Acute respiratory failure with hypoxia Patient initiated on IV Solu-Medrol and duo nebs styigk-ijh-gwdkt and as needed BiPAP if necessary / Methadone dependence Continue his methadone at 70 mg/day / HTN (hypertension) Continue antihypertensives / Hep C w/o coma with cirrhosis, chronic Follow-up with GI as outpatient / Anal cancer In remission /Tobacco abuse, counseled for cessation /History of alcohol abuse heroine abuse - States is not taking for last 3 years /Pancytopenia, chronic Likely due to underlying hepatitic disease Continue to monitor CBC / DVT prophylaxis On heparin and GI prophylaxis Disposition: Home likely with home hospice when set up is completed Subjective Date of service: 09/15/19 Interval history: Patient seen and examined. Medical records and medication list reviewed. No acute event overnight noted by the RN. Patient Lilibeth complains of difficulty breathing. Patient is tolerating diet. Discussed plan of care at bedside with patient. 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 Lethargic HEENT: Normocephalic. Atraumatic. No conjunctival congestion or icterus. Patient has moist mucous membranes. NECK: Supple. Trachea midline. CHEST/LUNGS: Positive wheezes auscultated bilaterally, breathing nonlabored. No crackles or rhonchi. HEART/CARDIOVASCULAR: Regular in rate and rhythm. S1 and S2 positive. ABDOMEN: Abdomen is soft, nontender but distended. Patient has normal bowel sounds. SKIN: There is no rash. Warm and dry. NEURO: No focal motor deficit. Follows command. MUSCULOSKELETAL: No joint effusion or tenderness. EXTRIMITY: No edema, no cyanosis or clubbing. PSYCH: Cooperative. - Constitutional Vitals: Vital Signs - 12hr 09/15/19 09/15/19 09/15/19 05:08 07:36 07:56 Temperature 98.3 F Pulse Rate 68 Pulse Rate [ 72 Bilateral Throughout] Respiratory 18 18 Rate Respiratory 18 Rate [Bilateral Throughout] Blood Pressure 128/68 [Left] O2 Sat by Pulse 94 Oximetry 12/26/19 11:08 Temperature Pulse Rate 87 Pulse Rate [ Bilateral Throughout] Respiratory Rate Respiratory Rate [Bilateral Throughout] Blood Pressure [Left] O2 Sat by Pulse Oximetry - Labs CBC & Chem 7: 09/14/19 08:49 09/14/19 08:49 Labs: Abnormal lab results 09/14/19 09/14/19 Range/Units 16:15 21:20 Lactic Acid 3.10 H* 3.70 H* (0.7-2.0) mmol/L
--- NOTE | 2019-09-15 16:29 | Consultation ---
History of Present Illness Consult date: 09/15/19 Reason for consult: dyspnea, COPD History of present illness: Pulmonary and Critical Care Consult Dr. Waller, thank you for asking us to participate in the care of this patient. 59 YO Male with Anal Cancer (currently in remission S/P chemotherapy radiation treatments), HTN, HCV, COPD, Chronic Pain currently on Methadone Maintenance Program presents to ED for evaluation. Pt is confused and unable to provide history upon arrival and the patient is intubated and on ventilatory support. As per staff, the patient was found to be confused approximately 30 minutes after leaving Methadone Clinic. EMS notified, and upon arrival the patient was found to be in distress with respiratory rate of 10 breaths/minute. Pt treated with Narcan and transported to [facility]. Pt seen and evaluated in ED and was found to be unable to protect his airway. Pt intubated in ED. Pt admitted to ICU. Prior admission on 01/24/19 reviewed. Patient recently discharged. Pt admitted for treatment of Acute Respiratory Failure and Encephalopathy. Patient extubated and presently on 2 litres o2. O2 saturation 94%. Patient alert, awake and oriented. Patient has history of smoking 1 pack a day for 45 years. Counselled to stop smoking. Patient has history of heroin abuse. He is following in methadone clinic. Patient also history alcohol abuse in the past.Patient has history of cirrhosis and portal hypertension. 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 Allergic to codeine. Patients chest xray reported improvement in diffuse interstitial opacity. Patient presently on aerosolized bronchodilators and I/V solumedrol. Past History Past Medical History: cancer (anal cancer), COPD, hypertension Medications and Allergies Allergies Allergy/AdvReac Type Severity Reaction Status Date / Time codeine Allergy Rash Verified 04/23/19 15:38 Home Medications Medication Instructions Recorded Confirmed Last Taken Type Nebulizer and Compressor [[place] 1 each MC TID #1 each 01/04/18 09/14/19 Unknown Rx Choice Nebulizer] Albuterol Sulfate [Ventolin Hfa] 1 puff IH Q4H PRN #1 hfa.aer.ad 04/04/1809/14 Unknown Rx ALBUTEROL Inhaler (OR & NICU) 2 puff IH QID PRN #2 can 09/13/19 09/14/19 Unknown Rx [ProAir HFA Inhaler] ALBUTEROL NEB's [Proventil 0.083% 2.5 mg IH Q3HRT PRN #1 nebu 09/13/19 09/14/19 Unknown Rx NEBS] Albuterol Sulfate [Albuterol 0.63% 0.63 mg IH TID PRN #120 ml 09/13/19 09/14/19 Unknown Rx NEBS] Benzonatate [Tessalon Perles] 100 mg PO Q8HR #14 capsule 09/13/19 09/14/19 Unknown Rx Budesonide [Pulmicort Respules] 0.5 mg IH Q12HRT #60 nebu 09/13/19 09/14/19 Unknown Rx Famotidine [Pepcid] 20 mg PO BID #60 tablet 09/13/19 09/14/19 Unknown Rx Furosemide [Lasix TAB] 20 mg PO QDAY #7 tablet 09/13/19 09/14/19 Unknown Rx HYDROcodone/HOMATROP 5-1.5 5 ml PO TID PRN udc 09/13/19 09/14/19 Unknown Rx [HYDROcodone-Homatropin 5-1.5 mg per 5 ML] Ipratropium/Albuterol Sulfate 1 ampul IH TIDRT #100 ampul.neb 09/13/19 09/14/19 Unknown Rx [DUONEB *Not for PRN Use*] Sennosides/Docusate [Senokot S] 1 tab PO DAILY #30 tablet 09/13/19 09/14/19 Unknown Rx Tbo-Filgrastim [Granix] 480 mcg SUB-Q DAILY syringe 09/13/19 09/14/19 Unknown Rx clonazePAM [KlonoPIN] 1 mg PO DAILY #10 tablet 09/13/19 09/14/19 Unknown Rx diphenhydrAMINE [Benadryl CAP] 25 mg PO Q6HR PRN #20 capsule 09/13/19 09/14/19 Unknown Rx Active Meds: Active Medications Acetaminophen (Tylenol) 650 mg PO Q4H PRN PRN Reason: Pain MILD(1-3)/Fever >100.5/[place] Albuterol/Ipratropium (Duoneb *Not For Prn Use*) 1 ampul IH TIDRT [facility] Last Admin: 09/15/19 14:19 Dose: Not Given Documented by: Benzonatate (Tessalon Perles) 100 mg PO Q8HR [facility] Last Admin: 09/15/19 13:43 Dose: 100 mg Documented by: Budesonide (Pulmicort) 0.5 mg IH Q12HRT [facility] Last Admin: 09/15/19 07:36 Dose: 0.5 mg Documented by: Clonazepam (Klonopin) 1 mg PO DAILY [facility] Last Admin: 09/15/19 09:16 Dose: 1 mg Documented by: Diphenhydramine HCl (Benadryl) 25 mg PO Q6HR PRN PRN Reason: Itching Enoxaparin Sodium (Enoxaparin) 40 mg SUB-Q QDAY@2200 [facility] Last Admin: 09/14/19 21:18 Dose: 40 mg Documented by: Famotidine (Pepcid) 20 mg PO BID [facility] Last Admin: 09/15/19 09:16 Dose: 20 mg Documented by: Sodium Chloride (Nacl 0.9% 1000 Ml) 1,000 mls @ 75 mls/hr IV DIRECT [facility] Last Admin: 09/15/19 11:25 Dose: 75 mls/hr Documented by: Methylprednisolone Sodium Succinate (Solu-Medrol) 40 mg IV Q12HR [facility] Last Admin: 09/15/19 09:16 Dose: 40 mg Documented by: Senna/Docusate Sodium (Senokot S) 1 tab PO DAILY [facility] Last Admin: 09/15/19 09:33 Dose: Not Given Documented by: Tbo-Filgrastim (Granix) 480 mcg SUB-Q DAILY [facility] Last Admin: 09/15/19 11:25 Dose: 480 mcg Documented by: Review of Systems ROS unobtainable: due to endotracheal tube All systems: negative Physical Examination Vital signs: Vital Signs Pulse Ox 93 09/14/19 08:38 General appearance: no acute distress, alert Eyes: non-icteric ENT: oropharynx moist Neck: supple, no JVD Ascultation: Bilateral: other (Prolonged expiratory phase.) Cardiovascular: regular rate and rhythm Gastrointestinal: normoactive bowel sounds, soft, non-tender Integumentary: normal Extremities: no cyanosis, no edema Musculoskeletal: no deformities Gait: other (Unable to assess at this time.) non-focal exam, pupils equal and round depressed Results - Laboratory Findings CBC and BMP: 09/14/19 08:49 09/14/19 08:49 ABG POC ABG pH 7.561 (7.35-7.45) H 09/14/19 11:31 POC ABG pCO2 35.5 (35-45) 09/14/19 11:31 POC ABG pO2 62 (80-105) L 09/14/19 11:31 POC ABG HCO3 31.9 (22-26 mml/L) 09/14/19 11:31 POC ABG Total CO2 33 (23-27mmol/L) 09/14/19 11:31 POC ABG O2 Sat 94 09/14/19 11:31 PT/INR, D-dimer PT 18.6 Sec. (12.2-14.9) H 09/14/19 08:49 INR 1.53 (0.87-1.13) H 09/14/19 08:49 Abnormal lab findings: Abnormal Labs 09/14/19 09/14/19 09/14/19 08:49 08:49 08:49 WBC 3.0 L MCHC 35 H RDW 15.6 H Plt Count 54 L Lymph % (Auto) 11.3 L [place] % (Auto) 9.8 H Lymph # 0.3 L Seg Neutrophils % 77.3 H PT 18.6 H INR 1.53 H POC ABG pH POC ABG pO2 BUN 21 H Creatinine 0.7 L Lactic Acid Calcium 8.2 L Total Bilirubin 1.70 H AST 44 H Albumin 3.2 L 09/14/19 09/14/19 09/14/19 11:31 16:15 21:20 WBC MCHC RDW Plt Count Lymph % (Auto) [place] % (Auto) Lymph # Seg Neutrophils % PT INR POC ABG pH 7.561 H POC ABG pO2 62 L BUN Creatinine Lactic Acid 3.10 H* 3.70 H* Calcium Total Bilirubin AST Albumin - Diagnostic Findings Chest x-ray: report reviewed (improvement in bilateral interstitial infiltrates ), image reviewed Assessment and Plan 59 YO Male with Anal Cancer (currently in remission S/P chemotherapy radiation treatments), HTN, HCV, COPD, Chronic Pain currently on Methadone Maintenance Program presents to ED for evaluation. Pt is confused and unable to provide history upon arrival and the patient is intubated and on ventilatory support. As per staff, the patient was found to be confused approximately 30 minutes after leaving [facility]. EMS notified, and upon arrival the patient was found to be in distress with respiratory rate of 10 breaths/minute. Pt treated with Narcan and transported to [facility]. Pt seen and evaluated in ED and was found to be unable to protect his airway. Pt intubated in ED. Pt admitted to ICU. Prior admission on 01/24/19 reviewed. Patient recently discharged. Pt admitted for treatment of Acute Respiratory Failure and Encephalopathy. Patient extubated and presently on 2 litres o2. O2 saturation 94%. Patient alert, awake and oriented. Patient has history of smoking 1 pack a day for 45 years. Counselled to stop smoking. Patient has history of heroin abuse. He is following in methadone clinic. Patient also history alcohol abuse in the past.Patient has history of cirrhosis and portal hypertension. 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 Allergic to codeine. Patients chest xray reported improvement in diffuse interstitial opacity. Patient presently on aerosolized bronchodilators and I/V solumedrol. - Patient Problems (1) COPD exacerbation Current Visit: Yes Status: Acute Plan to address problem: O2 2 litres via nasal canula. Albuterol/atrovent aerosol treatments q 6 hours. Continue I/V solumedrol Continue S/C Lovenox. Continue famotidine. (2) Acute respiratory failure with hypoxia Current Visit: No Status: Acute Plan to address problem: O2 2 litres via nasal canula. Albuterol/atrovent aerosol treatments q 6 hours. Continue I/V solumedrol Continue S/C Lovenox. Continue famotidine (3) Anal cancer Current Visit: No Status: Acute Plan to address problem: According to the patient and according to the information on the chart, it is in remission. (4) End stage liver disease Current Visit: No Status: Acute Plan to address problem: Management as per primary care and gastroenterology. (5) HTN (hypertension) Current Visit: No Status: Acute Qualifiers: Hypertension type: essential hypertension Qualified Code(s): I10 - Essential (primary) hypertension Plan to address problem: Management as per primary care. (6) Portal hypertension Current Visit: No Status: Acute Plan to address problem: Management as per primary care and gastroenterology.
[2019-09-15] MEDS: ENOXAPARIN 40 MG/0.4 ML INJ SUB-Q SCH (22:21)
[2019-09-16] MEDS: BENZONATATE 100 MG CAP PO SCH ×2 (05:49→13:24)
[2019-09-16] MEDS: methylPREDNISolone Sod Succinate 40 MG/1 ML INJ IV SCH (09:46)
[2019-09-16] MEDS: FAMOTIDINE 20 MG TAB PO SCH (09:46)
[2019-09-16] MEDS: clonazePAM 0.5 MG TAB PO SCH (09:46)
[2019-09-16] MEDS: SENNOSIDES/DOCUSATE SODIUM 8.6/50 MG TAB PO SCH (09:47)
--- NOTE | 2019-09-16 10:00 | Progress Note ---
Subjective Date of service: 09/16/19 Objective Vital Signs - 12hr 09/15/19 09/16/19 09/16/19 23:13 03:00 04:28 Temperature 98.0 F 98.4 F Pulse Rate 63 65 61 Respiratory 18 18 Rate Blood Pressure 140/73 136/79 O2 Sat by Pulse 96 96 Oximetry 09/16/19 08:40 Temperature 98.0 F Pulse Rate 63 Respiratory 22 Rate Blood Pressure 144/68 O2 Sat by Pulse 97 Oximetry Constitutional: no acute distress, alert Eyes: non-icteric ENT: oropharynx moist Neck: supple, no JVD Ascultation: Bilateral: other (Prolonged expiratory phase.) Cardiovascular: regular rate and rhythm Gastrointestinal: normoactive bowel sounds, soft, non-tender Integumentary: normal Extremities: no cyanosis, no edema Neurologic: non-focal exam, pupils equal and round Psychiatric: depressed CBC and BMP: 09/14/19 08:49 09/14/19 08:49 ABG, PT/INR, D-dimer: ABG POC ABG pH 7.561 (7.35-7.45) H 09/14/19 11:31 POC ABG pCO2 35.5 (35-45) 09/14/19 11:31 POC ABG pO2 62 (80-105) L 09/14/19 11:31 POC ABG HCO3 31.9 (22-26 mml/L) 09/14/19 11:31 POC ABG Total CO2 33 (23-27mmol/L) 09/14/19 11:31 POC ABG O2 Sat 94 09/14/19 11:31 PT/INR, D-dimer PT 18.6 Sec. (12.2-14.9) H 09/14/19 08:49 INR 1.53 (0.87-1.13) H 09/14/19 08:49 Abnormal lab findings: Abnormal Labs 09/14/19 09/14/19 09/14/19 08:49 08:49 08:49 WBC 3.0 L MCHC 35 H RDW 15.6 H Plt Count 54 L Lymph % (Auto) 11.3 L [place] % (Auto) 9.8 H Lymph # 0.3 L Seg Neutrophils % 77.3 H PT 18.6 H INR 1.53 H POC ABG pH POC ABG pO2 BUN 21 H Creatinine 0.7 L Lactic Acid Calcium 8.2 L Total Bilirubin 1.70 H AST 44 H Albumin 3.2 L 09/14/19 09/14/19 09/14/19 11:31 16:15 21:20 WBC MCHC RDW Plt Count Lymph % (Auto) [place] % (Auto) Lymph # Seg Neutrophils % PT INR POC ABG pH 7.561 H POC ABG pO2 62 L BUN Creatinine Lactic Acid 3.10 H* 3.70 H* Calcium Total Bilirubin AST Albumin
[2019-09-16] MEDS: IPRATROPIUM/ALBUTEROL SULFATE 3 ML AMPUL.NEB IH SCH ×4 (10:03→15:25)
[2019-09-16] MEDS: BUDESONIDE 0.5 MG/2 ML NEBU IH SCH (10:08)
[2019-09-16] MEDS ORDERED: ALBUTEROL 2.5 MG/3 ML NEBU IH PRN (10:12)
[2019-09-16 11:11] VITALS: BP 134/67
[2019-09-16] MEDS: TBO-FILGRASTIM 480 MCG/0.8 ML SUB-Q SCH (13:24)
[2019-09-16] MEDS ORDERED: METHADONE 10 MG TAB PO SCH (14:00)
--- NOTE | 2019-09-16 14:02 | Discharge Summary ---
Providers - Providers Date of Admission: 09/14/19 10:59 Date of discharge: 09/16/19 Attending physician: KALANI ALFONSO 09/15/19 11:25 Physical Therapy Evaluation and Treat [CONS] Routine Comment: Reason For Exam: placement 09/15/19 14:16 Consult to Physician [CONS] Routine Comment: Consulting Provider: RUBI VARELA Physician Instructions: Reason For Exam: copd exacerbation 09/16/19 12:20 Consult to Case Management [CONS] Routine Services Needed at Discharge: Other Notified:: cm notified Additional Physician Instructions: home hospice eval and treat [facility] Hospital[facility] Condition: Stable Hospital course: Discharge diagnosis: / COPD exacerbation Patient initiated on IV Solu-Medrol, and duo nebs ugqbtd-akr-erqzu/PRN chest xray reported improvement in diffuse interstitial opacity / Acute respiratory failure with hypoxia Patient initiated on IV Solu-Medrol and duo nebs datpmt-cve-abdpi and as needed BiPAP if necessary / Methadone dependence Continue his methadone at 70 mg/day / HTN (hypertension) Continue antihypertensives / Hep C w/o coma with cirrhosis, chronic Follow-up with GI as outpatient / Anal cancer In remission /Tobacco abuse, counseled for cessation /History of alcohol abuse heroine abuse - States is not taking for last 3 years /Pancytopenia, chronic Likely due to underlying hepatitic disease Continue to monitor CBC / DVT prophylaxis On heparin and GI prophylaxis Disposition: Home likely with home hospice when set up is completed Disposition: DC-50 TO HOSPICE (HOME) Time spent for discharge: 34 minutes Core Measure Documentation - Palliative Care Palliative Care/ Comfort Measures: Hospice Care - Core Measures Any of the following diagnoses?: history only Exam - Physical Exam Narrative exam: GENERAL: well-developed white male lying on bed appeared to be in mild disco mfort. Lethargic HEENT: Normocephalic. Atraumatic. No conjunctival congestion or icterus. Patient has moist mucous membranes. NECK: Supple. Trachea midline. CHEST/LUNGS: Positive wheezes auscultated bilaterally, breathing nonlabored. No crackles or rhonchi. HEART/CARDIOVASCULAR: Regular in rate and rhythm. S1 and S2 positive. ABDOMEN: Abdomen is soft, nontender but distended. Patient has normal bowel sounds. SKIN: There is no rash. Warm and dry. NEURO: No focal motor deficit. Follows command. MUSCULOSKELETAL: No joint effusion or tenderness. EXTRIMITY: No edema, no cyanosis or clubbing. PSYCH: Cooperative. - Constitutional Vitals: Temp Pulse Resp BP Pulse Ox 98.0 F 59 L 20 134/67 97 09/16/19 11:10 09/16/19 11:10 09/16/19 11:10 09/16/19 11:10 09/16/19 11:10 Plan Activity: fall precautions Weight Bearing Status: Non-Weight Bearing Diet: low fat [facility]Primary Care Provider[facility] - 3-5 Days Prescriptions: Prednisone [predniSONE 10 mg (6-Day Pack, 21 Tabs)] 10 mg PO .TAPER #1 tab.ds.pk
== END 2019-09-16 16:05 | disposition hospice, home (50) | DRG 189 ==
LOC: ED 07:10 → 4A 10:59
PROVIDERS: ADMIT Internal Medicine; ATTEND Internal Medicine
PROC: 4A033R1 Measurement of Arterial Saturation, Peripheral, Percutaneous Approach (ICD-10-PCS; principal; 2019-09-14)
DX: J96.01 Acute respiratory failure with hypoxia (principal); J44.1 Chronic obstructive pulmonary disease with (acute) exacerbation; I10 Essential (primary) hypertension; B19.20 Unspecified viral hepatitis C without hepatic coma; F17.210 Nicotine dependence, cigarettes, uncomplicated; G89.4 Chronic pain syndrome; F11.20 Opioid dependence, uncomplicated; K74.60 Unspecified cirrhosis of liver; C21.0 Malignant neoplasm of anus, unspecified; D61.818 Other pancytopenia; K72.90 Hepatic failure, unspecified without coma; K76.6 Portal hypertension
CPT/HCPCS: 36415; 36600; 71045; 80053; 82140; 82150; 82803; 83880; 84484; 85025; 85610; 85730; 87040; 87116; 93005; 93010; 94640; 96365; 96375; G0378; J1100; J1447; J1650; J2920; J3475; J7030

== ENCOUNTER 2019-09-26 10:10 | Emergency (ER) | payer MEDICAID ==
--- NOTE | 2019-09-26 11:28 | Emergency Department Report ---
ED General Adult HPI - General Chief complaint: Extremity Injury, Lower Stated complaint: SOB/EDEMA Time Seen by Provider: 09/26/19 11:16 Source: patient, EMS (verbal report received from EMS.EMS records not available at time of chart dictation.), RN notes reviewed, old records reviewed Mode of arrival: Stretcher Limitations: Physical Limitation - History of Present Illness Initial comments: The patient is a 59-year-old gentleman. This patient is not known to this provider previously. His past medical history includes COPD, methadone dependent, hypertension, hepatitis C, anal cancer in remission, tobacco abuse, history of alcohol use, narcotic use, chronic pancytopenia The patient presents to the ER after being sent to the ER from his pain clinic for shortness of breath. Upon arrival with EMS, the patient is sleeping comfortably on his stretcher, and in no acute distress. EMS verbally indicates the patient had stable vital signs in the field. When I go to evaluate the patient, he complains of lower extremity swelling. He states is from present for a few days. He endorses compliance with his medications. He denies physical pain. He indicates that he lives in a rented room, rented from his ex-, and he knows his name, date, birthday, location. He is also able to list his physical edges. There is no complaint of homicidal ity or suicidality. His lower extremity swelling is chronic. -: Gradual Location: left, right, lower extremity Consistency: constant Improves with: none Worsens with: none - Related Data Previous Rx's Medication Instructions Recorded Last Taken Type Nebulizer and Compressor [[place] 1 each MC TID #1 each 01/04/18 Unknown Rx Choice Nebulizer] ALBUTEROL Inhaler (OR & NICU) 2 puff IH QID PRN #2 can 09/13/19 Unknown Rx [ProAir HFA Inhaler] ALBUTEROL NEB's [Proventil 0.083% 2.5 mg IH Q3HRT PRN #1 nebu 09/13/19 Unknown Rx NEBS] Benzonatate [Tessalon Perles] 100 mg PO Q8HR #14 capsule 09/13/19 Unknown Rx Budesonide [Pulmicort Respules] 0.5 mg IH Q12HRT #60 nebu 09/13/19 Unknown Rx Famotidine [Pepcid] 20 mg PO BID #60 tablet 09/13/19 Unknown Rx Furosemide [Lasix TAB] 20 mg PO QDAY #7 tablet 09/13/19 Unknown Rx Ipratropium/Albuterol Sulfate 1 ampul IH TIDRT #100 ampul.neb 09/13/19 Unknown Rx [DUONEB *Not for PRN Use*] Sennosides/Docusate [Senokot S] 1 tab PO DAILY #30 tablet 09/13/19 Unknown Rx Tbo-Filgrastim [Granix] 480 mcg SUB-Q DAILY syringe 09/13/19 Unknown Rx clonazePAM [KlonoPIN] 1 mg PO DAILY #10 tablet 09/13/19 Unknown Rx diphenhydrAMINE [Benadryl CAP] 25 mg PO Q6HR PRN #20 capsule 09/13/19 Unknown Rx Methadone [Dolophine] 70 mg PO DAILY tablet 09/16/19 Unknown Rx Prednisone [predniSONE 10 mg 10 mg PO .TAPER #1 tab.ds.pk 09/16/19 Unknown Rx (6-Day Pack, 21 Tabs)] Albuterol Sulfate [Proair 90 mcg IH Q4HR PRN #1 aer.pow.ba 09/26/19 Unknown Rx Respiclick] Furosemide [Lasix] 20 mg PO QDAY #14 tablet 09/26/19 Unknown Rx Lactulose [Cephulac] 20 gm PO QDAY #500 ml 09/26/19 Unknown Rx Allergies Allergy/AdvReac Type Severity Reaction Status Date / Time codeine Allergy Rash Verified 09/26/19 11:06 ED Review of Systems ROS: Stated complaint: SOB/EDEMA Other details as noted in HPI Constitutional: denies: fever Eyes: denies: eye discharge ENT: denies: congestion Respiratory: denies: wheezing Cardiovascular: edema Gastrointestinal: denies: nausea, vomiting, melena Genitourinary: denies: dysuria Musculoskeletal: myalgia Skin: rash (chronic). denies: lesions Neurological: weakness (chronic) Psychiatric: denies: homicidal thoughts, suicidal thoughts Hematological/Lymphatic: denies: easy bleeding ED Past Medical Hx - Past Medical History Hx Hypertension: Yes Hx CVA: No Hx Heart Attack/AMI: No Hx Congestive Heart Failure: No Hx Diabetes: No Hx Deep Vein Thrombosis: No Hx Pulmonary Embolism: No Hx GERD: No Hx Liver Disease: Yes (Hep C) Hx Renal Disease: No Hx Sickle Cell Disease: No Hx Arthritis: Yes (Hands and vack) Hx Headaches / Migraines: No Hx Seizures: No Hx Kidney Stones: No Hx Psychiatric Treatment: No Hx Asthma: No Hx COPD: Yes Hx Tuberculosis: No Hx Dementia: No Hx HIV: No Additional medical history: Hepatitis C, anal CA with current Chemo treatments in 2017 - Surgical History Hx Pacemaker: No Hx Internal Defibrillator: No Additional Surgical History: Hemorrhoidectomy, Anal biopsy - Social History Smoking Status: Never Smoker Substance Use Type: None - Medications Home Medications: Home Medications Medication Instructions Recorded Confirmed Last Taken Type Nebulizer and Compressor [[place] 1 each MC TID #1 each 01/04/18 09/14/19 Unknown Rx Choice Nebulizer] ALBUTEROL Inhaler (OR & NICU) 2 puff IH QID PRN #2 can 09/13/19 09/14/19 Unknown Rx [ProAir HFA Inhaler] ALBUTEROL NEB's [Proventil 0.083% 2.5 mg IH Q3HRT PRN #1 nebu 09/13/19 09/14/19 Unknown Rx NEBS] Benzonatate [Tessalon Perles] 100 mg PO Q8HR #14 capsule 09/13/19 09/14/19 Unknown Rx Budesonide [Pulmicort Respules] 0.5 mg IH Q12HRT #60 nebu 09/13/19 09/14/19 Unknown Rx Famotidine [Pepcid] 20 mg PO BID #60 tablet 09/13/19 09/14/19 Unknown Rx Furosemide [Lasix TAB] 20 mg PO QDAY #7 tablet 09/13/19 09/14/19 Unknown Rx Ipratropium/Albuterol Sulfate 1 ampul IH TIDRT #100 ampul.neb 09/13/19 09/14/19 Unknown Rx [DUONEB *Not for PRN Use*] Sennosides/Docusate [Senokot S] 1 tab PO DAILY #30 tablet 09/13/19 09/14/19 Unknown Rx Tbo-Filgrastim [Granix] 480 mcg SUB-Q DAILY syringe 09/13/19 09/14/19 Unknown Rx clonazePAM [KlonoPIN] 1 mg PO DAILY #10 tablet 09/13/19 09/14/19 Unknown Rx diphenhydrAMINE [Benadryl CAP] 25 mg PO Q6HR PRN #20 capsule 09/13/19 09/14/19 Unknown Rx Methadone [Dolophine] 70 mg PO DAILY tablet 09/16/19 Unknown Rx Prednisone [predniSONE 10 mg 10 mg PO .TAPER #1 tab.ds.pk 09/16/19 Unknown Rx (6-Day Pack, 21 Tabs)] Albuterol Sulfate [Proair 90 mcg IH Q4HR PRN #1 aer.pow.ba 09/26/19 Unknown Rx Respiclick] Furosemide [Lasix] 20 mg PO QDAY #14 tablet 09/26/19 Unknown Rx Lactulose [Cephulac] 20 gm PO QDAY #500 ml 09/26/19 Unknown Rx ED Physical Exam - General Limitations: No Limitations General appearance: alert, anxious, other (the patient is sleepy but very arousable) - Head Head exam: Present: atraumatic, normocephalic - Eye Eye exam: Present: normal appearance, EOMI. Absent: nystagmus - ENT ENT exam: Present: normal exam, normal orophraynx, mucous membranes moist, normal external ear exam - Neck Neck exam: Present: normal inspection, full ROM. Absent: tenderness, meningismus - Respiratory Respiratory exam: Present: decreased breath sounds. Absent: respiratory distress - Cardiovascular Cardiovascular Exam: Present: regular rate, normal rhythm, normal heart sounds. Absent: bradycardia, tachycardia, irregular rhythm, systolic murmur, diastolic murmur, rubs, gallop - GI/Abdominal GI/Abdominal exam: Present: soft, distended. Absent: tenderness, guarding, rebound, rigid, pulsatile mass - Rectal Rectal exam: Present: deferred - Extremities Exam Extremities exam: Present: full ROM, pedal edema, other (3+ edema in the bilateral lower extremities. Numerous ecchymoses are noted.2+ pulses noted in the bilateral upper and lower extremities. The pelvis is stable. There is no long bony tenderness. The muscular compartments are soft. There is no redness, pus, streaking or erythema.). Absent: tenderness, calf tenderness - Back Exam Back exam: Present: normal inspection. Absent: tenderness, CVA tenderness (R), CVA tenderness (L), paraspinal tenderness, vertebral tenderness - Neurological Exam Neurological exam: Present: alert, oriented X3, other (there is no facial droop. The tongue is midline. Extraocular movements are intact bilaterally. Speaking in full sentences. Hearing is grossly intact. 5 out of 5 strength bilateral upper and lower extremities. Sensation is intact to light touch bilateral upper and lower extremities.). Absent: motor sensory deficit - Psychiatric Psychiatric exam: Present: normal affect, normal mood. Absent: homicidal ideation, suicidal ideation - Skin Skin exam: Present: warm ED Course Vital Signs 09/26/19 09/26/19 09/26/19 11:06 11:30 11:45 Temperature 98.1 F Pulse Rate 87 80 Pulse Rate [ Anterior Bilateral Throughout] Respiratory 13 16 Rate Respiratory Rate [Anterior Bilateral Throughout] Blood Pressure 137/120 132/75 O2 Sat by Pulse 95 Oximetry 09/26/19 09/26/19 12:00 12:38 Temperature Pulse Rate 82 Pulse Rate [ 96 H Anterior Bilateral Throughout] Respiratory 13 Rate Respiratory 20 Rate [Anterior Bilateral Throughout] Blood Pressure 138/80 O2 Sat by Pulse 92 Oximetry - Reevaluation(s) Reevaluation #1: 09/26/19 12:19 Differential diagnosis, including not limited to: Chronic lower extremity edema, renal insufficiency, hepatic insufficiency, copd Assessment and plan: 59-year-old gentleman who is alert, oriented, sober, not clinically encephalopathic, sent to the ER with a possible complaint of shortness of breath, although the patient himself does not complain of shortness of breath. He is resting comfortably in his stretcher, and in no acute respiratory distress. With deep inspiration, O2 sat 95-96%. He does not have crackles or rales. His lower extremity edema appears to be chronic. Screening laboratory studies are ordered. Albuterol, Atrovent ordered. This is unlikely to be a DVT, the edema appears to be chronic, and he had a negative CT scan of the chest 2018. 09/26/19 12:20 Reevaluation #2: 09/26/19 13:10 Patient is reassessed. The patient is in no acute distress. He remains awake, alert and oriented. He is clinically sober. His laboratory studies are reviewed and appreciated. Patient is asking to eat and drink. He will be discharged with appropriate medications. Bony to follow-up in an outpatient primary care doctor or gear lapper. Return precautions are reviewed. This is likely acute exacerbation of chronic dependent edema, likely secondary to chronic cirrhosis. They may also be a component of mild COPD. ED Medical Decision Making - Lab Data Result diagrams: 09/26/19 11:49 09/26/19 11:49 Vital Signs 09/26/19 11:06 Temperature 98.1 F Pulse Rate 87 Blood Pressure 137/120 - EKG Data -: EKG Interpreted by Ak EKG shows normal: sinus rhythm Rate: normal - EKG Data 09/26/19 12:18 The EKG today has minimal motion artifact. There is a sinus rhythm, with a normal axis, QTC is prolonged, low voltage, no endorsement of chest pain, the EKG is abnormal, it is not consistent with STEMI. It appears to be unchanged from prior EKG from 09/14/2019. - Radiology Data Radiology results: report reviewed, image reviewed Print Report Referring Physician: DANA WELCH Patient Name: JULIETTE PENG Date of : 1960 Sex: Male Report Date: 2019-09-26 Report Status: Finalized Findings [address] [id number] XRay Report Signed Patient: JULIETTE PENG MR#: [id number] : 1960 Acct:[id number] Age/Sex: 59 / M ADM Date: 09/26/19 Loc: ED Attending Dr: Ordering Physician: DANA WELCH MD Date of Service: 09/26/19 Procedure(s): XR chest 1V ap Accession Number(s): [id number] cc: DANA WELCH MD Fluoro Time In Minutes: CHEST 1 VIEW 09/26/2019 11:34 AM INDICATION / CLINICAL INFORMATION: Dyspnea. COMPARISON: 09/14/19 FINDINGS: SUPPORT DEVICES: None. HEART / MEDIASTINUM: No significant abnormality. LUNGS / PLEURA: No significant pulmonary or pleural abnormality. No pneumothorax. ADDITIONAL FINDINGS: Healing anterior left rib fractures are unchanged. IMPRESSION: 1. No acute findings. No significant change. Signer Name: Iona Correia MD Signed: 09/26/2019 11:59 AM Workstation Name: [id number] Transcribed By: DT Dictated By: Main Correia MD Electronically Authenticated By: Main Correia MD Signed Date/Time: 09/26/19 1159 DD/ 1157 Critical care attestation.: If time is entered above; I have spent that time in minutes in the direct care of this critically ill patient, excluding procedure time. ED Disposition Clinical Impression: COPD (chronic obstructive pulmonary disease), Dependent edema Disposition: DC-01 TO HOME OR SELFCARE Is pt being admited?: No Does the pt Need Aspirin: No Condition: Stable Instructions: Chronic Obstructive Pulmonary Disease (ED) Additional Instructions: Take the medications as directed. Also, patient should take hclt-nrf-nwcttgl multivitamin, which can be purchased and many locations, [employer], [employer]. Avoid consumption of excessive salt an excess of water. Please follow-up with the primary care doctor or gear lapper within the next 7- 10 days. Return to emergency room right away with new, worsened or different symptoms, or symptoms not present on initial emergency room evaluation. Prescriptions: Lactulose [Cephulac] 20 gm PO QDAY #500 ml Furosemide [Lasix] 20 mg PO QDAY #14 tablet Albuterol Sulfate [Proair Respiclick] 90 mcg IH Q4HR PRN #1 aer.pow.ba PRN Reason: Dyspnea Referrals: JORGE TUCKERSAN ANTONIO MD KESHA [Primary Care Provider] - 3-5 Days MINO CHRISTINA MD [Staff Physician] - 3-5 Days [facility] [Provider Group] - 3-5 Days
--- NOTE | 2019-09-26 12:03 | XRay Report ---
CHEST 1 VIEW 09/26/2019 11:34 AM INDICATION / CLINICAL INFORMATION: Dyspnea. COMPARISON: 09/14/19 FINDINGS: SUPPORT DEVICES: None. HEART / MEDIASTINUM: No significant abnormality. LUNGS / PLEURA: No significant pulmonary or pleural abnormality. No pneumothorax. ADDITIONAL FINDINGS: Healing anterior left rib fractures are unchanged. IMPRESSION: 1. No acute findings. No significant change. Signer Name: Iona Correia MD Signed: 09/26/2019 11:59 AM Workstation Name: [id number]
[2019-09-26] MEDS ORDERED: ALBUTEROL 8.5 GM INHALATION IH PRN (12:09)
[2019-09-26 12:13] LABS: Basophils % (Auto) 0.4 % (0.0-1.8); Eosinophils # (Auto) 0.1 K/mm3 (0.0-0.4); Eosinophils % (Auto) 1.6 % (0.0-4.3); Hematocrit 38.1 % (35.5-45.6); Hemoglobin 13.2 gm/dl (11.8-15.2); Lymphocytes # (Auto) 0.4 K/mm3 (1.2-5.4); Lymphocytes % (Auto) 8.7 % (13.4-35.0); Mean Corpuscular HGB Conc 35 % (32-34); Mean Corpuscular Volume 91 fl (84-94); Monocytes # (Auto) 0.2 K/mm3 (0.0-0.8); Monocytes % (Auto) 3.9 % (0.0-7.3); Red Cell Distribution Width 16.5 % (13.2-15.2)
[2019-09-26] MEDS ORDERED: ALBUTEROL 2.5 MG/3 ML NEBU IH ONE (12:13)
[2019-09-26] MEDS ORDERED: IPRATROPIUM 0.02% NEBU 2.5 ML IH ONE (12:13)
[2019-09-26 12:15] VITALS: BP 138/80
[2019-09-26 12:20] LABS: Platelet Count 32 K/mm3 (140-440)
[2019-09-26 12:22] LABS: INR 1.41 (0.87-1.13)
[2019-09-26 12:23] LABS: Partial Thromboplastin Time 27.9 Sec. (24.2-36.6)
[2019-09-26 12:44] LABS: Alanine Aminotransferase 37 units/L (7-56); Albumin 2.9 g/dL (3.9-5); BUN/Creatinine Ratio 23; Blood Urea Nitrogen 18 mg/dL (9-20); Calcium 8.3 mg/dL (8.4-10.2); Hemolysis Index 37
[2019-09-26] MEDS ORDERED: ALBUTEROL 2.5 MG/3 ML NEBU IH PRN (12:46)
[2019-09-26] MEDS ORDERED: POTASSIUM CHLORIDE ER 20 MEQ TAB PO ONE (12:49)
[2019-09-26] MEDS ORDERED: FUROSEMIDE 20 MG TAB PO ONE (12:50)
== END 2019-09-26 13:37 | disposition home or self-care (01) ==
LOC: ED 10:10
DX: J44.9 Chronic obstructive pulmonary disease, unspecified (principal); R60.9 Edema, unspecified; I10 Essential (primary) hypertension; M19.90 Unspecified osteoarthritis, unspecified site
CPT/HCPCS: 36415; 71045; 80053; 80320; 82140; 82550; 83735; 85025; 85610; 85730; 93005; 93010; 94640; 94644; G0480

== ENCOUNTER 2019-10-01 13:38 | Inpatient (IN) | payer MEDICAID ==
--- NOTE | 2019-10-01 15:58 | Event Note ---
ED Screening Note Date of service: 10/01/19 Time: 15:53 ED Screening Note: 59 y/o male come in for breathing difficulties times 8 days. Was last seen in ER on 09/26/19. History of COPD This initial assessment/diagnostic orders/clinical plan/treatment(s) is/are subject to change based on patients health status, clinical progression and re- assessment by fellow clinical providers in the ED. Further treatment and workup at subsequent clinical providers discretion. Patient/guardian urged not to elope from the ED as their condition may be serious if not clinically assessed and managed. Initial orders include:
[2019-10-01 17:12] LABS: Hematocrit 40.9 % (35.5-45.6); Hemoglobin 14.3 gm/dl (11.8-15.2); Mean Corpuscular HGB Conc 35 % (32-34); Mean Corpuscular Volume 89 fl (84-94); Red Blood Count 4.62 M/mm3 (3.65-5.03); Red Cell Distribution Width 16.7 % (13.2-15.2)
[2019-10-01 17:17] LABS: Platelet Count 53 K/mm3 (140-440)
[2019-10-01 17:33] LABS: BUN/Creatinine Ratio 20; Blood Urea Nitrogen 12 mg/dL (9-20); Calcium 8.4 mg/dL (8.4-10.2); Hemolysis Index 68
[2019-10-01 18:01] LABS: Basophils % (Manual) 0 % (0.0-1.8); Platelet Estimate Consistent w Auto; RBC Morphology Normal; Total Cells Counted 100
--- NOTE | 2019-10-01 18:19 | XRay Report ---
CHEST 2 VIEWS INDICATION / CLINICAL INFORMATION: sob low stats. COMPARISON: 09/26/2019 FINDINGS: SUPPORT DEVICES: None. HEART / MEDIASTINUM: No significant abnormality. LUNGS / PLEURA: Both lungs are well-expanded and appear grossly clear. No evidence for pneumonia. The re is mild pulmonary vascular congestion incidentally noted. No pneumothorax. ADDITIONAL FINDINGS: No significant additional findings. IMPRESSION: 1. Mild pulmonary vascular congestion. No evidence for pneumonia. Signer Name: Ana Cristina Leblanc MD Signed: 10/01/2019 6:14 PM Workstation Name: [id number]
[2019-10-02] MEDS ORDERED: BUMETANIDE 1 MG/4 ML INJ IV ONE (03:27)
--- NOTE | 2019-10-02 05:22 | Emergency Department Report ---
ED General Adult HPI - General Chief complaint: Dyspnea/Respdistress Stated complaint: SOB/BILAT FOOT PAIN Time Seen by Provider: 10/01/19 15:51 Source: patient Mode of arrival: Ambulatory Limitations: No Limitations - History of Present Illness Initial comments: Patient is a 59-year-old male with a past medical history of COPD, CHF, hypertension, hepatitis C, alcohol abuse, and methadone dependence who is presenting with shortness of breath. Patient was here 09/26/2018 with a mild CHF/COPD exacerbation. Since then the patient states he had his Lasix changed to Bumex by his hospice nurse. Patient states that he has not had his Bumex in 2 days and his legs are beginning to swell and has had progressively worsening shortness of breath. Patient has not been on oxygen. The patient's been wandering from friend and friend's house.. Patient states that he was renting a room from his ex- and she kicked him out. Patient is unable to get his medications. Patient denies chest pain fevers chills nausea vomiting diarrhea. - Related Data Previous Rx's Medication Instructions Recorded Last Taken Type Nebulizer and Compressor [[place] 1 each MC TID #1 each 01/04/18 Unknown Rx Choice Nebulizer] ALBUTEROL NEB's [Proventil 0.083% 2.5 mg IH Q3HRT PRN #1 nebu 09/13/19 Unknown R x NEBS] Albuterol INH(or & Nicu Only) 2 puff IH QID PRN #2 can 09/13/19 Unknown Rx [ProAir HFA Inhaler] Benzonatate [Tessalon Perles] 100 mg PO Q8HR #14 capsule 09/13/19 Unknown Rx Budesonide [Pulmicort Respules] 0.5 mg IH Q12HRT #60 nebu 09/13/19 Unknown Rx Famotidine [Pepcid] 20 mg PO BID #60 tablet 09/13/19 Unknown Rx Furosemide [Lasix TAB] 20 mg PO QDAY #7 tablet 09/13/19 Unknown Rx Ipratropium/Albuterol Sulfate 1 ampul IH TIDRT #100 ampul.neb 09/13/19 Unknown Rx [DUONEB *Not for PRN Use*] Sennosides/Docusate [Senokot S] 1 tab PO DAILY #30 tablet 09/13/19 Unknown Rx Tbo-Filgrastim [Granix] 480 mcg SUB-Q DAILY syringe 09/13/19 Unknown Rx clonazePAM [KlonoPIN] 1 mg PO DAILY #10 tablet 09/13/19 Unknown Rx diphenhydrAMINE [Benadryl CAP] 25 mg PO Q6HR PRN #20 capsule 09/13/19 Unknown Rx Methadone [Dolophine] 70 mg PO DAILY tablet 09/16/19 Unknown Rx Prednisone [predniSONE 10 mg 10 mg PO .TAPER #1 tab.ds.pk 09/16/19 Unknown Rx (6-Day Pack, 21 Tabs)] Albuterol Sulfate [Proair 90 mcg IH Q4HR PRN #1 aer.pow.ba 09/26/19 Unknown Rx Respiclick] Furosemide [Lasix] 20 mg PO QDAY #14 tablet 09/26/19 Unknown Rx Lactulose [Cephulac] 20 gm PO QDAY #500 ml 09/26/19 Unknown Rx Allergies Allergy/AdvReac Type Severity Reaction Status Date / Time codeine Allergy Rash Verified 09/26/19 11:06 ED Review of Systems ROS: Stated complaint: SOB/BILAT FOOT PAIN Other details as noted in HPI Comment: All other systems reviewed and negative ED Past Medical Hx - Past Medical History Hx Hypertension: Yes Hx CVA: No Hx Heart Attack/AMI: No Hx Congestive Heart Failure: No Hx Diabetes: No Hx Deep Vein Thrombosis: No Hx Pulmonary Embolism: No Hx GERD: No Hx Liver Disease: Yes (Hep C) Hx Renal Disease: No Hx Sickle Cell Disease: No Hx Arthritis: Yes (Hands and vack) Hx Headaches / Migraines: No Hx Seizures: No Hx Kidney Stones: No Hx Psychiatric Treatment: No Hx Asthma: No Hx COPD: Yes Hx Tuberculosis: No Hx Dementia: No Hx HIV: No Additional medical history: Hepatitis C, anal CA with current Chemo treatments in 2017 - Surgical History Hx Pacemaker: No Hx Internal Defibrillator: No Additional Surgical History: Hemorrhoidectomy, Anal biopsy - Social History Smoking Status: Current Every Day Smoker Substance Use Type: Methamphetamines, Other - Medications Home Medications: Home Medications Medication Instructions Recorded Confirmed Last Taken Type Nebulizer and Compressor [[place] 1 each MC TID #1 each 01/04/18 09/14/19 Unknown Rx Choice Nebulizer] ALBUTEROL NEB's [Proventil 0.083% 2.5 mg IH Q3HRT PRN #1 nebu 09/13/19 09/14/19 Unknown Rx NEBS] Albuterol INH(or & Nicu Only) 2 puff IH QID PRN #2 can 09/13/19 09/14/19 Unknown Rx [ProAir HFA Inhaler] Benzonatate [Tessalon Perles] 100 mg PO Q8HR #14 capsule 09/13/19 09/14/19 Unknown Rx Budesonide [Pulmicort Respules] 0.5 mg IH Q12HRT #60 nebu 09/13/19 09/14/19 Unknown Rx Famotidine [Pepcid] 20 mg PO BID #60 tablet 09/13/19 09/14/19 Unknown Rx Furosemide [Lasix TAB] 20 mg PO QDAY #7 tablet 09/13/19 09/14/19 Unknown Rx Ipratropium/Albuterol Sulfate 1 ampul IH TIDRT #100 ampul.neb 09/13/19 09/14/19 Unknown Rx [DUONEB *Not for PRN Use*] Sennosides/Docusate [Senokot S] 1 tab PO DAILY #30 tablet 09/13/19 09/14/19 Unknown Rx Tbo-Filgrastim [Granix] 480 mcg SUB-Q DAILY syringe 09/13/19 09/14/19 Unknown Rx clonazePAM [KlonoPIN] 1 mg PO DAILY #10 tablet 09/13/19 09/14/19 Unknown Rx diphenhydrAMINE [Benadryl CAP] 25 mg PO Q6HR PRN #20 capsule 09/13/19 09/14/19 Unknown Rx Methadone [Dolophine] 70 mg PO DAILY tablet 09/16/19 Unknown Rx Prednisone [predniSONE 10 mg 10 mg PO .TAPER #1 tab.ds.pk 09/16/19 Unknown Rx (6-Day Pack, 21 Tabs)] Albuterol Sulfate [Proair 90 mcg IH Q4HR PRN #1 aer.pow.ba 09/26/19 Unknown Rx Respiclick] Furosemide [Lasix] 20 mg PO QDAY #14 tablet 09/26/19 Unknown Rx Lactulose [Cephulac] 20 gm PO QDAY #500 ml 09/26/19 Unknown Rx ED Physical Exam - General Limitations: No Limitations General appearance: alert, in no apparent distress - Head Head exam: Present: atraumatic, normocephalic - Eye Eye exam: Present: normal appearance, PERRL, EOMI - ENT ENT exam: Present: mucous membranes moist - Neck Neck exam: Present: normal inspection - Respiratory Respiratory exam: Present: normal lung sounds bilaterally, rales (bibasilar and mild). Absent: respiratory distress, wheezes, rhonchi, stridor - Cardiovascular Cardiovascular Exam: Present: regular rate, normal rhythm, normal heart sounds. Absent: systolic murmur, diastolic murmur, rubs, gallop - GI/Abdominal GI/Abdominal exam: Present: soft, normal bowel sounds. Absent: distended, tenderness, guarding, rebound - Rectal Rectal exam: Present: deferred - Extremities Exam Extremities exam: Present: normal inspection, other (3+ edema in the bilateral lower extremities) - Back Exam Back exam: Present: normal inspection - Neurological Exam Neurological exam: Present: alert, oriented X3 - Psychiatric Psychiatric exam: Present: normal affect, normal mood - Skin Skin exam: Present: warm, dry, intact, normal color. Absent: rash ED Course Vital Signs 10/01/19 10/01/19 15:53 16:39 Temperature 98.4 F Pulse Rate 103 H Respiratory 20 18 Rate Blood Pressure 172/94 O2 Sat by Pulse 90 92 Oximetry - Reevaluation(s) Reevaluation #1: 10/02/19 05:21 Patient was given 2 mg of Bumex IV. Patient's O2 sat while sleeping was 85%. On 2 L oxygen patient is 94%. At this time we're attempting to contact the patient's hospice nurse ED Medical Decision Making - Lab Data Result diagrams: 10/01/19 16:19 10/01/19 16:19 - EKG Data -: EKG Interpreted by Me EKG shows normal: sinus rhythm, axis, intervals, QRS complexes, ST-T waves Rate: normal - EKG Data Interpretation: normal EKG Critical care attestation.: If time is entered above; I have spent that time in minutes in the direct care of this critically ill patient, excluding procedure time. ED Disposition Condition: Stable Referrals: PRIMARY CARE, [Primary Care Provider] - 3-5 Days
--- NOTE | 2019-10-02 08:37 | Emergency Department Report ---
Mildred Doc - Documentation Documentation: 59-year-old male seen by Dr. Lott during the night. He was treated for CHF w charles Mo. On review of his x-ray and BMP, I do not see evidence of edema. On evaluation patient's pulse oximetry is 85% although he is resting comfortably. He is not wheezing. Arterial blood gas demonstrates a pH of 7.5 and a PO2 of 50. The patient has acute on chronic respiratory failure. His PCO2 was mildly elevated. Impression Acute on chronic respiratory failure Homelessness Plan Supplemental O2. Discussed with hospitalist and admitted their service. Patient requires case management. Further care per hospitalist.
--- NOTE | 2019-10-02 12:16 | History and Physical Report ---
History of Present Illness Date of examination: 10/02/19 Date of admission: 10/02/19 09:42 Chief complaint: sob History of present illness: 59 YO Male with Anal Cancer (currently in remission S/P chemotherapy radiation treatments), HTN, HCV, COPD, Chronic Pain syndrome currently on Methadone Maintenance Program who was just discharged from the hospital 09/16/19 presented to ED for worsening shortness of breath. Patient was also seen in ED 09/26/2018 with a mild CHF/COPD exacerbation. Since then the patient states he had his Lasix changed to Bumex by his hospice nurse. Patient states that he has not had his Bumex in 2 days and his legs are beginning to swell and has had progressively worsening shortness of breath. Patient states that he was renting a room from his ex- and she kicked him out. Patient is unable to get his medications. Patient denies chest pain fevers chills nausea vomiting diarrhea. Patient is currently homeless. Past History Past Medical History: COPD, hepatitis, hypertension Past Surgical History: Other (Hemorrhoid surgery, anal biopsy) Social history: alcohol abuse, IV drug use, other (Patient has history of smoking 1 pack a day for 45 years. Patient has history of heroin abuse. He is following in methadone clinic. Patient also history alcohol abuse in the past. 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 Allergic to codeine. ) Family history: hypertension Medications and Allergies Allergies Allergy/AdvReac Type Severity Reaction Status Date / Time codeine Allergy Rash Verified 09/26/19 11:06 Home Medications Medication Instructions Recorded Confirmed Last Taken Type Nebulizer and Compressor [Douglas 1 each MC TID #1 each 01/04/18 09/14/19 Unknown Rx Choice Nebulizer] ALBUTEROL NEB's [Proventil 0.083% 2.5 mg IH Q3HRT PRN #1 nebu 09/13/19 09/14/19 Unknown Rx NEBS] Albuterol INH(or & Nicu Only) 2 puff IH QID PRN #2 can 09/13/19 09/14/19 Unknown Rx [ProAir HFA Inhaler] Benzonatate [Tessalon Perles] 100 mg PO Q8HR #14 capsule 09/13/19 09/14/19 Un known Rx Budesonide [Pulmicort Respules] 0.5 mg IH Q12HRT #60 nebu 09/13/19 09/14/19 Unknown Rx Famotidine [Pepcid] 20 mg PO BID #60 tablet 09/13/19 09/14/19 Unknown Rx Furosemide [Lasix TAB] 20 mg PO QDAY #7 tablet 09/13/19 09/14/19 Unknown Rx Ipratropium/Albuterol Sulfate 1 ampul IH TIDRT #100 ampul.neb 09/13/19 09/14/19 Unknown Rx [DUONEB *Not for PRN Use*] Sennosides/Docusate [Senokot S] 1 tab PO DAILY #30 tablet 09/13/19 09/14/19 Unknown Rx Tbo-Filgrastim [Granix] 480 mcg SUB-Q DAILY syringe 09/13/19 09/14/19 Unknown Rx clonazePAM [KlonoPIN] 1 mg PO DAILY #10 tablet 09/13/19 09/14/19 Unknown Rx diphenhydrAMINE [Benadryl CAP] 25 mg PO Q6HR PRN #20 capsule 09/13/19 09/14/19 Unknown Rx Methadone [Dolophine] 70 mg PO DAILY tablet 09/16/19 Unknown Rx Prednisone [predniSONE 10 mg 10 mg PO .TAPER #1 tab.ds.pk 09/16/19 Unknown Rx (6-Day Pack, 21 Tabs)] Albuterol Sulfate [Proair 90 mcg IH Q4HR PRN #1 aer.pow.ba 09/26/19 Unknown Rx Respiclick] Furosemide [Lasix] 20 mg PO QDAY #14 tablet 09/26/19 Unknown Rx Lactulose [Cephulac] 20 gm PO QDAY #500 ml 09/26/19 Unknown Rx Exam - Constitutional Vitals: Temp Pulse Resp BP Pulse Ox 98.4 F 85 13 112/61 92 10/02/19 09:44 10/02/19 11:01 10/02/19 11:01 10/02/19 11:01 10/02/19 11:01 Results - Labs CBC & Chem 7: 10/01/19 16:19 10/01/19 16:19 Labs: Laboratory Last Values WBC 4.8 K/mm3 (4.5-11.0) 10/01/19 16:19 RBC 4.62 M/mm3 (3.65-5.03) 10/01/19 16:19 Hgb 14.3 gm/dl (11.8-15.2) 10/01/19 16:19 Hct 40.9 % (35.5-45.6) 10/01/19 16:19 MCV 89 fl (84-94) 10/01/19 16:19 MCH 31 pg (28-32) 10/01/19 16:19 MCHC 35 % (32-34) H 10/01/19 16:19 RDW 16.7 % (13.2-15.2) H 10/01/19 16:19 Plt Count 53 K/mm3 (140-440) L 10/01/19 16:19 [place] % (Auto) Automobile Parker 10/01/19 16:19 Add Manual Diff Complete 10/01/19 16:19 Total Counted 100 10/01/19 16:19 Seg Neuts % (Manual) 63.0 % (40.0-70.0) 10/01/19 16:19 Band Neutrophils % 0 % 10/01/19 16:19 Lymphocytes % (Manual) 16.0 % (13.4-35.0) 10/01/19 16:19 Reactive Lymphs % (Man) 0 % 10/01/19 16:19 Monocytes % (Manual) 19.0 % (0.0-7.3) H 10/01/19 16:19 Eosinophils % (Manual) 2.0 % (0.0-4.3) 10/01/19 16:19 Basophils % (Manual) 0 % (0.0-1.8) 10/01/19 16:19 Metamyelocytes % 0 % 10/01/19 16:19 Myelocytes % 0 % 10/01/19 16:19 Promyelocytes % 0 % 10/01/19 16:19 Blast Cells % 0 % 10/01/19 16:19 Nucleated RBC % Not Reportable 10/01/19 16:19 Seg Neutrophils # Man 3.0 K/mm3 (1.8-7.7) 10/01/19 16:19 Band Neutrophils # 0.0 K/mm3 10/01/19 16:19 Lymphocytes # (Manual) 0.8 K/mm3 (1.2-5.4) L 10/01/19 16:19 Abs React Lymphs (Man) 0.0 K/mm3 10/01/19 16:19 Monocytes # (Manual) 0.9 K/mm3 (0.0-0.8) H 10/01/19 16:19 Eosinophils # (Manual) 0.1 K/mm3 (0.0-0.4) 10/01/19 16:19 Basophils # (Manual) 0.0 K/mm3 (0.0-0.1) 10/01/19 16:19 Metamyelocytes # 0.0 K/mm3 10/01/19 16:19 Myelocytes # 0.0 K/mm3 10/01/19 16:19 Promyelocytes # 0.0 K/mm3 10/01/19 16:19 Blast Cells # 0.0 K/mm3 10/01/19 16:19 WBC Morphology Not Reportable 10/01/19 16:19 Hypersegmented Neuts Not Reportable 10/01/19 16:19 Hyposegmented Neuts Not Reportable 10/01/19 16:19 Hypogranular Neuts Not Reportable 10/01/19 16:19 Smudge Cells Not Reportable 10/01/19 16:19 Toxic Granulation Not Reportable 10/01/19 16:19 Toxic Vacuolation Not Reportable 10/01/19 16:19 Dohle Bodies Not Reportable 10/01/19 16:19 Pelger-Huet Anomaly Not Reportable 10/01/19 16:19 Chris Rods Not Reportable 10/01/19 16:19 Platelet Estimate Consistent w auto 10/01/19 16:19 Clumped Platelets Not Reportable 10/01/19 16:19 Plt Clumps, EDTA Not Reportable 10/01/19 16:19 Large Platelets Not Reportable 10/01/19 16:19 Giant Platelets Not Reportable 10/01/19 16:19 Platelet Satelliting Not Reportable 10/01/19 16:19 Plt Morphology Comment Not Reportable 10/01/19 16:19 RBC Morphology Normal 10/01/19 16:19 Dimorphic RBCs Not Reportable 10/01/19 16:19 Polychromasia Not Reportable 10/01/19 16:19 Hypochromasia Not Reportable 10/01/19 16:19 Poikilocytosis Not Reportable 10/01/19 16:19 Anisocytosis Not Reportable 10/01/19 16:19 Microcytosis Not Reportable 10/01/19 16:19 Macrocytosis Not Reportable 10/01/19 16:19 Spherocytes Not Reportable 10/01/19 16:19 Pappenheimer Bodies Not Reportable 10/01/19 16:19 Sickle Cells Not Reportable 10/01/19 16:19 Target Cells Not Reportable 10/01/19 16:19 Tear Drop Cells Not Reportable 10/01/19 16:19 Ovalocytes Not Reportable 10/01/19 16:19 Helmet Cells Not Reportable 10/01/19 16:19 [place] Bodies Not Reportable 10/01/19 16:19 [place] Rings Not Reportable 10/01/19 16:19 [place] Cells Not Reportable 10/01/19 16:19 Bite Cells Not Reportable 10/01/19 16:19 Crenated Cell Not Reportable 10/01/19 16:19 Elliptocytes Not Reportable 10/01/19 16:19 Acanthocytes (Spur) Not Reportable 10/01/19 16:19 Rouleaux Not Reportable 10/01/19 16:19 Hemoglobin C Crystals Not Reportable 10/01/19 16:19 Schistocytes Not Reportable 10/01/19 16:19 Malaria parasites Not Reportable 10/01/19 16:19 Servando Bodies Not Reportable 10/01/19 16:19 Hem Pathologist Commnt No 10/01/19 16:19 POC ABG pH 7.508 (7.35-7.45) H 10/02/19 08:33 POC ABG pCO2 46.8 (35-45) H 10/02/19 08:33 POC ABG pO2 50 (80-105) L 10/02/19 08:33 POC ABG HCO3 37.1 (22-26 mml/L) 10/02/19 08:33 POC ABG Total CO2 39 (23-27mmol/L) 10/02/19 08:33 POC ABG O2 Sat 88 10/02/19 08:33 POC ABG Base Excess 14 ((-2) - (+3)mmol/L) 10/02/19 08:33 FiO2 21 % 10/02/19 08:33 Sodium 134 mmol/L (137-145) L 10/01/19 16:19 Potassium 3.5 mmol/L (3.6-5.0) L 10/01/19 16:19 Chloride 94.2 mmol/L (98-107) L 10/01/19 16:19 Carbon Dioxide 24 mmol/L (22-30) 10/01/19 16:19 Anion Gap 19 mmol/L 10/01/19 16:19 BUN 12 mg/dL (9-20) 10/01/19 16:19 Creatinine 0.6 mg/dL (0.8-1.5) L 10/01/19 16:19 Estimated GFR > 60 ml/min 10/01/19 16:19 BUN/Creatinine Ratio 20 % 10/01/19 16:19 Glucose 99 mg/dL (75-100) 10/01/19 16:19 Calcium 8.4 mg/dL (8.4-10.2) 10/01/19 16:19 NT-Pro-B Natriuret Pep 221.5 pg/mL (0-900) 10/02/19 05:03 Assessment and Plan Assessment and plan: COPD exacerbation Patient initiated on IV Solu-Medrol, and duo nebs [id number]/PRN chest xray reported improvement in diffuse interstitial opacity Acute hypercapnic hypoxemic respiratory failure ABG reveals PO2 of 50 and PCO2 of 46. Etiology secondary to COPD exacerbation. CHF is compensated. Beta natruretic peptide normal. CHF. Compensated. 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
[2019-10-02] MEDS ORDERED: ONDANSETRON 4 MG/2 ML INJ IV PRN (12:21)
[2019-10-02] MEDS ORDERED: ACETAMINOPHEN 325 MG TAB PO PRN (12:21)
[2019-10-02] MEDS ORDERED: diphenhydrAMINE 25 MG CAP PO PRN (12:23)
[2019-10-02] MEDS ORDERED: NON-FORMULARY EACH (Albuterol Sulfate [Proair Respiclick] 90 MCG) IH PRN (12:23)
[2019-10-02] MEDS ORDERED: ALBUTEROL 2.5 MG/3 ML NEBU IH PRN (12:23)
[2019-10-02] MEDS: IPRATROPIUM/ALBUTEROL SULFATE 3 ML AMPUL.NEB IH SCH ×2 (14:17→21:41)
[2019-10-02] MEDS: BENZONATATE 100 MG CAP PO SCH ×2 (15:53→22:16)
[2019-10-02] MEDS: BUDESONIDE 0.5 MG/2 ML NEBU IH SCH (21:41)
[2019-10-02] MEDS: methylPREDNISolone Sod Succinate 40 MG/1 ML INJ IV SCH (22:16)
[2019-10-03] MEDS: IPRATROPIUM/ALBUTEROL SULFATE 3 ML AMPUL.NEB IH SCH ×4 (01:32→21:16)
[2019-10-03] MEDS: BENZONATATE 100 MG CAP PO SCH ×3 (05:44→22:24)
[2019-10-03] MEDS: BUDESONIDE 0.5 MG/2 ML NEBU IH SCH ×2 (07:35→21:17)
[2019-10-03] MEDS: methylPREDNISolone Sod Succinate 40 MG/1 ML INJ IV SCH ×2 (09:35→22:24)
[2019-10-03 09:47] LABS: Hematocrit 33.9 % (35.5-45.6); Mean Corpuscular HGB Conc 35 % (32-34); Mean Corpuscular Volume 89 fl (84-94)
[2019-10-03] MEDS ORDERED: clonazePAM 0.5 MG TAB PO SCH (10:00)
[2019-10-03] MEDS ORDERED: ENOXAPARIN 40 MG/0.4 ML INJ SUB-Q SCH (10:00)
[2019-10-03 10:03] LABS: Platelet Count 46 K/mm3 (140-440)
[2019-10-03 10:15] LABS: BUN/Creatinine Ratio 23; Blood Urea Nitrogen 16 mg/dL (9-20); Calcium 8.1 mg/dL (8.4-10.2); Hemolysis Index 11
--- NOTE | 2019-10-03 11:28 | Progress Note ---
Assessment and Plan Assessment and plan: Acute COPD exacerbation Cont. on IV Solu-Medrol, and bronchodilators/nebulizers Acute hypercapnic hypoxemic respiratory failure ABG reveals PO2 of 50 and PCO2 of 46. Etiology secondary to COPD exacerbation. CHF is compensated. Beta natruretic peptide normal. CHF. Compensated. Methadone dependence Continue his home dose of methadone HTN (hypertension) Continue antihypertensives Hep C with cirrhosis, chronic Follow-up with GI as outpatient Anal cancer In remission Tobacco abuse, counseled for cessation History of alcohol abuse heroine abuse - States is not taking for last 3 years Pancytopenia, chronic Leukopenia. Consider heme consultation Likely due to underlying hepatic disease Continue to monitor CBC DVT prophylaxis On heparin and GI prophylaxis History Interval history: no new issues Hospitalist Physical - Constitutional Vitals: Temp Pulse Resp BP Pulse Ox 97.7 F 86 18 128/75 95 10/03/19 04:13 10/03/19 07:37 10/03/19 07:37 10/03/19 04:13 10/03/19 07:38 General appearance: Present: no acute distress, well-nourished - EENT Eyes: Present: PERRL, EOM intact ENT: hearing intact, clear oral mucosa, dentition normal - Neck Neck: Present: supple, normal ROM - Respiratory Respiratory effort: normal Respiratory: bilateral: CTA - Cardiovascular Rhythm: regular Heart Sounds: Present: S1 & S2. Absent: gallop, rub - Extremities Extremities: no ischemia, No edema, Full ROM - Abdominal General gastrointestinal: soft, non-tender, non-distended, normal bowel sounds - Integumentary Integumentary: Present: clear, warm, dry - Neurologic Neurologic: CNII-XII intact, moves all extremities Results - Labs CBC & Chem 7: 10/03/19 09:21 10/03/19 09:21 Labs: Laboratory Last Values WBC 1.9 K/mm3 (4.5-11.0) L* 10/03/19 09:21 RBC 3.80 M/mm3 (3.65-5.03) 10/03/19 09:21 Hgb 12.0 gm/dl (11.8-15.2) 10/03/19 09:21 Hct 33.9 % (35.5-45.6) L D 10/03/19 09:21 MCV 89 fl (84-94) 10/03/19 09:21 MCH 31 pg (28-32) 10/03/19 09:21 MCHC 35 % (32-34) H 10/03/19 09:21 RDW 17.0 % (13.2-15.2) H 10/03/19 09:21 Plt Count 46 K/mm3 (140-440) L 10/03/19 09:21 [place] % (Auto) Sewing Pattern Layout Technician 10/01/19 16:19 Add Manual Diff Complete 10/01/19 16:19 Total Counted 100 10/01/19 16:19 Seg Neuts % (Manual) 63.0 % (40.0-70.0) 10/01/19 16:19 Band Neutrophils % 0 % 10/01/19 16:19 Lymphocytes % (Manual) 16.0 % (13.4-35.0) 10/01/19 16:19 Reactive Lymphs % (Man) 0 % 10/01/19 16:19 Monocytes % (Manual) 19.0 % (0.0-7.3) H 10/01/19 16:19 Eosinophils % (Manual) 2.0 % (0.0-4.3) 10/01/19 16:19 Basophils % (Manual) 0 % (0.0-1.8) 10/01/19 16:19 Metamyelocytes % 0 % 10/01/19 16:19 Myelocytes % 0 % 10/01/19 16:19 Promyelocytes % 0 % 10/01/19 16:19 Blast Cells % 0 % 10/01/19 16:19 Nucleated RBC % Not Reportable 10/01/19 16:19 Seg Neutrophils # Man 3.0 K/mm3 (1.8-7.7) 10/01/19 16:19 Band Neutrophils # 0.0 K/mm3 10/01/19 16:19 Lymphocytes # (Manual) 0.8 K/mm3 (1.2-5.4) L 10/01/19 16:19 Abs React Lymphs (Man) 0.0 K/mm3 10/01/19 16:19 Monocytes # (Manual) 0.9 K/mm3 (0.0-0.8) H 10/01/19 16:19 Eosinophils # (Manual) 0.1 K/mm3 (0.0-0.4) 10/01/19 16:19 Basophils # (Manual) 0.0 K/mm3 (0.0-0.1) 10/01/19 16:19 Metamyelocytes # 0.0 K/mm3 10/01/19 16:19 Myelocytes # 0.0 K/mm3 10/01/19 16:19 Promyelocytes # 0.0 K/mm3 10/01/19 16:19 Blast Cells # 0.0 K/mm3 10/01/19 16:19 WBC Morphology Not Reportable 10/01/19 16:19 Hypersegmented Neuts Not Reportable 10/01/19 16:19 Hyposegmented Neuts Not Reportable 10/01/19 16:19 Hypogranular Neuts Not Reportable 10/01/19 16:19 Smudge Cells Not Reportable 10/01/19 16:19 Toxic Granulation Not Reportable 10/01/19 16:19 Toxic Vacuolation Not Reportable 10/01/19 16:19 Dohle Bodies Not Reportable 10/01/19 16:19 Pelger-Huet Anomaly Not Reportable 10/01/19 16:19 Chris Rods Not Reportable 10/01/19 16:19 Platelet Estimate Consistent w auto 10/01/19 16:19 Clumped Platelets Not Reportable 10/01/19 16:19 Plt Clumps, EDTA Not Reportable 10/01/19 16:19 Large Platelets Not Reportable 10/01/19 16:19 Giant Platelets Not Reportable 10/01/19 16:19 Platelet Satelliting Not Reportable 10/01/19 16:19 Plt Morphology Comment Not Reportable 10/01/19 16:19 RBC Morphology Normal 10/01/19 16:19 Dimorphic RBCs Not Reportable 10/01/19 16:19 Polychromasia Not Reportable 10/01/19 16:19 Hypochromasia Not Reportable 10/01/19 16:19 Poikilocytosis Not Reportable 10/01/19 16:19 Anisocytosis Not Reportable 10/01/19 16:19 Microcytosis Not Reportable 10/01/19 16:19 Macrocytosis Not Reportable 10/01/19 16:19 Spherocytes Not Reportable 10/01/19 16:19 Pappenheimer Bodies Not Reportable 10/01/19 16:19 Sickle Cells Not Reportable 10/01/19 16:19 Target Cells Not Reportable 10/01/19 16:19 Tear Drop Cells Not Reportable 10/01/19 16:19 Ovalocytes Not Reportable 10/01/19 16:19 Helmet Cells Not Reportable 10/01/19 16:19 [place] Bodies Not Reportable 10/01/19 16:19 [place] Rings Not Reportable 10/01/19 16:19 [place] Cells Not Reportable 10/01/19 16:19 Bite Cells Not Reportable 10/01/19 16:19 Crenated Cell Not Reportable 10/01/19 16:19 Elliptocytes Not Reportable 10/01/19 16:19 Acanthocytes (Spur) Not Reportable 10/01/19 16:19 Rouleaux Not Reportable 10/01/19 16:19 Hemoglobin C Crystals Not Reportable 10/01/19 16:19 Schistocytes Not Reportable 10/01/19 16:19 Malaria parasites Not Reportable 10/01/19 16:19 Servando Bodies Not Reportable 10/01/19 16:19 Hem Pathologist Commnt No 10/01/19 16:19 POC ABG pH 7.508 (7.35-7.45) H 10/02/19 08:33 POC ABG pCO2 46.8 (35-45) H 10/02/19 08:33 POC ABG pO2 50 (80-105) L 10/02/19 08:33 POC ABG HCO3 37.1 (22-26 mml/L) 10/02/19 08:33 POC ABG Total CO2 39 (23-27mmol/L) 10/02/19 08:33 POC ABG O2 Sat 88 10/02/19 08:33 POC ABG Base Excess 14 ((-2) - (+3)mmol/L) 10/02/19 08:33 FiO2 21 % 10/02/19 08:33 Sodium 135 mmol/L (137-145) L 10/03/19 09:21 Potassium 3.3 mmol/L (3.6-5.0) L 10/03/19 09:21 Chloride 91.8 mmol/L (98-107) L 10/03/19 09:21 Carbon Dioxide 29 mmol/L (22-30) 10/03/19 09:21 Anion Gap 18 mmol/L 10/03/19 09:21 BUN 16 mg/dL (9-20) 10/03/19 09:21 Creatinine 0.7 mg/dL (0.8-1.5) L 10/03/19 09:21 Estimated GFR > 60 ml/min 10/03/19 09:21 BUN/Creatinine Ratio 23 % 10/03/19 09:21 Glucose 225 mg/dL (75-100) H 10/03/19 09:21 Calcium 8.1 mg/dL (8.4-10.2) L 10/03/19 09:21 NT-Pro-B Natriuret Pep 221.5 pg/mL (0-900) 10/02/19 05:03 Active Medications - Current Medications Current Medications: Generic Name Dose Route Start Last Admin Trade Name Freq PRN Reason Stop Dose Admin Acetaminophen 650 mg 10/02/19 12:21 Tylenol PO Q4H PRN Pain MILD(1-3)/Fever >100.5/SYLVESTER Albuterol 2.5 mg 10/02/19 12:23 Proventil IH Q3HRT PRN Wheezing/ SOB Albuterol/Ipratropium 1 ampul 10/02/19 14:00 10/03/19 07:35 Duoneb *Not For Prn Use* IH 1 ampul Q6HRT XENIA Administration Benzonatate 100 mg 10/02/19 14:00 10/03/19 05:44 Tessalon Perles PO 100 mg Q8HR XENIA Administration Budesonide 0.5 mg 10/02/19 20:00 10/03/19 07:35 Pulmicort IH 0.5 mg Q12HRT XENIA Administration Clonazepam 1 mg 10/03/19 10:00 10/03/19 09:35 Klonopin PO 1 mg DAILY XENIA Administration Diphenhydramine HCl 25 mg 10/02/19 12:23 Benadryl PO Q6HR PRN Itching Enoxaparin Sodium 40 mg 10/03/19 10:00 10/03/19 09:35 Enoxaparin SUB-Q 40 mg QDAY XENIA Administration Methylprednisolone Sodium Succinate 40 mg 10/02/19 22:00 10/03/19 09:35 Solu-Medrol IV 40 mg Q12HR XENIA Administration Ondansetron HCl 4 mg 10/02/19 12:21 Zofran IV Q8H PRN Nausea And Vomiting Sodium Chloride 10 ml 10/02/19 22:00 10/03/19 09:36 Sodium Chloride Flush Syringe 10 Ml IV 10 ml BID XNEIA Administration Sodium Chloride 10 ml 10/02/19 12:21 Sodium Chloride Flush Syringe 10 Ml IV PRN PRN LINE FLUSH
[2019-10-03 13:06] LABS: Band Neutrophils # (Manual) 0.1 K/mm3; Basophils % (Manual) 0 % (0.0-1.8); Eosinophils % (Manual) 0 % (0.0-4.3); Giant Platelets Rare; Platelet Estimate Consistent w Auto; RBC Morphology Normal; Total Cells Counted 100
[2019-10-04] MEDS ORDERED: MORPHINE 2 MG/1 ML INJ IV PRN (00:09)
[2019-10-04 01:20] VITALS: BP 114/69
[2019-10-04] MEDS: IPRATROPIUM/ALBUTEROL SULFATE 3 ML AMPUL.NEB IH SCH ×2 (03:32→08:20)
[2019-10-04] MEDS: BENZONATATE 100 MG CAP PO SCH (06:04)
[2019-10-04] MEDS: BUDESONIDE 0.5 MG/2 ML NEBU IH SCH (08:20)
--- NOTE | 2019-10-04 09:13 | Discharge Summary ---
Providers - Providers Date of Admission: 10/02/19 09:42 Date of discharge: 10/04/19 Attending physician: DANA DIEGO 10/04/19 08:02 Consult to Physician [CONS] Routine Comment: Consulting Provider: EDA MORROW Physician Instructions: Reason For Exam: Pancytopenia Primary care physician: SALES ATTEND[employer] Hospitalization Condition: Stable Disposition: DC-07 LEFT AGAINST MED ADVICE Exam - Constitutional Vitals: Temp Pulse Resp BP Pulse Ox 97.0 F L 89 16 114/69 93 10/03/19 23:05 10/03/19 23:05 10/03/19 23:05 10/03/19 23:05 10/04/19 00:00 Plan Follow up with: PRIMARY MD ORTIZ [Primary Care Provider] - 3-5 Days
== END 2019-10-04 08:45 | disposition left against medical advice (07) | DRG 189 ==
LOC: ED 13:38 → 3A 10-02 09:42
PROVIDERS: ADMIT Hospitalist; ATTEND Internal Medicine
PROC: 4A033R1 Measurement of Arterial Saturation, Peripheral, Percutaneous Approach (ICD-10-PCS; principal; 2019-10-02)
DX: J96.02 Acute respiratory failure with hypercapnia (principal); J96.01 Acute respiratory failure with hypoxia; J44.1 Chronic obstructive pulmonary disease with (acute) exacerbation; I50.9 Heart failure, unspecified; I11.0 Hypertensive heart disease with heart failure; B19.20 Unspecified viral hepatitis C without hepatic coma; F17.210 Nicotine dependence, cigarettes, uncomplicated; Z59.0 Homelessness; G89.4 Chronic pain syndrome; C21.0 Malignant neoplasm of anus, unspecified; D61.818 Other pancytopenia
CPT/HCPCS: 36415; 71046; 80048; 82803; 83880; 85007; 85025; 87116; 93005; 93010; 94640; 94760; G0378; J1650; J2920

== ENCOUNTER 2019-11-15 13:30 | Observation (INO) | payer MEDICAID ==
[2019-11-15] MEDS ORDERED: ALBUTEROL 2.5 MG/3 ML NEBU IH ONE (13:38)
[2019-11-15] MEDS ORDERED: IPRATROPIUM 0.02% NEBU 2.5 ML IH ONE (13:38)
[2019-11-15 14:50] LABS: Basophils % (Auto) 0.6 % (0.0-1.8); Eosinophils # (Auto) 0.1 K/mm3 (0.0-0.4); Eosinophils % (Auto) 1.3 % (0.0-4.3); Hematocrit 39.3 % (35.5-45.6); Hemoglobin 13.4 gm/dl (11.8-15.2); Lymphocytes # (Auto) 0.4 K/mm3 (1.2-5.4); Lymphocytes % (Auto) 9.2 % (13.4-35.0); Mean Corpuscular HGB Conc 34 % (32-34); Mean Corpuscular Volume 90 fl (84-94); Monocytes # (Auto) 0.3 K/mm3 (0.0-0.8); Monocytes % (Auto) 7.8 % (0.0-7.3); Red Blood Count 4.36 M/mm3 (3.65-5.03); Red Cell Distribution Width 15.2 % (13.2-15.2)
[2019-11-15 15:00] LABS: BUN/Creatinine Ratio 12; Blood Urea Nitrogen 7 mg/dL (9-20); Calcium 8.6 mg/dL (8.4-10.2); Hemolysis Index 6
--- NOTE | 2019-11-15 15:00 | XRay Report ---
CHEST 1 VIEW INDICATION / CLINICAL INFORMATION: sob. COMPARISON: 10/01/2019 FINDINGS: SUPPORT DEVICES: None. HEART / MEDIASTINUM: No significant abnormality. LUNGS / PLEURA: No significant pulmonary or pleural abnormality. No pneumothorax. There is minimal ri ght midlung atelectasis. ADDITIONAL FINDINGS: Healed rib fractures are noted. IMPRESSION: 1. No significant change Signer Name: Dawood Mendoza MD Signed: 11/15/2019 2:55 PM Workstation Name: [id number]
[2019-11-15 15:03] LABS: Platelet Count 42 K/mm3 (140-440)
[2019-11-15] MEDS ORDERED: methylPREDNISolone Sod Succinate 125 MG/2 ML INJ IM ONE (15:25)
[2019-11-15] MEDS ORDERED: methylPREDNISolone Sod Succinate 125 MG/2 ML INJ IV ONE (15:34)
--- NOTE | 2019-11-15 15:41 | Emergency Department Report ---
ED Shortness of Breath HPI - General Chief Complaint: Dyspnea/Respdistress Stated Complaint: COPD Time Seen by Provider: 11/15/19 14:11 Source: patient Mode of arrival: Stretcher Limitations: No Limitations - History of Present Illness Initial Comments: 59-year-old male, history of COPD, presents to ED with shortness of breath. Patient reports he has been short of breath x1 month. He was discharged 1 month ago from [facility] following an admission for pneumonia. Patient states he has been feeling dyspneic ever since. He denies chest pain, fever, cough. Reports inhaler use at home. Patient transported to ED by EMS, with CPAP in place. Albuterol nebulizer treatment given by EMS. Patient speaking in full sentences. MD Complaint: shortness of breath -: month(s) (1) Severity: moderate Consistency: constant Improves With: bronchodilators Worsens With: exertion Known History Of: COPD Associated Symptoms: denies other symptoms Treatments Prior to Arrival: bronchodilator, NIPPV - Related Data Home Oxygen Therapy: No Previous Rx's Medication Instructions Recorded Last Taken Type Nebulizer and Compressor [[place] 1 each MC TID #1 each 01/04/18 Unknown Rx Choice Nebulizer] ALBUTEROL NEB's [Proventil 0.083% 2.5 mg IH Q3HRT PRN #1 nebu 09/13/19 Unknown Rx NEBS] Albuterol INH(or & Nicu Only) 2 puff IH QID PRN #2 can 09/13/19 Unknown Rx [ProAir HFA Inhaler] Benzonatate [Tessalon Perles] 100 mg PO Q8HR #14 capsule 09/13/19 Unknown Rx Budesonide [Pulmicort Respules] 0.5 mg IH Q12HRT #60 nebu 09/13/19 Unknown Rx Famotidine [Pepcid] 20 mg PO BID #60 tablet 09/13/19 Unknown Rx Furosemide [Lasix TAB] 20 mg PO QDAY #7 tablet 09/13/19 Unknown Rx Ipratropium/Albuterol Sulfate 1 ampul IH TIDRT #100 ampul.neb 09/13/19 Unknown Rx [DUONEB *Not for PRN Use*] Sennosides/Docusate [Senokot S] 1 tab PO DAILY #30 tablet 09/13/19 Unknown Rx Tbo-Filgrastim [Granix] 480 mcg SUB-Q DAILY syringe 09/13/19 Unknown Rx clonazePAM [KlonoPIN] 1 mg PO DAILY #10 tablet 09/13/19 Unknown Rx diphenhydrAMINE [Benadryl CAP] 25 mg PO Q6HR PRN #20 capsule 09/13/19 Unknown Rx Methadone [Dolophine] 70 mg PO DAILY tablet 09/16/19 Unknown Rx Prednisone [predniSONE 10 mg 10 mg PO .TAPER #1 tab.ds.pk 09/16/19 Unknown Rx (6-Day Pack, 21 Tabs)] Albuterol Sulfate [Proair 90 mcg IH Q4HR PRN #1 aer.pow.ba 09/26/19 Unknown Rx Respiclick] Furosemide [Lasix] 20 mg PO QDAY #14 tablet 09/26/19 Unknown Rx Lactulose [Cephulac] 20 gm PO QDAY #500 ml 09/26/19 Unknown Rx Allergies Allergy/AdvReac Type Severity Reaction Status Date / Time codeine Allergy Rash Verified 09/26/19 11:06 ED Review of Systems ROS: Stated complaint: COPD Other details as noted in HPI Comment: All other systems reviewed and negative Constitutional: denies: chills, fever Respiratory: shortness of breath. denies: cough Cardiovascular: denies: chest pain ED Past Medical Hx - Past Medical History Hx Hypertension: Yes Hx CVA: No Hx Heart Attack/AMI: No Hx Congestive Heart Failure: No Hx Diabetes: No Hx Deep Vein Thrombosis: No Hx Pulmonary Embolism: No Hx GERD: No Hx Liver Disease: Yes (Hep C) Hx Renal Disease: No Hx Sickle Cell Disease: No Hx Arthritis: Yes (Hands and vack) Hx Headaches / Migraines: No Hx Seizures: No Hx Kidney Stones: No Hx Psychiatric Treatment: No Hx Asthma: No Hx COPD: Yes Hx Tuberculosis: No Hx Dementia: No Hx HIV: No Additional medical history: Hepatitis C, anal CA with current Chemo treatments in 2017 - Surgical History Hx Pacemaker: No Hx Internal Defibrillator: No Additional Surgical History: Hemorrhoidectomy, Anal biopsy - Social History Smoking Status: Never Smoker Substance Use Type: None - Medications Home Medications: Home Medications Medication Instructions Recorded Confirmed Last Taken Type Nebulizer and Compressor [[place] 1 each MC TID #1 each 01/04/18 11/15/19 Unknown Rx Choice Nebulizer] ALBUTEROL NEB's [Proventil 0.083% 2.5 mg IH Q3HRT PRN #1 nebu 09/13/19 11/15/19 Unknown Rx NEBS] Albuterol INH(or & Nicu Only) 2 puff IH QID PRN #2 can 09/13/19 11/15/19 Unknown Rx [ProAir HFA Inhaler] Benzonatate [Tessalon Perles] 100 mg PO Q8HR #14 capsule 09/13/19 11/15/19 Unknown Rx Budesonide [Pulmicort Respules] 0.5 mg IH Q12HRT #60 nebu 09/13/19 11/15/19 Unknown Rx Famotidine [Pepcid] 20 mg PO BID #60 tablet 09/13/19 11/15/19 Unknown Rx Furosemide [Lasix TAB] 20 mg PO QDAY #7 tablet 09/13/19 11/15/19 Unknown Rx Ipratropium/Albuterol Sulfate 1 ampul IH TIDRT #100 ampul.neb 09/13/19 11/15/19 Unknown Rx [DUONEB *Not for PRN Use*] Sennosides/Docusate [Senokot S] 1 tab PO DAILY #30 tablet 09/13/19 11/15/19 Unknown Rx Tbo-Filgrastim [Granix] 480 mcg SUB-Q DAILY syringe 09/13/19 11/15/19 Unknown Rx clonazePAM [KlonoPIN] 1 mg PO DAILY #10 tablet 09/13/19 11/15/19 Unknown Rx diphenhydrAMINE [Benadryl CAP] 25 mg PO Q6HR PRN #20 capsule 09/13/19 11/15/19 Unknown Rx Methadone [Dolophine] 70 mg PO DAILY tablet 09/16/19 11/15/19 Unknown Rx Prednisone [predniSONE 10 mg 10 mg PO .TAPER #1 tab.ds.pk 09/16/19 11/15/19 Unknown Rx (6-Day Pack, 21 Tabs)] Albuterol Sulfate [Proair 90 mcg IH Q4HR PRN #1 aer.pow.ba 09/26/19 11/15/19 Unknown Rx Respiclick] Furosemide [Lasix] 20 mg PO QDAY #14 tablet 09/26/19 11/15/19 Unknown Rx Lactulose [Cephulac] 20 gm PO QDAY #500 ml 09/26/19 11/15/19 Unknown Rx ED Physical Exam - General Limitations: No Limitations General appearance: alert, in no apparent distress - Head Head exam: Present: atraumatic, normocephalic - Eye Eye exam: Present: normal appearance - ENT ENT exam: Present: mucous membranes moist - Neck Neck exam: Present: normal inspection - Respiratory Respiratory exam: Present: wheezes - Cardiovascular Cardiovascular Exam: Present: regular rate, normal rhythm - GI/Abdominal GI/Abdominal exam: Present: soft. Absent: distended, tenderness - Extremities Exam Extremities exam: Present: normal inspection - Neurological Exam Neurological exam: Present: alert, oriented X3 - Psychiatric Psychiatric exam: Present: normal affect, normal mood - Skin Skin exam: Present: warm, dry, intact, normal color ED Course Vital Signs 11/15/19 11/15/19 11/15/19 13:38 13:42 14:00 Temperature 97.4 F L Pulse Rate 95 H 94 H 94 H Pulse Rate [ Bilateral] Respiratory 19 18 12 Rate Respiratory Rate [Bilateral ] Blood Pressure 149/85 138/79 Blood Pressure [Right] O2 Sat by Pulse 98 98 Oximetry 11/15/19 11/15/19 11/15/19 15:00 15:30 15:38 Temperature Pulse Rate 95 H 96 H Pulse Rate [ 94 H Bilateral] Respiratory 14 20 Rate Respiratory 20 Rate [Bilateral ] Blood Pressure 155/87 Blood Pressure 140/84 [Right] O2 Sat by Pulse 96 95 Oximetry 11/15/19 11/15/19 11/15/19 16:00 17:00 17:05 Temperature Pulse Rate 96 H 92 H Pulse Rate [ Bilateral] Respiratory 21 16 Rate Respiratory Rate [Bilateral ] Blood Pressure 127/77 139/73 Blood Pressure [Right] O2 Sat by Pulse 92 91 88 Oximetry 11/15/19 11/15/19 11/15/19 18:00 19:00 20:00 Temperature Pulse Rate 90 85 87 Pulse Rate [ Bilateral] Respiratory 14 18 13 Rate Respiratory Rate [Bilateral ] Blood Pressure 118/69 119/64 112/75 Blood Pressure [Right] O2 Sat by Pulse 92 96 95 Oximetry 11/15/19 11/15/19 11/15/19 20:47 21:00 21:17 Temperature Pulse Rate 87 87 Pulse Rate [ Bilateral] Respiratory 12 13 Rate Respiratory Rate [Bilateral ] Blood Pressure 105/67 103/64 103/64 Blood Pressure [Right] O2 Sat by Pulse 96 96 95 Oximetry ED Medical Decision Making - Lab Data Result diagrams: 11/16/19 05:15 11/16/19 05:15 - Radiology Data Radiology results: report reviewed, image reviewed - Medical Decision Making - COPD exacerbation - remains 87% RA follow nebs - CXR clear - spoke w/ Dr Orozco, hospitalist, for admission - Differential Diagnosis pneumonia, COPD, pulm edema Critical care attestation.: If time is entered above; I have spent that time in minutes in the direct care of this critically ill patient, excluding procedure time. ED Disposition Clinical Impression: COPD with acute exacerbation, Hypoxia Disposition: OP ADMIT IP TO THIS HOSP Is pt being admited?: Yes Condition: Stable Time of Disposition: 16:56
[2019-11-15 18:18] LABS: ABG Base Excess 7.5 mmol/L (-2.0-3.0); ABG HCO3 32.6 mmol/L (20.0-26.0); ABG Methemoglobin 0.6 % (0.0-1.5); ABG Oxygen Saturation 90.1 % (95.0-99.0); ABG PCO2 47.4 mm Hg; ABG PH 7.454 pH Units (7.350-7.450); ABG PO2 55.2 mm Hg (80.0-90.0)
--- NOTE | 2019-11-15 20:24 | History and Physical Report ---
History of Present Illness Date of examination: 11/15/19 Date of admission: 11/15/2019 Chief complaint: Cough and short of breath for 2 days with excessive wheezing and not responding to nebulizer treatments at home History of present illness: 59-year-old male disheveled with history of COPD, GERD and chronic pain on methadone comes in for increasing shortness of breath for the last 2 days. Cough productive of mucoid sputum. Patient has been short of breath for 1 month but more so for the last 2 days. Patient was recently admitted to [facility] for pneumonia. After discharge patient has been feeling short of breath but more so for the last 48 hours. No recent travel. Patient is not smoking. No fever. No exacerbating or relieving factors. Past Medical History Hypertension: Yes Liver Disease: Yes (Hep C) Arthritis: Yes (Hands and vack) COPD: Yes Additional medical history: Hepatitis C, anal CA with current Chemo treatments in 2017 Surgical History Additional Surgical History: Hemorrhoidectomy, Anal biopsy Social History Smoking Status: Never Smoker Substance Use Type: None Family history Htn - Medications Home Medications: Home Medications Medication Instructions Recorded Confirmed Last Taken Type Nebulizer and Compressor [[place] 1 each MC TID #1 each 01/04/18 10/03/19 Unknown Rx Choice Nebulizer] ALBUTEROL NEB's [Proventil 0.083% 2.5 mg IH Q3HRT PRN #1 nebu 09/13/19 10/03/19 Unknown Rx NEBS] Albuterol INH(or & Nicu Only) 2 puff IH QID PRN #2 can 09/13/19 10/03/19 Unknown Rx [ProAir HFA Inhaler] Benzonatate [Tessalon Perles] 100 mg PO Q8HR #14 capsule 09/13/19 10/03/19 Unk nown Rx Budesonide [Pulmicort Respules] 0.5 mg IH Q12HRT #60 nebu 09/13/19 10/03/19 Unknown Rx Famotidine [Pepcid] 20 mg PO BID #60 tablet 09/13/19 10/03/19 Unknown Rx Furosemide [Lasix TAB] 20 mg PO QDAY #7 tablet 09/13/19 10/03/19 Unknown Rx Ipratropium/Albuterol Sulfate 1 ampul IH TIDRT #100 ampul.neb 09/13/19 10/03/19 Unknown Rx [DUONEB *Not for PRN Use*] Sennosides/Docusate [Senokot S] 1 tab PO DAILY #30 tablet 09/13/19 10/03/19 Unknown Rx Tbo-Filgrastim [Granix] 480 mcg SUB-Q DAILY syringe 09/13/19 10/03/19 Unknown Rx clonazePAM [KlonoPIN] 1 mg PO DAILY #10 tablet 09/13/19 10/03/19 Unknown Rx diphenhydrAMINE [Benadryl CAP] 25 mg PO Q6HR PRN #20 capsule 09/13/19 10/03/19 Unknown Rx Methadone [Dolophine] 70 mg PO DAILY tablet 09/16/19 10/03/19 Unknown Rx Prednisone [predniSONE 10 mg 10 mg PO .TAPER #1 tab.ds.pk 09/16/19 10/03/19 Unknown Rx (6-Day Pack, 21 Tabs)] Albuterol Sulfate [Proair 90 mcg IH Q4HR PRN #1 aer.pow.ba 09/26/19 10/03/19 Unknown Rx Respiclick] Furosemide [Lasix] 20 mg PO QDAY #14 tablet 09/26/19 10/03/19 Unknown Rx Lactulose [Cephulac] 20 gm PO QDAY #500 ml 09/26/19 10/03/19 Unknown Rx Review of Systems ROS: Stated complaint: COPD Other details as noted in HPI Comment: All other systems reviewed and negative Constitutional: denies: chills, fever Respiratory: shortness of breath. denies: cough Cardiovascular: denies: chest pain Medications and Allergies Allergies Allergy/AdvReac Type Severity Reaction Status Date / Time codeine Allergy Rash Verified 09/26/19 11:06 Home Medications Medication Instructions Recorded Confirmed Last Taken Type Nebulizer and Compressor [[place] 1 each MC TID #1 each 01/04/18 11/15/19 Unknown Rx Choice Nebulizer] ALBUTEROL NEB's [Proventil 0.083% 2.5 mg IH Q3HRT PRN #1 nebu 09/13/19 11/15/19 Unknown Rx NEBS] Albuterol INH(or & Nicu Only) 2 puff IH QID PRN #2 can 09/13/19 11/15/19 Unknown Rx [ProAir HFA Inhaler] Benzonatate [Tessalon Perles] 100 mg PO Q8HR #14 capsule 09/13/19 11/15/19 Un known Rx Budesonide [Pulmicort Respules] 0.5 mg IH Q12HRT #60 nebu 09/13/19 11/15/19 Unknown Rx Famotidine [Pepcid] 20 mg PO BID #60 tablet 09/13/19 11/15/19 Unknown Rx Furosemide [Lasix TAB] 20 mg PO QDAY #7 tablet 09/13/19 11/15/19 Unknown Rx Ipratropium/Albuterol Sulfate 1 ampul IH TIDRT #100 ampul.neb 09/13/19 11/15/19 Unknown Rx [DUONEB *Not for PRN Use*] Sennosides/Docusate [Senokot S] 1 tab PO DAILY #30 tablet 09/13/19 11/15/19 Unknown Rx Tbo-Filgrastim [Granix] 480 mcg SUB-Q DAILY syringe 09/13/19 11/15/19 Unknown Rx clonazePAM [KlonoPIN] 1 mg PO DAILY #10 tablet 09/13/19 11/15/19 Unknown Rx diphenhydrAMINE [Benadryl CAP] 25 mg PO Q6HR PRN #20 capsule 09/13/19 11/15/19 Unknown Rx Methadone [Dolophine] 70 mg PO DAILY tablet 09/16/19 11/15/19 Unknown Rx Prednisone [predniSONE 10 mg 10 mg PO .TAPER #1 tab.ds.pk 09/16/19 11/15/19 Unknown Rx (6-Day Pack, 21 Tabs)] Albuterol Sulfate [Proair 90 mcg IH Q4HR PRN #1 aer.pow.ba 09/26/19 11/15/19 Unknown Rx Respiclick] Furosemide [Lasix] 20 mg PO QDAY #14 tablet 09/26/19 11/15/19 Unknown Rx Lactulose [Cephulac] 20 gm PO QDAY #500 ml 09/26/19 11/15/19 Unknown Rx Exam - Constitutional Vitals: Temp Pulse Resp BP Pulse Ox 97.4 F L 85 18 119/64 96 11/15/19 13:42 11/15/19 19:00 11/15/19 19:00 11/15/19 19:00 11/15/19 19:00 General appearance: Present: mild distress, well-nourished - EENT Eyes: Present: PERRL ENT: hearing intact, clear oral mucosa - Neck Neck: Present: supple, normal ROM - Respiratory Respiratory effort: normal Respiratory: bilateral: diminished, rhonchi, wheezing - Cardiovascular Heart rate: 88 Rhythm: regular Heart Sounds: Present: S1 & S2. Absent: rub, click - Extremities Extremities: no ischemia, pulses intact, pulses symmetrical, No edema Peripheral Pulses: within normal limits - Abdominal General gastrointestinal: Present: soft, non-tender, non-distended, normal bowel sounds Male genitourinary: Present: normal - Rectal Rectal Exam: deferred - Integumentary Integumentary: Present: clear, warm, dry - Musculoskeletal Musculoskeletal: gait normal, strength equal bilaterally - Psychiatric Psychiatric: appropriate mood/affect, intact judgment & insight - Neurologic Neurologic: CNII-XII intact, moves all extremities - Allied Health Allied health notes reviewed: nursing, case management LEYDI score - Leydi Score Age > 65: (0) No Aspirin use within the Past 7 Days: (0) No 3 or more CAD Risk Factors: (0) No 2 or more Angina events in past 24 hrs: (0) No Known CAD with more than 50% Stenosis: (0) No Elevated Cardiac Markers: (0) No ST Deviation Greater than 0.5mm: (0) No LEYDI Score: 0 Results - Labs CBC & Chem 7: 11/15/19 14:30 11/15/19 14:30 Labs: Laboratory Last Values WBC 4.3 K/mm3 (4.5-11.0) L 11/15/19 14:30 RBC 4.36 M/mm3 (3.65-5.03) 11/15/19 14:30 Hgb 13.4 gm/dl (11.8-15.2) 11/15/19 14:30 Hct 39.3 % (35.5-45.6) 11/15/19 14:30 MCV 90 fl (84-94) 11/15/19 14:30 MCH 31 pg (28-32) 11/15/19 14:30 MCHC 34 % (32-34) 11/15/19 14:30 RDW 15.2 % (13.2-15.2) 11/15/19 14:30 Plt Count 42 K/mm3 (140-440) L 11/15/19 14:30 Lymph % (Auto) 9.2 % (13.4-35.0) L 11/15/19 14:30 [place]ley % (Auto) 7.8 % (0.0-7.3) H 11/15/19 14:30 Eos % (Auto) 1.3 % (0.0-4.3) 11/15/19 14:30 Baso % (Auto) 0.6 % (0.0-1.8) 11/15/19 14: Lymph # 0.4 K/mm3 (1.2-5.4) L 11/15/19 14:30 [place]ley # 0.3 K/mm3 (0.0-0.8) 11/15/19 14: Eos # 0.1 K/mm3 (0.0-0.4) 11/15/19 14: Baso # 0.0 K/mm3 (0.0-0.1) 11/15/19 14: Seg Neutrophils % 81.1 % (40.0-70.0) H 11/15/19 14: Seg Neutrophils # 3.5 K/mm3 (1.8-7.7) 11/15/19 14:30 ABG pH 7.454 pH Units (7.350-7.450) H 11/15/19 18:10 ABG pCO2 47.4 mm Hg 11/15/19 18:10 ABG pO2 55.2 mm Hg (80.0-90.0) L 11/15/19 18:10 ABG HCO3 32.6 mmol/L (20.0-26.0) H 11/15/19 18:10 ABG O2 Saturation 90.1 % (95.0-99.0) L 11/15/19 18:10 ABG O2 Content 15.4 (0.0-44) 11/15/19 18:10 ABG Base Excess 7.5 mmol/L (-2.0-3.0) H 11/15/19 18:10 ABG Hemoglobin 12.7 gm/dl (14.0-18.0) L 11/15/19 18:10 ABG Carboxyhemoglobin 3.4 % (0.0-5.0) 11/15/19 18:10 ABG Methemoglobin 0.6 % (0.0-1.5) 11/15/19 18:10 Oxyhemoglobin 86.5 % (95.0-99.0) L 11/15/19 18:10 FiO2 21 % 11/15/19 18:10 Sodium 144 mmol/L (137-145) 11/15/19 14:30 Potassium 3.3 mmol/L (3.6-5.0) L 11/15/19 14:30 Chloride 103.1 mmol/L (98-107) 11/15/19 14:30 Carbon Dioxide 30 mmol/L (22-30) 11/15/19 14:30 Anion Gap 14 mmol/L 11/15/19 14:30 BUN 7 mg/dL (9-20) L 11/15/19 14:30 Creatinine 0.6 mg/dL (0.8-1.5) L 11/15/19 14:30 Estimated GFR > 60 ml/min 11/15/19 14:30 BUN/Creatinine Ratio 12 % 11/15/19 14:30 Glucose 93 mg/dL (75-100) 11/15/19 14:30 Calcium 8.6 mg/dL (8.4-10.2) 11/15/19 14:30 Short CBC 11/15/19 Range/Units 14:30 WBC 4.3 L (4.5-11.0) K/mm3 Hgb 13.4 (11.8-15.2) gm/dl Hct 39.3 (35.5-45.6) % Plt Count 42 L (140-440) K/mm3 BMP 11/15/19 14:30 Sodium 144 Potassium 3.3 L Chloride 103.1 Carbon Dioxide 30 BUN 7 L Creatinine 0.6 L Glucose 93 Calcium 8.6 - Imaging and Cardiology EKG: report reviewed Chest x-ray: report reviewed Imaging and Cardiology: Chest x-ray SUPPORT DEVICES: None. HEART / MEDIASTINUM: No significant abnormality. LUNGS / PLEURA: No significant pulmonary or pleural abnormality. No pneumothorax. There is minimal right midlung atelectasis. ADDITIONAL FINDINGS: Healed rib fractures are noted. IMPRESSION: 1. No significant change Assessment and Plan Advance Directives: Yes (Full code) VTE prophylaxis?: Chemical Plan of care discussed with patient/family: Yes - Patient Problems (1) COPD with acute exacerbation Current Visit: Yes Status: Acute Plan to address problem: Patient initiated on IV Solu-Medrol, IV Levaquin and duo nebs [id number] and every 3 as needed. Continue oxygen to keep sats above 93-94 (2) Acute respiratory failure with hypoxia Current Visit: No Status: Acute Plan to address problem: Patient's PO2 level is 55 consistent with respiratory failure and hypoxia PCO2 is 47.4 Continue bronchodilators in the form of DuoNebs, IV Solu-Medrol and IV Levaquin. Pulmonary consult if necessary. (3) Hypokalemia Current Visit: Yes Status: Acute Plan to address problem: Supplemented (4) GERD (gastroesophageal reflux disease) Current Visit: Yes Status: Chronic Qualifiers: Esophagitis presence: without esophagitis Qualified Code(s): K21.9 - Gastro-esophageal reflux disease without esophagitis Plan to address problem: Continue famotidine. (5) Methadone dependence Current Visit: Yes Status: Chronic Plan to address problem: Continue methadone. (6) DVT prophylaxis Current Visit: No Status: Acute Plan to address problem: On heparin and GI prophylaxis and now
[2019-11-15] MEDS ORDERED: diphenhydrAMINE 25 MG CAP PO PRN (20:25)
[2019-11-15] MEDS ORDERED: ALBUTEROL 8.5 GM INHALATION IH PRN (20:25)
[2019-11-15] MEDS ORDERED: ACETAMINOPHEN 325 MG TAB PO PRN (20:27)
[2019-11-15] MEDS ORDERED: IBUPROFEN 600 MG TAB PO PRN (20:27)
[2019-11-15] MEDS ORDERED: HYDROmorphone 1 MG/1 ML INJ IV PRN (20:27)
[2019-11-15] MEDS ORDERED: ONDANSETRON 4 MG/2 ML INJ IV PRN (20:27)
[2019-11-15] MEDS ORDERED: IPRATROPIUM/ALBUTEROL SULFATE 3 ML AMPUL.NEB IH PRN (20:34)
[2019-11-15] MEDS ORDERED: ALBUTEROL 2.5 MG/3 ML NEBU IH PRN (20:43)
[2019-11-15] MEDS ORDERED: POTASSIUM CHLORIDE ER 20 MEQ TAB PO ONE (21:18)
[2019-11-15] MEDS: BUDESONIDE 0.5 MG/2 ML NEBU IH SCH (21:37)
[2019-11-15] MEDS: clonazePAM 0.5 MG TAB PO SCH (21:55)
[2019-11-15] MEDS: methylPREDNISolone Sod Succinate 40 MG/1 ML INJ IV SCH (21:55)
[2019-11-15] MEDS: HEPARIN 5,000 UNIT/1 ML VIAL SUB-Q SCH (21:56)
[2019-11-15] MEDS: FAMOTIDINE 20 MG TAB PO SCH (21:56)
[2019-11-16] MEDS: methylPREDNISolone Sod Succinate 40 MG/1 ML INJ IV SCH ×2 (05:44→16:51)
[2019-11-16 06:03] LABS: Hemoglobin 12.9 gm/dl (11.8-15.2); Mean Corpuscular HGB Conc 34 % (32-34); Mean Corpuscular Volume 91 fl (84-94); Platelet Count 38 K/mm3 (140-440); Red Blood Count 4.18 M/mm3 (3.65-5.03); Red Cell Distribution Width 14.5 % (13.2-15.2)
[2019-11-16 06:25] LABS: Alanine Aminotransferase 18 units/L (7-56); Albumin 2.9 g/dL (3.9-5); BUN/Creatinine Ratio 16; Blood Urea Nitrogen 11 mg/dL (9-20); Calcium 8.4 mg/dL (8.4-10.2); Hemolysis Index 2
[2019-11-16 07:07] LABS: Basophils % (Manual) 0 % (0.0-1.8); Eosinophils % (Manual) 0 % (0.0-4.3); Total Cells Counted 100
[2019-11-16 07:08] LABS: Burr Cells Rare; Platelet Estimate Consistent w Auto
[2019-11-16] MEDS: BUDESONIDE 0.5 MG/2 ML NEBU IH SCH (08:13)
[2019-11-16] MEDS: IPRATROPIUM/ALBUTEROL SULFATE 3 ML AMPUL.NEB IH SCH ×2 (08:13→15:56)
[2019-11-16] MEDS: SENNOSIDES/DOCUSATE SODIUM 8.6/50 MG TAB PO SCH ×2 (09:15→09:17)
[2019-11-16] MEDS: FAMOTIDINE 20 MG TAB PO SCH (09:15)
[2019-11-16] MEDS: clonazePAM 0.5 MG TAB PO SCH (09:15)
[2019-11-16] MEDS: HEPARIN 5,000 UNIT/1 ML VIAL SUB-Q SCH (09:18)
[2019-11-16] MEDS ORDERED: LACTULOSE 20 GM/30 ML ORAL LIQD PO SCH (10:00)
[2019-11-16] MEDS ORDERED: TBO-FILGRASTIM 480 MCG/0.8 ML SUB-Q SCH (10:00)
[2019-11-16] MEDS ORDERED: FUROSEMIDE 20 MG TAB PO SCH (10:00)
[2019-11-16] MEDS ORDERED: METHADONE 10 MG TAB PO SCH (10:00)
--- NOTE | 2019-11-16 13:08 | Discharge Summary ---
Providers - Providers Date of Admission: 11/15/19 20:27 Date of discharge: 11/16/19 Attending physician: KALANI ALFONSO Primary care physician: [employer] MANAGEMENT CONSULTANT Hospitalization Condition: Stable Pertinent studies: CXR: no changes Hospital course: 59 YO Male with Anal Cancer (currently in remission S/P chemotherapy radiation treatments), HTN, HCV, COPD, Chronic Pain syndrome currently on Methadone Maintenance Program who presented to ED for worsening shortness of breath. patient was seen and evaluated in Emergency Department and admitted for obsevation for COPD exacerbation. He was medically stabilized and was discharged with hospice. Discharge diagnosis and mx: COPD exacerbation Treated with IV Solu-Medrol, and bronchodilators/nebulizers Acute hypercapnic hypoxemic respiratory failure secondary to COPD exacerbation. Continue home O2 on discharge. Chronic CHF. Compensated. Methadone dependence Continue his home dose of methadone HTN (hypertension). 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 years Pancytopenia, chronic Disposition: home with hospice Disposition: DC-50 TO HOSPICE (HOME) Time spent for discharge: 34 minutes Core Measure Documentation - Palliative Care Palliative Care/ Comfort Measures: Not Applicable - Core Measures Any of the following diagnoses?: none Exam - Constitutional Vitals: Temp Pulse Resp BP Pulse Ox 97.9 F 99 H 20 149/100 89 11/16/19 11:03 11/16/19 11:03 11/16/19 11:03 11/16/19 11:03 11/16/19 11:03 General appearance: Present: no acute distress, well-nourished - EENT Eyes: Present: PERRL ENT: hearing intact, clear oral mucosa - Neck Neck: Present: supple, normal ROM - Respiratory Respiratory effort: normal Respiratory: bilateral: diminished - Cardiovascular Heart Sounds: Present: S1 & S2. Absent: rub, click - Extremities Extremities: pulses symmetrical, No edema Peripheral Pulses: within normal limits - Abdominal General gastrointestinal: Present: soft, non-tender, non-distended, normal bowel sounds - Integumentary Integumentary: Present: warm, dry - Musculoskeletal Musculoskeletal: gait normal, strength equal bilaterally - Psychiatric Psychiatric: appropriate mood/affect, intact judgment & insight - Neurologic Neurologic: CNII-XII intact, moves all extremities Plan Activity: advance as tolerated Weight Bearing Status: Weight Bear as Tolerated Diet: low fat, low salt Special Instructions: record daily BP diary, home oxygen via (n/c) Follow up with: PRIMARY CARE, [Primary Care Provider] - 3-5 Days Prescriptions: Prednisone [predniSONE 10 mg (6-Day Pack, 21 Tabs)] 10 mg PO .TAPER #1 tab.ds.pk Budesonide [Pulmicort Respules] 0.5 mg IH Q12HRT #60 nebu Benzonatate [Tessalon Perles] 100 mg PO Q8HR #14 capsule Ipratropium/Albuterol Sulfate [DUONEB *Not for PRN Use*] 1 ampul IH TIDRT PRN #100 ampul.neb PRN Reason: Shortness Of Breath
[2019-11-16 18:19] VITALS: BP 153/80
== END 2019-11-16 18:05 | disposition hospice, home (50) ==
LOC: ED 13:30 → 3A 20:27
PROVIDERS: ADMIT Internal Medicine; ATTEND Internal Medicine
DX: J44.1 Chronic obstructive pulmonary disease with (acute) exacerbation (principal); J96.01 Acute respiratory failure with hypoxia; E87.6 Hypokalemia; K21.9 Gastro-esophageal reflux disease without esophagitis; F11.20 Opioid dependence, uncomplicated; I10 Essential (primary) hypertension; M19.042 Primary osteoarthritis, left hand; M19.041 Primary osteoarthritis, right hand; C21.0 Malignant neoplasm of anus, unspecified; J96.02 Acute respiratory failure with hypercapnia; B18.2 Chronic viral hepatitis C; K74.60 Unspecified cirrhosis of liver; F17.200 Nicotine dependence, unspecified, uncomplicated; F10.11 Alcohol abuse, in remission; D61.818 Other pancytopenia; Z79.899 Other long term (current) drug therapy
CPT/HCPCS: 36415; 71045; 80048; 80053; 82803; 83036; 85007; 85025; 87116; 94640; 94644; 94760; 96365; 96366; 96372; 96375; 96376; 99285; 99406; G0378; J1447; J1644; J1956; J2405; J2920; J2930